=== PATIENT | male | born 1955 | race Caucasian/White ===

== ENCOUNTER 2017-08-03 15:12 | Inpatient (IN) ==
[2017-08-03] MEDS ORDERED: methylPREDNISolone 125 MG/2 ML VIAL IVP ONE (15:21)
[2017-08-03] MEDS ORDERED: Ipratropium/Albuterol Neb 3 ML IH ONE ×2 (15:21→20:24)
[2017-08-03] MEDS ORDERED: 0.9 % Sodium Chloride 1,000 ML IVC ONE (15:21)
--- NOTE | 2017-08-03 15:25 | Emergency Department Note ---
Disposition Clinical Impression: COPD (chronic obstructive pulmonary disease) Qualifiers: COPD type: COPD with acute exacerbation Qualified Code(s): J44.1 - Chronic obstructive pulmonary disease with (acute) exacerbation Disposition: Admitted As Inpatient Condition: Good Time of Disposition: 17:22 General Adult HPI - General Chief complaint: ED Shortness of Breath/Dyspnea Stated complaint: SOB Time Seen by Provider: 08/03/17 15:18 Source: patient Mode of arrival: EMS Limitations: no limitations Nursing Notes Reviewed: Yes Vital Signs Reviewed: Yes - History of Present Illness HPI Narrative: 62-year-old male with a history of COPD presented for evaluation of dyspnea. Patient presented via EMS from urgent care. Patient states he had worsening shortness of breath over the past 2 days. Notes a cough. Reports objective fevers. States that he is been on 2 L is cannula at home. Patient also has nebs at home. Patient denies any chest pain. No abdominal pain. No nausea vomiting. Patient is a poor store with difficulty to understand verbal skills. Pain Scale: 0 - Related Data Home Medications Medication Instructions Recorded Confirmed Albuterol Sulfate [Proair 90 mcg IH QID 08/03/17 08/03/17 Respiclick] Ammonium Lactate [Hailey-Hydrolac] 222 ml TP 08/03/17 Atorvastatin [Lipitor] 10 mg PO HS 08/03/17 08/03/17 Fluticasone/Vilanterol [Breo 1 each IH 08/03/17 Ellipta 100-25 Mcg INH] LORazepam [Ativan] 0.5 mg PO 08/03/17 OLANZapine [Zyprexa] 10 mg PO 08/03/17 OLANZapine [Zyprexa] 15 mg HS 08/03/17 08/03/17 Ranitidine HCl [Zantac] 150 mg BID 08/03/17 08/03/17 fluvoxaMINE 50 mg PO DAILY 08/03/17 08/03/17 fluvoxaMINE [Luvox] 100 mg PO HS 08/03/17 08/03/17 metFORMIN [Glucophage] 500 mg HS 08/03/17 08/03/17 Previous Rx's Medication Instructions Recorded Azithromycin [Azithromycin 6-Tab 250 mg PO PER PKG DI #6 tab 01/09/16 Pack] Carbamide Peroxide [Murine Ear 15 ml OT BID #1 drops 01/09/16 Drops] predniSONE [PredniSONE] 60 mg PO DAILY #5 tablet 01/09/16 Azithromycin [Azithromycin 6-Tab 250 mg PO PER PKG DI #6 tab 04/07/16 Pack] Cetirizine HCl/Pseudoephedrine 1 each PO BID #14 tab.er.12h 04/07/16 [Cetirizine-Pse ER 5-120 mg Tab] Albuterol Sulfate [Albuterol 2 puff IH Q4HR PRN #1 hfa.aer.ad 09/19/16 Inhaler] predniSONE [PredniSONE] 60 mg PO DAILY #15 tablet 09/19/16 Benzonatate [Tessalon] 100 mg PO TID PRN #12 capsule 07/28/17 PredniSONE [Deltasone] 60 mg PO DAILY 5 Days #15 tablet 07/28/17 Allergies Allergy/AdvReac Type Severity Reaction Status Date / Time Amoxicillin [From Trimox] Allergy Hives Verified 04/15/17 07:42 cephalexin Allergy Hives Verified 04/15/17 07:42 diazepam [From Valium] Allergy Hallucinati Verified 04/15/17 07:42 ng haloperidol [From Haldol] Allergy Hallucinati Verified 04/15/17 07:42 ng Penicillins Allergy Hives Verified 04/15/17 07:42 All systems ED: reviewed and negative except as stated. Constitutional: Reports: as per HPI. Denies: fever Eyes: Reports: as per HPI ENT ED: Reports: as per HPI Cardiovascular: Reports: as per HPI. Denies: chest pain Respiratory: Reports: as per HPI, cough, dyspnea. Denies: sputum production Gastrointestinal: Reports: as per HPI Genitourinary: Reports: as per HPI Musculoskeletal: Reports: as per HPI Integumentary: Reports: as per HPI Neurological: Reports: as per HPI Psychiatric: Reports: as per HPI Endocrine: Reports: as per HPI Hematological/Lymphatic: Reports: as per HPI Past Medical History - Past Medical History Medical history: Reports: COPD, diabetes, hyperlipidemia, hypertension, myocardial infarction, thyroid disease Surgical history: Reports: non-contributory, other Psychiatric history: Reports: anxiety, schizophrenia - Social History Smoking Status: Current every day smoker Smokeless Tobacco Status: No Alcohol use: Reports: none Drug use: Reports: none Physical Exam - General Limitations: no limitations General appearance: alert, in no apparent distress - Head Head exam: atraumatic, normocephalic, normal inspection - Eye Eye exam: Present: normal appearance, PERRL, EOMI - ENT ENT exam: normal exam, mucous membranes moist - Neck Neck exam: Present: normal inspection, trachea midline - Chest Chest inspection: Present: normal inspection, symmetric chest wall rise - Respiratory Respiratory exam: Present: prolonged expiratory phase, other (Diffusely diminished with inspiratory rhonchi). Absent: respiratory distress - Cardiovascular Cardiovascular exam: Present: regular rate, normal rhythm. Absent: systolic murmur - Abdominal Exam Abdominal exam: Present: soft, Non-Tender - Extremities Exam Extremities exam: Present: normal inspection. Absent: pedal edema - Neurological Exam Neurological exam: Present: alert, oriented X3 - Skin Skin exam: Present: warm, dry, intact, normal color Course Course Narrative: Patient seen and examined. Patient appears to be in no acute distress. Patient was given albuterol in route. Patient will get basic labs, EKG, chest x -ray. Also noted triple nebs as well as steroids. Disposition pending. - Reevaluation(s) Reevaluation #1: Patient seen and examined. Patient's breathing is less labored. Patient's lung exam is slightly improved. Patient remains borderline hypoxic on his home oxygen saturation 2 L. Time: 16:20 Reevaluation #2: Patient ambulated and was hypoxic. Patient was in the mid to low 80s on his home oxygen therapy. Patient will be admitted the hospital service for COPD exacerbation. Time: 17:21 Vital Signs Temperature 98.8 F 08/03/17 15:13 Pulse Rate 82 08/03/17 15:13 Respiratory Rate 22 08/03/17 15:13 Blood Pressure 130/98 08/03/17 15:13 O2 Sat by Pulse Oximetry 98 08/03/17 15:13 Temperature 98.5 F 08/04/17 19:24 Pulse Rate 88 08/04/17 19:24 Respiratory Rate 19 08/04/17 19:45 Blood Pressure 108/67 08/04/17 19:24 O2 Sat by Pulse Oximetry 91 08/04/17 19:45 Oxygen Delivery Oxygen Delivery Nasal Cannula Medical Decision Making - [facility] Narrative Medical decision making narrative: 62-year-old male with a history of COPD presents for violation of dyspnea. Patient states that his dyspnea has been progressing over the past 2 days. Does dyspnea at rest or with exertion. Patient received a DuoNeb prior to arrival. Patient states that he typically does not wear his prescribe oxygen all the time however has recently been on 2 L. Patient received troponin as well as IV steroids. Patient's breathing improved on current therapies. Patient however states that he does feel hypoxic and did not tolerate a ambulatory trial. Patient does appear to have a slower mentation. Concerned that the patient would not tolerate prescribed outpatient plan and will require increasing oxygen requirements and monitoring. Patient does not have any chest pain. Patient does not have a productive cough. However Zithromax was ordered to help with anti-inflammatory nature of his bronchitis. Patient simply needs improved respiratory monitoring. Patient does not have any risk factors for pulmonary embolism. Patient does not have a pleuritic chest pain. The patient' s most likely reason for his hypoxia is a COPD. Patient is not tachycardic and does not have any chest pain. He is agreeable for admission. - Lab Data Lab results reviewed: Yes I reviewed the patient's lab results. Result diagrams: 08/04/17 04:16 08/04/17 04:16 Lab Results 08/03/17 08/03/17 08/03/17 Range/Units 15:28 15:28 15:28 WBC 12.1 H (4.3-11.1) K/mcL RBC 4.94 (4.19-5.50) M/mcL Hgb 16.2 (12.9-16.9) g/dL Hct 49.9 (37.5-50.1) % MCV 101.0 H (83.0-100.0) fL MCH 32.8 (28.0-33.3) pg MCHC 32.5 (31.6-35.5) g/dL RDW 13.2 (11.5-14.5) % Plt Count 182 (140-400) K/mcL MPV 9.8 (9.4-12.4) fL Immature Gran % 0.3 (0-4) % Seg Neutrophils % 67.5 % Lymphocytes % 21.7 % Monocytes % 9.9 % Eosinophils % 0.4 % Basophils % 0.2 % Neutrophils # 8.2 (1.6-8.9) K/mcL Lymphocytes # 2.6 (0.6-4.6) K/mcL Monocytes # 1.2 (0.0-1.3) K/mcL Eosinophils # 0.1 (0.0-0.6) K/mcL Basophils # 0.0 (0.0-0.2) K/mcL Sodium 138 (136-145) mEq/L Potassium 4.1 (3.5-5.1) mEq/L Chloride 99 (98-107) mEq/L Carbon Dioxide 37 H (23-29) mEq/L BUN 17 (8-23) mg/dL Creatinine 0.85 (0.70-1.30) mg/dL Est GFR ( Amer) > 60 (> 60) Est GFR (Non-Af Amer) > 60 (> 60) BUN/Creatinine Ratio 20 (6-26) Glucose 91 (70-105) mg/dL Calculated Osmolality 287 (280-300) Calcium 9.2 (8.6-10.3) mg/dL Troponin I < 0.03 (< 0.04) ng/mL B-Natriuretic Peptide (Less than 100) pg/mL 08/03/17 Range/Units 15:28 WBC (4.3-11.1) K/mcL RBC (4.19-5.50) M/mcL Hgb (12.9-16.9) g/dL Hct (37.5-50.1) % MCV (83.0-100.0) fL MCH (28.0-33.3) pg MCHC (31.6-35.5) g/dL RDW (11.5-14.5) % Plt Count (140-400) K/mcL MPV (9.4-12.4) fL Immature Gran % (0-4) % Seg Neutrophils % % Lymphocytes % % Monocytes % % Eosinophils % % Basophils % % Neutrophils # (1.6-8.9) K/mcL Lymphocytes # (0.6-4.6) K/mcL Monocytes # (0.0-1.3) K/mcL Eosinophils # (0.0-0.6) K/mcL Basophils # (0.0-0.2) K/mcL Sodium (136-145) mEq/L Potassium (3.5-5.1) mEq/L Chloride (98-107) mEq/L Carbon Dioxide (23-29) mEq/L BUN (8-23) mg/dL Creatinine (0.70-1.30) mg/dL Est GFR ( Amer) (> 60) Est GFR (Non-Af Amer) (> 60) BUN/Creatinine Ratio (6-26) Glucose (70-105) mg/dL Calculated Osmolality (280-300) Calcium (8.6-10.3) mg/dL Troponin I (< 0.04) ng/mL B-Natriuretic Peptide 65 (Less than 100) pg/mL - Radiology Data Radiology results reviewed: Yes I reviewed the patient's radiology results. Chest X-Ray 08/03/17 15:21 IMPRESSION: No acute cardiopulmonary disease. Moderate-sized hiatal hernia. D/ / Vinay Dumont MD / Vinay Dumont MD Interpreting Provider: Vinay Dumont MD - EKG Data EKG #1 EKG attestation: Yes I reviewed and interpreted this EKG. EKG shows normal: sinus rhythm Rate: normal Rhythm: NSR [place]/QRS: normal Q waves: II, III, aVF Interpretation: no acute changes, nonspecific ST-T wave changes S.B.A.R. - S.B.A.RCristi Situation: Demographics Background: Presenting Complaint Assessment: Vital Signs, Course and respsone to treatment, Patient/Family Expectation Recommendation: Barrier(s) to disposition, Recommendation based on pending studies, treatments, or consults S.B.A.R. Report Given to: Dr. Julia Perez Repor Time: 17:28 Attestation Statement - Attestation Attestation: I examined this patient and my medical decision-making was reviewed with the Resident Physician. I agree with the documented findings, disposition and treatment plan as described except to the extent set forth below. 62-year-old male presents stating that his difficulty breathing. He does have history of COPD and chronically on home oxygen. He has had increased dyspnea for the past 2 days along with a nonproductive cough. He does continue smoking cigarettes. He was not adequately responding to home treatments and prompting him to come to the ED. Denies fevers or chills. Cough is nonproductive. No vomiting. Patient is in no apparent distress except for slight tachypnea. Oropharynx extremities warm and dry. Neck supple. Trachea midline. Chest with diminished breath sounds throughout with lateral expiratory wheezes. No focal consolidation. Abdomen soft nondistended nontender. Extremities well perfused , warm and dry without asymmetric edema. Chest x-ray is negative for acute process. Metabolic workup was unremarkable. He was provided sequential DuoNeb treatments with marginal improvement but was not well enough for discharge home and was admitted for further treatment.
[2017-08-03 15:41] LABS: Basophils % 0.2 %; Eosinophils # 0.1 K/mcL (0.0-0.6); Eosinophils % 0.4 %; Hematocrit 49.9 % (37.5-50.1); Hemoglobin 16.2 g/dL (12.9-16.9); Immature Granulocytes % 0.3 % (0-4); Lymphocytes # 2.6 K/mcL (0.6-4.6); Lymphocytes % 21.7 %; Mean Corpuscular HGB Conc 32.5 g/dL (31.6-35.5); Mean Corpuscular Hemoglobin 32.8 pg (28.0-33.3); Mean Platelet Volume 9.8 fL (9.4-12.4); Monocytes # 1.2 K/mcL (0.0-1.3); Monocytes % 9.9 %; Neutrophils # 8.2 K/mcL (1.6-8.9); Platelet Count 182 K/mcL (140-400); Red Blood Count 4.94 M/mcL (4.19-5.50); Red Cell Distribution Width 13.2 % (11.5-14.5); Segmented Neutrophils % 67.5 %
[2017-08-03 15:49] LABS: Calcium 9.2 mg/dL (8.6-10.3); Carbon Dioxide 37 mEq/L (23-29); Chloride 99 mEq/L (98-107); Potassium 4.1 mEq/L (3.5-5.1); Sodium 138 mEq/L (136-145)
[2017-08-03 15:54] LABS: BUN/Creatinine Ratio 20 (6-26); Blood Urea Nitrogen 17 mg/dL (8-23); Glucose 91 mg/dL (70-105); Osmolality,Calculated 287 (280-300); eGFR For African Americans > 60 (> 60); eGFR For Non-African Americans > 60 (> 60)
[2017-08-03] MEDS ORDERED: Azithromycin 500 MG in D5% in Water 250 ML IVPB ONE (17:29)
[2017-08-03] MEDS ORDERED: Ipratropium/Albuterol Neb 3 ML ONE (20:30)
[2017-08-03] MEDS ORDERED: Naloxone 0.4 MG/ML INJ IVP PRN (20:43)
[2017-08-03] MEDS ORDERED: Ondansetron 4 MG/2 ML VIAL IVP PRN (20:43)
--- NOTE | 2017-08-03 20:51 | Internal Med History&Physical ---
Date of Encounter: 08/03/17 Time of Encounter: 20:10 Assessment and Plan (1) Acute exacerbation of chronic obstructive airways disease Current visit: No Status: Acute Continue systemic steroids (Solumedrol 40mg IV q8h )and bronchodilator support IV abx O2 supplementation monitor O2 sat, goal O2 sat: 88-92% Guaifenesin PRN cough will closely monitor respiratory status will obtain respiratory viral panel please restart home medications after verification (2) DVT prophylaxis Current visit: Yes Status: Acute Heparin SQ (3) Obesity (BMI 30-39.9) Current visit: Yes Status: Chronic (4) Tobacco abuse Current visit: Yes Status: Acute smoking cessation counseling provided refused nicotine supplementation therapy Internal Medicine - H&P: HPI Chief complaint: shortness of breath Admitted From: Home Plans for Post Hospital Care: Home History of present illness: Mr. Montiel is a 62 year old male with PMH Of COPD on LTOT, HTN, schizophrenia presented to the ER for evaluation of worsening shortness of breath for the last two days. Reports of non productive cough and shortness of breath that is not relieved with his home nebulizer treatments. Reports of being on 2L NC at home and is currently requiring 4L NC. Denies any fevers or chills. Pt is AAO x 3 but appears to have some cognition deficit. Reports of being an every day smoker Past Med Surg Social Fam HX - Past Medical History Medical history: COPD, diabetes, hyperlipidemia, hypertension, myocardial infarction, thyroid disease Psychiatric history: anxiety, schizophrenia - Past Surgical History Surgical History: non-contributory, other - Social History Smoking Status: Current every day smoker Smokeless Tobacco Status: No Alcohol use: none Drug use: none Internal Medicine - H&P: Meds Azithromycin [Azithromycin 6-Tab Pack] 250 mg PO PER PKG DI #6 tab 01/09/16 [Rx] Carbamide Peroxide [Murine Ear Drops] 15 ml OT BID #1 drops 01/09/16 [Rx] predniSONE [PredniSONE] 60 mg PO DAILY #5 tablet 01/09/16 [Rx] Azithromycin [Azithromycin 6-Tab Pack] 250 mg PO PER PKG DI #6 tab 04/07/16 [Rx] Cetirizine HCl/Pseudoephedrine [Cetirizine-Pse ER 5-120 mg Tab] 1 each PO BID # 14 tab.er.12h 09/15/16 [Rx] Albuterol Sulfate [Albuterol Inhaler] 2 puff IH Q4HR PRN #1 hfa.aer.ad 09/19/16 [Rx] predniSONE [PredniSONE] 60 mg PO DAILY #15 tablet 09/19/16 [Rx] Benzonatate [Tessalon] 100 mg PO TID PRN #12 capsule 07/28/17 [Rx] PredniSONE [Deltasone] 60 mg PO DAILY 5 Days #15 tablet 07/28/17 [Rx] 3 Allergy/AdvReac Type Severity Reaction Status Date / Time Amoxicillin [From Trimox] Allergy Hives Verified 04/15/17 07:42 cephalexin Allergy Hives Verified 04/15/17 07:42 diazepam [From Valium] Allergy Hallucinati Verified 04/15/17 07:42 ng haloperidol [From Haldol] Allergy Hallucinati Verified 04/15/17 07:42 ng Penicillins Allergy Hives Verified 04/15/17 07:42 All Systems PM: A 10-system review of systems was performed and is negative for pertinent findings except as documented above in the HPI. - Constitutional Constitutional: as per HPI - Constitutional Vitals: Temp Pulse Resp BP Pulse Ox 98.8 F 83 16 130/78 92 08/03/17 15:13 08/03/17 20:04 08/03/17 20:33 08/03/17 20:33 08/03/17 20:33 General appearance: Present: A&O X 3, no acute distress, obese - Head Head exam: Present: atraumatic, normocephalic - Eye Eye exam: Present: conjuntiva pink, sclera anicteric - Respiratory Respiratory exam: Absent: accessory muscle use, chest wall tenderness, respiratory distress, wheezes (decreased breath sounds diffusely, minimal inspiratory effort) - Cardiovascular Cardiovascular exam: Present: RRR, +S1, +S2. Absent: diastolic murmur, gallop, rubs, systolic murmur - GI/Abdominal GI/Abdominal exam: Present: normal bowel sounds, soft, no peritoneal signs. Absent: distended, tenderness - Extremities Exam Extremities exam: Present: warm, radial pulses palpable and symmetrical. Absent : calf tenderness, cyanotic, pedal edema - Neurological Exam Neurological exam: Present: alert, oriented X3 - Psychiatric Psychiatric exam: Present: normal affect, normal mood Internal Med - H&P Results - Labs CBC & Chem 7: 08/03/17 15:28 08/03/17 15:28
[2017-08-03] MEDS ORDERED: Dextrose Gel 15 GM/37.5 ML TUBE PO PRN ×2 (22:41)
[2017-08-03] MEDS ORDERED: D5% in Water 1,000 ML IVC PRN (22:41)
[2017-08-03] MEDS ORDERED: *HR* Dextrose 50 % in Water (Syg) 50 ML SYRINGE IVP PRN (22:41)
[2017-08-03] MEDS: *HR* Heparin 5,000 UNIT/ML VIAL SQ SCH (23:11)
[2017-08-03] MEDS: Famotidine 20 MG TABLET PO SCH (23:11)
[2017-08-03] MEDS: MethylPREDNISolone 40 MG/ML VIAL IVP SCH (23:11)
[2017-08-04] MEDS: Ipratropium/Albuterol Neb 3 ML IH SCH ×7 (00:12→23:25)
[2017-08-04 04:43] LABS: Basophils % 0.1 %; Hematocrit 45.5 % (37.5-50.1); Hemoglobin 14.7 g/dL (12.9-16.9); Immature Granulocytes % 0.4 % (0-4); Lymphocytes # 0.5 K/mcL (0.6-4.6); Lymphocytes % 4.3 %; Mean Corpuscular HGB Conc 32.3 g/dL (31.6-35.5); Mean Corpuscular Hemoglobin 32.4 pg (28.0-33.3); Mean Corpuscular Volume 100.2 fL (83.0-100.0); Mean Platelet Volume 10.1 fL (9.4-12.4); Monocytes # 0.1 K/mcL (0.0-1.3); Monocytes % 1.2 %; Neutrophils # 9.8 K/mcL (1.6-8.9); Platelet Count 161 K/mcL (140-400); Red Blood Count 4.54 M/mcL (4.19-5.50); Red Cell Distribution Width 13.2 % (11.5-14.5)
[2017-08-04 05:09] LABS: BUN/Creatinine Ratio 23 (6-26); Blood Urea Nitrogen 19 mg/dL (8-23); Calcium 8.8 mg/dL (8.6-10.3); Carbon Dioxide 34 mEq/L (23-29); Chloride 101 mEq/L (98-107); Glucose 184 mg/dL (70-105); Magnesium 2.2 mg/dL (1.6-2.6); Osmolality,Calculated 291 (280-300); Phosphorous 3.6 mg/dL (2.7-4.5); Potassium 4.2 mEq/L (3.5-5.1); Sodium 137 mEq/L (136-145); eGFR For African Americans > 60 (> 60); eGFR For Non-African Americans > 60 (> 60)
[2017-08-04] MEDS: *HR* Heparin 5,000 UNIT/ML VIAL SQ SCH ×3 (06:12→20:12)
[2017-08-04] MEDS: Famotidine 20 MG TABLET PO SCH ×2 (08:39→16:38)
[2017-08-04] MEDS: Insulin LISPRO 300 UNITS/3 ML VIAL SQ SCH ×4 (08:39→20:21)
[2017-08-04] MEDS: Levofloxacin 500 MG/100 ML 500 MG/100 ML BAG IVPB SCH (08:40)
[2017-08-04] MEDS: MethylPREDNISolone 40 MG/ML VIAL IVP SCH ×3 (08:40→23:30)
[2017-08-04 10:40] LABS: Adenovirus Not Detected (Not Detect); Coronavirus 229E Not Detected (Not Detect); Coronavirus HKU1 Not Detected (Not Detect); Coronavirus NL63 Not Detected (Not Detect)
[2017-08-04 10:41] LABS: Bordetella Pertussis Not Detected (Not Detect); Chlamydophila pneumoniae Not Detected (Not Detect); Coronavirus OC43 Not Detected (Not Detect); Human Metapneumovirus Not Detected (Not Detect); Human Rhinovirus/Enterovirus Not Detected (Not Detect); Influenza A Subtype 2009 H1 Not Detected (Not Detect); Influenza A Untypeable Not Detected (Not Detect); Influenza B Not Detected (Not Detect); Mycoplasma pneumoniae Not Detected (Not Detect); Parainfluenza Virus 1 Not Detected (Not Detect); Parainfluenza Virus 2 Not Detected (Not Detect); Parainfluenza Virus 3 Not Detected (Not Detect); Parainfluenza Virus 4 Not Detected (Not Detect); Respiratory Syncytial Virus Not Detected (Not Detect)
--- NOTE | 2017-08-04 12:29 | Electrocardiograph Report ---
[address] [place] [address] Test Date: 2017-08-03 Pat Name: Miky Montiel Department: 104 Room: [facility] Gender: M [employer]: : 1955 Requested By: Benny Garcia Order Number: [id number] Reading MD: Frantz Smith MD Measurements Intervals [place] Rate: 83 P: 77 MN: 133 QRS: 42 QRSD: 97 T: 65 QT: 348 QTc: 388 Interpretive Statements SINUS RHYTHM WITH OCCASIONAL VENTRICULAR PREMATURE COMPLEXES INFERIOR MYOCARDIAL INFARCTION, OF INDETERMINATE AGE Electronically Signed On 08-04-2017 12:27:30 EST by Frantz Smith MD
--- NOTE | 2017-08-04 16:14 | Internal Med Progress Note ---
Date of Encounter: 08/04/17 Time of Encounter: 10:15 - Assessment and plan (1) Acute exacerbation of chronic obstructive airways disease Current Visit: Yes Status: Acute Assessment and plan: Continue current management with systemic steroids and bronchodilators. Continue O2 supplementation. Respiratory panel was negative. Moderate risk for complications. (2) Obesity (BMI 30-39.9) Current Visit: Yes Status: Chronic (3) DVT prophylaxis Current Visit: Yes Status: Acute Assessment and plan: With subcutaneous heparin (4) Tobacco abuse Current Visit: Yes Status: Acute (5) Acute and chronic respiratory failure with hypoxia Current Visit: Yes Status: Acute Assessment and plan: Continue O2 supplementation. - Subjective Interval history: Patient continues to have shortness of breath although it is improved compared to his initial presentation. Was feeling cold in his room overnight. He feels better this morning. No fever reported. Continues to have cough. - Constitutional Vitals: Temp Pulse Resp BP Pulse Ox 98.3 F 80 16 110/67 91 08/04/17 11:12 08/04/17 11:12 08/04/17 11:57 08/04/17 11:12 08/04/17 11:57 General appearance: Present: A&O X 3, no acute distress, obese, answers questions appropriately - Neck Neck exam general surgery: Present: supple, trachea midline. Absent: lymphadenopathy - Respiratory Respiratory exam: Present: prolonged expiratory phase, wheezes (Bilateral expiratory). Absent: accessory muscle use, rales, rhonchi - Cardiovascular Cardiovascular exam: Present: RRR, +S1, +S2. Absent: diastolic murmur, gallop, rubs, systolic murmur - GI/Abdominal GI/Abdominal exam: Present: normal bowel sounds, soft, no peritoneal signs. Absent: distended, tenderness - Extremities Exam Extremities exam: Present: warm, radial pulses palpable and symmetrical. Absent : calf tenderness, cyanotic, pedal edema Internal Medicine: Result - Labs CBC & Chem 7: 08/04/17 04:16 08/04/17 04:16 Labs: Short CBC 08/04/17 Range/Units 04:16 WBC 10.4 (4.3-11.1) K/mcL Hgb 14.7 D (12.9-16.9) g/dL Hct 45.5 (37.5-50.1) % Plt Count 161 (140-400) K/mcL Neutrophils # 9.8 H (1.6-8.9) K/mcL BMP 08/04/17 04:16 Sodium 137 Potassium 4.2 Chloride 101 Carbon Dioxide 34 H BUN 19 Creatinine 0.84 Glucose 184 H Calcium 8.8 - VTE Documentation of Mechanical Device: Intermittent pneumatic compression device Consult Discharge Plan - Plan Referrals: Angela Smith DO [Primary Care Provider] -
[2017-08-04] MEDS: OLANZapine 5 MG TAB.RAPDIS PO SCH (20:12)
[2017-08-04] MEDS ORDERED: *HR* Metformin 500 MG TABLET PO SCH (21:00)
[2017-08-05] MEDS: Ipratropium/Albuterol Neb 3 ML IH SCH ×6 (03:40→23:55)
[2017-08-05] MEDS: *HR* Heparin 5,000 UNIT/ML VIAL SQ SCH ×3 (05:18→21:38)
[2017-08-05] MEDS: Levofloxacin 500 MG/100 ML 500 MG/100 ML BAG IVPB SCH (10:28)
[2017-08-05] MEDS: GuaiFENesin Liq 200 MG/10 ML UDC PO PRN ×2 (10:28→18:05)
[2017-08-05] MEDS: Insulin LISPRO 300 UNITS/3 ML VIAL SQ SCH ×4 (10:29→21:37)
[2017-08-05] MEDS: Famotidine 20 MG TABLET PO SCH ×2 (10:30→18:04)
[2017-08-05] MEDS: MethylPREDNISolone 40 MG/ML VIAL IVP SCH ×2 (10:32→18:04)
--- NOTE | 2017-08-05 16:43 | Internal Med Progress Note ---
Date of Encounter: 08/05/17 Time of Encounter: 10:40 - Assessment and plan (1) Acute exacerbation of chronic obstructive airways disease Current Visit: Yes Status: Acute Assessment and plan: Continue bronchodilators. We will begin to taper steroids. Continue O2 supplementation. Wean FiO2 as tolerated. Also will consult physical therapy for evaluation as patient appears to be weak and has not been ambulating much. (2) Obesity (BMI 30-39.9) Current Visit: Yes Status: Chronic (3) DVT prophylaxis Current Visit: Yes Status: Acute Assessment and plan: on SQ heparin (4) Tobacco abuse Current Visit: Yes Status: Acute (5) Acute and chronic respiratory failure with hypoxia Current Visit: Yes Status: Acute Assessment and plan: Remains on 4L /min NC. Due to COPD. Continue to wean FiO2 as tolerated. Will also use incentive spirometry - Subjective Interval history: Patient is just waking up. Feels somewhat better today. Does feel weak overall. Has not been able to ambulate much. Remains on O2 supplementation at 4 L/m. - Constitutional Vitals: Temp Pulse Resp BP Pulse Ox 97.7 F 86 18 105/63 96 08/05/17 12:22 08/05/17 12:22 08/05/17 12:22 08/05/17 12:22 08/05/17 12:22 General appearance: Present: A&O X 3, no acute distress, obese, answers questions appropriately - Neck Neck exam general surgery: Present: supple, trachea midline. Absent: lymphadenopathy - Respiratory Respiratory exam: Present: decreased breath sounds (Decreased air entry bilaterally), prolonged expiratory phase, wheezes. Absent: accessory muscle use , rales, rhonchi - Cardiovascular Cardiovascular exam: Present: RRR, +S1, +S2. Absent: diastolic murmur, gallop, rubs, systolic murmur - GI/Abdominal GI/Abdominal exam: Present: normal bowel sounds, soft, no peritoneal signs. Absent: distended, tenderness - Extremities Exam Extremities exam: Present: warm, radial pulses palpable and symmetrical. Absent : calf tenderness, cyanotic, pedal edema Internal Medicine: Result - Labs CBC & Chem 7: 08/04/17 04:16 08/04/17 04:16 - VTE Documentation of Mechanical Device: Intermittent pneumatic compression device Consult Discharge Plan - Plan Referrals: Angela Smith DO [Primary Care Provider] -
[2017-08-05] MEDS: OLANZapine 5 MG TAB.RAPDIS PO SCH (21:37)
[2017-08-06] MEDS: MethylPREDNISolone 40 MG/ML VIAL IVP SCH ×2 (00:48→08:33)
[2017-08-06] MEDS: Ipratropium/Albuterol Neb 3 ML IH SCH ×6 (04:23→23:33)
[2017-08-06] MEDS: *HR* Heparin 5,000 UNIT/ML VIAL SQ SCH ×3 (05:20→20:57)
[2017-08-06] MEDS: Insulin LISPRO 300 UNITS/3 ML VIAL SQ SCH ×4 (07:40→21:04)
[2017-08-06] MEDS: Famotidine 20 MG TABLET PO SCH ×2 (08:34→16:32)
[2017-08-06] MEDS: Levofloxacin 500 MG/100 ML 500 MG/100 ML BAG IVPB SCH (08:34)
--- NOTE | 2017-08-06 13:47 | Internal Med Progress Note ---
Date of Encounter: 08/06/17 Time of Encounter: 10:40 - Assessment and plan (1) Acute and chronic respiratory failure with hypoxia Current Visit: Yes Status: Acute Assessment and plan: Crit on 3.5 L of O2 supplementation today. We will wean as tolerated (2) Acute exacerbation of chronic obstructive airways disease Current Visit: Yes Status: Acute Assessment and plan: Continue O2 supplementation. Taper steroids. Patient remains on a half liters O2 supplementation. We will wean as tolerated. Pt/OT consult. (3) Obesity (BMI 30-39.9) Current Visit: Yes Status: Chronic (4) DVT prophylaxis Current Visit: Yes Status: Acute Assessment and plan: Continue subcutaneous heparin (5) Tobacco abuse Current Visit: Yes Status: Acute - Subjective Interval history: Patient feels better today. Denies any chest pain. Shortness of breath improving. Denies any wheezing. No fever or chills - Constitutional Vitals: Temp Pulse Resp BP Pulse Ox 97.8 F 85 16 121/76 91 08/06/17 11:51 08/06/17 11:51 08/06/17 11:51 08/06/17 11:51 08/06/17 11:51 General appearance: Present: A&O X 3, no acute distress, obese, answers questions appropriately - Respiratory Respiratory exam: Present: decreased breath sounds (Decreased air entry bilaterally), prolonged expiratory phase. Absent: accessory muscle use, rales, rhonchi, wheezes - Cardiovascular Cardiovascular exam: Present: RRR, +S1, +S2. Absent: diastolic murmur, gallop, rubs, systolic murmur - GI/Abdominal GI/Abdominal exam: Present: normal bowel sounds, soft, no peritoneal signs. Absent: distended, tenderness - Extremities Exam Extremities exam: Present: warm, radial pulses palpable and symmetrical. Absent : calf tenderness, cyanotic, pedal edema Internal Medicine: Result - Labs CBC & Chem 7: 08/04/17 04:16 08/04/17 04:16 - VTE Documentation of Mechanical Device: Intermittent pneumatic compression device Consult Discharge Plan - Plan Referrals: Angela Smith DO [Primary Care Provider] -
[2017-08-06] MEDS: OLANZapine 5 MG TAB.RAPDIS PO SCH (20:58)
[2017-08-07] MEDS: Ipratropium/Albuterol Neb 3 ML IH SCH ×4 (04:08→12:03)
[2017-08-07] MEDS: *HR* Heparin 5,000 UNIT/ML VIAL SQ SCH (04:53)
[2017-08-07] MEDS: Famotidine 20 MG TABLET PO SCH (08:46)
[2017-08-07] MEDS: Insulin LISPRO 300 UNITS/3 ML VIAL SQ SCH ×2 (08:47→12:14)
[2017-08-07] MEDS: Levofloxacin 500 MG/100 ML 500 MG/100 ML BAG IVPB SCH (08:47)
[2017-08-07] MEDS ORDERED: predniSONE 20 MG TABLET PO SCH (09:00)
[2017-08-07 11:31] VITALS: BP 111/69
--- NOTE | 2017-08-07 11:36 | Discharge Summary ---
Date of Encounter: 08/07/17 Time of Encounter: 11:31 - Discharge Diagnosis (1) Acute and chronic respiratory failure with hypoxia Priority: Primary Status: Acute (2) Acute exacerbation of chronic obstructive airways disease Priority: Secondary Status: Acute (3) Obesity (BMI 30-39.9) Priority: Secondary Status: Chronic (4) DVT prophylaxis Priority: Secondary Status: Acute (5) Tobacco abuse Priority: Secondary Status: Acute - Discharge Medications Prescriptions: levoFLOXacin [Levaquin] 750 mg PO DAILY #4 tablet predniSONE [PredniSONE] 10 mg PO DAILY 8 Days tablet Home Medications: Carbamide Peroxide [Murine Ear Drops] 15 ml OT BID #1 drops 01/09/16 [Rx] Azithromycin [Azithromycin 6-Tab Pack] 250 mg PO PER PKG DI #6 tab 04/07/16 [Rx] Albuterol Sulfate [Albuterol Inhaler] 2 puff IH Q4HR PRN #1 hfa.aer.ad 09/19/16 [Rx] Benzonatate [Tessalon] 100 mg PO TID PRN #12 capsule 07/28/17 [Rx] Albuterol Sulfate [Proair Respiclick] 90 mcg IH QID 08/03/17 [History] Ammonium Lactate [Hailey-Hydrolac] 222 ml TP 08/03/17 [History] Atorvastatin [Lipitor] 10 mg PO HS 08/03/17 [History] Fluticasone/Vilanterol [Breo Ellipta 100-25 Mcg INH] 1 each IH 08/03/17 [History ] fluvoxaMINE [Luvox] 100 mg PO HS 08/03/17 [History] metFORMIN [Glucophage] 500 mg HS 08/03/17 [History] OLANZapine [Zyprexa] 15 mg PO HS #0 08/07/17 [Rx] Ranitidine HCl [Zantac] 150 mg PO BID #0 08/07/17 [Rx] levoFLOXacin [Levaquin] 750 mg PO DAILY #4 tablet 08/07/17 [Rx] predniSONE [PredniSONE] 10 mg PO DAILY 8 Days tablet 08/07/17 [Rx] Allergies/Adverse Reactions: 3 Allergy/AdvReac Type Severity Reaction Status Date / Time Amoxicillin [From Trimox] Allergy Hives Verified 04/15/17 07:42 cephalexin Allergy Hives Verified 04/15/17 07:42 diazepam [From Valium] Allergy Hallucinati Verified 04/15/17 07:42 ng haloperidol [From Haldol] Allergy Hallucinati Verified 04/15/17 07:42 ng Penicillins Allergy Hives Verified 04/15/17 07:42 Date of admission: 08/05/17 16:31 Primary care physician: Angela Smith DO Consults: 08/06/17 13:42 Consult to Occupational Therapy [CONS] Routine Comment: Evaluate, develop and implement POC Reason for Consult: Evaluate for home safety Consult to Physical Therapy [CONS] Routine Comment: Evaluate, develop and implement POC Reason for Consult: Evaluate for home safety Discharging clinician: Ian Hong Anticipated date of discharge: 08/07/17 - Patient Status Disposition: Home, Self-Care Condition: Good Functional capacity at discharge: independent ambulation Overall status at discharge: patient is progressing back to baseline - Discharge Instructions Instructions: Chronic Obstructive Pulmonary Disease (DC) Follow Up With: Angela Smith DO [Primary Care Provider] - (in 1-2 weeks) - Diet and Activity Activity: increase activity as tolerated, wear oxygen at all times Diet: low fat, low cholesterol, low salt diet Hospital course: Mr. Montiel is a 62 year old male patient with a history of COPD on chronic home oxygen at 2 L/m, hypertension, she discontinued was hospitalized here with acute episode of COPD exacerbation. He was treated with intravenous steroids, bronchodilators. His respiratory panel was negative for any viral infection. Chest x-ray did not show any acute infiltrate. Patient was initially requiring 4.5 L O2 supplementation and this has now been transitioned back to 2L/min. He has been evaluated by physical therapy and recommended no further that he go back to his prior living situation. He is clinically stable to be discharged home. He will be discharged on prednisone taper and will complete a short course of antibiotic therapy for his COPD episode. He will follow up with his primary care provider for further management. - Time Spent with Patient Total time spent providing and/or coordinating discharge services: - Constitutional Vitals: Temp Pulse Resp BP Pulse Ox 97.8 F 65 16 117/78 96 08/07/17 07:21 08/07/17 07:21 08/07/17 08:10 08/07/17 07:21 08/07/17 08:10 General appearance: Present: A&O X 3, no acute distress, obese, answers questions appropriately - Respiratory Respiratory exam: Present: CTAB. Absent: accessory muscle use, rales, rhonchi, wheezes - Cardiovascular Cardiovascular exam: Present: RRR, +S1, +S2. Absent: diastolic murmur, gallop, rubs, systolic murmur - GI/Abdominal GI/Abdominal exam: Present: normal bowel sounds, soft, no peritoneal signs. Absent: distended, tenderness - Extremities Exam Extremities exam: Present: warm, radial pulses palpable and symmetrical. Absent : calf tenderness, cyanotic, pedal edema - Neurological Exam Neurological exam: Present: alert, oriented X3, no focal deficits. Absent: facial droop, speech deficit - Skin Skin exam: Present: dry, intact - VTE Documentation of Mechanical Device: Intermittent pneumatic compression device
== END 2017-08-07 14:30 | disposition home or self-care (01) | DRG 190 ==
LOC: 3NENU 15:12 → EMEROO 15:12 → SUATTDRO 20:18 → 3NENU 21:03
PROVIDERS: ADMIT Internal Medicine; ATTEND Internal Medicine

== ENCOUNTER 2020-02-25 03:41 | Observation (INO) ==
[2020-02-25] MEDS ORDERED: Ipratropium/Albuterol Neb 3 ML IH ONE (04:16)
[2020-02-25] MEDS ORDERED: methylPREDNISolone 125 MG/2 ML VIAL IVP ONE (04:17)
[2020-02-25 04:57] LABS: Basophils # 0.1 K/mcL (0.0-0.2); Basophils % 0.6 %; Eosinophils # 0.3 K/mcL (0.0-0.6); Hemoglobin 14.2 g/dL (12.9-16.9); Immature Granulocytes % 0.2 % (0-4); Lymphocytes # 2.7 K/mcL (0.6-4.6); Lymphocytes % 26.6 %; Mean Corpuscular HGB Conc 32.3 g/dL (31.6-35.5); Mean Corpuscular Hemoglobin 33.1 pg (28.0-33.3); Mean Corpuscular Volume 102.6 fL (83.0-100.0); Mean Platelet Volume 10.1 fL (9.4-12.4); Monocytes # 1.2 K/mcL (0.0-1.3); Monocytes % 11.5 %; Neutrophils # 5.9 K/mcL (1.6-8.9); Platelet Count 190 K/mcL (140-400); Red Blood Count 4.29 M/mcL (4.19-5.50); Segmented Neutrophils % 58.1 %; White Blood Count 10.2 K/mcL (4.3-11.1)
[2020-02-25 05:11] LABS: BUN/Creatinine Ratio 23 (6-26); Blood Urea Nitrogen 18 mg/dL (8-23); Calcium 9.7 mg/dL (8.6-10.3); Carbon Dioxide 30 mEq/L (23-29); Chloride 102 mEq/L (98-107); Glucose 110 mg/dL (70-105); Osmolality,Calculated 293 (280-300); Potassium 4.2 mEq/L (3.5-5.1); Sodium 140 mEq/L (136-145); eGFR For African Americans > 60 (> 60); eGFR For Non-African Americans > 60 (> 60)
[2020-02-25 05:13] LABS: Troponin I < 0.03 ng/mL (< 0.04)
[2020-02-25 05:32] LABS: ABG Base Excess 5 mEq/L (-2 to 3); ABG HCO3 32 mEq/L (21-27); ABG Oxygen Saturation 91 % (95-98); ABG PCO2 56 mmHg (35-45); ABG PH 7.37 pH Units (7.32-7.45); ABG PO2 64 mmHg (85-104); ABG TCO2 34 mEq/L (20-26)
[2020-02-25] MEDS ORDERED: Doxycycline 100 MG in 0.9 % Sodium Chloride Mini Bag 100 ML IVPB ONE (05:51)
[2020-02-25] MEDS ORDERED: Albuterol 2.5 MG/3 ML NEBULIZER IH ONE (05:56)
[2020-02-25 07:38] LABS: Adenovirus Not Detected (Not Detect); Bordetella Pertussis Not Detected (Not Detect); Chlamydophila pneumoniae Not Detected (Not Detect); Coronavirus 229E Not Detected (Not Detect); Coronavirus HKU1 Not Detected (Not Detect); Coronavirus NL63 Not Detected (Not Detect); Coronavirus OC43 Not Detected (Not Detect); Human Metapneumovirus Not Detected (Not Detect); Human Rhinovirus/Enterovirus Not Detected (Not Detect); Influenza A Subtype 2009 H1 Not Detected (Not Detect); Influenza B Not Detected (Not Detect); Mycoplasma pneumoniae Not Detected (Not Detect); Parainfluenza Virus 1 Not Detected (Not Detect); Parainfluenza Virus 2 Not Detected (Not Detect); Parainfluenza Virus 3 Not Detected (Not Detect); Parainfluenza Virus 4 Not Detected (Not Detect); Respiratory Syncytial Virus Not Detected (Not Detect)
[2020-02-25] MEDS ORDERED: Ondansetron ODT 4 MG TAB.RAPDIS SL PRN (08:02)
[2020-02-25] MEDS ORDERED: Naloxone 0.4 MG/ML INJ IVP PRN (08:02)
[2020-02-25] MEDS ORDERED: Albuterol 2.5 MG/3 ML NEBULIZER IH PRN (08:07)
[2020-02-25] MEDS ORDERED: Dextrose Gel 15 GM/37.5 ML TUBE PO PRN ×2 (08:45)
[2020-02-25] MEDS ORDERED: *HR* Dextrose 50 % in Water (Vial) 50 ML VIAL IVP PRN (08:45)
[2020-02-25] MEDS ORDERED: D5% in Water 1,000 ML IVC PRN (08:45)
[2020-02-25] MEDS: predniSONE 20 MG TABLET PO SCH (10:26)
[2020-02-25] MEDS: Doxycycline 100 MG CAPSULE PO SCH (10:33)
[2020-02-25] MEDS: Ipratropium/Albuterol Neb 3 ML IH SCH ×4 (11:28→23:47)
[2020-02-25] MEDS: Insulin LISPRO 300 UNITS/3 ML VIAL SQ SCH ×2 (11:46→15:51)
[2020-02-25] MEDS: *HR* Heparin 5,000 UNIT/ML VIAL SQ SCH (15:48)
[2020-02-25] MEDS: OLANZapine 10 MG TAB.RAPDIS PO SCH (20:58)
[2020-02-25] MEDS ORDERED: Insulin LISPRO 300 UNITS/3 ML VIAL SQ SCH (21:00)
[2020-02-26] MEDS: Ipratropium/Albuterol Neb 3 ML IH SCH ×3 (04:27→11:36)
[2020-02-26] MEDS: *HR* Heparin 5,000 UNIT/ML VIAL SQ SCH (05:15)
[2020-02-26] MEDS: Budesonide/Formoterol 160/4.5 1 PUFF INH IH SCH ×2 (07:45→07:51)
[2020-02-26] MEDS: Insulin LISPRO 300 UNITS/3 ML VIAL SQ SCH (08:03)
[2020-02-26] MEDS ORDERED: Cholecalciferol (D-3) 1,000 UNIT (25MCG) TABLET PO SCH (09:00)
[2020-02-26] MEDS ORDERED: Loratadine 10 MG TABLET PO SCH (09:00)
[2020-02-26] MEDS: predniSONE 20 MG TABLET PO SCH (09:26)
[2020-02-26] MEDS: OLANZapine 10 MG TAB.RAPDIS PO SCH (09:26)
[2020-02-26] MEDS: Doxycycline 100 MG CAPSULE PO SCH (09:27)
[2020-02-26 09:42] LABS: Hematocrit 41.8 % (37.5-50.1); Hemoglobin 13.6 g/dL (12.9-16.9); Mean Corpuscular HGB Conc 32.5 g/dL (31.6-35.5); Mean Corpuscular Hemoglobin 31.6 pg (28.0-33.3); Mean Corpuscular Volume 97.2 fL (83.0-100.0); Mean Platelet Volume 10.1 fL (9.4-12.4); Platelet Count 205 K/mcL (140-400); Red Cell Distribution Width 12.7 % (11.5-14.5); White Blood Count 15.2 K/mcL (4.3-11.1)
[2020-02-26 10:01] LABS: BUN/Creatinine Ratio 25 (6-26); Blood Urea Nitrogen 16 mg/dL (8-23); Calcium 9.7 mg/dL (8.6-10.3); Carbon Dioxide 30 mEq/L (23-29); Chloride 99 mEq/L (98-107); Glucose 119 mg/dL (70-105); Osmolality,Calculated 276 (280-300); Potassium 4.4 mEq/L (3.5-5.1); Sodium 132 mEq/L (136-145); eGFR For African Americans > 60 (> 60); eGFR For Non-African Americans > 60 (> 60)
[2020-02-26 10:39] VITALS: BP 125/77
== END 2020-02-26 12:32 | disposition home or self-care (01) ==
LOC: 3BNU 03:41 → EMEROOARM 03:41 → SUATTDRO 07:55 → 3BNU 08:42
PROVIDERS: ADMIT Family Medicine; ATTEND Internal Medicine

== ENCOUNTER 2020-07-16 01:02 | Inpatient (IN) ==
[2020-07-16] MEDS ORDERED: Ipratropium/Albuterol Neb 3 ML IH ONE (01:43)
[2020-07-16] MEDS ORDERED: methylPREDNISolone 125 MG/2 ML VIAL IVP ONE (01:49)
[2020-07-16 02:00] LABS: Basophils % 0.1 %; Hematocrit 41.9 % (37.5-50.1); Hemoglobin 13.8 g/dL (12.9-16.9); Immature Granulocytes % 0.4 % (0-4); Lymphocytes # 1.3 K/mcL (0.6-4.6); Mean Corpuscular HGB Conc 32.9 g/dL (31.6-35.5); Mean Corpuscular Hemoglobin 32.1 pg (28.0-33.3); Mean Corpuscular Volume 97.4 fL (83.0-100.0); Mean Platelet Volume 9.9 fL (9.4-12.4); Monocytes # 1.4 K/mcL (0.0-1.3); Monocytes % 10.5 %; Neutrophils # 10.5 K/mcL (1.6-8.9); Platelet Count 177 K/mcL (140-400); Red Cell Distribution Width 12.1 % (11.5-14.5); White Blood Count 13.3 K/mcL (4.3-11.1)
[2020-07-16 02:03] LABS: VBG HCO3 33 mEq/L (21-27); VBG PCO2 71 mmHg (41-51); VBG PH 7.28 pH Units (7.32-7.42); VBG PO2 119 mmHg (25-50)
[2020-07-16 02:26] LABS: Alanine Aminotransferase 17 Units/L (7-52); Albumin 4.2 g/dL (3.5-5.7); Albumin/Globulin Ratio 1.3 (1.1-2.2); Alkaline Phosphatase 78 Units/L (34-104); Aspartate Amino Transferase 25 Units/L (13-39); BUN/Creatinine Ratio 21 (6-26); Bilirubin,Indirect 0.5 mg/dL (0.0-1.0); Bilirubin,Total 0.5 mg/dL (0.3-1.0); Blood Urea Nitrogen 13 mg/dL (8-23); Calcium 9.5 mg/dL (8.6-10.3); Carbon Dioxide 32 mEq/L (23-29); Chloride 94 mEq/L (98-107); Globulin 3.3 g/dL (2.4-3.5); Glucose 118 mg/dL (70-105); Magnesium 1.9 mg/dL (1.6-2.6); Osmolality,Calculated 273 (280-300); Potassium 4.4 mEq/L (3.5-5.1); Sodium 131 mEq/L (136-145); Total Protein 7.5 g/dL (6.4-8.9); Troponin I < 0.03 ng/mL (< 0.04); eGFR For African Americans > 60 (> 60); eGFR For Non-African Americans > 60 (> 60)
[2020-07-16] MEDS ORDERED: Azithromycin 500 MG in 0.9 % Sodium Chloride 250 ML IVPB ONE (02:34)
[2020-07-16] MEDS ORDERED: Albuterol 2.5 MG/3 ML NEBULIZER IH ONE (02:50)
[2020-07-16] MEDS ORDERED: Ondansetron 4 MG/2 ML VIAL IVP PRN (03:08)
[2020-07-16] MEDS ORDERED: Acetaminophen 325 MG TABLET PO PRN (03:08)
[2020-07-16] MEDS ORDERED: *HR* OxyCODONE Immed Rel 5 MG TABLET PO PRN (03:08)
[2020-07-16] MEDS ORDERED: Naloxone 0.4 MG/ML INJ IVP PRN (03:08)
[2020-07-16] MEDS ORDERED: Ipratropium/Albuterol Neb 3 ML IH PRN (03:12)
[2020-07-16] MEDS: Ipratropium/Albuterol Neb 3 ML IH SCH ×6 (03:51→23:56)
[2020-07-16] MEDS: Dexmedetomidine HCl 400 MCG/100 ML MLS IVC SCH ×4 (04:03→21:05)
[2020-07-16 05:55] LABS: Basophils % 0.1 %; Hematocrit 42.2 % (37.5-50.1); Hemoglobin 13.6 g/dL (12.9-16.9); Immature Granulocytes % 0.2 % (0-4); Lymphocytes # 0.3 K/mcL (0.6-4.6); Lymphocytes % 2.4 %; Mean Corpuscular HGB Conc 32.2 g/dL (31.6-35.5); Mean Corpuscular Hemoglobin 31.8 pg (28.0-33.3); Mean Corpuscular Volume 98.6 fL (83.0-100.0); Mean Platelet Volume 9.6 fL (9.4-12.4); Monocytes # 0.1 K/mcL (0.0-1.3); Monocytes % 0.8 %; Neutrophils # 12.6 K/mcL (1.6-8.9); Platelet Count 179 K/mcL (140-400); Red Blood Count 4.28 M/mcL (4.19-5.50); Red Cell Distribution Width 12.3 % (11.5-14.5); Segmented Neutrophils % 96.5 %; White Blood Count 13.1 K/mcL (4.3-11.1)
[2020-07-16 05:57] LABS: INR 1.2; Prothrombin Time 13.4 Seconds (9.4-12.1)
[2020-07-16 06:15] LABS: BUN/Creatinine Ratio 21 (6-26); Blood Urea Nitrogen 15 mg/dL (8-23); Calcium 9.7 mg/dL (8.6-10.3); Carbon Dioxide 33 mEq/L (23-29); Chloride 94 mEq/L (98-107); Glucose 143 mg/dL (70-105); Magnesium 2.1 mg/dL (1.6-2.6); Osmolality,Calculated 275 (280-300); Phosphorous 2.5 mg/dL (2.7-4.5); Potassium 4.7 mEq/L (3.5-5.1); Sodium 131 mEq/L (136-145); eGFR For African Americans > 60 (> 60); eGFR For Non-African Americans > 60 (> 60)
[2020-07-16] MEDS: OLANZapine 10 MG VIAL IM SCH ×2 (08:55→21:04)
[2020-07-16] MEDS ORDERED: OLANZapine 10 MG TAB.RAPDIS PO SCH (09:00)
[2020-07-16] MEDS ORDERED: MethylPREDNISolone 40 MG/ML VIAL IVP SCH (10:00)
[2020-07-16 12:15] LABS: ABG Base Excess 4 mEq/L (-2 to 3); ABG HCO3 33 mEq/L (21-27); ABG Oxygen Saturation 90 % (95-98); ABG PCO2 72 mmHg (35-45); ABG PH 7.28 pH Units (7.32-7.45); ABG PO2 69 mmHg (85-104); ABG TCO2 36 mEq/L (20-26); Blood Gas Pressure Support 4 cm H2O
[2020-07-16 13:00] LABS: Bilirubin,Urine Negative (Negative); Blood,Urine Negative (Negative); Clarity,Urine Clear (Clear); Color,Urine Yellow (Yellow); Glucose,Urine (UA) Normal (Normal); Hyaline Casts,Urine Few per lpf (None Seen); Ketones,Urine 10 mg/dL (Negative); Leukocyte Esterase,Urine Negative (Negative); Nitrite,Urine Negative (Negative); PH,Urine 6.5 pH Units (5.0-8.0); Protein,Urine 30 mg/dL (Neg-Trace); RBC,Urine 0-3 per hpf (0-3); Sperm,Urine Present (None Seen); Urobilinogen,Urine Normal (Normal); WBC,Urine 0-3 per hpf (0-3)
[2020-07-16 14:32] LABS: ABG Base Excess 3 mEq/L (-2 to 3); ABG HCO3 33 mEq/L (21-27); ABG Oxygen Saturation 90 % (95-98); ABG PCO2 72 mmHg (35-45); ABG PH 7.27 pH Units (7.32-7.45); ABG PO2 70 mmHg (85-104); ABG TCO2 35 mEq/L (20-26); Blood Gas Pressure Support 8 cm H2O
[2020-07-16] MEDS ORDERED: Albuterol 2.5 MG/3 ML NEBULIZER IH SCH (14:45)
[2020-07-16] MEDS ORDERED: Albuterol 2.5 MG/3 ML NEBULIZER ONE (14:46)
[2020-07-16] MEDS: MethylPREDNISolone 40 MG/ML VIAL IVP SCH ×2 (16:10→21:04)
[2020-07-16] MEDS: Nicotine 21 MG PATCH.TD24 TD SCH (16:10)
[2020-07-16] MEDS: *HR* Heparin 5,000 UNIT/ML VIAL SQ SCH (18:08)
[2020-07-16] MEDS: Budesonide/Formoterol 160/4.5 1 PUFF INH IH SCH (23:56)
[2020-07-17] MEDS: Dexmedetomidine HCl 400 MCG/100 ML MLS IVC SCH ×5 (01:48→23:00)
[2020-07-17] MEDS: Ipratropium/Albuterol Neb 3 ML IH SCH ×6 (03:02→23:42)
[2020-07-17] MEDS: Azithromycin 500 MG in 0.9 % Sodium Chloride 250 ML IVPB SCH (03:44)
[2020-07-17 04:29] LABS: Basophils % 0.1 %; Hematocrit 42.6 % (37.5-50.1); Hemoglobin 13.8 g/dL (12.9-16.9); Immature Granulocytes % 0.3 % (0-4); Lymphocytes # 0.5 K/mcL (0.6-4.6); Lymphocytes % 3.8 %; Mean Corpuscular HGB Conc 32.4 g/dL (31.6-35.5); Mean Corpuscular Hemoglobin 32.2 pg (28.0-33.3); Mean Corpuscular Volume 99.5 fL (83.0-100.0); Monocytes # 0.3 K/mcL (0.0-1.3); Monocytes % 2.6 %; Neutrophils # 12.4 K/mcL (1.6-8.9); Platelet Count 191 K/mcL (140-400); Red Blood Count 4.28 M/mcL (4.19-5.50); Red Cell Distribution Width 12.2 % (11.5-14.5); Segmented Neutrophils % 93.2 %; White Blood Count 13.3 K/mcL (4.3-11.1)
[2020-07-17 04:50] LABS: BUN/Creatinine Ratio 30 (6-26); Blood Urea Nitrogen 25 mg/dL (8-23); Calcium 9.9 mg/dL (8.6-10.3); Carbon Dioxide 33 mEq/L (23-29); Chloride 96 mEq/L (98-107); Glucose 144 mg/dL (70-105); Osmolality,Calculated 287 (280-300); Potassium 4.4 mEq/L (3.5-5.1); Sodium 135 mEq/L (136-145); eGFR For African Americans > 60 (> 60); eGFR For Non-African Americans > 60 (> 60)
[2020-07-17] MEDS ORDERED: *HR* LORazepam 2 MG/ML VIAL IVP ONE ×2 (05:46→14:45)
[2020-07-17] MEDS: *HR* Heparin 5,000 UNIT/ML VIAL SQ SCH ×2 (05:52→17:00)
[2020-07-17] MEDS: MethylPREDNISolone 40 MG/ML VIAL IVP SCH ×3 (05:52→23:07)
[2020-07-17] MEDS: Budesonide/Formoterol 160/4.5 1 PUFF INH IH SCH ×2 (07:48→19:53)
[2020-07-17] MEDS: OLANZapine 10 MG VIAL IM SCH ×2 (08:58→20:02)
[2020-07-17] MEDS: Nicotine 21 MG PATCH.TD24 TD SCH (08:59)
[2020-07-17] MEDS ORDERED: Haloperidol Lactate 5 MG/ML VIAL IVP ONE ×2 (10:05→13:27)
[2020-07-17 10:38] LABS: ABG Base Excess 6 mEq/L (-2 to 3); ABG HCO3 36 mEq/L (21-27); ABG Oxygen Saturation 84 % (95-98); ABG PCO2 72 mmHg (35-45); ABG PO2 56 mmHg (85-104); ABG TCO2 38 mEq/L (20-26)
[2020-07-17] MEDS ORDERED: *HR* LORazepam 2 MG/ML VIAL ONE (14:45)
[2020-07-17] MEDS ORDERED: Water for inj. (sterile) 10 ML ONE (19:55)
[2020-07-18] MEDS ORDERED: *HR* LORazepam 2 MG/ML VIAL IVP ONE (02:31)
[2020-07-18] MEDS: Ipratropium/Albuterol Neb 3 ML IH SCH ×6 (03:38→23:53)
[2020-07-18] MEDS: Azithromycin 500 MG in 0.9 % Sodium Chloride 250 ML IVPB SCH (03:40)
[2020-07-18] MEDS: Dexmedetomidine HCl 400 MCG/100 ML MLS IVC SCH ×4 (04:47→20:15)
[2020-07-18 05:08] LABS: Basophils % 0.1 %; Hemoglobin 13.8 g/dL (12.9-16.9); Immature Granulocytes % 0.5 % (0-4); Lymphocytes # 0.4 K/mcL (0.6-4.6); Lymphocytes % 2.3 %; Mean Corpuscular HGB Conc 31.4 g/dL (31.6-35.5); Mean Corpuscular Hemoglobin 31.4 pg (28.0-33.3); Mean Platelet Volume 10.4 fL (9.4-12.4); Monocytes # 0.8 K/mcL (0.0-1.3); Monocytes % 3.9 %; Neutrophils # 18.2 K/mcL (1.6-8.9); Platelet Count 184 K/mcL (140-400); Red Cell Distribution Width 12.2 % (11.5-14.5); Segmented Neutrophils % 93.2 %; White Blood Count 19.5 K/mcL (4.3-11.1)
[2020-07-18 05:30] LABS: BUN/Creatinine Ratio 45 (6-26); Blood Urea Nitrogen 29 mg/dL (8-23); Calcium 9.7 mg/dL (8.6-10.3); Carbon Dioxide 33 mEq/L (23-29); Chloride 99 mEq/L (98-107); Glucose 135 mg/dL (70-105); Osmolality,Calculated 290 (280-300); Potassium 5.2 mEq/L (3.5-5.1); Sodium 136 mEq/L (136-145); eGFR For African Americans > 60 (> 60); eGFR For Non-African Americans > 60 (> 60)
[2020-07-18] MEDS: *HR* Heparin 5,000 UNIT/ML VIAL SQ SCH ×2 (06:03→17:15)
[2020-07-18] MEDS: MethylPREDNISolone 40 MG/ML VIAL IVP SCH ×3 (06:03→23:06)
[2020-07-18] MEDS: Budesonide/Formoterol 160/4.5 1 PUFF INH IH SCH ×2 (07:23→19:51)
[2020-07-18] MEDS: OLANZapine 10 MG VIAL IM SCH ×2 (08:00→20:40)
[2020-07-18 08:46] LABS: ABG Base Excess 10 mEq/L (-2 to 3); ABG HCO3 40 mEq/L (21-27); ABG Oxygen Saturation 94 % (95-98); ABG PCO2 78 mmHg (35-45); ABG PH 7.32 pH Units (7.32-7.45); ABG PO2 79 mmHg (85-104); ABG TCO2 43 mEq/L (20-26)
[2020-07-18] MEDS: Nicotine 21 MG PATCH.TD24 TD SCH (09:08)
[2020-07-18] MEDS: *HR* LORazepam 2 MG/ML VIAL IVP PRN (13:53)
[2020-07-18] MEDS ORDERED: Ziprasidone 20 MG in Water for inj. (sterile) 1 ML IM ONE (17:41)
[2020-07-18] MEDS ORDERED: Water for inj. (sterile) 10 ML ONE (20:37)
[2020-07-18] MEDS: clonazePAM 0.5 MG TABLET PO SCH (20:40)
[2020-07-19] MEDS: Dexmedetomidine HCl 400 MCG/100 ML MLS IVC SCH ×3 (02:11→16:45)
[2020-07-19] MEDS: Azithromycin 500 MG in 0.9 % Sodium Chloride 250 ML IVPB SCH (03:23)
[2020-07-19] MEDS: Ipratropium/Albuterol Neb 3 ML IH SCH ×6 (03:48→23:40)
[2020-07-19] MEDS: *HR* Heparin 5,000 UNIT/ML VIAL SQ SCH ×2 (05:45→17:17)
[2020-07-19] MEDS: MethylPREDNISolone 40 MG/ML VIAL IVP SCH ×3 (05:46→23:41)
[2020-07-19 06:38] LABS: Basophils % 0.2 %; Hematocrit 45.9 % (37.5-50.1); Hemoglobin 14.3 g/dL (12.9-16.9); Immature Granulocytes % 0.5 % (0-4); Lymphocytes # 0.5 K/mcL (0.6-4.6); Lymphocytes % 2.9 %; Mean Corpuscular HGB Conc 31.2 g/dL (31.6-35.5); Mean Corpuscular Hemoglobin 31.8 pg (28.0-33.3); Mean Platelet Volume 9.9 fL (9.4-12.4); Monocytes # 0.7 K/mcL (0.0-1.3); Monocytes % 3.8 %; Neutrophils # 17.3 K/mcL (1.6-8.9); Platelet Count 205 K/mcL (140-400); Red Cell Distribution Width 12.5 % (11.5-14.5); Segmented Neutrophils % 92.6 %; White Blood Count 18.6 K/mcL (4.3-11.1)
[2020-07-19 06:56] LABS: BUN/Creatinine Ratio 40 (6-26); Blood Urea Nitrogen 29 mg/dL (8-23); Calcium 9.5 mg/dL (8.6-10.3); Carbon Dioxide 38 mEq/L (23-29); Chloride 101 mEq/L (98-107); Glucose 131 mg/dL (70-105); Osmolality,Calculated 300 (280-300); Potassium 4.8 mEq/L (3.5-5.1); Sodium 141 mEq/L (136-145); eGFR For African Americans > 60 (> 60); eGFR For Non-African Americans > 60 (> 60)
[2020-07-19] MEDS: OLANZapine 10 MG VIAL IM SCH ×3 (07:34→21:33)
[2020-07-19] MEDS: clonazePAM 0.5 MG TABLET PO SCH ×2 (07:34→21:36)
[2020-07-19] MEDS: Budesonide/Formoterol 160/4.5 1 PUFF INH IH SCH ×2 (07:47→20:14)
[2020-07-19] MEDS: Nicotine 21 MG PATCH.TD24 TD SCH (09:00)
[2020-07-19] MEDS: *HR* LORazepam 2 MG/ML VIAL IVP PRN ×2 (09:48→17:58)
[2020-07-19] MEDS ORDERED: Water for inj. (sterile) 10 ML ONE (21:32)
[2020-07-20] MEDS: Dexmedetomidine HCl 400 MCG/100 ML MLS IVC SCH ×4 (01:34→19:39)
[2020-07-20 01:40] LABS: Basophils % 0.2 %; Hematocrit 50.1 % (37.5-50.1); Hemoglobin 15.6 g/dL (12.9-16.9); Immature Granulocytes % 0.6 % (0-4); Lymphocytes # 0.4 K/mcL (0.6-4.6); Lymphocytes % 2.5 %; Mean Corpuscular HGB Conc 31.1 g/dL (31.6-35.5); Mean Corpuscular Hemoglobin 32.1 pg (28.0-33.3); Mean Corpuscular Volume 103.1 fL (83.0-100.0); Mean Platelet Volume 10.1 fL (9.4-12.4); Monocytes # 0.8 K/mcL (0.0-1.3); Monocytes % 4.3 %; Platelet Count 217 K/mcL (140-400); Red Blood Count 4.86 M/mcL (4.19-5.50); Red Cell Distribution Width 12.4 % (11.5-14.5); Segmented Neutrophils % 92.4 %; White Blood Count 17.3 K/mcL (4.3-11.1)
[2020-07-20 01:59] LABS: BUN/Creatinine Ratio 41 (6-26); Blood Urea Nitrogen 29 mg/dL (8-23); Calcium 9.7 mg/dL (8.6-10.3); Carbon Dioxide 34 mEq/L (23-29); Chloride 101 mEq/L (98-107); Glucose 129 mg/dL (70-105); Osmolality,Calculated 300 (280-300); Potassium 5.1 mEq/L (3.5-5.1); Sodium 141 mEq/L (136-145); eGFR For African Americans > 60 (> 60); eGFR For Non-African Americans > 60 (> 60)
[2020-07-20] MEDS: Azithromycin 500 MG in 0.9 % Sodium Chloride 250 ML IVPB SCH (03:07)
[2020-07-20] MEDS: Ipratropium/Albuterol Neb 3 ML IH SCH ×6 (03:49→23:39)
[2020-07-20] MEDS: *HR* Heparin 5,000 UNIT/ML VIAL SQ SCH ×2 (06:15→18:29)
[2020-07-20] MEDS: MethylPREDNISolone 40 MG/ML VIAL IVP SCH ×3 (06:15→21:03)
[2020-07-20] MEDS: Budesonide/Formoterol 160/4.5 1 PUFF INH IH SCH ×2 (07:27→19:37)
[2020-07-20] MEDS: clonazePAM 0.5 MG TABLET PO SCH (10:01)
[2020-07-20] MEDS: Nicotine 21 MG PATCH.TD24 TD SCH (10:11)
[2020-07-20] MEDS: OLANZapine 10 MG VIAL IM SCH ×3 (10:54→21:02)
[2020-07-20 13:05] LABS: ABG Base Excess 11 mEq/L (-2 to 3); ABG HCO3 41 mEq/L (21-27); ABG Oxygen Saturation 89 % (95-98); ABG PCO2 75 mmHg (35-45); ABG PH 7.35 pH Units (7.32-7.45); ABG PO2 64 mmHg (85-104); ABG TCO2 43 mEq/L (20-26)
[2020-07-21] MEDS: Dexmedetomidine HCl 400 MCG/100 ML MLS IVC SCH ×6 (00:25→23:53)
[2020-07-21] MEDS: *HR* LORazepam 2 MG/ML VIAL IVP PRN ×2 (02:17→11:03)
[2020-07-21] MEDS: Azithromycin 500 MG in 0.9 % Sodium Chloride 250 ML IVPB SCH (02:17)
[2020-07-21] MEDS: Ipratropium/Albuterol Neb 3 ML IH SCH ×6 (03:38→23:31)
[2020-07-21] MEDS: *HR* Heparin 5,000 UNIT/ML VIAL SQ SCH ×2 (04:59→17:20)
[2020-07-21] MEDS: MethylPREDNISolone 40 MG/ML VIAL IVP SCH ×3 (04:59→21:53)
[2020-07-21 05:59] LABS: Basophils % 0.1 %; Hematocrit 43.5 % (37.5-50.1); Immature Granulocytes % 0.5 % (0-4); Lymphocytes # 0.7 K/mcL (0.6-4.6); Lymphocytes % 5.3 %; Mean Corpuscular HGB Conc 31.7 g/dL (31.6-35.5); Mean Corpuscular Hemoglobin 31.7 pg (28.0-33.3); Mean Corpuscular Volume 99.8 fL (83.0-100.0); Mean Platelet Volume 10.1 fL (9.4-12.4); Monocytes # 0.6 K/mcL (0.0-1.3); Monocytes % 4.7 %; Neutrophils # 11.3 K/mcL (1.6-8.9); Platelet Count 163 K/mcL (140-400); Red Blood Count 4.36 M/mcL (4.19-5.50); Red Cell Distribution Width 12.4 % (11.5-14.5); Segmented Neutrophils % 89.4 %; White Blood Count 12.6 K/mcL (4.3-11.1)
[2020-07-21 06:02] LABS: Hemoglobin 13.8 g/dL (12.9-16.9)
[2020-07-21 06:31] LABS: BUN/Creatinine Ratio 52 (6-26); Blood Urea Nitrogen 37 mg/dL (8-23); Calcium 9.6 mg/dL (8.6-10.3); Carbon Dioxide 36 mEq/L (23-29); Chloride 104 mEq/L (98-107); Glucose 143 mg/dL (70-105); Osmolality,Calculated 311 (280-300); Potassium 4.8 mEq/L (3.5-5.1); Sodium 145 mEq/L (136-145); eGFR For African Americans > 60 (> 60); eGFR For Non-African Americans > 60 (> 60)
[2020-07-21] MEDS: Budesonide/Formoterol 160/4.5 1 PUFF INH IH SCH ×2 (07:44→21:33)
[2020-07-21] MEDS: Nicotine 21 MG PATCH.TD24 TD SCH (09:52)
[2020-07-21] MEDS: OLANZapine 10 MG VIAL IM SCH ×3 (10:01→21:53)
[2020-07-22 01:16] LABS: Hematocrit 47.7 % (37.5-50.1); Hemoglobin 15.2 g/dL (12.9-16.9); Mean Corpuscular HGB Conc 31.9 g/dL (31.6-35.5); Mean Corpuscular Hemoglobin 32.1 pg (28.0-33.3); Mean Corpuscular Volume 100.6 fL (83.0-100.0); Mean Platelet Volume 10.3 fL (9.4-12.4); Platelet Count 152 K/mcL (140-400); Red Blood Count 4.74 M/mcL (4.19-5.50); Red Cell Distribution Width 12.3 % (11.5-14.5); White Blood Count 13.9 K/mcL (4.3-11.1)
[2020-07-22 01:35] LABS: BUN/Creatinine Ratio 49 (6-26); Blood Urea Nitrogen 33 mg/dL (8-23); Calcium 9.2 mg/dL (8.6-10.3); Carbon Dioxide 36 mEq/L (23-29); Chloride 105 mEq/L (98-107); Glucose 132 mg/dL (70-105); Osmolality,Calculated 311 (280-300); Potassium 4.8 mEq/L (3.5-5.1); Sodium 146 mEq/L (136-145); eGFR For African Americans > 60 (> 60); eGFR For Non-African Americans > 60 (> 60)
[2020-07-22] MEDS: *HR* LORazepam 2 MG/ML VIAL IVP PRN (02:23)
[2020-07-22] MEDS: Ipratropium/Albuterol Neb 3 ML IH SCH ×6 (03:43→23:42)
[2020-07-22] MEDS: MethylPREDNISolone 40 MG/ML VIAL IVP SCH ×3 (04:16→23:34)
[2020-07-22] MEDS: *HR* Heparin 5,000 UNIT/ML VIAL SQ SCH ×2 (04:16→17:42)
[2020-07-22] MEDS: Dexmedetomidine HCl 400 MCG/100 ML MLS IVC SCH ×4 (04:16→18:26)
[2020-07-22] MEDS: Budesonide/Formoterol 160/4.5 1 PUFF INH IH SCH ×2 (08:04→20:11)
[2020-07-22] MEDS: Nicotine 21 MG PATCH.TD24 TD SCH (09:13)
[2020-07-22] MEDS: OLANZapine 10 MG VIAL IM SCH ×3 (09:58→22:06)
[2020-07-22] MEDS ORDERED: MethylPREDNISolone 40 MG/ML VIAL IVP SCH (15:47)
[2020-07-22] MEDS ORDERED: Haloperidol Lactate 5 MG/ML VIAL IM PRN (17:26)
[2020-07-23 00:59] LABS: Basophils % 0.1 %; Hematocrit 45.6 % (37.5-50.1); Hemoglobin 14.6 g/dL (12.9-16.9); Immature Granulocytes % 0.6 % (0-4); Lymphocytes # 0.6 K/mcL (0.6-4.6); Lymphocytes % 3.2 %; Mean Corpuscular Hemoglobin 32.4 pg (28.0-33.3); Mean Corpuscular Volume 101.1 fL (83.0-100.0); Mean Platelet Volume 10.6 fL (9.4-12.4); Monocytes # 1.3 K/mcL (0.0-1.3); Monocytes % 6.6 %; Neutrophils # 17.4 K/mcL (1.6-8.9); Platelet Count 158 K/mcL (140-400); Red Blood Count 4.51 M/mcL (4.19-5.50); Red Cell Distribution Width 12.2 % (11.5-14.5); Segmented Neutrophils % 89.5 %; White Blood Count 19.4 K/mcL (4.3-11.1)
[2020-07-23 01:18] LABS: BUN/Creatinine Ratio 51 (6-26); Blood Urea Nitrogen 36 mg/dL (8-23); Calcium 9.2 mg/dL (8.6-10.3); Carbon Dioxide 37 mEq/L (23-29); Chloride 99 mEq/L (98-107); Glucose 113 mg/dL (70-105); Osmolality,Calculated 303 (280-300); Potassium 4.1 mEq/L (3.5-5.1); Sodium 142 mEq/L (136-145); eGFR For African Americans > 60 (> 60); eGFR For Non-African Americans > 60 (> 60)
[2020-07-23] MEDS: Ipratropium/Albuterol Neb 3 ML IH SCH ×7 (03:42→23:12)
[2020-07-23] MEDS: *HR* Heparin 5,000 UNIT/ML VIAL SQ SCH ×2 (05:58→17:27)
[2020-07-23] MEDS: Budesonide/Formoterol 160/4.5 1 PUFF INH IH SCH ×2 (07:31→19:29)
[2020-07-23] MEDS: MethylPREDNISolone 40 MG/ML VIAL IVP SCH ×3 (08:11→22:45)
[2020-07-23] MEDS: Nicotine 21 MG PATCH.TD24 TD SCH (08:11)
[2020-07-23] MEDS: OLANZapine 10 MG VIAL IM SCH ×2 (08:11→20:26)
[2020-07-23] MEDS ORDERED: Morphine Sulfate Oral CONC 10 MG/0.5 ML ORAL.SYG PO ONE (09:34)
[2020-07-23 11:19] LABS: ABG Base Excess 10 mEq/L (-2 to 3); ABG HCO3 37 mEq/L (21-27); ABG Oxygen Saturation 95 % (95-98); ABG PCO2 55 mmHg (35-45); ABG PH 7.44 pH Units (7.32-7.45); ABG PO2 74 mmHg (85-104); ABG TCO2 39 mEq/L (20-26)
[2020-07-23] MEDS: Azithromycin 500 MG in 0.9 % Sodium Chloride 250 ML IVPB SCH (12:48)
[2020-07-23] MEDS ORDERED: Morphine Sulfate Oral CONC 10 MG/0.5 ML ORAL.SYG SL PRN (15:02)
[2020-07-23] MEDS ORDERED: Isovue-370 500 ML BOTTLE IVP ONE (15:10)
[2020-07-24] MEDS: Ipratropium/Albuterol Neb 3 ML IH SCH ×6 (04:01→23:33)
[2020-07-24] MEDS: *HR* Heparin 5,000 UNIT/ML VIAL SQ SCH ×2 (06:13→17:48)
[2020-07-24] MEDS: Budesonide/Formoterol 160/4.5 1 PUFF INH IH SCH ×2 (07:52→19:57)
[2020-07-24] MEDS: MethylPREDNISolone 40 MG/ML VIAL IVP SCH ×3 (09:07→21:10)
[2020-07-24] MEDS: Nicotine 21 MG PATCH.TD24 TD SCH (09:12)
[2020-07-24] MEDS: OLANZapine 10 MG TAB.RAPDIS PO SCH ×2 (10:13→21:11)
[2020-07-24 10:57] LABS: Hematocrit 46.8 % (37.5-50.1); Hemoglobin 15.1 g/dL (12.9-16.9); Mean Corpuscular HGB Conc 32.3 g/dL (31.6-35.5); Mean Corpuscular Hemoglobin 32.4 pg (28.0-33.3); Mean Corpuscular Volume 100.4 fL (83.0-100.0); Mean Platelet Volume 10.5 fL (9.4-12.4); Platelet Count 143 K/mcL (140-400); Red Blood Count 4.66 M/mcL (4.19-5.50); Red Cell Distribution Width 12.2 % (11.5-14.5); White Blood Count 19.6 K/mcL (4.3-11.1)
[2020-07-24 11:12] LABS: Alanine Aminotransferase 27 Units/L (7-52); Albumin 3.4 g/dL (3.5-5.7); Albumin/Globulin Ratio 1.3 (1.1-2.2); Alkaline Phosphatase 57 Units/L (34-104); Aspartate Amino Transferase 20 Units/L (13-39); BUN/Creatinine Ratio 37 (6-26); Bilirubin,Total 0.7 mg/dL (0.3-1.0); Blood Urea Nitrogen 28 mg/dL (8-23); Calcium 9.2 mg/dL (8.6-10.3); Carbon Dioxide 34 mEq/L (23-29); Chloride 102 mEq/L (98-107); Globulin 2.6 g/dL (2.4-3.5); Glucose 175 mg/dL (70-105); Osmolality,Calculated 298 (280-300); Potassium 4.4 mEq/L (3.5-5.1); Sodium 139 mEq/L (136-145); eGFR For African Americans > 60 (> 60); eGFR For Non-African Americans > 60 (> 60)
[2020-07-24 11:58] LABS: Bilirubin,Urine Negative (Negative); Blood,Urine Large (Negative); Clarity,Urine Clear (Clear); Color,Urine Yellow (Yellow); Glucose,Urine (UA) Normal (Normal); Ketones,Urine Negative (Negative); Leukocyte Esterase,Urine Small (Negative); Mucus,Urine Few per lpf (None-Few); Nitrite,Urine Positive (Negative); PH,Urine 6.5 pH Units (5.0-8.0); Protein,Urine 30 mg/dL (Neg-Trace); RBC,Urine 50-100 per hpf (0-3); Specific Gravity,Urine > 1.030 (1.010-1.025); WBC,Urine 15-30 per hpf (0-3)
[2020-07-24] MEDS: Azithromycin 500 MG in 0.9 % Sodium Chloride 250 ML IVPB SCH (12:19)
[2020-07-24] MEDS ORDERED: OLANZapine 10 MG TAB.RAPDIS PO SCH (21:00)
[2020-07-24] MEDS: Nystatin POWDER 30 GM BOTTLE TP SCH (21:10)
[2020-07-25] MEDS: Dexmedetomidine HCl 400 MCG/100 ML MLS IVC SCH (00:02)
[2020-07-25] MEDS: Ipratropium/Albuterol Neb 3 ML IH SCH ×6 (03:47→23:42)
[2020-07-25] MEDS: *HR* Heparin 5,000 UNIT/ML VIAL SQ SCH ×2 (05:04→17:08)
[2020-07-25] MEDS: Budesonide/Formoterol 160/4.5 1 PUFF INH IH SCH ×2 (07:50→19:36)
[2020-07-25] MEDS ORDERED: methylPREDNISolone 4 MG TABLET PO SCH (08:00)
[2020-07-25] MEDS: OLANZapine 10 MG TAB.RAPDIS PO SCH ×2 (08:01→20:58)
[2020-07-25] MEDS: Nicotine 21 MG PATCH.TD24 TD SCH (08:02)
[2020-07-25] MEDS ORDERED: D5% in Water 1,000 ML IVC PRN ×2 (08:30→18:23)
[2020-07-25] MEDS ORDERED: *HR* Dextrose 50 % in Water (Vial) 50 ML VIAL IVP PRN ×2 (08:30→18:23)
[2020-07-25] MEDS ORDERED: Dextrose Gel 15 GM/37.5 ML TUBE PO PRN ×4 (08:30→18:23)
[2020-07-25] MEDS: Azithromycin 500 MG in 0.9 % Sodium Chloride 250 ML IVPB SCH (11:22)
[2020-07-25] MEDS: Nystatin POWDER 30 GM BOTTLE TP SCH ×2 (11:24→21:01)
[2020-07-25] MEDS: Insulin LISPRO 300 UNITS/3 ML VIAL SUBQ SCH ×3 (11:31→20:50)
[2020-07-25] MEDS ORDERED: MethylPREDNISolone 40 MG/ML VIAL IVP SCH (18:00)
[2020-07-25] MEDS ORDERED: Naloxone 0.4 MG/ML INJ IVP PRN (18:23)
[2020-07-25] MEDS ORDERED: Ondansetron 4 MG/2 ML VIAL IVP PRN (18:23)
[2020-07-25] MEDS ORDERED: Haloperidol Lactate 5 MG/ML VIAL IM PRN (18:23)
[2020-07-25] MEDS ORDERED: Insulin LISPRO 300 UNITS/3 ML VIAL SUBQ SCH (21:00)
[2020-07-26] MEDS: Ipratropium/Albuterol Neb 3 ML IH SCH ×6 (03:24→23:44)
[2020-07-26 04:28] LABS: Hematocrit 44.6 % (37.5-50.1); Hemoglobin 14.4 g/dL (12.9-16.9); Immature Platelets 12.4 % (1.1-6.1); Mean Corpuscular HGB Conc 32.3 g/dL (31.6-35.5); Mean Corpuscular Hemoglobin 31.4 pg (28.0-33.3); Mean Corpuscular Volume 97.2 fL (83.0-100.0); Red Blood Count 4.59 M/mcL (4.19-5.50); Red Cell Distribution Width 12.1 % (11.5-14.5); White Blood Count 13.2 K/mcL (4.3-11.1)
[2020-07-26 04:47] LABS: BUN/Creatinine Ratio 38 (6-26); Blood Urea Nitrogen 25 mg/dL (8-23); Calcium 8.8 mg/dL (8.6-10.3); Carbon Dioxide 33 mEq/L (23-29); Chloride 100 mEq/L (98-107); Glucose 123 mg/dL (70-105); Osmolality,Calculated 290 (280-300); Potassium 4.6 mEq/L (3.5-5.1); Sodium 137 mEq/L (136-145); eGFR For African Americans > 60 (> 60); eGFR For Non-African Americans > 60 (> 60)
[2020-07-26] MEDS: *HR* Heparin 5,000 UNIT/ML VIAL SQ SCH ×2 (06:18→17:23)
[2020-07-26] MEDS: MethylPREDNISolone 40 MG/ML VIAL IVP SCH ×2 (06:19→17:21)
[2020-07-26] MEDS: Budesonide/Formoterol 160/4.5 1 PUFF INH IH SCH ×2 (07:29→20:12)
[2020-07-26] MEDS: OLANZapine 10 MG TAB.RAPDIS PO SCH ×2 (07:44→20:44)
[2020-07-26] MEDS: Nicotine 21 MG PATCH.TD24 TD SCH (07:44)
[2020-07-26] MEDS: Insulin LISPRO 300 UNITS/3 ML VIAL SUBQ SCH ×4 (07:45→20:39)
[2020-07-26] MEDS: Nystatin POWDER 30 GM BOTTLE TP SCH ×2 (07:46→20:45)
[2020-07-27] MEDS: Ipratropium/Albuterol Neb 3 ML IH SCH ×6 (03:57→23:17)
[2020-07-27 04:26] LABS: Hematocrit 43.7 % (37.5-50.1); Red Cell Distribution Width 11.9 % (11.5-14.5)
[2020-07-27 04:28] LABS: Hemoglobin 14.1 g/dL (12.9-16.9); Immature Platelets 12.8 % (1.1-6.1); Mean Corpuscular HGB Conc 32.3 g/dL (31.6-35.5); Mean Corpuscular Hemoglobin 31.2 pg (28.0-33.3); Mean Corpuscular Volume 96.7 fL (83.0-100.0); Mean Platelet Volume 11.2 fL (9.4-12.4); Red Blood Count 4.52 M/mcL (4.19-5.50); White Blood Count 16.3 K/mcL (4.3-11.1)
[2020-07-27 04:46] LABS: BUN/Creatinine Ratio 40 (6-26); Blood Urea Nitrogen 25 mg/dL (8-23); Calcium 8.8 mg/dL (8.6-10.3); Carbon Dioxide 35 mEq/L (23-29); Chloride 99 mEq/L (98-107); Glucose 135 mg/dL (70-105); Osmolality,Calculated 288 (280-300); Potassium 4.8 mEq/L (3.5-5.1); Sodium 136 mEq/L (136-145); eGFR For African Americans > 60 (> 60); eGFR For Non-African Americans > 60 (> 60)
[2020-07-27] MEDS: MethylPREDNISolone 40 MG/ML VIAL IVP SCH (05:41)
[2020-07-27] MEDS: *HR* Heparin 5,000 UNIT/ML VIAL SQ SCH ×2 (07:22→16:52)
[2020-07-27] MEDS: Budesonide/Formoterol 160/4.5 1 PUFF INH IH SCH ×2 (07:41→20:05)
[2020-07-27] MEDS: Nicotine 21 MG PATCH.TD24 TD SCH (07:53)
[2020-07-27] MEDS: Nystatin POWDER 30 GM BOTTLE TP SCH ×2 (07:53→20:23)
[2020-07-27] MEDS: OLANZapine 10 MG TAB.RAPDIS PO SCH ×2 (07:54→20:22)
[2020-07-27] MEDS: Insulin LISPRO 300 UNITS/3 ML VIAL SUBQ SCH ×4 (07:55→22:24)
[2020-07-27] MEDS: predniSONE 20 MG TABLET PO SCH (13:14)
[2020-07-27] MEDS: Nitrofurantoin (BID) 100 MG CAPSULE PO SCH (17:14)
[2020-07-28] MEDS: Ipratropium/Albuterol Neb 3 ML IH SCH ×6 (04:08→23:00)
[2020-07-28] MEDS: *HR* Heparin 5,000 UNIT/ML VIAL SQ SCH ×2 (05:18→16:38)
[2020-07-28 05:19] LABS: Basophils % 0.2 %; Hematocrit 42.9 % (37.5-50.1); Hemoglobin 13.7 g/dL (12.9-16.9); Immature Granulocytes % 0.7 % (0-4); Immature Platelets 11.8 % (1.1-6.1); Lymphocytes % 12.2 %; Mean Corpuscular HGB Conc 31.9 g/dL (31.6-35.5); Mean Corpuscular Hemoglobin 31.1 pg (28.0-33.3); Mean Corpuscular Volume 97.5 fL (83.0-100.0); Monocytes # 1.3 K/mcL (0.0-1.3); Neutrophils # 13.1 K/mcL (1.6-8.9); Platelet Count 141 K/mcL (140-400); Red Cell Distribution Width 11.9 % (11.5-14.5); Segmented Neutrophils % 78.9 %; White Blood Count 16.6 K/mcL (4.3-11.1)
[2020-07-28 05:32] LABS: BUN/Creatinine Ratio 37 (6-26); Blood Urea Nitrogen 25 mg/dL (8-23); Calcium 9.1 mg/dL (8.6-10.3); Carbon Dioxide 31 mEq/L (23-29); Chloride 100 mEq/L (98-107); Glucose 104 mg/dL (70-105); Osmolality,Calculated 285 (280-300); Potassium 4.3 mEq/L (3.5-5.1); Sodium 135 mEq/L (136-145); eGFR For African Americans > 60 (> 60); eGFR For Non-African Americans > 60 (> 60)
[2020-07-28] MEDS: Budesonide/Formoterol 160/4.5 1 PUFF INH IH SCH ×2 (07:48→19:37)
[2020-07-28] MEDS: Insulin LISPRO 300 UNITS/3 ML VIAL SUBQ SCH ×4 (08:10→21:16)
[2020-07-28] MEDS: predniSONE 20 MG TABLET PO SCH (08:33)
[2020-07-28] MEDS: Nystatin POWDER 30 GM BOTTLE TP SCH ×2 (08:33→21:20)
[2020-07-28] MEDS: OLANZapine 10 MG TAB.RAPDIS PO SCH ×2 (08:33→21:20)
[2020-07-28] MEDS: Nicotine 21 MG PATCH.TD24 TD SCH (08:33)
[2020-07-28] MEDS: Nitrofurantoin (BID) 100 MG CAPSULE PO SCH ×2 (08:34→16:38)
[2020-07-29] MEDS: Ipratropium/Albuterol Neb 3 ML IH SCH ×6 (03:54→23:45)
[2020-07-29] MEDS: *HR* Heparin 5,000 UNIT/ML VIAL SQ SCH ×2 (06:17→17:31)
[2020-07-29] MEDS: Insulin LISPRO 300 UNITS/3 ML VIAL SUBQ SCH ×4 (07:36→20:30)
[2020-07-29] MEDS: Budesonide/Formoterol 160/4.5 1 PUFF INH IH SCH ×2 (07:41→20:08)
[2020-07-29] MEDS: predniSONE 20 MG TABLET PO SCH (08:41)
[2020-07-29] MEDS: OLANZapine 10 MG TAB.RAPDIS PO SCH ×2 (08:41→20:42)
[2020-07-29] MEDS: Nicotine 21 MG PATCH.TD24 TD SCH (08:41)
[2020-07-29] MEDS: Nitrofurantoin (BID) 100 MG CAPSULE PO SCH ×2 (08:41→17:31)
[2020-07-29] MEDS: Nystatin POWDER 30 GM BOTTLE TP SCH ×2 (08:42→20:43)
[2020-07-29] MEDS: Acetaminophen 325 MG TABLET PO PRN (19:37)
[2020-07-30] MEDS: Acetaminophen 325 MG TABLET PO PRN (01:54)
[2020-07-30] MEDS: Ipratropium/Albuterol Neb 3 ML IH SCH ×6 (03:59→23:11)
[2020-07-30] MEDS: *HR* Heparin 5,000 UNIT/ML VIAL SQ SCH ×2 (05:24→16:51)
[2020-07-30 06:05] LABS: Basophils % 0.1 %; Eosinophils % 0.1 %; Hematocrit 40.7 % (37.5-50.1); Hemoglobin 13.2 g/dL (12.9-16.9); Immature Granulocytes % 0.5 % (0-4); Lymphocytes % 18.4 %; Mean Corpuscular HGB Conc 32.4 g/dL (31.6-35.5); Mean Corpuscular Hemoglobin 31.4 pg (28.0-33.3); Mean Corpuscular Volume 96.9 fL (83.0-100.0); Monocytes # 1.6 K/mcL (0.0-1.3); Monocytes % 9.6 %; Neutrophils # 11.8 K/mcL (1.6-8.9); Platelet Count 186 K/mcL (140-400); Red Cell Distribution Width 11.9 % (11.5-14.5); Segmented Neutrophils % 71.3 %; White Blood Count 16.5 K/mcL (4.3-11.1)
[2020-07-30] MEDS: Nitrofurantoin (BID) 100 MG CAPSULE PO SCH ×2 (07:31→16:51)
[2020-07-30] MEDS: OLANZapine 10 MG TAB.RAPDIS PO SCH ×2 (07:31→21:45)
[2020-07-30] MEDS: Nicotine 21 MG PATCH.TD24 TD SCH (07:31)
[2020-07-30] MEDS: Insulin LISPRO 300 UNITS/3 ML VIAL SUBQ SCH ×4 (07:47→21:41)
[2020-07-30] MEDS: Budesonide/Formoterol 160/4.5 1 PUFF INH IH SCH ×2 (08:13→20:01)
[2020-07-30] MEDS ORDERED: predniSONE 20 MG TABLET PO SCH (09:00)
[2020-07-30] MEDS ORDERED: FLU Vac QV 20-21 (6Month+)/PF 0.5 ML SYRINGE IM ONE (10:04)
[2020-07-30] MEDS: Nystatin POWDER 30 GM BOTTLE TP SCH ×2 (11:39→21:53)
[2020-07-31] MEDS: Ipratropium/Albuterol Neb 3 ML IH SCH ×4 (03:51→15:39)
[2020-07-31 04:27] LABS: Basophils % 0.1 %; Eosinophils % 0.3 %; Hematocrit 39.3 % (37.5-50.1); Hemoglobin 12.7 g/dL (12.9-16.9); Immature Granulocytes % 0.4 % (0-4); Lymphocytes # 2.7 K/mcL (0.6-4.6); Lymphocytes % 22.8 %; Mean Corpuscular HGB Conc 32.3 g/dL (31.6-35.5); Mean Corpuscular Hemoglobin 31.1 pg (28.0-33.3); Mean Corpuscular Volume 96.1 fL (83.0-100.0); Mean Platelet Volume 10.4 fL (9.4-12.4); Monocytes # 1.1 K/mcL (0.0-1.3); Monocytes % 9.2 %; Neutrophils # 7.9 K/mcL (1.6-8.9); Platelet Count 173 K/mcL (140-400); Red Blood Count 4.09 M/mcL (4.19-5.50); Segmented Neutrophils % 67.2 %; White Blood Count 11.7 K/mcL (4.3-11.1)
[2020-07-31] MEDS: *HR* Heparin 5,000 UNIT/ML VIAL SQ SCH (05:20)
[2020-07-31 07:05] VITALS: BP 100/61
[2020-07-31] MEDS: Budesonide/Formoterol 160/4.5 1 PUFF INH IH SCH (07:42)
[2020-07-31] MEDS: Insulin LISPRO 300 UNITS/3 ML VIAL SUBQ SCH ×2 (07:42→12:20)
[2020-07-31] MEDS: Nicotine 21 MG PATCH.TD24 TD SCH (08:02)
[2020-07-31] MEDS: Nitrofurantoin (BID) 100 MG CAPSULE PO SCH (08:02)
[2020-07-31] MEDS: OLANZapine 10 MG TAB.RAPDIS PO SCH (08:02)
[2020-07-31] MEDS: Nystatin POWDER 30 GM BOTTLE TP SCH (08:02)
[2020-07-31] MEDS ORDERED: predniSONE 10 MG TABLET PO SCH (09:00)
== END 2020-07-31 16:17 | disposition home health service (06) | DRG 190 ==
LOC: ICNU 01:02 → EMEROOARM 01:02 → SUATTDRO 02:59 → ICNU 03:30 → SUATTDRO 16:49 → ICNU 07-17 11:44 → 2NNU 07-20 00:58 → 3ANU 07-25 17:44
PROVIDERS: ADMIT Internal Medicine Nephrology; ATTEND Internal Medicine

== ENCOUNTER 2020-10-07 10:41 | Inpatient (IN) ==
[2020-10-07] MEDS ORDERED: predniSONE 20 MG TABLET PO ONE (11:12)
[2020-10-07] MEDS ORDERED: Ipratropium/Albuterol Neb 3 ML IH ONE (11:12)
[2020-10-07 11:39] LABS: Basophils # 0.1 K/mcL (0.0-0.2); Basophils % 0.5 %; Eosinophils # 0.1 K/mcL (0.0-0.6); Eosinophils % 1.1 %; Hematocrit 41.5 % (37.5-50.1); Immature Granulocytes % 0.2 % (0-4); Lymphocytes # 1.6 K/mcL (0.6-4.6); Lymphocytes % 16.4 %; Mean Corpuscular HGB Conc 33.7 g/dL (31.6-35.5); Mean Corpuscular Hemoglobin 32.8 pg (28.0-33.3); Mean Corpuscular Volume 97.2 fL (83.0-100.0); Mean Platelet Volume 9.4 fL (9.4-12.4); Monocytes # 0.8 K/mcL (0.0-1.3); Monocytes % 7.7 %; Neutrophils # 7.3 K/mcL (1.6-8.9); Platelet Count 248 K/mcL (140-400); Red Blood Count 4.27 M/mcL (4.19-5.50); Red Cell Distribution Width 12.4 % (11.5-14.5); Segmented Neutrophils % 74.1 %; White Blood Count 9.9 K/mcL (4.3-11.1)
[2020-10-07] MEDS ORDERED: Isovue-370 500 ML BOTTLE IVP ONE (11:40)
[2020-10-07 11:45] LABS: Bilirubin,Urine Negative (Negative); Blood,Urine Negative (Negative); Clarity,Urine Clear (Clear); Color,Urine Light-Yellow (Yellow); Glucose,Urine (UA) Normal (Normal); Ketones,Urine Negative (Negative); Leukocyte Esterase,Urine Negative (Negative); Nitrite,Urine Negative (Negative); Protein,Urine Negative (Neg-Trace); Specific Gravity,Urine 1.013 (1.010-1.025); Urobilinogen,Urine Normal (Normal)
[2020-10-07 12:01] LABS: BUN/Creatinine Ratio 17 (6-26); Blood Urea Nitrogen 12 mg/dL (8-23); Calcium 9.9 mg/dL (8.6-10.3); Carbon Dioxide 30 mEq/L (23-29); Chloride 93 mEq/L (98-107); Glucose 133 mg/dL (70-105); Osmolality,Calculated 270 (280-300); Potassium 4.4 mEq/L (3.5-5.1); Sodium 129 mEq/L (136-145); eGFR For African Americans > 60 (> 60); eGFR For Non-African Americans > 60 (> 60)
[2020-10-07 12:02] LABS: Troponin I < 0.03 ng/mL (< 0.04)
[2020-10-07] MEDS ORDERED: Ondansetron 4 MG/2 ML VIAL IVP STA (13:06)
[2020-10-07] MEDS ORDERED: *HR* FentaNYL (PF) 100 MCG/2 ML VIAL IVP ONE (13:06)
[2020-10-07] MEDS ORDERED: Naloxone 0.4 MG/ML INJ IVP PRN (13:24)
[2020-10-07] MEDS ORDERED: Dextrose Gel 15 GM/37.5 ML TUBE PO PRN ×2 (13:45)
[2020-10-07] MEDS ORDERED: *HR* Dextrose 50 % in Water (Vial) 50 ML VIAL IVP PRN (13:45)
[2020-10-07] MEDS ORDERED: D5% in Water 1,000 ML IVC PRN (13:45)
[2020-10-07] MEDS ORDERED: Ondansetron 4 MG/2 ML VIAL IVP PRN (13:59)
[2020-10-07] MEDS: 0.9 % Sodium Chloride 1,000 ML IVC SCH (14:34)
[2020-10-07] MEDS: Ipratropium/Albuterol Neb 3 ML IH SCH ×3 (14:57→23:00)
[2020-10-07] MEDS: *HR* Heparin 5,000 UNIT/ML VIAL SQ SCH (17:59)
[2020-10-07] MEDS: polyethylene glycoL 3350 17 GM POWD.PACK PO SCH (17:59)
[2020-10-07] MEDS: Insulin LISPRO 300 UNITS/3 ML VIAL SUBQ SCH ×2 (18:00→22:18)
[2020-10-07 18:14] LABS: Adenovirus Not Detected (Not Detect); Bordetella Pertussis Not Detected (Not Detect); Chlamydophila pneumoniae Not Detected (Not Detect); Coronavirus 229E Not Detected (Not Detect); Coronavirus HKU1 Not Detected (Not Detect); Coronavirus NL63 Not Detected (Not Detect); Coronavirus OC43 Not Detected (Not Detect); Human Metapneumovirus Not Detected (Not Detect); Human Rhinovirus/Enterovirus Not Detected (Not Detect); Influenza A Subtype 2009 H1 Not Detected (Not Detect); Influenza B Not Detected (Not Detect); Mycoplasma pneumoniae Not Detected (Not Detect); Parainfluenza Virus 1 Not Detected (Not Detect); Parainfluenza Virus 2 Not Detected (Not Detect); Parainfluenza Virus 3 Not Detected (Not Detect); Parainfluenza Virus 4 Not Detected (Not Detect); Respiratory Syncytial Virus Not Detected (Not Detect); SARS-CoV-2 Not Detected (Not Detect)
[2020-10-07] MEDS ORDERED: OLANZapine 10 MG TAB.RAPDIS PO SCH (21:00)
[2020-10-07 21:58] LABS: BUN/Creatinine Ratio 17 (6-26); Blood Urea Nitrogen 12 mg/dL (8-23); Calcium 9.7 mg/dL (8.6-10.3); Carbon Dioxide 28 mEq/L (23-29); Chloride 94 mEq/L (98-107); Glucose 144 mg/dL (70-105); Osmolality,Calculated 270 (280-300); Potassium 4.4 mEq/L (3.5-5.1); Sodium 129 mEq/L (136-145); eGFR For African Americans > 60 (> 60); eGFR For Non-African Americans > 60 (> 60)
[2020-10-07] MEDS: Sennosides/Docusate Sodium TABLET PO SCH (22:18)
[2020-10-08] MEDS: Ipratropium/Albuterol Neb 3 ML IH SCH ×6 (03:01→23:30)
[2020-10-08 04:45] LABS: BUN/Creatinine Ratio 18 (6-26); Blood Urea Nitrogen 11 mg/dL (8-23); Calcium 9.4 mg/dL (8.6-10.3); Carbon Dioxide 29 mEq/L (23-29); Chloride 92 mEq/L (98-107); Glucose 105 mg/dL (70-105); Magnesium 1.8 mg/dL (1.6-2.6); Osmolality,Calculated 262 (280-300); Phosphorous 3.3 mg/dL (2.7-4.5); Potassium 4.2 mEq/L (3.5-5.1); Sodium 126 mEq/L (136-145); eGFR For African Americans > 60 (> 60); eGFR For Non-African Americans > 60 (> 60)
[2020-10-08] MEDS: *HR* Heparin 5,000 UNIT/ML VIAL SQ SCH ×2 (05:31→17:55)
[2020-10-08] MEDS: 0.9 % Sodium Chloride 1,000 ML IVC SCH (05:31)
[2020-10-08 08:35] LABS: Estimated Average Glucose 105 mg/dl; Hemoglobin A1C 5.3 %
[2020-10-08] MEDS ORDERED: predniSONE 20 MG TABLET PO SCH (09:00)
[2020-10-08] MEDS ORDERED: ARIPiprazole 10 MG TABLET PO SCH (09:00)
[2020-10-08] MEDS: Cholecalciferol (D-3) 1,000 UNIT (25MCG) TABLET PO SCH (09:55)
[2020-10-08] MEDS: Insulin LISPRO 300 UNITS/3 ML VIAL SUBQ SCH ×4 (09:55→21:10)
[2020-10-08] MEDS: Sennosides/Docusate Sodium TABLET PO SCH ×2 (09:55→19:59)
[2020-10-08] MEDS: polyethylene glycoL 3350 17 GM POWD.PACK PO SCH (09:55)
[2020-10-08] MEDS: ARIPiprazole 10 MG TABLET PO SCH (09:55)
[2020-10-08] MEDS ORDERED: Tiotropium 10 INH DOSE IH SCH (10:00)
[2020-10-08] MEDS: Budesonide/Formoterol 160/4.5 1 PUFF INH IH SCH ×2 (11:42→20:11)
[2020-10-08 11:49] LABS: ABG Base Excess 6 mEq/L (-2 to 3); ABG HCO3 33 mEq/L (21-27); ABG Oxygen Saturation 95 % (95-98); ABG PCO2 58 mmHg (35-45); ABG PH 7.36 pH Units (7.32-7.45); ABG PO2 81 mmHg (85-104); ABG TCO2 34 mEq/L (20-26)
[2020-10-08 11:53] LABS: Chol/HDL Ratio 2.3 (0-4.9)
[2020-10-08] MEDS: Fluticasone Propionate Nasal 50 MCG/SPRAY BOTTLE NS SCH (12:15)
[2020-10-08 16:58] LABS: BUN/Creatinine Ratio 20 (6-26); Blood Urea Nitrogen 14 mg/dL (8-23); Calcium 9.4 mg/dL (8.6-10.3); Carbon Dioxide 30 mEq/L (23-29); Chloride 93 mEq/L (98-107); Glucose 126 mg/dL (70-105); Osmolality,Calculated 266 (280-300); Potassium 4.7 mEq/L (3.5-5.1); Sodium 127 mEq/L (136-145); eGFR For African Americans > 60 (> 60); eGFR For Non-African Americans > 60 (> 60)
[2020-10-08] MEDS: MethylPREDNISolone 40 MG/ML VIAL IVP SCH (17:54)
[2020-10-09] MEDS: Ipratropium/Albuterol Neb 3 ML IH SCH ×7 (03:56→21:38)
[2020-10-09 05:43] LABS: BUN/Creatinine Ratio 23 (6-26); Blood Urea Nitrogen 14 mg/dL (8-23); Calcium 9.5 mg/dL (8.6-10.3); Carbon Dioxide 31 mEq/L (23-29); Chloride 93 mEq/L (98-107); Glucose 167 mg/dL (70-105); Magnesium 1.9 mg/dL (1.6-2.6); Osmolality,Calculated 270 (280-300); Phosphorous 2.9 mg/dL (2.7-4.5); Potassium 4.2 mEq/L (3.5-5.1); Sodium 128 mEq/L (136-145); eGFR For African Americans > 60 (> 60); eGFR For Non-African Americans > 60 (> 60)
[2020-10-09] MEDS: *HR* Heparin 5,000 UNIT/ML VIAL SQ SCH ×2 (05:53→18:11)
[2020-10-09] MEDS: MethylPREDNISolone 40 MG/ML VIAL IVP SCH ×2 (06:54→18:11)
[2020-10-09] MEDS: Budesonide/Formoterol 160/4.5 1 PUFF INH IH SCH ×2 (07:27→19:24)
[2020-10-09] MEDS: Insulin LISPRO 300 UNITS/3 ML VIAL SUBQ SCH ×4 (08:15→20:58)
[2020-10-09] MEDS: polyethylene glycoL 3350 17 GM POWD.PACK PO SCH (08:16)
[2020-10-09] MEDS: Sennosides/Docusate Sodium TABLET PO SCH ×2 (08:16→20:58)
[2020-10-09] MEDS: ARIPiprazole 10 MG TABLET PO SCH (08:16)
[2020-10-09] MEDS: Cholecalciferol (D-3) 1,000 UNIT (25MCG) TABLET PO SCH (08:16)
[2020-10-09] MEDS: Fluticasone Propionate Nasal 50 MCG/SPRAY BOTTLE NS SCH (08:17)
[2020-10-09 16:09] LABS: ABG Base Excess 5 mEq/L (-2 to 3); ABG HCO3 32 mEq/L (21-27); ABG Oxygen Saturation 89 % (95-98); ABG PCO2 55 mmHg (35-45); ABG PH 7.38 pH Units (7.32-7.45); ABG PO2 60 mmHg (85-104); ABG TCO2 34 mEq/L (20-26)
[2020-10-10] MEDS: Ipratropium/Albuterol Neb 3 ML IH SCH ×6 (00:12→22:06)
[2020-10-10 02:10] LABS: Basophils % 0.1 %; Hematocrit 38.6 % (37.5-50.1); Hemoglobin 12.9 g/dL (12.9-16.9); Immature Granulocytes % 0.4 % (0-4); Lymphocytes # 0.6 K/mcL (0.6-4.6); Lymphocytes % 3.9 %; Mean Corpuscular HGB Conc 33.4 g/dL (31.6-35.5); Mean Corpuscular Hemoglobin 31.9 pg (28.0-33.3); Mean Corpuscular Volume 95.3 fL (83.0-100.0); Mean Platelet Volume 9.7 fL (9.4-12.4); Monocytes # 0.4 K/mcL (0.0-1.3); Monocytes % 2.6 %; Neutrophils # 13.1 K/mcL (1.6-8.9); Platelet Count 249 K/mcL (140-400); Red Blood Count 4.05 M/mcL (4.19-5.50); Red Cell Distribution Width 12.2 % (11.5-14.5); White Blood Count 14.1 K/mcL (4.3-11.1)
[2020-10-10 02:32] LABS: BUN/Creatinine Ratio 27 (6-26); Blood Urea Nitrogen 19 mg/dL (8-23); Calcium 9.6 mg/dL (8.6-10.3); Carbon Dioxide 30 mEq/L (23-29); Chloride 93 mEq/L (98-107); Glucose 137 mg/dL (70-105); Osmolality,Calculated 272 (280-300); Potassium 4.4 mEq/L (3.5-5.1); Sodium 129 mEq/L (136-145); eGFR For African Americans > 60 (> 60); eGFR For Non-African Americans > 60 (> 60)
[2020-10-10] MEDS: MethylPREDNISolone 40 MG/ML VIAL IVP SCH ×2 (05:43→17:55)
[2020-10-10] MEDS: *HR* Heparin 5,000 UNIT/ML VIAL SQ SCH ×2 (05:43→17:54)
[2020-10-10] MEDS: Insulin LISPRO 300 UNITS/3 ML VIAL SUBQ SCH ×4 (07:41→21:19)
[2020-10-10] MEDS: Cholecalciferol (D-3) 1,000 UNIT (25MCG) TABLET PO SCH (08:59)
[2020-10-10] MEDS: Sennosides/Docusate Sodium TABLET PO SCH ×2 (08:59→20:34)
[2020-10-10] MEDS: polyethylene glycoL 3350 17 GM POWD.PACK PO SCH (08:59)
[2020-10-10] MEDS: ARIPiprazole 10 MG TABLET PO SCH (09:00)
[2020-10-10] MEDS: Fluticasone Propionate Nasal 50 MCG/SPRAY BOTTLE NS SCH (09:00)
[2020-10-10] MEDS: Budesonide/Formoterol 160/4.5 1 PUFF INH IH SCH ×2 (11:18→22:06)
[2020-10-10] MEDS: Doxycycline 100 MG CAPSULE PO SCH ×2 (12:11→20:34)
[2020-10-11] MEDS: Ipratropium/Albuterol Neb 3 ML IH SCH ×2 (03:22→11:03)
[2020-10-11] MEDS: MethylPREDNISolone 40 MG/ML VIAL IVP SCH (06:00)
[2020-10-11] MEDS: *HR* Heparin 5,000 UNIT/ML VIAL SQ SCH (06:01)
[2020-10-11 06:38] LABS: Basophils % 0.1 %; Hematocrit 39.5 % (37.5-50.1); Hemoglobin 13.2 g/dL (12.9-16.9); Immature Granulocytes % 0.3 % (0-4); Lymphocytes # 0.7 K/mcL (0.6-4.6); Lymphocytes % 5.4 %; Mean Corpuscular HGB Conc 33.4 g/dL (31.6-35.5); Mean Corpuscular Hemoglobin 32.6 pg (28.0-33.3); Mean Corpuscular Volume 97.5 fL (83.0-100.0); Mean Platelet Volume 9.8 fL (9.4-12.4); Monocytes # 0.7 K/mcL (0.0-1.3); Monocytes % 5.9 %; Neutrophils # 11.1 K/mcL (1.6-8.9); Platelet Count 268 K/mcL (140-400); Red Blood Count 4.05 M/mcL (4.19-5.50); Red Cell Distribution Width 12.2 % (11.5-14.5); Segmented Neutrophils % 88.3 %; White Blood Count 12.6 K/mcL (4.3-11.1)
[2020-10-11 07:02] LABS: BUN/Creatinine Ratio 26 (6-26); Blood Urea Nitrogen 19 mg/dL (8-23); Calcium 9.5 mg/dL (8.6-10.3); Carbon Dioxide 32 mEq/L (23-29); Chloride 92 mEq/L (98-107); Glucose 127 mg/dL (70-105); Osmolality,Calculated 272 (280-300); Phosphorous 3.7 mg/dL (2.7-4.5); Potassium 4.2 mEq/L (3.5-5.1); Sodium 129 mEq/L (136-145); eGFR For African Americans > 60 (> 60); eGFR For Non-African Americans > 60 (> 60)
[2020-10-11] MEDS: Insulin LISPRO 300 UNITS/3 ML VIAL SUBQ SCH ×2 (07:23→11:40)
[2020-10-11] MEDS: Doxycycline 100 MG CAPSULE PO SCH (09:36)
[2020-10-11] MEDS: Sennosides/Docusate Sodium TABLET PO SCH (09:36)
[2020-10-11] MEDS: polyethylene glycoL 3350 17 GM POWD.PACK PO SCH (09:36)
[2020-10-11] MEDS: ARIPiprazole 10 MG TABLET PO SCH (09:36)
[2020-10-11] MEDS: Cholecalciferol (D-3) 1,000 UNIT (25MCG) TABLET PO SCH (09:36)
[2020-10-11] MEDS: Fluticasone Propionate Nasal 50 MCG/SPRAY BOTTLE NS SCH (09:37)
[2020-10-11 10:12] VITALS: BP 111/71
[2020-10-11] MEDS: Budesonide/Formoterol 160/4.5 1 PUFF INH IH SCH (11:03)
== END 2020-10-11 13:18 | disposition home or self-care (01) | DRG 190 ==
LOC: EMEROOARM 10:41 → 3ANU 10:41 → SUATTDRO 14:37 → 3ANU 15:28 → SUATTDRO 10-09 12:16
PROVIDERS: ADMIT Internal Medicine; ATTEND Internal Medicine

== ENCOUNTER 2020-11-02 13:32 | Inpatient (IN) ==
[2020-11-02 14:17] LABS: ABG Base Excess 3 mEq/L (-2 to 3); ABG HCO3 30 mEq/L (21-27); ABG Oxygen Saturation 58 % (95-98); ABG PCO2 55 mmHg (35-45); ABG PH 7.35 pH Units (7.32-7.45); ABG PO2 33 mmHg (85-104); ABG TCO2 32 mEq/L (20-26); Blood Gas Pressure Support 6 cm H2O
[2020-11-02 14:21] LABS: ABG Base Excess 3 mEq/L (-2 to 3); ABG HCO3 30 mEq/L (21-27); ABG Oxygen Saturation 100 % (95-98); ABG PCO2 56 mmHg (35-45); ABG PH 7.34 pH Units (7.32-7.45); ABG PO2 450 mmHg (85-104); ABG TCO2 32 mEq/L (20-26); Blood Gas Pressure Support 6 cm H2O
[2020-11-02] MEDS ORDERED: Ipratropium/Albuterol Neb 3 ML IH ONE (14:25)
[2020-11-02 14:52] LABS: Basophils % 0.3 %; Eosinophils % 0.5 %; Hematocrit 39.8 % (37.5-50.1); Hemoglobin 13.4 g/dL (12.9-16.9); Immature Granulocytes % 0.3 % (0-4); Lymphocytes # 0.7 K/mcL (0.6-4.6); Lymphocytes % 9.1 %; Mean Corpuscular HGB Conc 33.7 g/dL (31.6-35.5); Mean Corpuscular Hemoglobin 32.4 pg (28.0-33.3); Mean Corpuscular Volume 96.4 fL (83.0-100.0); Mean Platelet Volume 8.6 fL (9.4-12.4); Monocytes # 0.4 K/mcL (0.0-1.3); Monocytes % 4.7 %; Neutrophils # 6.4 K/mcL (1.6-8.9); Platelet Count 262 K/mcL (140-400); Red Blood Count 4.13 M/mcL (4.19-5.50); Segmented Neutrophils % 85.1 %; White Blood Count 7.5 K/mcL (4.3-11.1)
[2020-11-02 15:16] LABS: Alanine Aminotransferase 16 Units/L (7-52); Albumin 4.3 g/dL (3.5-5.7); Albumin/Globulin Ratio 1.7 (1.1-2.2); Alkaline Phosphatase 65 Units/L (34-104); Aspartate Amino Transferase 18 Units/L (13-39); BUN/Creatinine Ratio 14 (6-26); Bilirubin,Direct 0.1 mg/dL (0.0-0.2); Bilirubin,Indirect 0.4 mg/dL (0.0-1.0); Bilirubin,Total 0.5 mg/dL (0.3-1.0); Blood Urea Nitrogen 10 mg/dL (8-23); Calcium 9.7 mg/dL (8.6-10.3); Carbon Dioxide 29 mEq/L (23-29); Chloride 97 mEq/L (98-107); Globulin 2.5 g/dL (2.4-3.5); Glucose 124 mg/dL (70-105); Osmolality,Calculated 270 (280-300); Potassium 4.5 mEq/L (3.5-5.1); Sodium 130 mEq/L (136-145); Total Protein 6.8 g/dL (6.4-8.9); eGFR For African Americans > 60 (> 60); eGFR For Non-African Americans > 60 (> 60)
[2020-11-02] MEDS ORDERED: Aspirin 81 MG TAB.CHEW PO ONE (15:37)
[2020-11-02 15:42] LABS: INR 1.1; Prothrombin Time 12.6 Seconds (9.4-12.1)
[2020-11-02 16:11] LABS: Adenovirus Not Detected (Not Detect); Bordetella Pertussis Not Detected (Not Detect); Chlamydophila pneumoniae Not Detected (Not Detect); Coronavirus 229E Not Detected (Not Detect); Coronavirus HKU1 Not Detected (Not Detect); Coronavirus NL63 Not Detected (Not Detect); Coronavirus OC43 Not Detected (Not Detect); Human Metapneumovirus Not Detected (Not Detect); Human Rhinovirus/Enterovirus Not Detected (Not Detect); Influenza A Subtype 2009 H1 Not Detected (Not Detect); Influenza B Not Detected (Not Detect); Mycoplasma pneumoniae Not Detected (Not Detect); Parainfluenza Virus 1 Not Detected (Not Detect); Parainfluenza Virus 2 Not Detected (Not Detect); Parainfluenza Virus 3 Not Detected (Not Detect); Parainfluenza Virus 4 Not Detected (Not Detect); Respiratory Syncytial Virus Not Detected (Not Detect); SARS-CoV-2 Not Detected (Not Detect)
[2020-11-02] MEDS ORDERED: Ondansetron 4 MG/2 ML VIAL IVP PRN ×2 (17:14→21:06)
[2020-11-02] MEDS ORDERED: Acetaminophen 325 MG TABLET PO PRN ×2 (17:14→21:06)
[2020-11-02] MEDS ORDERED: Naloxone 0.4 MG/ML INJ IVP PRN ×2 (17:14→21:06)
[2020-11-02] MEDS ORDERED: Perflutren Lipid Microsphere 1.3 ML in 0.9 % Sodium Chloride 8.7 ML IVP PRN ×2 (17:18→21:06)
[2020-11-02] MEDS ORDERED: *HR* Heparin 5,000 UNIT/ML VIAL IVP PRN ×4 (17:20→21:06)
[2020-11-02] MEDS ORDERED: *HR* Heparin 5,000 UNIT/ML VIAL IVP ONE ×2 (17:20→21:06)
[2020-11-02] MEDS ORDERED: Heparin 25,000UNIT/250ML 1/2NS 25,000 UNIT/250 ML IV.SOLN IVC SCH (17:30)
[2020-11-02] MEDS ORDERED: Isovue-370 500 ML BOTTLE IVP ONE (19:42)
[2020-11-02] MEDS ORDERED: Dexamethasone 4 MG/ML VIAL IVP SCH (19:45)
[2020-11-02] MEDS ORDERED: *HR* LORazepam 2 MG/ML VIAL ONE (19:53)
[2020-11-02] MEDS ORDERED: Morphine Sulfate 2 MG/ML SYRINGE ONE (19:57)
[2020-11-02 20:00] LABS: ABG Base Excess 4 mEq/L (-2 to 3); ABG HCO3 31 mEq/L (21-27); ABG Oxygen Saturation 100 % (95-98); ABG PCO2 59 mmHg (35-45); ABG PH 7.33 pH Units (7.32-7.45); ABG PO2 190 mmHg (85-104); ABG TCO2 33 mEq/L (20-26); Blood Gas Modality BiLevel; Blood Gas Pressure Support 6 cm H2O
[2020-11-02] MEDS ORDERED: Ipratropium/Albuterol Neb 3 ML ONE (20:01)
[2020-11-02] MEDS ORDERED: Ipratropium/Albuterol Neb 3 ML IH SCH (20:15)
[2020-11-02] MEDS ORDERED: Dexmedetomidine HCl 400 MCG/100 ML MLS IVC SCH (20:15)
[2020-11-02] MEDS: Dexmedetomidine HCl 400 MCG/100 ML MLS IVC SCH ×2 (21:30→23:24)
[2020-11-03] MEDS: Ipratropium/Albuterol Neb 3 ML IH SCH ×7 (00:02→23:33)
[2020-11-03] MEDS: Heparin 25,000UNIT/250ML 1/2NS 25,000 UNIT/250 ML IV.SOLN IVC SCH (04:15)
[2020-11-03] MEDS: MethylPREDNISolone 40 MG/ML VIAL IVP SCH ×4 (04:16→17:34)
[2020-11-03] MEDS: Dexmedetomidine HCl 400 MCG/100 ML MLS IVC SCH ×5 (04:22→21:33)
[2020-11-03 05:06] LABS: Hematocrit 42.1 % (37.5-50.1); Hemoglobin 14.2 g/dL (12.9-16.9); Immature Granulocytes % 0.2 % (0-4); Lymphocytes # 0.5 K/mcL (0.6-4.6); Lymphocytes % 9.1 %; Mean Corpuscular HGB Conc 33.7 g/dL (31.6-35.5); Mean Corpuscular Hemoglobin 32.5 pg (28.0-33.3); Mean Corpuscular Volume 96.3 fL (83.0-100.0); Mean Platelet Volume 8.8 fL (9.4-12.4); Monocytes # 0.1 K/mcL (0.0-1.3); Neutrophils # 5.1 K/mcL (1.6-8.9); Platelet Count 262 K/mcL (140-400); Red Blood Count 4.37 M/mcL (4.19-5.50); Red Cell Distribution Width 11.9 % (11.5-14.5); Segmented Neutrophils % 89.7 %; White Blood Count 5.7 K/mcL (4.3-11.1)
[2020-11-03 05:21] LABS: BUN/Creatinine Ratio 21 (6-26); Blood Urea Nitrogen 15 mg/dL (8-23); Carbon Dioxide 27 mEq/L (23-29); Chloride 95 mEq/L (98-107); Glucose 155 mg/dL (70-105); Magnesium 2.1 mg/dL (1.6-2.6); Osmolality,Calculated 274 (280-300); Potassium 4.6 mEq/L (3.5-5.1); Sodium 130 mEq/L (136-145); eGFR For African Americans > 60 (> 60); eGFR For Non-African Americans > 60 (> 60)
[2020-11-03] MEDS ORDERED: Dextrose Gel 15 GM/37.5 ML TUBE PO PRN ×2 (08:52)
[2020-11-03] MEDS ORDERED: *HR* Dextrose 50 % in Water (Vial) 50 ML VIAL IVP PRN (08:52)
[2020-11-03] MEDS ORDERED: D5% in Water 1,000 ML IVC PRN (08:52)
[2020-11-03] MEDS: Cholecalciferol (D-3) 1,000 UNIT (25MCG) TABLET PO SCH (08:53)
[2020-11-03] MEDS: Loratadine 10 MG TABLET PO SCH (08:53)
[2020-11-03] MEDS: ARIPiprazole 10 MG TABLET PO SCH (08:53)
[2020-11-03] MEDS: OLANZapine 10 MG TAB.RAPDIS PO SCH (08:53)
[2020-11-03] MEDS ORDERED: Dexamethasone 4 MG/ML VIAL IVP SCH (09:00)
[2020-11-03] MEDS ORDERED: LUMATEPERONE TOSYLATE 42 MG PO SCH (09:00)
[2020-11-03] MEDS: Budesonide Neb 0.5 MG/2 ML IH SCH ×2 (09:24→20:09)
[2020-11-03] MEDS ORDERED: Azithromycin 500 MG in 0.9 % Sodium Chloride 250 ML IVPB SCH (10:41)
[2020-11-03] MEDS: LUMATEPERONE TOSYLATE 42 MG PO SCH (13:05)
[2020-11-03] MEDS: Insulin LISPRO 300 UNITS/3 ML VIAL SUBQ SCH ×3 (17:12→21:07)
[2020-11-03] MEDS: *HR* LORazepam 0.5 MG TABLET PO SCH ×3 (19:31→21:07)
[2020-11-04] MEDS: MethylPREDNISolone 40 MG/ML VIAL IVP SCH ×4 (00:12→20:23)
[2020-11-04 01:24] LABS: Basophils % 0.1 %; Hematocrit 42.4 % (37.5-50.1); Hemoglobin 14.4 g/dL (12.9-16.9); Immature Granulocytes % 0.4 % (0-4); Lymphocytes # 0.5 K/mcL (0.6-4.6); Mean Platelet Volume 9.2 fL (9.4-12.4); Monocytes # 0.5 K/mcL (0.0-1.3); Monocytes % 3.5 %; Platelet Count 271 K/mcL (140-400); Red Blood Count 4.37 M/mcL (4.19-5.50); Red Cell Distribution Width 11.9 % (11.5-14.5)
[2020-11-04 01:45] LABS: BUN/Creatinine Ratio 30 (6-26); Blood Urea Nitrogen 20 mg/dL (8-23); Calcium 9.6 mg/dL (8.6-10.3); Carbon Dioxide 27 mEq/L (23-29); Chloride 98 mEq/L (98-107); Glucose 122 mg/dL (70-105); Magnesium 2.2 mg/dL (1.6-2.6); Osmolality,Calculated 278 (280-300); Potassium 4.4 mEq/L (3.5-5.1); Sodium 132 mEq/L (136-145); eGFR For African Americans > 60 (> 60); eGFR For Non-African Americans > 60 (> 60)
[2020-11-04] MEDS: Dexmedetomidine HCl 400 MCG/100 ML MLS IVC SCH ×3 (03:42→20:05)
[2020-11-04] MEDS: Ipratropium/Albuterol Neb 3 ML IH SCH ×5 (04:04→20:33)
[2020-11-04] MEDS: Budesonide Neb 0.5 MG/2 ML IH SCH ×2 (07:15→20:33)
[2020-11-04] MEDS: Insulin LISPRO 300 UNITS/3 ML VIAL SUBQ SCH ×4 (07:34→20:34)
[2020-11-04] MEDS: LUMATEPERONE TOSYLATE 42 MG PO SCH (07:50)
[2020-11-04] MEDS: Loratadine 10 MG TABLET PO SCH (07:51)
[2020-11-04] MEDS: OLANZapine 10 MG TAB.RAPDIS PO SCH (07:51)
[2020-11-04] MEDS: Cholecalciferol (D-3) 1,000 UNIT (25MCG) TABLET PO SCH (07:51)
[2020-11-04] MEDS: ARIPiprazole 10 MG TABLET PO SCH (07:51)
[2020-11-04] MEDS: *HR* LORazepam 0.5 MG TABLET PO SCH ×3 (07:51→20:23)
[2020-11-04] MEDS ORDERED: Ipratropium Neb 0.5 MG NEBULIZER IH PRN (09:35)
[2020-11-04] MEDS: Azithromycin 500 MG in 0.9 % Sodium Chloride 250 ML IVPB SCH (13:31)
[2020-11-04] MEDS: *HR* Heparin 5,000 UNIT/ML VIAL SQ SCH ×2 (13:31→20:23)
[2020-11-04] MEDS: Aspirin 81 MG TAB.CHEW PO SCH (14:03)
[2020-11-05] MEDS: Ipratropium/Albuterol Neb 3 ML IH SCH ×7 (00:07→23:03)
[2020-11-05 01:13] LABS: VBG HCO3 27 mEq/L (21-27); VBG PCO2 40 mmHg (41-51); VBG PH 7.43 pH Units (7.32-7.42); VBG PO2 160 mmHg (25-50)
[2020-11-05 01:27] LABS: INR 1.1; Prothrombin Time 12.3 Seconds (9.4-12.1)
[2020-11-05 01:30] LABS: Basophils % 0.1 %; Hematocrit 39.3 % (37.5-50.1); Hemoglobin 13.1 g/dL (12.9-16.9); Immature Granulocytes % 0.4 % (0-4); Lymphocytes # 0.3 K/mcL (0.6-4.6); Lymphocytes % 2.4 %; Mean Corpuscular HGB Conc 33.3 g/dL (31.6-35.5); Mean Corpuscular Hemoglobin 32.3 pg (28.0-33.3); Mean Corpuscular Volume 96.8 fL (83.0-100.0); Mean Platelet Volume 9.3 fL (9.4-12.4); Monocytes # 0.3 K/mcL (0.0-1.3); Monocytes % 2.3 %; Neutrophils # 12.9 K/mcL (1.6-8.9); Platelet Count 244 K/mcL (140-400); Red Blood Count 4.06 M/mcL (4.19-5.50); Red Cell Distribution Width 12.3 % (11.5-14.5); Segmented Neutrophils % 94.8 %; White Blood Count 13.6 K/mcL (4.3-11.1)
[2020-11-05 01:31] LABS: BUN/Creatinine Ratio 33 (6-26); Blood Urea Nitrogen 23 mg/dL (8-23); Calcium 9.2 mg/dL (8.6-10.3); Carbon Dioxide 28 mEq/L (23-29); Chloride 98 mEq/L (98-107); Glucose 145 mg/dL (70-105); Magnesium 2.3 mg/dL (1.6-2.6); Osmolality,Calculated 282 (280-300); Potassium 4.5 mEq/L (3.5-5.1); Sodium 133 mEq/L (136-145); eGFR For African Americans > 60 (> 60); eGFR For Non-African Americans > 60 (> 60)
[2020-11-05] MEDS: Dexmedetomidine HCl 400 MCG/100 ML MLS IVC SCH (04:27)
[2020-11-05] MEDS: *HR* Heparin 5,000 UNIT/ML VIAL SQ SCH ×3 (05:19→22:19)
[2020-11-05] MEDS: MethylPREDNISolone 40 MG/ML VIAL IVP SCH ×2 (05:19→14:51)
[2020-11-05] MEDS: Insulin LISPRO 300 UNITS/3 ML VIAL SUBQ SCH ×4 (07:25→22:02)
[2020-11-05] MEDS: Budesonide Neb 0.5 MG/2 ML IH SCH (07:35)
[2020-11-05] MEDS: Furosemide 20 MG/2 ML VIAL IVP SCH (08:06)
[2020-11-05] MEDS: OLANZapine 10 MG TAB.RAPDIS PO SCH (08:06)
[2020-11-05] MEDS: ARIPiprazole 10 MG TABLET PO SCH (08:06)
[2020-11-05] MEDS: Aspirin 81 MG TAB.CHEW PO SCH (08:06)
[2020-11-05] MEDS: *HR* LORazepam 0.5 MG TABLET PO SCH ×3 (08:06→22:19)
[2020-11-05] MEDS: Cholecalciferol (D-3) 1,000 UNIT (25MCG) TABLET PO SCH (08:06)
[2020-11-05] MEDS: Loratadine 10 MG TABLET PO SCH (08:06)
[2020-11-05] MEDS: LUMATEPERONE TOSYLATE 42 MG PO SCH (08:08)
[2020-11-05] MEDS: Azithromycin 500 MG in 0.9 % Sodium Chloride 250 ML IVPB SCH (12:50)
[2020-11-06] MEDS: *HR* LORazepam 0.5 MG TABLET PO SCH ×4 (00:35→20:33)
[2020-11-06 02:35] LABS: Basophils % 0.1 %; Hematocrit 38.5 % (37.5-50.1); Hemoglobin 12.9 g/dL (12.9-16.9); Immature Granulocytes % 0.3 % (0-4); Lymphocytes # 0.6 K/mcL (0.6-4.6); Lymphocytes % 3.8 %; Mean Corpuscular HGB Conc 33.5 g/dL (31.6-35.5); Mean Corpuscular Hemoglobin 32.7 pg (28.0-33.3); Mean Corpuscular Volume 97.5 fL (83.0-100.0); Mean Platelet Volume 9.3 fL (9.4-12.4); Monocytes # 0.7 K/mcL (0.0-1.3); Monocytes % 5.1 %; Neutrophils # 13.3 K/mcL (1.6-8.9); Platelet Count 250 K/mcL (140-400); Red Blood Count 3.95 M/mcL (4.19-5.50); Red Cell Distribution Width 12.3 % (11.5-14.5); Segmented Neutrophils % 90.7 %; White Blood Count 14.6 K/mcL (4.3-11.1)
[2020-11-06 02:38] LABS: VBG HCO3 27 mEq/L (21-27); VBG PCO2 39 mmHg (41-51); VBG PH 7.44 pH Units (7.32-7.42); VBG PO2 111 mmHg (25-50)
[2020-11-06 02:55] LABS: BUN/Creatinine Ratio 31 (6-26); Blood Urea Nitrogen 22 mg/dL (8-23); Calcium 9.1 mg/dL (8.6-10.3); Carbon Dioxide 28 mEq/L (23-29); Chloride 98 mEq/L (98-107); Glucose 148 mg/dL (70-105); Osmolality,Calculated 278 (280-300); Potassium 4.2 mEq/L (3.5-5.1); Sodium 131 mEq/L (136-145); eGFR For African Americans > 60 (> 60); eGFR For Non-African Americans > 60 (> 60)
[2020-11-06] MEDS: Ipratropium/Albuterol Neb 3 ML IH SCH ×6 (03:42→23:23)
[2020-11-06] MEDS: *HR* Heparin 5,000 UNIT/ML VIAL SQ SCH ×3 (04:58→20:34)
[2020-11-06] MEDS: Heparin 25,000UNIT/250ML 1/2NS 25,000 UNIT/250 ML IV.SOLN IVC SCH (07:19)
[2020-11-06] MEDS: Insulin LISPRO 300 UNITS/3 ML VIAL SUBQ SCH ×4 (07:23→20:34)
[2020-11-06] MEDS: Furosemide 20 MG/2 ML VIAL IVP SCH (08:12)
[2020-11-06] MEDS: MethylPREDNISolone 40 MG/ML VIAL IVP SCH ×2 (08:12→20:34)
[2020-11-06] MEDS: ARIPiprazole 10 MG TABLET PO SCH (08:13)
[2020-11-06] MEDS: Aspirin 81 MG TAB.CHEW PO SCH (08:13)
[2020-11-06] MEDS: Cholecalciferol (D-3) 1,000 UNIT (25MCG) TABLET PO SCH (08:14)
[2020-11-06] MEDS: Loratadine 10 MG TABLET PO SCH (08:14)
[2020-11-06] MEDS: lisinopriL 5 MG TABLET PO SCH (08:14)
[2020-11-06] MEDS: OLANZapine 10 MG TAB.RAPDIS PO SCH (08:14)
[2020-11-06] MEDS: LUMATEPERONE TOSYLATE 42 MG PO SCH (08:16)
[2020-11-06 09:31] LABS: Estimated Average Glucose 111 mg/dl; Hemoglobin A1C 5.5 %
[2020-11-06] MEDS: VILANTEROL AER SCH (10:10)
[2020-11-06] MEDS: FLUTICASONE AER SCH (10:10)
[2020-11-06] MEDS: Metoprolol XL (24 HR) Succ 25 MG TAB.ER.24H PO SCH (11:11)
[2020-11-06] MEDS ORDERED: Furosemide 40 MG/4 ML VIAL IVP ONE (13:03)
[2020-11-06] MEDS: Azithromycin 500 MG in 0.9 % Sodium Chloride 250 ML IVPB SCH (13:23)
[2020-11-07] MEDS: Ipratropium/Albuterol Neb 3 ML IH SCH ×6 (04:19→23:39)
[2020-11-07] MEDS: *HR* Heparin 5,000 UNIT/ML VIAL SQ SCH ×3 (05:26→20:22)
[2020-11-07 05:52] LABS: Hematocrit 42.4 % (37.5-50.1); Hemoglobin 14.2 g/dL (12.9-16.9); Immature Granulocytes % 0.5 % (0-4); Lymphocytes # 0.5 K/mcL (0.6-4.6); Lymphocytes % 4.7 %; Mean Corpuscular HGB Conc 33.5 g/dL (31.6-35.5); Mean Corpuscular Volume 95.5 fL (83.0-100.0); Mean Platelet Volume 9.1 fL (9.4-12.4); Monocytes # 0.6 K/mcL (0.0-1.3); Monocytes % 5.5 %; Neutrophils # 9.3 K/mcL (1.6-8.9); Platelet Count 260 K/mcL (140-400); Red Blood Count 4.44 M/mcL (4.19-5.50); Red Cell Distribution Width 12.2 % (11.5-14.5); Segmented Neutrophils % 89.3 %; White Blood Count 10.4 K/mcL (4.3-11.1)
[2020-11-07 05:57] LABS: VBG HCO3 34 mEq/L (21-27); VBG PCO2 57 mmHg (41-51); VBG PH 7.38 pH Units (7.32-7.42); VBG PO2 47 mmHg (25-50)
[2020-11-07 06:17] LABS: BUN/Creatinine Ratio 28 (6-26); Blood Urea Nitrogen 22 mg/dL (8-23); Calcium 9.6 mg/dL (8.6-10.3); Carbon Dioxide 34 mEq/L (23-29); Chloride 95 mEq/L (98-107); Glucose 125 mg/dL (70-105); Osmolality,Calculated 281 (280-300); Potassium 4.4 mEq/L (3.5-5.1); Sodium 133 mEq/L (136-145); eGFR For African Americans > 60 (> 60); eGFR For Non-African Americans > 60 (> 60)
[2020-11-07] MEDS: *HR* LORazepam 0.5 MG TABLET PO SCH ×3 (07:40→20:22)
[2020-11-07] MEDS: lisinopriL 5 MG TABLET PO SCH (07:40)
[2020-11-07] MEDS: Cholecalciferol (D-3) 1,000 UNIT (25MCG) TABLET PO SCH (07:40)
[2020-11-07] MEDS: OLANZapine 10 MG TAB.RAPDIS PO SCH (07:41)
[2020-11-07] MEDS: ARIPiprazole 10 MG TABLET PO SCH (07:41)
[2020-11-07] MEDS: MethylPREDNISolone 40 MG/ML VIAL IVP SCH (07:41)
[2020-11-07] MEDS: Metoprolol XL (24 HR) Succ 25 MG TAB.ER.24H PO SCH (07:41)
[2020-11-07] MEDS: Furosemide 20 MG/2 ML VIAL IVP SCH (07:42)
[2020-11-07] MEDS: Insulin LISPRO 300 UNITS/3 ML VIAL SUBQ SCH ×4 (07:43→20:22)
[2020-11-07] MEDS: Loratadine 10 MG TABLET PO SCH (07:45)
[2020-11-07] MEDS: FLUTICASONE AER SCH (07:47)
[2020-11-07] MEDS: VILANTEROL AER SCH (07:47)
[2020-11-07] MEDS: LUMATEPERONE TOSYLATE 42 MG PO SCH (07:47)
[2020-11-07] MEDS: Aspirin 81 MG TAB.CHEW PO SCH (09:19)
[2020-11-07] MEDS ORDERED: Azithromycin 250 MG TABLET PO SCH (13:00)
[2020-11-08 03:03] LABS: VBG HCO3 30 mEq/L (21-27); VBG PCO2 53 mmHg (41-51); VBG PH 7.37 pH Units (7.32-7.42); VBG PO2 89 mmHg (25-50)
[2020-11-08 03:16] LABS: BUN/Creatinine Ratio 34 (6-26); Blood Urea Nitrogen 30 mg/dL (8-23); Calcium 9.6 mg/dL (8.6-10.3); Carbon Dioxide 30 mEq/L (23-29); Chloride 96 mEq/L (98-107); Glucose 112 mg/dL (70-105); Osmolality,Calculated 283 (280-300); Potassium 4.2 mEq/L (3.5-5.1); Sodium 133 mEq/L (136-145); eGFR For African Americans > 60 (> 60); eGFR For Non-African Americans > 60 (> 60)
[2020-11-08] MEDS: Ipratropium/Albuterol Neb 3 ML IH SCH ×3 (04:09→11:22)
[2020-11-08] MEDS: *HR* Heparin 5,000 UNIT/ML VIAL SQ SCH (05:19)
[2020-11-08] MEDS: ARIPiprazole 10 MG TABLET PO SCH (08:01)
[2020-11-08] MEDS: *HR* LORazepam 0.5 MG TABLET PO SCH (08:01)
[2020-11-08] MEDS: Loratadine 10 MG TABLET PO SCH (08:01)
[2020-11-08] MEDS: lisinopriL 5 MG TABLET PO SCH (08:02)
[2020-11-08] MEDS: OLANZapine 10 MG TAB.RAPDIS PO SCH (08:02)
[2020-11-08] MEDS: Cholecalciferol (D-3) 1,000 UNIT (25MCG) TABLET PO SCH (08:02)
[2020-11-08] MEDS: Metoprolol XL (24 HR) Succ 25 MG TAB.ER.24H PO SCH (08:02)
[2020-11-08] MEDS: Aspirin 81 MG TAB.CHEW PO SCH (08:02)
[2020-11-08] MEDS: FLUTICASONE AER SCH (08:04)
[2020-11-08] MEDS: Insulin LISPRO 300 UNITS/3 ML VIAL SUBQ SCH (08:04)
[2020-11-08] MEDS: LUMATEPERONE TOSYLATE 42 MG PO SCH (08:04)
[2020-11-08] MEDS: VILANTEROL AER SCH (08:04)
[2020-11-08 08:12] VITALS: BP 124/81
[2020-11-08] MEDS ORDERED: predniSONE 20 MG TABLET PO SCH (09:00)
[2020-11-08] MEDS ORDERED: Furosemide 40 MG TABLET PO SCH (09:00)
== END 2020-11-08 12:42 | disposition home or self-care (01) | DRG 190 ==
LOC: EMEROOARM 13:32 → 2NENU 13:32 → SUATTDRO 18:14 → 2NENU 18:44 → SUATTDRO 20:21 → ICNU 20:45 → 2NNU 11-03 17:30 → 2ANU 11-06 19:28
PROVIDERS: ADMIT Pharmacist; ATTEND Internal Medicine

== ENCOUNTER 2020-12-17 06:31 | Inpatient (IN) ==
[2020-12-17] MEDS ORDERED: Ipratropium/Albuterol Neb 3 ML IH ONE (06:38)
[2020-12-17 06:56] LABS: ABG Base Excess 1 mEq/L (-2 to 3); ABG HCO3 26 mEq/L (21-27); ABG Oxygen Saturation 100 % (95-98); ABG PCO2 41 mmHg (35-45); ABG PH 7.41 pH Units (7.32-7.45); ABG PO2 256 mmHg (85-104); ABG TCO2 27 mEq/L (20-26)
[2020-12-17] MEDS ORDERED: Dexmedetomidine HCl 400 MCG/100 ML MLS IVC ONE (07:05)
[2020-12-17] MEDS: Dexmedetomidine HCl 400 MCG/100 ML MLS IVC SCH ×6 (07:10→23:29)
[2020-12-17 07:11] LABS: Basophils % 0.2 %; Eosinophils % 0.1 %; Hematocrit 38.5 % (37.5-50.1); Hemoglobin 13.2 g/dL (12.9-16.9); Immature Granulocytes % 0.4 % (0-4); Lymphocytes # 1.3 K/mcL (0.6-4.6); Lymphocytes % 9.8 %; Mean Corpuscular HGB Conc 34.3 g/dL (31.6-35.5); Mean Corpuscular Hemoglobin 31.7 pg (28.0-33.3); Mean Corpuscular Volume 92.3 fL (83.0-100.0); Mean Platelet Volume 9.3 fL (9.4-12.4); Monocytes # 0.9 K/mcL (0.0-1.3); Monocytes % 6.6 %; Neutrophils # 11.3 K/mcL (1.6-8.9); Platelet Count 274 K/mcL (140-400); Red Blood Count 4.17 M/mcL (4.19-5.50); Red Cell Distribution Width 12.9 % (11.5-14.5); Segmented Neutrophils % 82.9 %; White Blood Count 13.7 K/mcL (4.3-11.1)
[2020-12-17] MEDS ORDERED: Albuterol 2.5 MG/3 ML NEBULIZER IH ONE ×2 (07:34→08:54)
[2020-12-17 07:50] LABS: BUN/Creatinine Ratio 20 (6-26); Blood Urea Nitrogen 16 mg/dL (8-23); Calcium 10.2 mg/dL (8.6-10.3); Carbon Dioxide 25 mEq/L (23-29); Chloride 92 mEq/L (98-107); Glucose 94 mg/dL (70-105); Osmolality,Calculated 271 (280-300); Potassium 4.5 mEq/L (3.5-5.1); Sodium 130 mEq/L (136-145); Troponin I < 0.03 ng/mL (< 0.04); eGFR For African Americans > 60 (> 60); eGFR For Non-African Americans > 60 (> 60)
[2020-12-17] MEDS ORDERED: Morphine Sulfate 2 MG/ML SYRINGE IVP ONE ×2 (09:05→09:49)
[2020-12-17] MEDS ORDERED: Furosemide 40 MG/4 ML VIAL IVP ONE (09:10)
[2020-12-17] MEDS ORDERED: methylPREDNISolone 125 MG/2 ML VIAL IVP ONE (09:50)
[2020-12-17] MEDS ORDERED: Naloxone 0.4 MG/ML INJ IVP PRN (11:29)
[2020-12-17] MEDS ORDERED: Acetaminophen 325 MG TABLET PO PRN (11:29)
[2020-12-17] MEDS ORDERED: Albuterol 2.5 MG/3 ML NEBULIZER IH PRN (11:34)
[2020-12-17] MEDS: Ipratropium/Albuterol Neb 3 ML IH SCH ×4 (12:33→23:43)
[2020-12-17] MEDS: Morphine Sulfate 2 MG/ML SYRINGE IVP PRN ×2 (12:55→19:55)
[2020-12-17 13:03] LABS: Bilirubin,Urine Negative (Negative); Blood,Urine Negative (Negative); Clarity,Urine Clear (Clear); Color,Urine Yellow (Yellow); Glucose,Urine (UA) Normal (Normal); Ketones,Urine 40 mg/dL (Negative); Leukocyte Esterase,Urine Negative (Negative); Nitrite,Urine Negative (Negative); PH,Urine 6.5 pH Units (5.0-8.0); Protein,Urine Trace mg/dL (Neg-Trace); Specific Gravity,Urine 1.027 (1.010-1.025); Urobilinogen,Urine Normal (Normal)
[2020-12-17 13:12] LABS: Alanine Aminotransferase 27 Units/L (7-52); Albumin 4.3 g/dL (3.5-5.7); Albumin/Globulin Ratio 1.7 (1.1-2.2); Alkaline Phosphatase 72 Units/L (34-104); Aspartate Amino Transferase 31 Units/L (13-39); Bilirubin,Direct 0.1 mg/dL (0.0-0.2); Bilirubin,Indirect 0.5 mg/dL (0.0-1.0); Bilirubin,Total 0.6 mg/dL (0.3-1.0); Globulin 2.5 g/dL (2.4-3.5); Total Protein 6.8 g/dL (6.4-8.9)
[2020-12-17 13:13] LABS: Troponin I < 0.03 ng/mL (< 0.04)
[2020-12-17] MEDS ORDERED: *HR* Dextrose 50 % in Water (Vial) 50 ML VIAL IVP PRN (13:19)
[2020-12-17] MEDS ORDERED: D5% in Water 1,000 ML IVC PRN (13:19)
[2020-12-17] MEDS ORDERED: Dextrose Gel 15 GM/37.5 ML TUBE PO PRN ×2 (13:19)
[2020-12-17 14:04] LABS: Adenovirus Not Detected (Not Detect); Bordetella Pertussis Not Detected (Not Detect); Chlamydophila pneumoniae Not Detected (Not Detect); Coronavirus 229E Not Detected (Not Detect); Coronavirus HKU1 Not Detected (Not Detect); Coronavirus NL63 Not Detected (Not Detect); Coronavirus OC43 Not Detected (Not Detect); Human Metapneumovirus Not Detected (Not Detect); Human Rhinovirus/Enterovirus Not Detected (Not Detect); Influenza A Subtype 2009 H1 Not Detected (Not Detect); Influenza B Not Detected (Not Detect); Mycoplasma pneumoniae Not Detected (Not Detect); Parainfluenza Virus 1 Not Detected (Not Detect); Parainfluenza Virus 2 Not Detected (Not Detect); Parainfluenza Virus 3 Not Detected (Not Detect); Parainfluenza Virus 4 Not Detected (Not Detect); Respiratory Syncytial Virus Not Detected (Not Detect); SARS-CoV-2 Not Detected (Not Detect)
[2020-12-17] MEDS: Furosemide 20 MG/2 ML VIAL IVP SCH ×2 (17:50→21:41)
[2020-12-17] MEDS: methylPREDNISolone 125 MG/2 ML VIAL IVP SCH (17:51)
[2020-12-17] MEDS: Doxycycline 100 MG in 0.9 % Sodium Chloride Mini Bag 100 ML IVPB SCH (17:51)
[2020-12-17] MEDS: *HR* Heparin 5,000 UNIT/ML VIAL SQ SCH (17:51)
[2020-12-17] MEDS: Insulin LISPRO 300 UNITS/3 ML VIAL SUBQ SCH (18:37)
[2020-12-17] MEDS: OLANZapine 10 MG TAB.RAPDIS PO SCH (21:41)
[2020-12-18] MEDS: Morphine Sulfate 2 MG/ML SYRINGE IVP PRN ×4 (00:12→21:30)
[2020-12-18] MEDS: Insulin LISPRO 300 UNITS/3 ML VIAL SUBQ SCH ×4 (00:13→19:18)
[2020-12-18] MEDS: Dexmedetomidine HCl 400 MCG/100 ML MLS IVC SCH ×6 (02:53→21:29)
[2020-12-18] MEDS: Ipratropium/Albuterol Neb 3 ML IH SCH ×6 (03:42→23:46)
[2020-12-18 05:06] LABS: Hematocrit 34.7 % (37.5-50.1); Hemoglobin 11.8 g/dL (12.9-16.9); Immature Granulocytes % 0.3 % (0-4); Lymphocytes # 0.4 K/mcL (0.6-4.6); Lymphocytes % 3.6 %; Mean Corpuscular Hemoglobin 32.2 pg (28.0-33.3); Mean Corpuscular Volume 94.6 fL (83.0-100.0); Mean Platelet Volume 10.2 fL (9.4-12.4); Monocytes # 0.2 K/mcL (0.0-1.3); Monocytes % 2.2 %; Neutrophils # 9.7 K/mcL (1.6-8.9); Platelet Count 190 K/mcL (140-400); Red Blood Count 3.67 M/mcL (4.19-5.50); Red Cell Distribution Width 12.8 % (11.5-14.5); Segmented Neutrophils % 93.9 %; White Blood Count 10.3 K/mcL (4.3-11.1)
[2020-12-18 05:26] LABS: BUN/Creatinine Ratio 27 (6-26); Blood Urea Nitrogen 23 mg/dL (8-23); Calcium 9.8 mg/dL (8.6-10.3); Carbon Dioxide 32 mEq/L (23-29); Chloride 93 mEq/L (98-107); Glucose 144 mg/dL (70-105); Magnesium 1.9 mg/dL (1.6-2.6); Osmolality,Calculated 284 (280-300); Phosphorous 4.6 mg/dL (2.7-4.5); Potassium 3.6 mEq/L (3.5-5.1); Sodium 134 mEq/L (136-145); eGFR For African Americans > 60 (> 60); eGFR For Non-African Americans > 60 (> 60)
[2020-12-18] MEDS: Doxycycline 100 MG in 0.9 % Sodium Chloride Mini Bag 100 ML IVPB SCH ×2 (05:56→17:10)
[2020-12-18] MEDS: methylPREDNISolone 125 MG/2 ML VIAL IVP SCH ×2 (05:57→13:30)
[2020-12-18] MEDS: *HR* Heparin 5,000 UNIT/ML VIAL SQ SCH ×2 (05:57→17:09)
[2020-12-18] MEDS ORDERED: LUMATEPERONE TOSYLATE 42 MG PO SCH (09:15)
[2020-12-18] MEDS: ARIPiprazole 5 MG TABLET PO SCH (09:44)
[2020-12-18] MEDS: Aspirin Enteric Coated 81 MG Tablet PO SCH (09:44)
[2020-12-18] MEDS: Furosemide 20 MG/2 ML VIAL IVP SCH ×2 (09:44→21:29)
[2020-12-18] MEDS ORDERED: MethylPREDNISolone 40 MG/ML VIAL IVP ONE (13:47)
[2020-12-18] MEDS ORDERED: methylPREDNISolone 125 MG/2 ML VIAL ONE (13:48)
[2020-12-18] MEDS ORDERED: OLANZapine 10 MG TAB.RAPDIS PO ONE ×2 (16:30→22:33)
[2020-12-18] MEDS: OLANZapine 10 MG TAB.RAPDIS PO SCH (21:30)
[2020-12-19] MEDS: Insulin LISPRO 300 UNITS/3 ML VIAL SUBQ SCH ×4 (00:38→18:10)
[2020-12-19] MEDS: Dexmedetomidine HCl 400 MCG/100 ML MLS IVC SCH ×5 (01:31→21:27)
[2020-12-19] MEDS ORDERED: *HR* LORazepam 2 MG/ML VIAL IVP ONE (02:07)
[2020-12-19] MEDS: Ipratropium/Albuterol Neb 3 ML IH SCH ×6 (03:41→23:35)
[2020-12-19] MEDS: Doxycycline 100 MG in 0.9 % Sodium Chloride Mini Bag 100 ML IVPB SCH ×2 (06:17→17:56)
[2020-12-19] MEDS: *HR* Heparin 5,000 UNIT/ML VIAL SQ SCH ×2 (06:18→17:57)
[2020-12-19] MEDS: Furosemide 20 MG/2 ML VIAL IVP SCH ×2 (07:49→20:40)
[2020-12-19 08:06] LABS: Hematocrit 39.3 % (37.5-50.1); Hemoglobin 13.2 g/dL (12.9-16.9); Mean Corpuscular HGB Conc 33.6 g/dL (31.6-35.5); Mean Corpuscular Hemoglobin 31.6 pg (28.0-33.3); Mean Platelet Volume 9.9 fL (9.4-12.4); Platelet Count 227 K/mcL (140-400); Red Blood Count 4.18 M/mcL (4.19-5.50); Red Cell Distribution Width 13.3 % (11.5-14.5)
[2020-12-19 08:07] LABS: White Blood Count 19.4 K/mcL (4.3-11.1)
[2020-12-19 08:25] LABS: BUN/Creatinine Ratio 45 (6-26); Blood Urea Nitrogen 37 mg/dL (8-23); Calcium 10.2 mg/dL (8.6-10.3); Carbon Dioxide 30 mEq/L (23-29); Chloride 94 mEq/L (98-107); Glucose 130 mg/dL (70-105); Magnesium 2.3 mg/dL (1.6-2.6); Osmolality,Calculated 286 (280-300); Phosphorous 5.2 mg/dL (2.7-4.5); Potassium 4.1 mEq/L (3.5-5.1); Sodium 133 mEq/L (136-145); eGFR For African Americans > 60 (> 60); eGFR For Non-African Americans > 60 (> 60)
[2020-12-19 08:53] LABS: VBG Ionized Calcium 1.24 mmol/L (1.15-1.35)
[2020-12-19] MEDS: Aspirin Enteric Coated 81 MG Tablet PO SCH (09:14)
[2020-12-19] MEDS: predniSONE 20 MG TABLET PO SCH (09:14)
[2020-12-19] MEDS: ARIPiprazole 5 MG TABLET PO SCH (09:14)
[2020-12-19] MEDS: Morphine Sulfate 2 MG/ML SYRINGE IVP PRN (12:54)
[2020-12-19] MEDS: *HR* LORazepam 2 MG/ML VIAL IVP PRN ×2 (15:16→21:33)
[2020-12-19] MEDS: CAPLYTA 42 MG PO SCH (20:40)
[2020-12-19] MEDS: OLANZapine 10 MG TAB.RAPDIS PO SCH (20:40)
[2020-12-20] MEDS: Insulin LISPRO 300 UNITS/3 ML VIAL SUBQ SCH ×4 (00:16→17:40)
[2020-12-20] MEDS: OLANZapine 10 MG TAB.RAPDIS PO SCH ×2 (01:20→21:07)
[2020-12-20] MEDS: CAPLYTA 42 MG PO SCH ×2 (01:20→21:07)
[2020-12-20] MEDS: Dexmedetomidine HCl 400 MCG/100 ML MLS IVC SCH ×4 (01:32→21:07)
[2020-12-20] MEDS: Ipratropium/Albuterol Neb 3 ML IH SCH ×6 (03:47→23:10)
[2020-12-20] MEDS: Doxycycline 100 MG in 0.9 % Sodium Chloride Mini Bag 100 ML IVPB SCH ×2 (04:30→17:34)
[2020-12-20] MEDS: *HR* Heparin 5,000 UNIT/ML VIAL SQ SCH ×2 (04:30→17:34)
[2020-12-20] MEDS: *HR* LORazepam 2 MG/ML VIAL IVP PRN (05:03)
[2020-12-20 05:07] LABS: Hematocrit 43.2 % (37.5-50.1); Hemoglobin 14.4 g/dL (12.9-16.9); Immature Granulocytes % 0.4 % (0-4); Lymphocytes # 0.8 K/mcL (0.6-4.6); Lymphocytes % 5.9 %; Mean Corpuscular HGB Conc 33.3 g/dL (31.6-35.5); Mean Corpuscular Hemoglobin 31.7 pg (28.0-33.3); Mean Corpuscular Volume 95.2 fL (83.0-100.0); Mean Platelet Volume 10.1 fL (9.4-12.4); Monocytes # 0.9 K/mcL (0.0-1.3); Monocytes % 7.2 %; Neutrophils # 11.1 K/mcL (1.6-8.9); Platelet Count 196 K/mcL (140-400); Red Blood Count 4.54 M/mcL (4.19-5.50); Red Cell Distribution Width 13.2 % (11.5-14.5); Segmented Neutrophils % 86.5 %; White Blood Count 12.8 K/mcL (4.3-11.1)
[2020-12-20 05:27] LABS: BUN/Creatinine Ratio 45 (6-26); Blood Urea Nitrogen 37 mg/dL (8-23); Carbon Dioxide 34 mEq/L (23-29); Chloride 95 mEq/L (98-107); Glucose 111 mg/dL (70-105); Magnesium 2.5 mg/dL (1.6-2.6); Osmolality,Calculated 289 (280-300); Phosphorous 4.4 mg/dL (2.7-4.5); Sodium 135 mEq/L (136-145); eGFR For African Americans > 60 (> 60); eGFR For Non-African Americans > 60 (> 60)
[2020-12-20] MEDS: Aspirin Enteric Coated 81 MG Tablet PO SCH (09:33)
[2020-12-20] MEDS: Furosemide 20 MG/2 ML VIAL IVP SCH ×2 (09:33→21:07)
[2020-12-20] MEDS: predniSONE 20 MG TABLET PO SCH (09:33)
[2020-12-20] MEDS: ARIPiprazole 5 MG TABLET PO SCH (09:33)
[2020-12-20] MEDS ORDERED: Morphine Sulfate 2 MG/ML SYRINGE IVP PRN (12:07)
[2020-12-20] MEDS ORDERED: *HR* Dextrose 50 % in Water (Vial) 50 ML VIAL IVP PRN (12:07)
[2020-12-20] MEDS ORDERED: *HR* LORazepam 2 MG/ML VIAL IVP PRN (12:07)
[2020-12-20] MEDS ORDERED: Albuterol 2.5 MG/3 ML NEBULIZER IH PRN (12:07)
[2020-12-20] MEDS ORDERED: Acetaminophen 325 MG TABLET PO PRN (12:07)
[2020-12-20] MEDS ORDERED: Dextrose Gel 15 GM/37.5 ML TUBE PO PRN ×2 (12:07)
[2020-12-20] MEDS ORDERED: Naloxone 0.4 MG/ML INJ IVP PRN (12:07)
[2020-12-20] MEDS ORDERED: D5% in Water 1,000 ML IVC PRN (12:07)
[2020-12-20] MEDS ORDERED: Patient Taking Own Medication 1 EACH PO SCH (21:00)
[2020-12-21] MEDS: Insulin LISPRO 300 UNITS/3 ML VIAL SUBQ SCH ×4 (00:08→17:34)
[2020-12-21 02:13] LABS: Hematocrit 39.1 % (37.5-50.1); Mean Corpuscular HGB Conc 33.2 g/dL (31.6-35.5); Mean Corpuscular Volume 93.3 fL (83.0-100.0); Mean Platelet Volume 9.8 fL (9.4-12.4); Platelet Count 184 K/mcL (140-400); Red Blood Count 4.19 M/mcL (4.19-5.50); Red Cell Distribution Width 13.1 % (11.5-14.5)
[2020-12-21 02:32] LABS: Alanine Aminotransferase 26 Units/L (7-52); Albumin 3.5 g/dL (3.5-5.7); Albumin/Globulin Ratio 1.7 (1.1-2.2); Alkaline Phosphatase 59 Units/L (34-104); Aspartate Amino Transferase 17 Units/L (13-39); BUN/Creatinine Ratio 47 (6-26); Bilirubin,Total 0.8 mg/dL (0.3-1.0); Blood Urea Nitrogen 40 mg/dL (8-23); Calcium 9.3 mg/dL (8.6-10.3); Carbon Dioxide 31 mEq/L (23-29); Chloride 95 mEq/L (98-107); Globulin 2.1 g/dL (2.4-3.5); Glucose 121 mg/dL (70-105); Osmolality,Calculated 285 (280-300); Potassium 3.8 mEq/L (3.5-5.1); Sodium 132 mEq/L (136-145); Total Protein 5.6 g/dL (6.4-8.9); eGFR For African Americans > 60 (> 60); eGFR For Non-African Americans > 60 (> 60)
[2020-12-21] MEDS: Ipratropium/Albuterol Neb 3 ML IH SCH ×5 (03:45→19:57)
[2020-12-21] MEDS: Dexmedetomidine HCl 400 MCG/100 ML MLS IVC SCH (04:28)
[2020-12-21] MEDS: Doxycycline 100 MG in 0.9 % Sodium Chloride Mini Bag 100 ML IVPB SCH ×2 (05:11→17:34)
[2020-12-21] MEDS: *HR* Heparin 5,000 UNIT/ML VIAL SQ SCH ×2 (05:11→17:33)
[2020-12-21] MEDS ORDERED: Fluticasone Propionate Nasal 50 MCG/SPRAY BOTTLE NS PRN (07:20)
[2020-12-21] MEDS: Tiotropium 10 INH DOSE IH SCH (07:33)
[2020-12-21] MEDS: Furosemide 20 MG/2 ML VIAL IVP SCH ×2 (08:03→21:13)
[2020-12-21] MEDS: Cholecalciferol (D-3) 1,000 UNIT (25MCG) TABLET PO SCH (08:05)
[2020-12-21] MEDS: Aspirin Enteric Coated 81 MG Tablet PO SCH (08:05)
[2020-12-21] MEDS: ARIPiprazole 5 MG TABLET PO SCH (08:05)
[2020-12-21] MEDS: predniSONE 20 MG TABLET PO SCH (08:05)
[2020-12-21] MEDS: Loratadine 10 MG TABLET PO SCH (08:05)
[2020-12-21] MEDS: Budesonide/Formoterol 160/4.5 1 PUFF INH IH SCH ×2 (11:07→19:57)
[2020-12-21] MEDS: OLANZapine 10 MG TAB.RAPDIS PO SCH (21:18)
[2020-12-21] MEDS: CAPLYTA 42 MG PO SCH (21:18)
[2020-12-22] MEDS: Insulin LISPRO 300 UNITS/3 ML VIAL SUBQ SCH ×5 (00:08→23:49)
[2020-12-22] MEDS: Ipratropium/Albuterol Neb 3 ML IH SCH ×7 (00:33→23:20)
[2020-12-22] MEDS: *HR* Heparin 5,000 UNIT/ML VIAL SQ SCH ×2 (05:50→17:40)
[2020-12-22] MEDS: Doxycycline 100 MG in 0.9 % Sodium Chloride Mini Bag 100 ML IVPB SCH (05:50)
[2020-12-22 06:02] LABS: Basophils % 0.1 %; Eosinophils % 0.2 %; Hematocrit 39.4 % (37.5-50.1); Hemoglobin 12.9 g/dL (12.9-16.9); Immature Granulocytes % 0.3 % (0-4); Lymphocytes % 16.2 %; Mean Corpuscular HGB Conc 32.7 g/dL (31.6-35.5); Mean Corpuscular Hemoglobin 31.2 pg (28.0-33.3); Mean Corpuscular Volume 95.2 fL (83.0-100.0); Mean Platelet Volume 10.3 fL (9.4-12.4); Monocytes # 1.5 K/mcL (0.0-1.3); Monocytes % 11.8 %; Neutrophils # 8.9 K/mcL (1.6-8.9); Platelet Count 175 K/mcL (140-400); Red Blood Count 4.14 M/mcL (4.19-5.50); Red Cell Distribution Width 13.2 % (11.5-14.5); Segmented Neutrophils % 71.4 %; White Blood Count 12.4 K/mcL (4.3-11.1)
[2020-12-22 06:31] LABS: BUN/Creatinine Ratio 30 (6-26); Blood Urea Nitrogen 26 mg/dL (8-23); Calcium 9.6 mg/dL (8.6-10.3); Carbon Dioxide 31 mEq/L (23-29); Chloride 96 mEq/L (98-107); Glucose 95 mg/dL (70-105); Osmolality,Calculated 283 (280-300); Potassium 4.1 mEq/L (3.5-5.1); Sodium 134 mEq/L (136-145); eGFR For African Americans > 60 (> 60); eGFR For Non-African Americans > 60 (> 60)
[2020-12-22] MEDS: Budesonide/Formoterol 160/4.5 1 PUFF INH IH SCH ×2 (07:28→20:23)
[2020-12-22] MEDS: Tiotropium 10 INH DOSE IH SCH (07:29)
[2020-12-22] MEDS: Aspirin Enteric Coated 81 MG Tablet PO SCH (08:36)
[2020-12-22] MEDS: ARIPiprazole 5 MG TABLET PO SCH (08:36)
[2020-12-22] MEDS: Cholecalciferol (D-3) 1,000 UNIT (25MCG) TABLET PO SCH (08:37)
[2020-12-22] MEDS: predniSONE 20 MG TABLET PO SCH (08:37)
[2020-12-22] MEDS: Furosemide 20 MG/2 ML VIAL IVP SCH ×2 (08:37→22:11)
[2020-12-22] MEDS: Loratadine 10 MG TABLET PO SCH (08:37)
[2020-12-22] MEDS: OLANZapine 10 MG TAB.RAPDIS PO SCH (22:10)
[2020-12-22] MEDS: Doxycycline 100 MG CAPSULE PO SCH (22:10)
[2020-12-22] MEDS: CAPLYTA 42 MG PO SCH (22:11)
[2020-12-23] MEDS: Ipratropium/Albuterol Neb 3 ML IH SCH ×2 (04:05→07:41)
[2020-12-23] MEDS: Insulin LISPRO 300 UNITS/3 ML VIAL SUBQ SCH (05:37)
[2020-12-23] MEDS: *HR* Heparin 5,000 UNIT/ML VIAL SQ SCH (05:54)
[2020-12-23 07:00] LABS: Basophils % 0.1 %; Eosinophils % 0.1 %; Hematocrit 38.4 % (37.5-50.1); Immature Granulocytes % 0.2 % (0-4); Lymphocytes # 1.9 K/mcL (0.6-4.6); Lymphocytes % 11.6 %; Mean Corpuscular HGB Conc 33.9 g/dL (31.6-35.5); Mean Corpuscular Hemoglobin 32.4 pg (28.0-33.3); Mean Corpuscular Volume 95.8 fL (83.0-100.0); Mean Platelet Volume 9.9 fL (9.4-12.4); Monocytes # 1.6 K/mcL (0.0-1.3); Monocytes % 9.9 %; Neutrophils # 12.7 K/mcL (1.6-8.9); Platelet Count 170 K/mcL (140-400); Red Blood Count 4.01 M/mcL (4.19-5.50); Red Cell Distribution Width 13.3 % (11.5-14.5); Segmented Neutrophils % 78.1 %; White Blood Count 16.3 K/mcL (4.3-11.1)
[2020-12-23 07:11] VITALS: BP 97/61
[2020-12-23 07:13] LABS: BUN/Creatinine Ratio 25 (6-26); Blood Urea Nitrogen 22 mg/dL (8-23); Calcium 9.7 mg/dL (8.6-10.3); Carbon Dioxide 33 mEq/L (23-29); Chloride 101 mEq/L (98-107); Glucose 129 mg/dL (70-105); Osmolality,Calculated 291 (280-300); Potassium 3.8 mEq/L (3.5-5.1); Sodium 138 mEq/L (136-145); eGFR For African Americans > 60 (> 60); eGFR For Non-African Americans > 60 (> 60)
[2020-12-23] MEDS: Budesonide/Formoterol 160/4.5 1 PUFF INH IH SCH (07:41)
[2020-12-23] MEDS: Tiotropium 10 INH DOSE IH SCH (07:44)
[2020-12-23] MEDS: Loratadine 10 MG TABLET PO SCH (07:55)
[2020-12-23] MEDS: Cholecalciferol (D-3) 1,000 UNIT (25MCG) TABLET PO SCH (07:55)
[2020-12-23] MEDS: predniSONE 20 MG TABLET PO SCH (07:55)
[2020-12-23] MEDS: Doxycycline 100 MG CAPSULE PO SCH (07:56)
[2020-12-23] MEDS: Aspirin Enteric Coated 81 MG Tablet PO SCH (07:56)
[2020-12-23] MEDS: Furosemide 20 MG/2 ML VIAL IVP SCH (07:56)
[2020-12-23] MEDS: ARIPiprazole 5 MG TABLET PO SCH (07:56)
== END 2020-12-23 10:56 | disposition home health service (06) | DRG 291 ==
LOC: EMEROOARM 06:31 → SUATTDRO 15:23 → ICNU 15:23 → 2NNU 12-20 20:15 → 2ANU 12-21 15:03
PROVIDERS: ADMIT Pediatrics; ATTEND Family Medicine

== ENCOUNTER 2021-01-17 06:39 | Inpatient (IN) ==
[2021-01-17] MEDS ORDERED: Ipratropium/Albuterol Neb 3 ML IH ONE (06:47)
[2021-01-17] MEDS ORDERED: methylPREDNISolone 125 MG/2 ML VIAL IVP ONE (06:47)
[2021-01-17] MEDS ORDERED: Ipratropium/Albuterol Neb 3 ML ONE (06:48)
[2021-01-17] MEDS ORDERED: Morphine Sulfate 2 MG/ML SYRINGE IVP ONE ×2 (06:56→08:52)
[2021-01-17 07:38] LABS: Basophils % 0.1 %; Eosinophils % 0.2 %; Hematocrit 38.7 % (37.5-50.1); Hemoglobin 13.2 g/dL (12.9-16.9); Immature Granulocytes % 0.3 % (0-4); Lymphocytes % 7.1 %; Mean Corpuscular HGB Conc 34.1 g/dL (31.6-35.5); Mean Corpuscular Hemoglobin 33.2 pg (28.0-33.3); Mean Corpuscular Volume 97.2 fL (83.0-100.0); Mean Platelet Volume 9.5 fL (9.4-12.4); Monocytes # 1.1 K/mcL (0.0-1.3); Monocytes % 7.6 %; Neutrophils # 12.2 K/mcL (1.6-8.9); Platelet Count 278 K/mcL (140-400); Red Blood Count 3.98 M/mcL (4.19-5.50); Red Cell Distribution Width 13.9 % (11.5-14.5); Segmented Neutrophils % 84.7 %; White Blood Count 14.4 K/mcL (4.3-11.1)
[2021-01-17] MEDS ORDERED: Doxycycline 100 MG in 0.9 % Sodium Chloride Mini Bag 100 ML IVPB ONE (07:51)
[2021-01-17 07:59] LABS: BUN/Creatinine Ratio 20 (6-26); Blood Urea Nitrogen 16 mg/dL (8-23); Calcium 9.9 mg/dL (8.6-10.3); Carbon Dioxide 28 mEq/L (23-29); Chloride 90 mEq/L (98-107); Glucose 105 mg/dL (70-105); Osmolality,Calculated 264 (280-300); Potassium 4.9 mEq/L (3.5-5.1); Sodium 126 mEq/L (136-145); Troponin I < 0.03 ng/mL (< 0.04); eGFR For African Americans > 60 (> 60); eGFR For Non-African Americans > 60 (> 60)
[2021-01-17] MEDS ORDERED: 0.9 % Sodium Chloride 1,000 ML IV ONE (08:27)
[2021-01-17 08:54] LABS: ABG Base Excess 1 mEq/L (-2 to 3); ABG HCO3 27 mEq/L (21-27); ABG Oxygen Saturation 97 % (95-98); ABG PCO2 52 mmHg (35-45); ABG PH 7.33 pH Units (7.32-7.45); ABG PO2 98 mmHg (85-104); ABG TCO2 29 mEq/L (20-26); Blood Gas Modality ST; Blood Gas VT 12 cc
[2021-01-17 08:58] LABS: Alanine Aminotransferase 21 Units/L (7-52); Albumin 4.2 g/dL (3.5-5.7); Albumin/Globulin Ratio 1.9 (1.1-2.2); Alkaline Phosphatase 72 Units/L (34-104); Aspartate Amino Transferase 18 Units/L (13-39); Bilirubin,Direct 0.1 mg/dL (0.0-0.2); Bilirubin,Total 1.1 mg/dL (0.3-1.0); Globulin 2.2 g/dL (2.4-3.5); Magnesium 1.7 mg/dL (1.6-2.6); Total Protein 6.4 g/dL (6.4-8.9)
[2021-01-17] MEDS ORDERED: *HR* LORazepam 2 MG/ML VIAL ONE (09:14)
[2021-01-17] MEDS ORDERED: Furosemide 40 MG/4 ML VIAL ONE (09:15)
[2021-01-17] MEDS ORDERED: *HR* LORazepam 2 MG/ML VIAL IVP STA (09:24)
[2021-01-17] MEDS ORDERED: Furosemide 40 MG/4 ML VIAL IVP STA (09:24)
[2021-01-17] MEDS ORDERED: Morphine Sulfate 2 MG/ML SYRINGE IVP PRN (09:55)
[2021-01-17] MEDS ORDERED: Naloxone 0.4 MG/ML INJ IVP PRN (09:55)
[2021-01-17] MEDS ORDERED: Acetaminophen 325 MG TABLET PO PRN (09:55)
[2021-01-17] MEDS ORDERED: D5% in Water 1,000 ML IVC PRN (10:03)
[2021-01-17] MEDS ORDERED: *HR* Dextrose 50 % in Water (Vial) 50 ML VIAL IVP PRN (10:03)
[2021-01-17] MEDS ORDERED: Dextrose Gel 15 GM/37.5 ML TUBE PO PRN ×2 (10:03)
[2021-01-17 10:15] LABS: Amorphous Sediment,Urine Few per hpf (None-Few); Bilirubin,Urine Negative (Negative); Blood,Urine Small (Negative); Clarity,Urine Ex.Turbid (Clear); Color,Urine Yellow (Yellow); Glucose,Urine (UA) Normal (Normal); Ketones,Urine Negative (Negative); Leukocyte Esterase,Urine Large (Negative); Nitrite,Urine Positive (Negative); Protein,Urine 50 mg/dL (Neg-Trace); RBC,Urine 15-30 per hpf (0-3); Specific Gravity,Urine 1.013 (1.010-1.025); Urobilinogen,Urine Normal (Normal); WBC,Urine TNTC per hpf (0-3)
[2021-01-17] MEDS: levoFLOXacin 750 MG/150 ML 750 MG/150 ML BAG IVPB SCH (10:39)
[2021-01-17] MEDS: *HR* LORazepam 2 MG/ML VIAL IVP PRN ×2 (11:23→21:40)
[2021-01-17] MEDS: Insulin LISPRO 300 UNITS/3 ML VIAL SUBQ SCH ×2 (14:15→18:17)
[2021-01-17] MEDS: Ipratropium/Albuterol Neb 3 ML IH PRN ×2 (15:40→20:47)
[2021-01-17] MEDS: Budesonide/Formoterol 160/4.5 1 PUFF INH IH SCH ×2 (15:56→20:47)
[2021-01-17 16:09] LABS: Adenovirus Not Detected (Not Detect); Bordetella Pertussis Not Detected (Not Detect); Chlamydophila pneumoniae Not Detected (Not Detect); Coronavirus 229E Not Detected (Not Detect); Coronavirus HKU1 Not Detected (Not Detect); Coronavirus NL63 Not Detected (Not Detect); Coronavirus OC43 Not Detected (Not Detect); Human Metapneumovirus Not Detected (Not Detect); Human Rhinovirus/Enterovirus Not Detected (Not Detect); Influenza A Subtype 2009 H1 Not Detected (Not Detect); Influenza B Not Detected (Not Detect); Mycoplasma pneumoniae Not Detected (Not Detect); Parainfluenza Virus 1 Not Detected (Not Detect); Parainfluenza Virus 2 Not Detected (Not Detect); Parainfluenza Virus 3 Not Detected (Not Detect); Parainfluenza Virus 4 Not Detected (Not Detect); Respiratory Syncytial Virus Not Detected (Not Detect); SARS-CoV-2 Not Detected (Not Detect)
[2021-01-17] MEDS: MethylPREDNISolone 40 MG/ML VIAL IVP SCH ×2 (16:24→23:30)
[2021-01-17] MEDS: OLANZapine 10 MG TAB.RAPDIS PO SCH (16:24)
[2021-01-17] MEDS: *HR* Heparin 5,000 UNIT/ML VIAL SQ SCH (16:24)
[2021-01-17] MEDS: Dexmedetomidine HCl 400 MCG/100 ML MLS IVC SCH ×2 (19:18→23:35)
[2021-01-17] MEDS ORDERED: ARIPiprazole 5 MG TABLET PO SCH (21:00)
[2021-01-18] MEDS: Insulin LISPRO 300 UNITS/3 ML VIAL SUBQ SCH ×4 (00:05→16:25)
[2021-01-18] MEDS: *HR* Heparin 5,000 UNIT/ML VIAL SQ SCH ×2 (05:26→17:11)
[2021-01-18 05:34] LABS: Hematocrit 37.1 % (37.5-50.1); Hemoglobin 12.8 g/dL (12.9-16.9); Immature Granulocytes % 0.3 % (0-4); Lymphocytes # 0.3 K/mcL (0.6-4.6); Lymphocytes % 4.2 %; Mean Corpuscular HGB Conc 34.5 g/dL (31.6-35.5); Mean Corpuscular Hemoglobin 32.7 pg (28.0-33.3); Mean Corpuscular Volume 94.6 fL (83.0-100.0); Mean Platelet Volume 9.1 fL (9.4-12.4); Monocytes # 0.1 K/mcL (0.0-1.3); Monocytes % 1.5 %; Neutrophils # 6.9 K/mcL (1.6-8.9); Platelet Count 236 K/mcL (140-400); Red Blood Count 3.92 M/mcL (4.19-5.50); Red Cell Distribution Width 13.3 % (11.5-14.5); White Blood Count 7.4 K/mcL (4.3-11.1)
[2021-01-18 05:52] LABS: Alanine Aminotransferase 19 Units/L (7-52); Albumin 3.9 g/dL (3.5-5.7); Albumin/Globulin Ratio 1.6 (1.1-2.2); Alkaline Phosphatase 65 Units/L (34-104); Aspartate Amino Transferase 18 Units/L (13-39); BUN/Creatinine Ratio 22 (6-26); Bilirubin,Direct 0.1 mg/dL (0.0-0.2); Bilirubin,Indirect 0.6 mg/dL (0.0-1.0); Bilirubin,Total 0.7 mg/dL (0.3-1.0); Blood Urea Nitrogen 13 mg/dL (8-23); Calcium 9.8 mg/dL (8.6-10.3); Carbon Dioxide 32 mEq/L (23-29); Chloride 89 mEq/L (98-107); Globulin 2.4 g/dL (2.4-3.5); Glucose 140 mg/dL (70-105); Osmolality,Calculated 270 (280-300); Phosphorous 3.7 mg/dL (2.7-4.5); Sodium 129 mEq/L (136-145); Total Protein 6.3 g/dL (6.4-8.9); eGFR For African Americans > 60 (> 60); eGFR For Non-African Americans > 60 (> 60)
[2021-01-18] MEDS: OLANZapine 10 MG TAB.RAPDIS PO SCH (07:28)
[2021-01-18] MEDS: MethylPREDNISolone 40 MG/ML VIAL IVP SCH ×2 (07:28→15:09)
[2021-01-18] MEDS: levoFLOXacin 750 MG/150 ML 750 MG/150 ML BAG IVPB SCH (07:28)
[2021-01-18] MEDS: Budesonide/Formoterol 160/4.5 1 PUFF INH IH SCH ×2 (07:39→19:45)
[2021-01-18 07:56] LABS: ABG Base Excess 7 mEq/L (-2 to 3); ABG HCO3 34 mEq/L (21-27); ABG Oxygen Saturation 94 % (95-98); ABG PCO2 61 mmHg (35-45); ABG PH 7.36 pH Units (7.32-7.45); ABG PO2 76 mmHg (85-104); ABG TCO2 36 mEq/L (20-26)
[2021-01-18] MEDS ORDERED: Aspirin Enteric Coated 81 MG Tablet PO SCH (09:00)
[2021-01-18] MEDS ORDERED: Acetaminophen 325 MG TABLET PO PRN (10:15)
[2021-01-18] MEDS ORDERED: Naloxone 0.4 MG/ML INJ IVP PRN (10:15)
[2021-01-18] MEDS ORDERED: Ipratropium/Albuterol Neb 3 ML IH PRN (10:15)
[2021-01-18] MEDS ORDERED: D5% in Water 1,000 ML IVC PRN (10:15)
[2021-01-18] MEDS ORDERED: Dextrose Gel 15 GM/37.5 ML TUBE PO PRN ×2 (10:15)
[2021-01-18] MEDS ORDERED: *HR* Dextrose 50 % in Water (Vial) 50 ML VIAL IVP PRN (10:15)
[2021-01-18] MEDS ORDERED: Morphine Sulfate 2 MG/ML SYRINGE IVP PRN (10:15)
[2021-01-18] MEDS ORDERED: Albuterol 2.5 MG/3 ML NEBULIZER IH PRN (13:36)
[2021-01-18] MEDS ORDERED: Fluticasone Propionate Nasal 50 MCG/SPRAY BOTTLE NS PRN (13:36)
[2021-01-18] MEDS ORDERED: Ammonium Lactate 30 APPL/225 GM BOTTLE TP PRN (13:40)
[2021-01-18] MEDS ORDERED: LUMATEPERONE TOSYLATE 42 MG PO SCH (13:45)
[2021-01-18] MEDS: Dexmedetomidine HCl 400 MCG/100 ML MLS IVC SCH ×3 (15:10→22:09)
[2021-01-18] MEDS: Ipratropium/Albuterol Neb 3 ML IH PRN (15:21)
[2021-01-18] MEDS: ARIPiprazole 5 MG TABLET PO SCH (20:47)
[2021-01-18] MEDS: Lumateperone Tosylate [Caplyta] 42 MG PO SCH (20:47)
[2021-01-18] MEDS ORDERED: Budesonide/Formoterol 160/4.5 1 PUFF INH IH SCH (21:00)
[2021-01-19] MEDS: Insulin LISPRO 300 UNITS/3 ML VIAL SUBQ SCH ×5 (00:14→19:55)
[2021-01-19] MEDS: MethylPREDNISolone 40 MG/ML VIAL IVP SCH ×3 (00:17→16:45)
[2021-01-19] MEDS: *HR* Heparin 5,000 UNIT/ML VIAL SQ SCH ×2 (04:46→18:58)
[2021-01-19 05:12] LABS: Hematocrit 39.3 % (37.5-50.1); Hemoglobin 13.3 g/dL (12.9-16.9); Mean Corpuscular HGB Conc 33.8 g/dL (31.6-35.5); Mean Corpuscular Hemoglobin 32.8 pg (28.0-33.3); Mean Corpuscular Volume 96.8 fL (83.0-100.0); Mean Platelet Volume 9.6 fL (9.4-12.4); Platelet Count 253 K/mcL (140-400); Red Blood Count 4.06 M/mcL (4.19-5.50); Red Cell Distribution Width 13.9 % (11.5-14.5)
[2021-01-19 05:16] LABS: White Blood Count 14.4 K/mcL (4.3-11.1)
[2021-01-19 05:39] LABS: BUN/Creatinine Ratio 33 (6-26); Blood Urea Nitrogen 29 mg/dL (8-23); Calcium 10.1 mg/dL (8.6-10.3); Carbon Dioxide 30 mEq/L (23-29); Chloride 92 mEq/L (98-107); Glucose 123 mg/dL (70-105); Magnesium 2.2 mg/dL (1.6-2.6); Osmolality,Calculated 275 (280-300); Potassium 4.8 mEq/L (3.5-5.1); Sodium 129 mEq/L (136-145); eGFR For African Americans > 60 (> 60); eGFR For Non-African Americans > 60 (> 60)
[2021-01-19] MEDS: Ipratropium/Albuterol Neb 3 ML IH PRN (06:00)
[2021-01-19] MEDS: Budesonide/Formoterol 160/4.5 1 PUFF INH IH SCH ×2 (07:35→21:47)
[2021-01-19] MEDS: Aspirin Enteric Coated 81 MG Tablet PO SCH (08:35)
[2021-01-19] MEDS: OLANZapine 10 MG TAB.RAPDIS PO SCH (08:35)
[2021-01-19] MEDS: Cholecalciferol (D-3) 1,000 UNIT (25MCG) TABLET PO SCH (08:35)
[2021-01-19] MEDS: Loratadine 10 MG TABLET PO SCH (08:35)
[2021-01-19] MEDS: levoFLOXacin 750 MG/150 ML 750 MG/150 ML BAG IVPB SCH (08:39)
[2021-01-19] MEDS ORDERED: Tiotropium 10 INH DOSE IH SCH (09:00)
[2021-01-19] MEDS: Dexmedetomidine HCl 400 MCG/100 ML MLS IVC SCH ×2 (09:20→17:46)
[2021-01-19] MEDS: Ipratropium/Albuterol Neb 3 ML IH SCH ×3 (09:38→21:47)
[2021-01-19] MEDS: Ketoconazole 2% CRM 15 GM TUBE TP SCH (16:50)
[2021-01-19] MEDS: ARIPiprazole 5 MG TABLET PO SCH (19:59)
[2021-01-19] MEDS: Lumateperone Tosylate [Caplyta] 42 MG PO SCH (19:59)
[2021-01-20] MEDS: MethylPREDNISolone 40 MG/ML VIAL IVP SCH ×3 (01:11→16:42)
[2021-01-20] MEDS: Dexmedetomidine HCl 400 MCG/100 ML MLS IVC SCH ×4 (01:59→22:49)
[2021-01-20] MEDS: Ipratropium/Albuterol Neb 3 ML IH SCH ×4 (03:26→21:30)
[2021-01-20 04:09] LABS: Basophils % 0.1 %; Hematocrit 38.9 % (37.5-50.1); Hemoglobin 13.3 g/dL (12.9-16.9); Immature Granulocytes % 0.4 % (0-4); Lymphocytes # 0.3 K/mcL (0.6-4.6); Lymphocytes % 2.8 %; Mean Corpuscular HGB Conc 34.2 g/dL (31.6-35.5); Mean Corpuscular Hemoglobin 32.8 pg (28.0-33.3); Mean Corpuscular Volume 95.8 fL (83.0-100.0); Mean Platelet Volume 9.4 fL (9.4-12.4); Monocytes # 0.5 K/mcL (0.0-1.3); Monocytes % 3.8 %; Neutrophils # 11.3 K/mcL (1.6-8.9); Platelet Count 241 K/mcL (140-400); Red Blood Count 4.06 M/mcL (4.19-5.50); Red Cell Distribution Width 13.9 % (11.5-14.5); Segmented Neutrophils % 92.9 %; White Blood Count 12.2 K/mcL (4.3-11.1)
[2021-01-20 04:28] LABS: BUN/Creatinine Ratio 34 (6-26); Blood Urea Nitrogen 31 mg/dL (8-23); Calcium 10.1 mg/dL (8.6-10.3); Carbon Dioxide 35 mEq/L (23-29); Chloride 94 mEq/L (98-107); Glucose 141 mg/dL (70-105); Magnesium 2.4 mg/dL (1.6-2.6); Osmolality,Calculated 283 (280-300); Potassium 5.1 mEq/L (3.5-5.1); Sodium 132 mEq/L (136-145); eGFR For African Americans > 60 (> 60); eGFR For Non-African Americans > 60 (> 60)
[2021-01-20] MEDS: *HR* Heparin 5,000 UNIT/ML VIAL SQ SCH ×2 (05:11→17:11)
[2021-01-20] MEDS: Insulin LISPRO 300 UNITS/3 ML VIAL SUBQ SCH ×4 (07:26→20:11)
[2021-01-20] MEDS: Ketoconazole 2% CRM 15 GM TUBE TP SCH (09:24)
[2021-01-20] MEDS: levoFLOXacin 750 MG/150 ML 750 MG/150 ML BAG IVPB SCH (09:24)
[2021-01-20] MEDS: Cholecalciferol (D-3) 1,000 UNIT (25MCG) TABLET PO SCH (09:53)
[2021-01-20] MEDS: Aspirin Enteric Coated 81 MG Tablet PO SCH (09:53)
[2021-01-20] MEDS: Loratadine 10 MG TABLET PO SCH (09:53)
[2021-01-20] MEDS: OLANZapine 10 MG TAB.RAPDIS PO SCH (09:53)
[2021-01-20] MEDS: Budesonide/Formoterol 160/4.5 1 PUFF INH IH SCH ×2 (10:51→21:30)
[2021-01-20] MEDS ORDERED: Acetaminophen IV 1,000 MG/100 ML BAG IVPB PRN (11:41)
[2021-01-20] MEDS: Pantoprazole 40 MG VIAL IVP SCH (13:29)
[2021-01-20] MEDS: *HR* LORazepam 2 MG/ML VIAL IVP PRN (21:43)
[2021-01-20] MEDS: ARIPiprazole 5 MG TABLET PO SCH (21:45)
[2021-01-20] MEDS: Lumateperone Tosylate [Caplyta] 42 MG PO SCH (21:46)
[2021-01-21 03:30] LABS: Basophils % 0.1 %; Hematocrit 41.7 % (37.5-50.1); Immature Granulocytes % 0.6 % (0-4); Lymphocytes # 0.5 K/mcL (0.6-4.6); Lymphocytes % 3.5 %; Mean Corpuscular HGB Conc 33.6 g/dL (31.6-35.5); Mean Corpuscular Hemoglobin 32.9 pg (28.0-33.3); Mean Corpuscular Volume 97.9 fL (83.0-100.0); Mean Platelet Volume 9.5 fL (9.4-12.4); Monocytes # 0.6 K/mcL (0.0-1.3); Monocytes % 4.5 %; Neutrophils # 12.9 K/mcL (1.6-8.9); Platelet Count 223 K/mcL (140-400); Red Blood Count 4.26 M/mcL (4.19-5.50); Red Cell Distribution Width 13.9 % (11.5-14.5); Segmented Neutrophils % 91.3 %; White Blood Count 14.1 K/mcL (4.3-11.1)
[2021-01-21] MEDS: Ipratropium/Albuterol Neb 3 ML IH SCH ×5 (03:40→23:31)
[2021-01-21 03:48] LABS: BUN/Creatinine Ratio 44 (6-26); Blood Urea Nitrogen 39 mg/dL (8-23); Calcium 9.8 mg/dL (8.6-10.3); Carbon Dioxide 32 mEq/L (23-29); Chloride 96 mEq/L (98-107); Glucose 147 mg/dL (70-105); Osmolality,Calculated 286 (280-300); Potassium 4.7 mEq/L (3.5-5.1); Sodium 132 mEq/L (136-145); eGFR For African Americans > 60 (> 60); eGFR For Non-African Americans > 60 (> 60)
[2021-01-21] MEDS: MethylPREDNISolone 40 MG/ML VIAL IVP SCH ×3 (03:58→16:45)
[2021-01-21] MEDS: Dexmedetomidine HCl 400 MCG/100 ML MLS IVC SCH ×3 (04:53→21:15)
[2021-01-21] MEDS: *HR* Heparin 5,000 UNIT/ML VIAL SQ SCH ×2 (05:53→16:45)
[2021-01-21] MEDS: Aspirin Enteric Coated 81 MG Tablet PO SCH (07:54)
[2021-01-21] MEDS: OLANZapine 10 MG TAB.RAPDIS PO SCH (07:54)
[2021-01-21] MEDS: Cholecalciferol (D-3) 1,000 UNIT (25MCG) TABLET PO SCH (07:54)
[2021-01-21] MEDS: Loratadine 10 MG TABLET PO SCH (07:54)
[2021-01-21] MEDS: levoFLOXacin 750 MG/150 ML 750 MG/150 ML BAG IVPB SCH (07:55)
[2021-01-21] MEDS: Ketoconazole 2% CRM 15 GM TUBE TP SCH (07:56)
[2021-01-21] MEDS: Insulin LISPRO 300 UNITS/3 ML VIAL SUBQ SCH ×4 (07:56→23:30)
[2021-01-21] MEDS: Pantoprazole 40 MG VIAL IVP SCH (07:56)
[2021-01-21] MEDS: Budesonide/Formoterol 160/4.5 1 PUFF INH IH SCH ×2 (10:24→19:55)
[2021-01-21] MEDS: ARIPiprazole 5 MG TABLET PO SCH (21:15)
[2021-01-21] MEDS: Lumateperone Tosylate [Caplyta] 42 MG PO SCH (21:17)
[2021-01-22] MEDS: MethylPREDNISolone 40 MG/ML VIAL IVP SCH ×2 (00:23→08:00)
[2021-01-22] MEDS: Ipratropium/Albuterol Neb 3 ML IH SCH ×5 (04:17→20:18)
[2021-01-22] MEDS: *HR* Heparin 5,000 UNIT/ML VIAL SQ SCH ×2 (06:24→16:01)
[2021-01-22 07:15] LABS: Basophils % 0.1 %; Hematocrit 40.8 % (37.5-50.1); Hemoglobin 13.7 g/dL (12.9-16.9); Immature Granulocytes % 0.5 % (0-4); Lymphocytes # 0.3 K/mcL (0.6-4.6); Lymphocytes % 2.4 %; Mean Corpuscular HGB Conc 33.6 g/dL (31.6-35.5); Mean Corpuscular Hemoglobin 32.6 pg (28.0-33.3); Mean Corpuscular Volume 97.1 fL (83.0-100.0); Mean Platelet Volume 9.5 fL (9.4-12.4); Monocytes # 0.4 K/mcL (0.0-1.3); Monocytes % 2.9 %; Neutrophils # 11.3 K/mcL (1.6-8.9); Platelet Count 205 K/mcL (140-400); Red Cell Distribution Width 13.7 % (11.5-14.5); Segmented Neutrophils % 94.1 %
[2021-01-22] MEDS: Budesonide/Formoterol 160/4.5 1 PUFF INH IH SCH ×2 (07:23→20:18)
[2021-01-22 07:32] LABS: BUN/Creatinine Ratio 39 (6-26); Blood Urea Nitrogen 31 mg/dL (8-23); Calcium 9.5 mg/dL (8.6-10.3); Carbon Dioxide 33 mEq/L (23-29); Chloride 95 mEq/L (98-107); Glucose 160 mg/dL (70-105); Osmolality,Calculated 284 (280-300); Potassium 4.5 mEq/L (3.5-5.1); Sodium 132 mEq/L (136-145); eGFR For African Americans > 60 (> 60); eGFR For Non-African Americans > 60 (> 60)
[2021-01-22] MEDS: Pantoprazole 40 MG VIAL IVP SCH (08:00)
[2021-01-22] MEDS: Aspirin Enteric Coated 81 MG Tablet PO SCH (08:00)
[2021-01-22] MEDS: Ketoconazole 2% CRM 15 GM TUBE TP SCH (08:00)
[2021-01-22] MEDS: levoFLOXacin 750 MG/150 ML 750 MG/150 ML BAG IVPB SCH (08:00)
[2021-01-22] MEDS: Cholecalciferol (D-3) 1,000 UNIT (25MCG) TABLET PO SCH (08:00)
[2021-01-22] MEDS: Loratadine 10 MG TABLET PO SCH (08:00)
[2021-01-22] MEDS: OLANZapine 10 MG TAB.RAPDIS PO SCH (08:00)
[2021-01-22] MEDS: Insulin LISPRO 300 UNITS/3 ML VIAL SUBQ SCH ×4 (08:01→21:30)
[2021-01-22] MEDS ORDERED: predniSONE 20 MG TABLET PO SCH (16:00)
[2021-01-22] MEDS: *HR* LORazepam 2 MG/ML VIAL IVP PRN (18:25)
[2021-01-22] MEDS: ARIPiprazole 5 MG TABLET PO SCH (20:09)
[2021-01-22] MEDS: Lumateperone Tosylate [Caplyta] 42 MG PO SCH (20:11)
[2021-01-23] MEDS: Ipratropium/Albuterol Neb 3 ML IH SCH ×5 (00:18→15:56)
[2021-01-23 03:28] LABS: Basophils % 0.1 %; Hematocrit 39.1 % (37.5-50.1); Hemoglobin 12.8 g/dL (12.9-16.9); Immature Granulocytes % 0.4 % (0-4); Lymphocytes # 0.7 K/mcL (0.6-4.6); Mean Corpuscular HGB Conc 32.7 g/dL (31.6-35.5); Mean Corpuscular Hemoglobin 32.2 pg (28.0-33.3); Mean Corpuscular Volume 98.5 fL (83.0-100.0); Mean Platelet Volume 9.8 fL (9.4-12.4); Monocytes # 1.1 K/mcL (0.0-1.3); Monocytes % 7.3 %; Neutrophils # 12.5 K/mcL (1.6-8.9); Platelet Count 215 K/mcL (140-400); Red Blood Count 3.97 M/mcL (4.19-5.50); Segmented Neutrophils % 87.2 %; White Blood Count 14.3 K/mcL (4.3-11.1)
[2021-01-23 03:37] LABS: BUN/Creatinine Ratio 37 (6-26); Blood Urea Nitrogen 26 mg/dL (8-23); Calcium 9.2 mg/dL (8.6-10.3); Carbon Dioxide 31 mEq/L (23-29); Chloride 95 mEq/L (98-107); Glucose 140 mg/dL (70-105); Osmolality,Calculated 285 (280-300); Potassium 4.1 mEq/L (3.5-5.1); Sodium 134 mEq/L (136-145); eGFR For African Americans > 60 (> 60); eGFR For Non-African Americans > 60 (> 60)
[2021-01-23] MEDS: *HR* Heparin 5,000 UNIT/ML VIAL SQ SCH (06:03)
[2021-01-23] MEDS: Budesonide/Formoterol 160/4.5 1 PUFF INH IH SCH ×2 (08:03→22:26)
[2021-01-23] MEDS: Insulin LISPRO 300 UNITS/3 ML VIAL SUBQ SCH ×2 (08:56→11:46)
[2021-01-23] MEDS: OLANZapine 10 MG TAB.RAPDIS PO SCH (08:58)
[2021-01-23] MEDS: Cholecalciferol (D-3) 1,000 UNIT (25MCG) TABLET PO SCH (08:58)
[2021-01-23] MEDS: Aspirin Enteric Coated 81 MG Tablet PO SCH (08:58)
[2021-01-23] MEDS: Loratadine 10 MG TABLET PO SCH (08:59)
[2021-01-23] MEDS: Ketoconazole 2% CRM 15 GM TUBE TP SCH (08:59)
[2021-01-23] MEDS: levoFLOXacin 750 MG/150 ML 750 MG/150 ML BAG IVPB SCH (08:59)
[2021-01-23] MEDS: Pantoprazole 40 MG VIAL IVP SCH (08:59)
[2021-01-23] MEDS ORDERED: predniSONE 20 MG TABLET PO SCH (09:00)
[2021-01-23] MEDS ORDERED: Ipratropium/Albuterol Neb 3 ML IH SCH (19:15)
[2021-01-23 20:45] LABS: ABG Base Excess 6 mEq/L (-2 to 3); ABG HCO3 32 mEq/L (21-27); ABG Oxygen Saturation 95 % (95-98); ABG PCO2 49 mmHg (35-45); ABG PH 7.42 pH Units (7.32-7.45); ABG PO2 75 mmHg (85-104); ABG TCO2 33 mEq/L (20-26)
[2021-01-23] MEDS: *HR* LORazepam 2 MG/ML VIAL IVP PRN (20:53)
[2021-01-23] MEDS: ARIPiprazole 5 MG TABLET PO SCH (20:55)
[2021-01-23] MEDS ORDERED: *HR* LORazepam 2 MG/ML VIAL IVP ONE (21:20)
[2021-01-24] MEDS: Levalbuterol Neb 1.25 MG/3 ML IH SCH ×5 (01:48→20:53)
[2021-01-24 05:42] LABS: Basophils % 0.2 %; Eosinophils % 0.2 %; Hematocrit 39.5 % (37.5-50.1); Hemoglobin 12.6 g/dL (12.9-16.9); Immature Granulocytes % 0.5 % (0-4); Lymphocytes # 1.7 K/mcL (0.6-4.6); Lymphocytes % 12.7 %; Mean Corpuscular HGB Conc 31.9 g/dL (31.6-35.5); Mean Corpuscular Hemoglobin 31.6 pg (28.0-33.3); Mean Platelet Volume 9.7 fL (9.4-12.4); Monocytes # 1.1 K/mcL (0.0-1.3); Monocytes % 8.1 %; Neutrophils # 10.2 K/mcL (1.6-8.9); Platelet Count 205 K/mcL (140-400); Red Blood Count 3.99 M/mcL (4.19-5.50); Red Cell Distribution Width 13.9 % (11.5-14.5); Segmented Neutrophils % 78.3 %
[2021-01-24 06:01] LABS: BUN/Creatinine Ratio 33 (6-26); Blood Urea Nitrogen 22 mg/dL (8-23); Calcium 9.2 mg/dL (8.6-10.3); Carbon Dioxide 32 mEq/L (23-29); Chloride 99 mEq/L (98-107); Glucose 131 mg/dL (70-105); Osmolality,Calculated 287 (280-300); Potassium 3.9 mEq/L (3.5-5.1); Sodium 136 mEq/L (136-145); eGFR For African Americans > 60 (> 60); eGFR For Non-African Americans > 60 (> 60)
[2021-01-24] MEDS: predniSONE 20 MG TABLET PO SCH (08:16)
[2021-01-24] MEDS: OLANZapine 10 MG TAB.RAPDIS PO SCH (08:16)
[2021-01-24] MEDS: Aspirin 81 MG TAB.CHEW PO SCH (08:17)
[2021-01-24] MEDS: Budesonide/Formoterol 160/4.5 1 PUFF INH IH SCH ×2 (09:52→20:54)
[2021-01-24] MEDS: ARIPiprazole 5 MG TABLET PO SCH (19:45)
[2021-01-25] MEDS: *HR* LORazepam 2 MG/ML VIAL IVP PRN ×2 (00:53→23:34)
[2021-01-25 01:52] LABS: Basophils % 0.1 %; Eosinophils % 0.2 %; Hematocrit 39.8 % (37.5-50.1); Hemoglobin 13.4 g/dL (12.9-16.9); Immature Granulocytes % 0.6 % (0-4); Lymphocytes # 2.2 K/mcL (0.6-4.6); Lymphocytes % 12.5 %; Mean Corpuscular HGB Conc 33.7 g/dL (31.6-35.5); Mean Corpuscular Hemoglobin 32.9 pg (28.0-33.3); Mean Corpuscular Volume 97.8 fL (83.0-100.0); Mean Platelet Volume 9.8 fL (9.4-12.4); Monocytes # 1.4 K/mcL (0.0-1.3); Neutrophils # 13.6 K/mcL (1.6-8.9); Platelet Count 226 K/mcL (140-400); Red Blood Count 4.07 M/mcL (4.19-5.50); Red Cell Distribution Width 13.5 % (11.5-14.5); Segmented Neutrophils % 78.6 %; White Blood Count 17.3 K/mcL (4.3-11.1)
[2021-01-25 02:11] LABS: BUN/Creatinine Ratio 28 (6-26); Blood Urea Nitrogen 20 mg/dL (8-23); Carbon Dioxide 31 mEq/L (23-29); Chloride 97 mEq/L (98-107); Glucose 111 mg/dL (70-105); Osmolality,Calculated 281 (280-300); Potassium 3.8 mEq/L (3.5-5.1); Sodium 134 mEq/L (136-145); eGFR For African Americans > 60 (> 60); eGFR For Non-African Americans > 60 (> 60)
[2021-01-25] MEDS: Levalbuterol Neb 1.25 MG/3 ML IH SCH ×4 (04:04→21:22)
[2021-01-25] MEDS: Aspirin 81 MG TAB.CHEW PO SCH (07:27)
[2021-01-25] MEDS: OLANZapine 10 MG TAB.RAPDIS PO SCH (07:28)
[2021-01-25] MEDS: predniSONE 20 MG TABLET PO SCH (07:28)
[2021-01-25] MEDS: Budesonide/Formoterol 160/4.5 1 PUFF INH IH SCH ×2 (10:12→21:23)
[2021-01-25 11:59] LABS: ABG Base Excess 5 mEq/L (-2 to 3); ABG HCO3 31 mEq/L (21-27); ABG Oxygen Saturation 92 % (95-98); ABG PCO2 50 mmHg (35-45); ABG PO2 65 mmHg (85-104); ABG TCO2 33 mEq/L (20-26)
[2021-01-25] MEDS: ARIPiprazole 5 MG TABLET PO SCH (20:59)
[2021-01-26] MEDS: Levalbuterol Neb 1.25 MG/3 ML IH SCH ×4 (03:53→21:53)
[2021-01-26 04:55] LABS: Basophils # 0.1 K/mcL (0.0-0.2); Basophils % 0.4 %; Eosinophils # 0.1 K/mcL (0.0-0.6); Eosinophils % 0.4 %; Hematocrit 42.8 % (37.5-50.1); Hemoglobin 13.6 g/dL (12.9-16.9); Immature Granulocytes % 1.4 % (0-4); Lymphocytes # 3.1 K/mcL (0.6-4.6); Lymphocytes % 18.6 %; Mean Corpuscular HGB Conc 31.8 g/dL (31.6-35.5); Mean Corpuscular Hemoglobin 31.7 pg (28.0-33.3); Mean Corpuscular Volume 99.8 fL (83.0-100.0); Mean Platelet Volume 9.6 fL (9.4-12.4); Monocytes # 1.6 K/mcL (0.0-1.3); Monocytes % 9.7 %; Neutrophils # 11.6 K/mcL (1.6-8.9); Platelet Count 262 K/mcL (140-400); Red Blood Count 4.29 M/mcL (4.19-5.50); Red Cell Distribution Width 13.5 % (11.5-14.5); Segmented Neutrophils % 69.5 %; White Blood Count 16.6 K/mcL (4.3-11.1)
[2021-01-26 05:05] LABS: BUN/Creatinine Ratio 30 (6-26); Blood Urea Nitrogen 24 mg/dL (8-23); Calcium 8.9 mg/dL (8.6-10.3); Carbon Dioxide 33 mEq/L (23-29); Chloride 98 mEq/L (98-107); Glucose 81 mg/dL (70-105); Osmolality,Calculated 285 (280-300); Potassium 4.1 mEq/L (3.5-5.1); Sodium 136 mEq/L (136-145); eGFR For African Americans > 60 (> 60); eGFR For Non-African Americans > 60 (> 60)
[2021-01-26] MEDS: OLANZapine 10 MG TAB.RAPDIS PO SCH (09:20)
[2021-01-26] MEDS: Aspirin 81 MG TAB.CHEW PO SCH (09:20)
[2021-01-26] MEDS: predniSONE 20 MG TABLET PO SCH (09:21)
[2021-01-26] MEDS: Budesonide/Formoterol 160/4.5 1 PUFF INH IH SCH ×2 (10:38→21:54)
[2021-01-26] MEDS: *HR* LORazepam 2 MG/ML VIAL IVP PRN ×2 (15:46→23:46)
[2021-01-26 17:45] LABS: ABG Base Excess 5 mEq/L (-2 to 3); ABG HCO3 32 mEq/L (21-27); ABG Oxygen Saturation 90 % (95-98); ABG PCO2 51 mmHg (35-45); ABG PO2 61 mmHg (85-104); ABG TCO2 33 mEq/L (20-26)
[2021-01-26] MEDS: ARIPiprazole 5 MG TABLET PO SCH (21:37)
[2021-01-27] MEDS: Levalbuterol Neb 1.25 MG/3 ML IH SCH ×2 (03:32→10:44)
[2021-01-27] MEDS: OLANZapine 10 MG TAB.RAPDIS PO SCH (07:35)
[2021-01-27] MEDS: Aspirin 81 MG TAB.CHEW PO SCH (07:36)
[2021-01-27] MEDS: predniSONE 20 MG TABLET PO SCH (07:36)
[2021-01-27] MEDS: Budesonide/Formoterol 160/4.5 1 PUFF INH IH SCH (10:44)
[2021-01-27 11:26] VITALS: BP 138/80
[2021-01-27] MEDS ORDERED: CAPLYTA 42 MG PO SCH (13:45)
== END 2021-01-27 15:04 | disposition home health service (06) | DRG 190 ==
LOC: EMEROOARM 06:39 → ICNU 09:15 → SUATTDRO 09:15 → ICNU 10:16 → 2NNU 01-18 11:10 → 3ANU 01-23 16:06
PROVIDERS: ADMIT Pediatrics; ATTEND Student in an Organized Health Care Education/Training Program

== ENCOUNTER 2021-03-01 23:50 | Inpatient (IN) ==
[2021-03-01] MEDS ORDERED: methylPREDNISolone 125 MG/2 ML VIAL IVP ONE (23:54)
[2021-03-01] MEDS ORDERED: Ipratropium/Albuterol Neb 3 ML IH ONE (23:54)
[2021-03-02 00:30] LABS: Basophils % 0.2 %; Eosinophils # 0.1 K/mcL (0.0-0.6); Eosinophils % 0.5 %; Hematocrit 40.8 % (37.5-50.1); Hemoglobin 13.4 g/dL (12.9-16.9); Immature Granulocytes % 0.2 % (0-4); Lymphocytes # 1.1 K/mcL (0.6-4.6); Lymphocytes % 8.5 %; Mean Corpuscular HGB Conc 32.8 g/dL (31.6-35.5); Mean Corpuscular Hemoglobin 32.2 pg (28.0-33.3); Mean Corpuscular Volume 98.1 fL (83.0-100.0); Mean Platelet Volume 9.1 fL (9.4-12.4); Monocytes # 1.6 K/mcL (0.0-1.3); Monocytes % 12.3 %; Platelet Count 284 K/mcL (140-400); Red Blood Count 4.16 M/mcL (4.19-5.50); Red Cell Distribution Width 13.5 % (11.5-14.5); Segmented Neutrophils % 78.3 %; White Blood Count 12.8 K/mcL (4.3-11.1)
[2021-03-02 00:41] LABS: BUN/Creatinine Ratio 19 (6-26); Blood Urea Nitrogen 12 mg/dL (8-23); Calcium 9.6 mg/dL (8.6-10.3); Carbon Dioxide 30 mEq/L (23-29); Chloride 98 mEq/L (98-107); Glucose 103 mg/dL (70-105); Osmolality,Calculated 280 (280-300); Potassium 4.3 mEq/L (3.5-5.1); Sodium 135 mEq/L (136-145); eGFR For African Americans > 60 (> 60); eGFR For Non-African Americans > 60 (> 60)
[2021-03-02 00:42] LABS: Troponin I < 0.03 ng/mL (< 0.04)
[2021-03-02 01:08] LABS: Adenovirus Not Detected (Not Detect); Bordetella Pertussis Not Detected (Not Detect); Chlamydophila pneumoniae Not Detected (Not Detect); Coronavirus 229E Not Detected (Not Detect); Coronavirus HKU1 Not Detected (Not Detect); Coronavirus NL63 Not Detected (Not Detect); Coronavirus OC43 Not Detected (Not Detect); Human Metapneumovirus Not Detected (Not Detect); Human Rhinovirus/Enterovirus DETECTED (Not Detect); Influenza A Subtype 2009 H1 Not Detected (Not Detect); Influenza B Not Detected (Not Detect); Mycoplasma pneumoniae Not Detected (Not Detect); Parainfluenza Virus 1 Not Detected (Not Detect); Parainfluenza Virus 2 Not Detected (Not Detect); Parainfluenza Virus 3 Not Detected (Not Detect); Parainfluenza Virus 4 Not Detected (Not Detect); Respiratory Syncytial Virus Not Detected (Not Detect); SARS-CoV-2 Not Detected (Not Detect)
[2021-03-02] MEDS ORDERED: Aspirin 81 MG TAB.CHEW PO ONE (01:09)
[2021-03-02] MEDS ORDERED: Ondansetron ODT 4 MG TAB.RAPDIS SL PRN (02:57)
[2021-03-02] MEDS ORDERED: Naloxone 0.4 MG/ML INJ IVP PRN (02:57)
[2021-03-02] MEDS ORDERED: *HR* LORazepam 2 MG/ML VIAL IVP ONE (03:52)
[2021-03-02] MEDS: Budesonide/Formoterol 160/4.5 1 PUFF INH IH SCH ×3 (03:57→22:00)
[2021-03-02] MEDS: Ipratropium/Albuterol Neb 3 ML IH SCH ×4 (03:58→22:00)
[2021-03-02] MEDS ORDERED: Perflutren Lipid Microsphere 1.3 ML in 0.9 % Sodium Chloride 8.7 ML IVP PRN ×2 (05:18→06:14)
[2021-03-02] MEDS ORDERED: MethylPREDNISolone 40 MG/ML VIAL IVP SCH (06:00)
[2021-03-02] MEDS ORDERED: Furosemide 40 MG/4 ML VIAL IVP ONE (06:14)
[2021-03-02] MEDS: *HR* Heparin 5,000 UNIT/ML VIAL SQ SCH ×3 (06:26→20:19)
[2021-03-02] MEDS ORDERED: levoFLOXacin 500 MG/100 ML 500 MG/100 ML BAG IVPB SCH (09:00)
[2021-03-02] MEDS ORDERED: D5% in Water 1,000 ML IVC PRN (13:54)
[2021-03-02] MEDS ORDERED: Dextrose Gel 15 GM/37.5 ML TUBE PO PRN ×2 (13:54)
[2021-03-02] MEDS ORDERED: *HR* Dextrose 50 % in Water (Vial) 50 ML VIAL IVP PRN (13:54)
[2021-03-02] MEDS: Insulin LISPRO 300 UNITS/3 ML VIAL SUBQ SCH ×2 (17:16→20:18)
[2021-03-02] MEDS: predniSONE 20 MG TABLET PO SCH (17:21)
[2021-03-02] MEDS ORDERED: ALPRAZolam 1 MG TABLET PO ONE (22:08)
[2021-03-03] MEDS: Ipratropium/Albuterol Neb 3 ML IH SCH ×4 (03:53→22:20)
[2021-03-03] MEDS: *HR* Heparin 5,000 UNIT/ML VIAL SQ SCH ×3 (05:12→21:23)
[2021-03-03] MEDS: Insulin LISPRO 300 UNITS/3 ML VIAL SUBQ SCH ×4 (08:01→21:11)
[2021-03-03] MEDS: predniSONE 20 MG TABLET PO SCH ×2 (08:11→16:56)
[2021-03-03] MEDS ORDERED: Ammonium Lactate 30 APPL/225 GM BOTTLE TP PRN (08:51)
[2021-03-03] MEDS ORDERED: Azithromycin 250 MG TABLET PO SCH (09:00)
[2021-03-03] MEDS: Cholecalciferol (D-3) 1,000 UNIT (25MCG) TABLET PO SCH (09:02)
[2021-03-03] MEDS: OLANZapine 10 MG TAB.RAPDIS PO SCH (09:03)
[2021-03-03] MEDS: Loratadine 10 MG TABLET PO SCH (09:03)
[2021-03-03] MEDS: Aspirin Enteric Coated 81 MG Tablet PO SCH (09:03)
[2021-03-03] MEDS: LUMATEPERONE TOSYLATE 42 MG PO SCH (09:44)
[2021-03-03] MEDS: Budesonide/Formoterol 160/4.5 1 PUFF INH IH SCH ×2 (10:03→22:20)
[2021-03-03 11:21] LABS: ABG Base Excess 7 mEq/L (-2 to 3); ABG HCO3 36 mEq/L (21-27); ABG Oxygen Saturation 94 % (95-98); ABG PCO2 66 mmHg (35-45); ABG PH 7.34 pH Units (7.32-7.45); ABG PO2 79 mmHg (85-104); ABG TCO2 38 mEq/L (20-26)
[2021-03-03] MEDS ORDERED: Azithromycin 500 MG in 0.9 % Sodium Chloride 250 ML IVPB SCH (17:00)
[2021-03-03] MEDS: traZODone 50 MG TABLET PO SCH (19:57)
[2021-03-03] MEDS: Acetaminophen 325 MG TABLET PO PRN (19:57)
[2021-03-04 03:04] LABS: Basophils % 0.1 %; Hematocrit 41.1 % (37.5-50.1); Immature Granulocytes % 0.3 % (0-4); Lymphocytes % 8.6 %; Mean Corpuscular HGB Conc 34.1 g/dL (31.6-35.5); Mean Corpuscular Hemoglobin 32.7 pg (28.0-33.3); Mean Platelet Volume 9.1 fL (9.4-12.4); Monocytes # 0.8 K/mcL (0.0-1.3); Neutrophils # 9.9 K/mcL (1.6-8.9); Platelet Count 283 K/mcL (140-400); Red Blood Count 4.28 M/mcL (4.19-5.50); Red Cell Distribution Width 13.1 % (11.5-14.5); White Blood Count 11.8 K/mcL (4.3-11.1)
[2021-03-04 03:08] LABS: VBG HCO3 32 mEq/L (21-27); VBG PCO2 52 mmHg (41-51); VBG PO2 183 mmHg (25-50)
[2021-03-04 03:12] LABS: Estimated Average Glucose 108 mg/dl; Hemoglobin A1C 5.4 %
[2021-03-04 03:22] LABS: BUN/Creatinine Ratio 42 (6-26); Blood Urea Nitrogen 25 mg/dL (8-23); Calcium 9.6 mg/dL (8.6-10.3); Carbon Dioxide 33 mEq/L (23-29); Chloride 97 mEq/L (98-107); Glucose 97 mg/dL (70-105); Magnesium 2.1 mg/dL (1.6-2.6); Osmolality,Calculated 282 (280-300); Potassium 4.2 mEq/L (3.5-5.1); Sodium 134 mEq/L (136-145); eGFR For African Americans > 60 (> 60); eGFR For Non-African Americans > 60 (> 60)
[2021-03-04] MEDS: Ipratropium/Albuterol Neb 3 ML IH SCH ×4 (04:48→22:09)
[2021-03-04] MEDS: *HR* Heparin 5,000 UNIT/ML VIAL SQ SCH ×3 (05:17→21:51)
[2021-03-04] MEDS: Insulin LISPRO 300 UNITS/3 ML VIAL SUBQ SCH ×4 (07:40→15:50)
[2021-03-04] MEDS ORDERED: Morphine Sulfate 2 MG/ML SYRINGE IVP ONE (08:36)
[2021-03-04] MEDS: Nicotine 14 MG PATCH.TD24 TD SCH (08:53)
[2021-03-04] MEDS: Aspirin Enteric Coated 81 MG Tablet PO SCH (08:54)
[2021-03-04] MEDS: Metoprolol XL (24 HR) Succ 25 MG TAB.ER.24H PO SCH (08:54)
[2021-03-04] MEDS: predniSONE 20 MG TABLET PO SCH (08:54)
[2021-03-04] MEDS: LUMATEPERONE TOSYLATE 42 MG PO SCH (08:54)
[2021-03-04] MEDS: OLANZapine 10 MG TAB.RAPDIS PO SCH (08:54)
[2021-03-04] MEDS: Loratadine 10 MG TABLET PO SCH (08:54)
[2021-03-04] MEDS: Cholecalciferol (D-3) 1,000 UNIT (25MCG) TABLET PO SCH (08:54)
[2021-03-04] MEDS: Azithromycin 500 MG in 0.9 % Sodium Chloride 250 ML IVPB SCH (08:55)
[2021-03-04] MEDS: traZODone 50 MG TABLET PO SCH (21:49)
[2021-03-05] MEDS: Insulin LISPRO 300 UNITS/3 ML VIAL SUBQ SCH ×5 (01:10→23:55)
[2021-03-05] MEDS: Ipratropium/Albuterol Neb 3 ML IH SCH ×4 (03:24→22:21)
[2021-03-05] MEDS: Acetaminophen 325 MG TABLET PO PRN (04:44)
[2021-03-05] MEDS: *HR* Heparin 5,000 UNIT/ML VIAL SQ SCH ×3 (04:44→21:01)
[2021-03-05 07:04] LABS: Basophils % 0.1 %; Hematocrit 40.6 % (37.5-50.1); Hemoglobin 13.5 g/dL (12.9-16.9); Immature Granulocytes % 0.2 % (0-4); Lymphocytes # 1.1 K/mcL (0.6-4.6); Lymphocytes % 11.4 %; Mean Corpuscular HGB Conc 33.3 g/dL (31.6-35.5); Mean Corpuscular Volume 96.2 fL (83.0-100.0); Mean Platelet Volume 9.7 fL (9.4-12.4); Monocytes % 10.2 %; Neutrophils # 7.8 K/mcL (1.6-8.9); Platelet Count 272 K/mcL (140-400); Red Blood Count 4.22 M/mcL (4.19-5.50); Red Cell Distribution Width 13.1 % (11.5-14.5); Segmented Neutrophils % 78.1 %
[2021-03-05 07:27] LABS: BUN/Creatinine Ratio 41 (6-26); Blood Urea Nitrogen 27 mg/dL (8-23); Calcium 9.5 mg/dL (8.6-10.3); Carbon Dioxide 32 mEq/L (23-29); Chloride 96 mEq/L (98-107); Glucose 90 mg/dL (70-105); Magnesium 2.1 mg/dL (1.6-2.6); Osmolality,Calculated 285 (280-300); Potassium 4.3 mEq/L (3.5-5.1); Sodium 135 mEq/L (136-145); eGFR For African Americans > 60 (> 60); eGFR For Non-African Americans > 60 (> 60)
[2021-03-05] MEDS: Azithromycin 500 MG in 0.9 % Sodium Chloride 250 ML IVPB SCH (08:02)
[2021-03-05] MEDS: Pantoprazole 40 MG VIAL IVP SCH (08:02)
[2021-03-05] MEDS: OLANZapine 10 MG TAB.RAPDIS PO SCH (08:03)
[2021-03-05] MEDS: Loratadine 10 MG TABLET PO SCH (08:03)
[2021-03-05] MEDS: Metoprolol XL (24 HR) Succ 25 MG TAB.ER.24H PO SCH (08:03)
[2021-03-05] MEDS: Aspirin Enteric Coated 81 MG Tablet PO SCH (08:03)
[2021-03-05] MEDS: Cholecalciferol (D-3) 1,000 UNIT (25MCG) TABLET PO SCH (08:03)
[2021-03-05] MEDS: Nicotine 14 MG PATCH.TD24 TD SCH (08:03)
[2021-03-05] MEDS: LUMATEPERONE TOSYLATE 42 MG PO SCH ×2 (09:24→21:03)
[2021-03-05] MEDS: traZODone 50 MG TABLET PO SCH (21:01)
[2021-03-05] MEDS ORDERED: *HR* LORazepam 2 MG/ML VIAL IVP ONE (23:10)
[2021-03-06] MEDS: Ipratropium/Albuterol Neb 3 ML IH SCH ×4 (04:32→22:04)
[2021-03-06] MEDS: *HR* Heparin 5,000 UNIT/ML VIAL SQ SCH ×3 (05:15→20:34)
[2021-03-06] MEDS: Insulin LISPRO 300 UNITS/3 ML VIAL SUBQ SCH ×5 (06:02→20:30)
[2021-03-06 07:40] LABS: Basophils % 0.1 %; Hematocrit 40.6 % (37.5-50.1); Hemoglobin 13.8 g/dL (12.9-16.9); Immature Granulocytes % 0.2 % (0-4); Lymphocytes # 0.9 K/mcL (0.6-4.6); Lymphocytes % 9.9 %; Mean Corpuscular Volume 97.1 fL (83.0-100.0); Mean Platelet Volume 9.3 fL (9.4-12.4); Monocytes % 10.9 %; Neutrophils # 7.5 K/mcL (1.6-8.9); Platelet Count 238 K/mcL (140-400); Red Blood Count 4.18 M/mcL (4.19-5.50); Segmented Neutrophils % 78.9 %; White Blood Count 9.5 K/mcL (4.3-11.1)
[2021-03-06 07:48] LABS: VBG HCO3 34 mEq/L (21-27); VBG PCO2 56 mmHg (41-51); VBG PO2 145 mmHg (25-50)
[2021-03-06 08:00] LABS: BUN/Creatinine Ratio 29 (6-26); Blood Urea Nitrogen 21 mg/dL (8-23); Calcium 9.5 mg/dL (8.6-10.3); Carbon Dioxide 36 mEq/L (23-29); Chloride 99 mEq/L (98-107); Glucose 105 mg/dL (70-105); Magnesium 2.1 mg/dL (1.6-2.6); Osmolality,Calculated 289 (280-300); Phosphorous 3.4 mg/dL (2.7-4.5); Potassium 4.3 mEq/L (3.5-5.1); Sodium 138 mEq/L (136-145); eGFR For African Americans > 60 (> 60); eGFR For Non-African Americans > 60 (> 60)
[2021-03-06] MEDS: OLANZapine 10 MG TAB.RAPDIS PO SCH (08:21)
[2021-03-06] MEDS: Cholecalciferol (D-3) 1,000 UNIT (25MCG) TABLET PO SCH (08:21)
[2021-03-06] MEDS: Loratadine 10 MG TABLET PO SCH (08:21)
[2021-03-06] MEDS: Aspirin Enteric Coated 81 MG Tablet PO SCH (08:22)
[2021-03-06] MEDS: Metoprolol XL (24 HR) Succ 25 MG TAB.ER.24H PO SCH (08:23)
[2021-03-06] MEDS: Pantoprazole 40 MG VIAL IVP SCH (08:33)
[2021-03-06] MEDS: Nicotine 14 MG PATCH.TD24 TD SCH (08:40)
[2021-03-06] MEDS: methocarbamoL 500 MG TABLET PO PRN (17:10)
[2021-03-06] MEDS: traZODone 50 MG TABLET PO SCH (20:34)
[2021-03-06] MEDS: LUMATEPERONE TOSYLATE 42 MG PO SCH (20:34)
[2021-03-07] MEDS: Ipratropium/Albuterol Neb 3 ML IH SCH ×4 (04:11→21:47)
[2021-03-07] MEDS: *HR* Heparin 5,000 UNIT/ML VIAL SQ SCH ×3 (05:00→23:06)
[2021-03-07 05:46] LABS: Basophils % 0.1 %; Eosinophils % 0.1 %; Hematocrit 42.9 % (37.5-50.1); Hemoglobin 13.9 g/dL (12.9-16.9); Immature Granulocytes % 0.2 % (0-4); Lymphocytes # 1.3 K/mcL (0.6-4.6); Lymphocytes % 11.8 %; Mean Corpuscular HGB Conc 32.4 g/dL (31.6-35.5); Mean Corpuscular Hemoglobin 31.7 pg (28.0-33.3); Mean Corpuscular Volume 97.7 fL (83.0-100.0); Mean Platelet Volume 9.4 fL (9.4-12.4); Monocytes % 8.9 %; Neutrophils # 8.8 K/mcL (1.6-8.9); Platelet Count 224 K/mcL (140-400); Red Blood Count 4.39 M/mcL (4.19-5.50); Red Cell Distribution Width 12.8 % (11.5-14.5); Segmented Neutrophils % 78.9 %; White Blood Count 11.1 K/mcL (4.3-11.1)
[2021-03-07 05:52] LABS: VBG HCO3 35 mEq/L (21-27); VBG PCO2 56 mmHg (41-51); VBG PH 7.41 pH Units (7.32-7.42); VBG PO2 193 mmHg (25-50)
[2021-03-07 06:08] LABS: BUN/Creatinine Ratio 32 (6-26); Blood Urea Nitrogen 23 mg/dL (8-23); Calcium 9.6 mg/dL (8.6-10.3); Carbon Dioxide 33 mEq/L (23-29); Chloride 100 mEq/L (98-107); Glucose 109 mg/dL (70-105); Osmolality,Calculated 288 (280-300); Potassium 4.5 mEq/L (3.5-5.1); Sodium 137 mEq/L (136-145); eGFR For African Americans > 60 (> 60); eGFR For Non-African Americans > 60 (> 60)
[2021-03-07] MEDS: Insulin LISPRO 300 UNITS/3 ML VIAL SUBQ SCH ×3 (07:59→15:49)
[2021-03-07] MEDS: OLANZapine 10 MG TAB.RAPDIS PO SCH (08:23)
[2021-03-07] MEDS: Cholecalciferol (D-3) 1,000 UNIT (25MCG) TABLET PO SCH (08:23)
[2021-03-07] MEDS: Nicotine 14 MG PATCH.TD24 TD SCH (08:23)
[2021-03-07] MEDS: Aspirin Enteric Coated 81 MG Tablet PO SCH (08:24)
[2021-03-07] MEDS: Pantoprazole 40 MG VIAL IVP SCH (08:24)
[2021-03-07] MEDS: methocarbamoL 500 MG TABLET PO PRN (08:24)
[2021-03-07] MEDS: Loratadine 10 MG TABLET PO SCH (08:24)
[2021-03-07] MEDS: Metoprolol XL (24 HR) Succ 25 MG TAB.ER.24H PO SCH (08:24)
[2021-03-07] MEDS: Acetaminophen 325 MG TABLET PO PRN (16:17)
[2021-03-07] MEDS: traZODone 50 MG TABLET PO SCH (23:06)
[2021-03-07] MEDS: LUMATEPERONE TOSYLATE 42 MG PO SCH (23:07)
[2021-03-08] MEDS: Insulin LISPRO 300 UNITS/3 ML VIAL SUBQ SCH ×5 (03:15→21:55)
[2021-03-08] MEDS: Ipratropium/Albuterol Neb 3 ML IH SCH ×4 (03:41→21:23)
[2021-03-08] MEDS ORDERED: *HR* LORazepam 1 MG TABLET PO ONE ×2 (03:43→21:31)
[2021-03-08 04:26] LABS: ABG Base Excess 9 mEq/L (-2 to 3); ABG HCO3 38 mEq/L (21-27); ABG Oxygen Saturation 89 % (95-98); ABG PCO2 71 mmHg (35-45); ABG PH 7.34 pH Units (7.32-7.45); ABG PO2 63 mmHg (85-104); ABG TCO2 40 mEq/L (20-26)
[2021-03-08 05:51] LABS: Basophils % 0.1 %; Hemoglobin 14.1 g/dL (12.9-16.9); Immature Granulocytes % 0.5 % (0-4); Lymphocytes # 1.3 K/mcL (0.6-4.6); Lymphocytes % 11.9 %; Mean Corpuscular HGB Conc 32.8 g/dL (31.6-35.5); Mean Corpuscular Hemoglobin 31.8 pg (28.0-33.3); Mean Corpuscular Volume 97.1 fL (83.0-100.0); Monocytes # 1.1 K/mcL (0.0-1.3); Monocytes % 9.9 %; Neutrophils # 8.6 K/mcL (1.6-8.9); Platelet Count 229 K/mcL (140-400); Red Blood Count 4.43 M/mcL (4.19-5.50); Red Cell Distribution Width 12.6 % (11.5-14.5); Segmented Neutrophils % 77.6 %; White Blood Count 11.1 K/mcL (4.3-11.1)
[2021-03-08 06:08] LABS: BUN/Creatinine Ratio 30 (6-26); Blood Urea Nitrogen 20 mg/dL (8-23); Calcium 9.6 mg/dL (8.6-10.3); Carbon Dioxide 35 mEq/L (23-29); Chloride 99 mEq/L (98-107); Glucose 71 mg/dL (70-105); Osmolality,Calculated 289 (280-300); Potassium 4.2 mEq/L (3.5-5.1); Sodium 139 mEq/L (136-145); eGFR For African Americans > 60 (> 60); eGFR For Non-African Americans > 60 (> 60)
[2021-03-08 06:44] LABS: VBG HCO3 38 mEq/L (21-27); VBG PCO2 69 mmHg (41-51); VBG PH 7.35 pH Units (7.32-7.42); VBG PO2 112 mmHg (25-50)
[2021-03-08] MEDS: *HR* Heparin 5,000 UNIT/ML VIAL SQ SCH ×3 (07:09→21:43)
[2021-03-08] MEDS: Loratadine 10 MG TABLET PO SCH ×2 (08:26→08:42)
[2021-03-08] MEDS: Cholecalciferol (D-3) 1,000 UNIT (25MCG) TABLET PO SCH ×2 (08:26→08:43)
[2021-03-08] MEDS: Nicotine 14 MG PATCH.TD24 TD SCH (08:26)
[2021-03-08] MEDS: Metoprolol XL (24 HR) Succ 25 MG TAB.ER.24H PO SCH ×2 (08:26→08:43)
[2021-03-08] MEDS: OLANZapine 10 MG TAB.RAPDIS PO SCH ×2 (08:26→08:43)
[2021-03-08] MEDS: Aspirin Enteric Coated 81 MG Tablet PO SCH ×2 (08:26→08:42)
[2021-03-08] MEDS ORDERED: HydrOXYzine 100 MG/2 ML VIAL IM ONE (14:37)
[2021-03-08] MEDS: traZODone 50 MG TABLET PO SCH (21:42)
[2021-03-08] MEDS: Acetaminophen 325 MG TABLET PO PRN (21:43)
[2021-03-08] MEDS: LUMATEPERONE TOSYLATE 42 MG PO SCH (21:44)
[2021-03-09] MEDS: Ipratropium/Albuterol Neb 3 ML IH SCH ×4 (04:02→22:03)
[2021-03-09] MEDS: *HR* Heparin 5,000 UNIT/ML VIAL SQ SCH ×3 (05:35→22:08)
[2021-03-09] MEDS ORDERED: *HR* LORazepam 1 MG TABLET PO ONE (05:54)
[2021-03-09 06:23] LABS: VBG HCO3 36 mEq/L (21-27); VBG PCO2 65 mmHg (41-51); VBG PH 7.35 pH Units (7.32-7.42); VBG PO2 67 mmHg (25-50)
[2021-03-09 06:44] LABS: Basophils % 0.1 %; Eosinophils % 0.3 %; Hematocrit 43.2 % (37.5-50.1); Hemoglobin 14.2 g/dL (12.9-16.9); Immature Granulocytes % 0.3 % (0-4); Lymphocytes # 1.7 K/mcL (0.6-4.6); Lymphocytes % 14.6 %; Mean Corpuscular HGB Conc 32.9 g/dL (31.6-35.5); Mean Corpuscular Hemoglobin 32.3 pg (28.0-33.3); Mean Corpuscular Volume 98.2 fL (83.0-100.0); Mean Platelet Volume 9.9 fL (9.4-12.4); Monocytes # 0.6 K/mcL (0.0-1.3); Monocytes % 5.2 %; Neutrophils # 9.1 K/mcL (1.6-8.9); Platelet Count 235 K/mcL (140-400); Red Cell Distribution Width 12.7 % (11.5-14.5); Segmented Neutrophils % 79.5 %; White Blood Count 11.5 K/mcL (4.3-11.1)
[2021-03-09 07:05] LABS: BUN/Creatinine Ratio 33 (6-26); Blood Urea Nitrogen 25 mg/dL (8-23); Calcium 9.8 mg/dL (8.6-10.3); Carbon Dioxide 35 mEq/L (23-29); Chloride 97 mEq/L (98-107); Glucose 165 mg/dL (70-105); Osmolality,Calculated 292 (280-300); Sodium 137 mEq/L (136-145); eGFR For African Americans > 60 (> 60); eGFR For Non-African Americans > 60 (> 60)
[2021-03-09] MEDS: Nicotine 14 MG PATCH.TD24 TD SCH (07:56)
[2021-03-09] MEDS: Insulin LISPRO 300 UNITS/3 ML VIAL SUBQ SCH ×4 (07:57→21:57)
[2021-03-09] MEDS: Loratadine 10 MG TABLET PO SCH (07:57)
[2021-03-09] MEDS: OLANZapine 10 MG TAB.RAPDIS PO SCH (07:57)
[2021-03-09] MEDS: Aspirin Enteric Coated 81 MG Tablet PO SCH (07:57)
[2021-03-09] MEDS: Cholecalciferol (D-3) 1,000 UNIT (25MCG) TABLET PO SCH (07:57)
[2021-03-09] MEDS: Metoprolol XL (24 HR) Succ 25 MG TAB.ER.24H PO SCH (07:57)
[2021-03-09] MEDS: LUMATEPERONE TOSYLATE 42 MG PO SCH (22:07)
[2021-03-09] MEDS: traZODone 50 MG TABLET PO SCH (22:07)
[2021-03-10] MEDS: Ipratropium/Albuterol Neb 3 ML IH SCH ×4 (03:22→22:47)
[2021-03-10] MEDS: *HR* Heparin 5,000 UNIT/ML VIAL SQ SCH ×3 (05:28→22:51)
[2021-03-10 07:01] LABS: Basophils % 0.1 %; Eosinophils % 0.3 %; Hematocrit 43.9 % (37.5-50.1); Hemoglobin 14.3 g/dL (12.9-16.9); Immature Granulocytes % 0.3 % (0-4); Lymphocytes % 13.9 %; Mean Corpuscular HGB Conc 32.6 g/dL (31.6-35.5); Mean Corpuscular Hemoglobin 31.8 pg (28.0-33.3); Mean Corpuscular Volume 97.8 fL (83.0-100.0); Mean Platelet Volume 10.2 fL (9.4-12.4); Monocytes # 1.1 K/mcL (0.0-1.3); Monocytes % 7.4 %; Neutrophils # 11.2 K/mcL (1.6-8.9); Platelet Count 216 K/mcL (140-400); Red Blood Count 4.49 M/mcL (4.19-5.50); Red Cell Distribution Width 12.8 % (11.5-14.5); White Blood Count 14.4 K/mcL (4.3-11.1)
[2021-03-10 07:20] LABS: BUN/Creatinine Ratio 35 (6-26); Blood Urea Nitrogen 24 mg/dL (8-23); Calcium 9.3 mg/dL (8.6-10.3); Carbon Dioxide 34 mEq/L (23-29); Chloride 99 mEq/L (98-107); Glucose 101 mg/dL (70-105); Osmolality,Calculated 288 (280-300); Potassium 4.3 mEq/L (3.5-5.1); Sodium 137 mEq/L (136-145); eGFR For African Americans > 60 (> 60); eGFR For Non-African Americans > 60 (> 60)
[2021-03-10] MEDS: Insulin LISPRO 300 UNITS/3 ML VIAL SUBQ SCH ×4 (07:27→22:51)
[2021-03-10] MEDS: Aspirin Enteric Coated 81 MG Tablet PO SCH (08:52)
[2021-03-10] MEDS: Loratadine 10 MG TABLET PO SCH (08:52)
[2021-03-10] MEDS: Cholecalciferol (D-3) 1,000 UNIT (25MCG) TABLET PO SCH (08:52)
[2021-03-10] MEDS: Metoprolol XL (24 HR) Succ 25 MG TAB.ER.24H PO SCH (08:52)
[2021-03-10] MEDS: OLANZapine 10 MG TAB.RAPDIS PO SCH (08:52)
[2021-03-10] MEDS: Nicotine 14 MG PATCH.TD24 TD SCH (08:53)
[2021-03-10] MEDS ORDERED: dexAMETHasone 4 MG TABLET PO SCH (09:00)
[2021-03-10] MEDS ORDERED: ALPRAZolam 0.25 MG TABLET PO PRN (09:23)
[2021-03-10] MEDS ORDERED: ALPRAZolam 0.25 MG TABLET PO ONE (09:24)
[2021-03-10] MEDS: traZODone 50 MG TABLET PO SCH (22:50)
[2021-03-10] MEDS: LUMATEPERONE TOSYLATE 42 MG PO SCH (22:53)
[2021-03-11] MEDS: Ipratropium/Albuterol Neb 3 ML IH SCH ×4 (03:39→23:40)
[2021-03-11] MEDS: *HR* Heparin 5,000 UNIT/ML VIAL SQ SCH ×3 (04:59→21:35)
[2021-03-11 06:52] LABS: Basophils % 0.1 %; Eosinophils % 0.2 %; Hematocrit 43.7 % (37.5-50.1); Hemoglobin 14.2 g/dL (12.9-16.9); Immature Granulocytes % 0.5 % (0-4); Lymphocytes # 1.5 K/mcL (0.6-4.6); Lymphocytes % 11.4 %; Mean Corpuscular HGB Conc 32.5 g/dL (31.6-35.5); Mean Corpuscular Hemoglobin 31.6 pg (28.0-33.3); Mean Corpuscular Volume 97.3 fL (83.0-100.0); Mean Platelet Volume 10.5 fL (9.4-12.4); Monocytes # 0.7 K/mcL (0.0-1.3); Monocytes % 5.1 %; Neutrophils # 10.6 K/mcL (1.6-8.9); Platelet Count 232 K/mcL (140-400); Red Blood Count 4.49 M/mcL (4.19-5.50); Red Cell Distribution Width 12.9 % (11.5-14.5); Segmented Neutrophils % 82.7 %; White Blood Count 12.8 K/mcL (4.3-11.1)
[2021-03-11 07:10] LABS: BUN/Creatinine Ratio 33 (6-26); Blood Urea Nitrogen 23 mg/dL (8-23); Calcium 9.6 mg/dL (8.6-10.3); Carbon Dioxide 33 mEq/L (23-29); Chloride 98 mEq/L (98-107); Glucose 147 mg/dL (70-105); Magnesium 1.9 mg/dL (1.6-2.6); Osmolality,Calculated 290 (280-300); Potassium 4.2 mEq/L (3.5-5.1); Sodium 137 mEq/L (136-145); eGFR For African Americans > 60 (> 60); eGFR For Non-African Americans > 60 (> 60)
[2021-03-11] MEDS: Insulin LISPRO 300 UNITS/3 ML VIAL SUBQ SCH ×4 (08:13→21:27)
[2021-03-11] MEDS: Metoprolol XL (24 HR) Succ 25 MG TAB.ER.24H PO SCH (09:10)
[2021-03-11] MEDS: Loratadine 10 MG TABLET PO SCH (09:10)
[2021-03-11] MEDS: Nicotine 14 MG PATCH.TD24 TD SCH (09:10)
[2021-03-11] MEDS: Cholecalciferol (D-3) 1,000 UNIT (25MCG) TABLET PO SCH (09:10)
[2021-03-11] MEDS: OLANZapine 10 MG TAB.RAPDIS PO SCH (09:10)
[2021-03-11] MEDS: Aspirin Enteric Coated 81 MG Tablet PO SCH (09:10)
[2021-03-11] MEDS: dexAMETHasone 4 MG TABLET PO SCH (09:10)
[2021-03-11] MEDS ORDERED: ALPRAZolam 0.25 MG TABLET PO ONE (10:11)
[2021-03-11] MEDS: traZODone 50 MG TABLET PO SCH (21:31)
[2021-03-11] MEDS: LUMATEPERONE TOSYLATE 42 MG PO SCH (21:32)
[2021-03-12] MEDS: Ipratropium/Albuterol Neb 3 ML IH SCH ×2 (04:13→10:10)
[2021-03-12] MEDS: *HR* Heparin 5,000 UNIT/ML VIAL SQ SCH ×2 (05:33→13:24)
[2021-03-12 07:25] VITALS: PULSE 74; TEMP 98.1
[2021-03-12 07:27] VITALS: BP 120/76
[2021-03-12] MEDS: Insulin LISPRO 300 UNITS/3 ML VIAL SUBQ SCH ×2 (08:46→12:11)
[2021-03-12] MEDS: dexAMETHasone 4 MG TABLET PO SCH (10:17)
[2021-03-12] MEDS: Loratadine 10 MG TABLET PO SCH (10:17)
[2021-03-12] MEDS: Metoprolol XL (24 HR) Succ 25 MG TAB.ER.24H PO SCH (10:18)
[2021-03-12] MEDS: Aspirin Enteric Coated 81 MG Tablet PO SCH (10:18)
[2021-03-12] MEDS: OLANZapine 10 MG TAB.RAPDIS PO SCH (10:18)
[2021-03-12] MEDS: Nicotine 14 MG PATCH.TD24 TD SCH (10:18)
[2021-03-12] MEDS: Cholecalciferol (D-3) 1,000 UNIT (25MCG) TABLET PO SCH (10:18)
[2021-03-12 13:13] VITALS: O2SAT 93
== END 2021-03-12 15:18 | disposition home or self-care (01) | DRG 871 ==
LOC: 2NENU 23:50 → EMEROOARM 23:50 → 2NENU 03-02 02:12 → SUATTDRO 03-02 13:03
PROVIDERS: ADMIT Internal Medicine; ATTEND Internal Medicine

== ENCOUNTER 2021-03-25 02:25 | Inpatient (IN) ==
[2021-03-25] MEDS ORDERED: Ipratropium/Albuterol Neb 3 ML IH ONE ×2 (02:38→03:45)
[2021-03-25 03:08] LABS: Basophils % 0.2 %; Eosinophils # 0.1 K/mcL (0.0-0.6); Eosinophils % 0.4 %; Hematocrit 39.1 % (37.5-50.1); Hemoglobin 13.1 g/dL (12.9-16.9); Immature Granulocytes % 0.6 % (0-4); Lymphocytes # 1.8 K/mcL (0.6-4.6); Lymphocytes % 9.9 %; Mean Corpuscular HGB Conc 33.5 g/dL (31.6-35.5); Mean Corpuscular Hemoglobin 32.6 pg (28.0-33.3); Mean Corpuscular Volume 97.3 fL (83.0-100.0); Monocytes # 1.1 K/mcL (0.0-1.3); Monocytes % 6.3 %; Neutrophils # 14.8 K/mcL (1.6-8.9); Platelet Count 229 K/mcL (140-400); Red Blood Count 4.02 M/mcL (4.19-5.50); Red Cell Distribution Width 12.8 % (11.5-14.5); Segmented Neutrophils % 82.6 %
[2021-03-25 03:12] LABS: VBG HCO3 34 mEq/L (21-27); VBG PCO2 69 mmHg (41-51); VBG PH 7.29 pH Units (7.32-7.42); VBG PO2 192 mmHg (25-50)
[2021-03-25 03:29] LABS: Alanine Aminotransferase 23 Units/L (7-52); Albumin 3.6 g/dL (3.5-5.7); Albumin/Globulin Ratio 1.3 (1.1-2.2); Alkaline Phosphatase 69 Units/L (34-104); Aspartate Amino Transferase 14 Units/L (13-39); BUN/Creatinine Ratio 22 (6-26); Bilirubin,Total 0.4 mg/dL (0.3-1.0); Blood Urea Nitrogen 15 mg/dL (8-23); Calcium 9.2 mg/dL (8.6-10.3); Carbon Dioxide 30 mEq/L (23-29); Chloride 99 mEq/L (98-107); Globulin 2.7 g/dL (2.4-3.5); Glucose 104 mg/dL (70-105); Osmolality,Calculated 283 (280-300); Potassium 3.7 mEq/L (3.5-5.1); Sodium 136 mEq/L (136-145); Total Protein 6.3 g/dL (6.4-8.9); eGFR For African Americans > 60 (> 60); eGFR For Non-African Americans > 60 (> 60)
[2021-03-25 03:37] LABS: Troponin I < 0.03 ng/mL (< 0.04)
[2021-03-25 03:40] LABS: Influenza A PCR Negative (Negative); Influenza B PCR Negative (Negative); Resp. Syncytial Virus PCR Negative (Negative)
[2021-03-25 04:01] LABS: SARS-CoV-2 by PCR (In House) Negative (Negative)
[2021-03-25 05:47] LABS: Activated Partial Thrombo Time 27.1 Seconds (26.0-36.0)
[2021-03-25] MEDS ORDERED: Isovue-370 500 ML BOTTLE IVP ONE (06:00)
[2021-03-25] MEDS ORDERED: methylPREDNISolone 125 MG/2 ML VIAL IVP ONE (06:57)
[2021-03-25] MEDS ORDERED: Ondansetron 4 MG/2 ML VIAL IVP PRN (07:51)
[2021-03-25] MEDS ORDERED: Naloxone 0.4 MG/ML INJ IVP PRN (07:51)
[2021-03-25] MEDS ORDERED: D5% in Water 1,000 ML IVC PRN (08:32)
[2021-03-25] MEDS ORDERED: Dextrose Gel 15 GM/37.5 ML TUBE PO PRN ×2 (08:32)
[2021-03-25] MEDS ORDERED: *HR* Dextrose 50 % in Water (Vial) 50 ML VIAL IVP PRN (08:32)
[2021-03-25] MEDS ORDERED: Furosemide 20 MG/2 ML VIAL IVP ONE (09:08)
[2021-03-25] MEDS: Albuterol 2.5 MG/3 ML NEBULIZER IH SCH ×5 (09:14→23:43)
[2021-03-25] MEDS ORDERED: 0.9 % Sodium Chloride 250 ML ONE (12:44)
[2021-03-25] MEDS: MethylPREDNISolone 40 MG/ML VIAL IVP SCH ×2 (12:56→21:36)
[2021-03-25] MEDS: Azithromycin 500 MG in 0.9 % Sodium Chloride 250 ML IVPB SCH (12:56)
[2021-03-25] MEDS: Nicotine 14 MG PATCH.TD24 TD SCH (13:01)
[2021-03-25 14:25] LABS: ABG Base Excess 7 mEq/L (-2 to 3); ABG HCO3 35 mEq/L (21-27); ABG Oxygen Saturation 92 % (95-98); ABG PCO2 66 mmHg (35-45); ABG PH 7.34 pH Units (7.32-7.45); ABG PO2 72 mmHg (85-104); ABG TCO2 37 mEq/L (20-26)
[2021-03-25] MEDS ORDERED: Fluticasone Propionate Nasal 50 MCG/SPRAY BOTTLE NS PRN (16:05)
[2021-03-25] MEDS: *HR* Heparin 5,000 UNIT/ML VIAL SQ SCH (18:21)
[2021-03-25] MEDS: Insulin LISPRO 300 UNITS/3 ML VIAL SUBQ SCH ×2 (18:21)
[2021-03-25] MEDS: Budesonide/Formoterol 160/4.5 1 PUFF INH IH SCH (21:48)
[2021-03-26] MEDS: Albuterol 2.5 MG/3 ML NEBULIZER IH SCH ×3 (04:57→11:18)
[2021-03-26 05:39] LABS: Basophils % 0.1 %; Hematocrit 37.3 % (37.5-50.1); Hemoglobin 12.5 g/dL (12.9-16.9); Immature Granulocytes % 0.5 % (0-4); Lymphocytes # 0.5 K/mcL (0.6-4.6); Lymphocytes % 3.1 %; Mean Corpuscular HGB Conc 33.5 g/dL (31.6-35.5); Mean Corpuscular Hemoglobin 32.1 pg (28.0-33.3); Mean Corpuscular Volume 95.6 fL (83.0-100.0); Mean Platelet Volume 9.1 fL (9.4-12.4); Monocytes # 0.2 K/mcL (0.0-1.3); Monocytes % 1.3 %; Neutrophils # 14.1 K/mcL (1.6-8.9); Platelet Count 199 K/mcL (140-400); Red Cell Distribution Width 12.6 % (11.5-14.5); White Blood Count 14.9 K/mcL (4.3-11.1)
[2021-03-26 06:00] LABS: BUN/Creatinine Ratio 30 (6-26); Blood Urea Nitrogen 17 mg/dL (8-23); Calcium 9.4 mg/dL (8.6-10.3); Carbon Dioxide 34 mEq/L (23-29); Chloride 97 mEq/L (98-107); Glucose 136 mg/dL (70-105); Osmolality,Calculated 284 (280-300); Potassium 4.1 mEq/L (3.5-5.1); Sodium 135 mEq/L (136-145); eGFR For African Americans > 60 (> 60); eGFR For Non-African Americans > 60 (> 60)
[2021-03-26] MEDS: *HR* Heparin 5,000 UNIT/ML VIAL SQ SCH ×2 (06:17→19:03)
[2021-03-26] MEDS: Budesonide/Formoterol 160/4.5 1 PUFF INH IH SCH ×3 (07:37→22:14)
[2021-03-26] MEDS: Insulin LISPRO 300 UNITS/3 ML VIAL SUBQ SCH ×3 (08:45→19:03)
[2021-03-26] MEDS: Azithromycin 500 MG in 0.9 % Sodium Chloride 250 ML IVPB SCH (09:18)
[2021-03-26] MEDS: Cholecalciferol (D-3) 1,000 UNIT (25MCG) TABLET PO SCH (09:19)
[2021-03-26] MEDS: Nicotine 14 MG PATCH.TD24 TD SCH (09:19)
[2021-03-26] MEDS: MethylPREDNISolone 40 MG/ML VIAL IVP SCH ×2 (09:19→19:03)
[2021-03-26] MEDS: Aspirin Enteric Coated 81 MG Tablet PO SCH (09:19)
[2021-03-26] MEDS: Ipratropium/Albuterol Neb 3 ML IH SCH ×2 (15:04→22:14)
[2021-03-26 15:49] LABS: ABG Base Excess 9 mEq/L (-2 to 3); ABG HCO3 36 mEq/L (21-27); ABG Oxygen Saturation 99 % (95-98); ABG PCO2 64 mmHg (35-45); ABG PH 7.37 pH Units (7.32-7.45); ABG PO2 133 mmHg (85-104); ABG TCO2 38 mEq/L (20-26)
[2021-03-26 21:27] LABS: Bacteria,Urine Few per hpf (None-Few); Bilirubin,Urine Negative (Negative); Blood,Urine Negative (Negative); Clarity,Urine Clear (Clear); Color,Urine Light-Yellow (Yellow); Glucose,Urine (UA) Normal (Normal); Ketones,Urine Negative (Negative); Leukocyte Esterase,Urine Small (Negative); Mucus,Urine Few per lpf (None-Few); Nitrite,Urine Positive (Negative); Protein,Urine Trace mg/dL (Neg-Trace); Specific Gravity,Urine 1.026 (1.010-1.025); Urobilinogen,Urine Normal (Normal)
[2021-03-27] MEDS: MethylPREDNISolone 40 MG/ML VIAL IVP SCH ×2 (00:18→09:39)
[2021-03-27 02:51] LABS: Basophils % 0.1 %; Hematocrit 36.8 % (37.5-50.1); Hemoglobin 12.4 g/dL (12.9-16.9); Immature Granulocytes % 0.4 % (0-4); Lymphocytes # 0.4 K/mcL (0.6-4.6); Lymphocytes % 2.5 %; Mean Corpuscular HGB Conc 33.7 g/dL (31.6-35.5); Mean Corpuscular Hemoglobin 32.2 pg (28.0-33.3); Mean Corpuscular Volume 95.6 fL (83.0-100.0); Mean Platelet Volume 9.3 fL (9.4-12.4); Monocytes # 0.4 K/mcL (0.0-1.3); Monocytes % 2.6 %; Neutrophils # 13.5 K/mcL (1.6-8.9); Platelet Count 222 K/mcL (140-400); Red Blood Count 3.85 M/mcL (4.19-5.50); Red Cell Distribution Width 12.5 % (11.5-14.5); Segmented Neutrophils % 94.4 %; White Blood Count 14.3 K/mcL (4.3-11.1)
[2021-03-27 03:11] LABS: BUN/Creatinine Ratio 38 (6-26); Blood Urea Nitrogen 25 mg/dL (8-23); Calcium 9.2 mg/dL (8.6-10.3); Carbon Dioxide 33 mEq/L (23-29); Chloride 98 mEq/L (98-107); Glucose 169 mg/dL (70-105); Osmolality,Calculated 288 (280-300); Potassium 4.1 mEq/L (3.5-5.1); Sodium 135 mEq/L (136-145); eGFR For African Americans > 60 (> 60); eGFR For Non-African Americans > 60 (> 60)
[2021-03-27] MEDS: Ipratropium/Albuterol Neb 3 ML IH SCH ×4 (04:01→21:47)
[2021-03-27] MEDS: *HR* Heparin 5,000 UNIT/ML VIAL SQ SCH ×2 (06:51→17:02)
[2021-03-27] MEDS: Insulin LISPRO 300 UNITS/3 ML VIAL SUBQ SCH ×3 (09:32→16:12)
[2021-03-27] MEDS: predniSONE 20 MG TABLET PO SCH (09:33)
[2021-03-27] MEDS: Azithromycin 500 MG in 0.9 % Sodium Chloride 250 ML IVPB SCH (09:33)
[2021-03-27] MEDS: Cholecalciferol (D-3) 1,000 UNIT (25MCG) TABLET PO SCH (09:33)
[2021-03-27] MEDS: Nicotine 14 MG PATCH.TD24 TD SCH (09:33)
[2021-03-27] MEDS: Aspirin Enteric Coated 81 MG Tablet PO SCH (09:33)
[2021-03-27] MEDS: LUMATEPERONE TOSYLATE 42 MG PO SCH ×2 (09:34→15:52)
[2021-03-27] MEDS: Budesonide/Formoterol 160/4.5 1 PUFF INH IH SCH ×2 (10:32→21:48)
[2021-03-28] MEDS: Ipratropium/Albuterol Neb 3 ML IH SCH ×4 (03:35→22:20)
[2021-03-28 05:01] LABS: Hematocrit 36.6 % (37.5-50.1); Hemoglobin 12.4 g/dL (12.9-16.9); Mean Corpuscular HGB Conc 33.9 g/dL (31.6-35.5); Mean Corpuscular Hemoglobin 33.1 pg (28.0-33.3); Mean Corpuscular Volume 97.6 fL (83.0-100.0); Mean Platelet Volume 9.3 fL (9.4-12.4); Platelet Count 200 K/mcL (140-400); Red Blood Count 3.75 M/mcL (4.19-5.50); Red Cell Distribution Width 12.7 % (11.5-14.5); White Blood Count 10.6 K/mcL (4.3-11.1)
[2021-03-28 05:20] LABS: Alanine Aminotransferase 14 Units/L (7-52); Albumin/Globulin Ratio 1.4 (1.1-2.2); Alkaline Phosphatase 55 Units/L (34-104); Aspartate Amino Transferase 10 Units/L (13-39); BUN/Creatinine Ratio 39 (6-26); Bilirubin,Total 0.5 mg/dL (0.3-1.0); Blood Urea Nitrogen 23 mg/dL (8-23); Calcium 8.8 mg/dL (8.6-10.3); Carbon Dioxide 34 mEq/L (23-29); Chloride 100 mEq/L (98-107); Globulin 2.2 g/dL (2.4-3.5); Glucose 112 mg/dL (70-105); Osmolality,Calculated 288 (280-300); Sodium 137 mEq/L (136-145); Total Protein 5.2 g/dL (6.4-8.9); eGFR For African Americans > 60 (> 60); eGFR For Non-African Americans > 60 (> 60)
[2021-03-28] MEDS: *HR* Heparin 5,000 UNIT/ML VIAL SQ SCH ×2 (06:15→17:28)
[2021-03-28] MEDS ORDERED: Ipratropium/Albuterol Neb 3 ML IH PRN (08:19)
[2021-03-28] MEDS: Aspirin Enteric Coated 81 MG Tablet PO SCH (08:20)
[2021-03-28] MEDS: Cholecalciferol (D-3) 1,000 UNIT (25MCG) TABLET PO SCH (08:20)
[2021-03-28] MEDS: Nicotine 14 MG PATCH.TD24 TD SCH (08:21)
[2021-03-28] MEDS: LUMATEPERONE TOSYLATE 42 MG PO SCH (08:21)
[2021-03-28] MEDS: Azithromycin 500 MG in 0.9 % Sodium Chloride 250 ML IVPB SCH (08:21)
[2021-03-28] MEDS: predniSONE 20 MG TABLET PO SCH (08:21)
[2021-03-28] MEDS: Insulin LISPRO 300 UNITS/3 ML VIAL SUBQ SCH ×3 (08:47→17:26)
[2021-03-28] MEDS: Budesonide/Formoterol 160/4.5 1 PUFF INH IH SCH ×2 (10:13→22:20)
[2021-03-29] MEDS: Ipratropium/Albuterol Neb 3 ML IH SCH ×2 (03:32→11:27)
[2021-03-29 05:24] LABS: Hematocrit 39.5 % (37.5-50.1); Hemoglobin 12.5 g/dL (12.9-16.9); Mean Corpuscular HGB Conc 31.6 g/dL (31.6-35.5); Mean Corpuscular Hemoglobin 31.2 pg (28.0-33.3); Mean Corpuscular Volume 98.5 fL (83.0-100.0); Mean Platelet Volume 9.2 fL (9.4-12.4); Platelet Count 211 K/mcL (140-400); Red Blood Count 4.01 M/mcL (4.19-5.50); Red Cell Distribution Width 12.8 % (11.5-14.5); White Blood Count 7.9 K/mcL (4.3-11.1)
[2021-03-29] MEDS: *HR* Heparin 5,000 UNIT/ML VIAL SQ SCH (05:36)
[2021-03-29 05:43] LABS: Alanine Aminotransferase 13 Units/L (7-52); Albumin 3.1 g/dL (3.5-5.7); Albumin/Globulin Ratio 1.6 (1.1-2.2); Alkaline Phosphatase 58 Units/L (34-104); Aspartate Amino Transferase 8 Units/L (13-39); BUN/Creatinine Ratio 29 (6-26); Bilirubin,Total 0.5 mg/dL (0.3-1.0); Blood Urea Nitrogen 19 mg/dL (8-23); Calcium 8.9 mg/dL (8.6-10.3); Carbon Dioxide 37 mEq/L (23-29); Chloride 100 mEq/L (98-107); Globulin 1.9 g/dL (2.4-3.5); Glucose 81 mg/dL (70-105); Osmolality,Calculated 287 (280-300); Potassium 4.1 mEq/L (3.5-5.1); Sodium 138 mEq/L (136-145); eGFR For African Americans > 60 (> 60); eGFR For Non-African Americans > 60 (> 60)
[2021-03-29] MEDS: Nicotine 14 MG PATCH.TD24 TD SCH (09:46)
[2021-03-29] MEDS: Azithromycin 500 MG in 0.9 % Sodium Chloride 250 ML IVPB SCH (09:46)
[2021-03-29] MEDS: predniSONE 20 MG TABLET PO SCH (09:46)
[2021-03-29] MEDS: Aspirin Enteric Coated 81 MG Tablet PO SCH (09:46)
[2021-03-29] MEDS: Cholecalciferol (D-3) 1,000 UNIT (25MCG) TABLET PO SCH (09:46)
[2021-03-29] MEDS: LUMATEPERONE TOSYLATE 42 MG PO SCH (09:47)
[2021-03-29] MEDS: Insulin LISPRO 300 UNITS/3 ML VIAL SUBQ SCH ×2 (09:47→11:31)
[2021-03-29 11:20] VITALS: BP 107/72; PULSE 82; TEMP 98.2; O2SAT 95
[2021-03-29] MEDS: Budesonide/Formoterol 160/4.5 1 PUFF INH IH SCH (11:27)
[2021-03-29] MEDS ORDERED: Nicotine 14 MG PATCH.TD24 TD SCH (13:30)
[2021-03-30] MEDS ORDERED: Azithromycin 250 MG TABLET PO SCH (09:00)
== END 2021-03-29 15:01 | disposition home or self-care (01) | DRG 189 ==
LOC: EMEROOARM 02:25 → 2ANU 02:25
PROVIDERS: ADMIT Internal Medicine; ATTEND Internal Medicine

== ENCOUNTER 2021-05-10 22:52 | Observation (INO) ==
[2021-05-10] MEDS ORDERED: Ipratropium/Albuterol Neb 3 ML IH ONE (22:59)
[2021-05-10] MEDS ORDERED: methylPREDNISolone 125 MG/2 ML VIAL IVP ONE (22:59)
[2021-05-10] MEDS ORDERED: Ipratropium/Albuterol Neb 3 ML ONE (23:02)
[2021-05-10 23:10] LABS: ABG Base Excess 5 mEq/L (-2 to 3); ABG HCO3 31 mEq/L (21-27); ABG Oxygen Saturation 100 % (95-98); ABG PCO2 52 mmHg (35-45); ABG PH 7.38 pH Units (7.32-7.45); ABG PO2 196 mmHg (85-104); ABG TCO2 32 mEq/L (20-26); Blood Gas Pressure Support 7 cm H2O
[2021-05-10 23:29] LABS: INR 0.9; Prothrombin Time 10.3 Seconds (9.4-12.1)
[2021-05-10 23:31] LABS: Activated Partial Thrombo Time 29.9 Seconds (26.0-36.0); Basophils # 0.1 K/mcL (0.0-0.2); Basophils % 0.6 %; Eosinophils # 0.1 K/mcL (0.0-0.6); Eosinophils % 0.8 %; Hematocrit 30.2 % (37.5-50.1); Hemoglobin 9.8 g/dL (12.9-16.9); Immature Granulocytes % 1.7 % (0-4); Lymphocytes # 2.1 K/mcL (0.6-4.6); Lymphocytes % 17.3 %; Mean Corpuscular HGB Conc 32.5 g/dL (31.6-35.5); Mean Corpuscular Volume 98.7 fL (83.0-100.0); Mean Platelet Volume 8.2 fL (9.4-12.4); Monocytes # 1.2 K/mcL (0.0-1.3); Monocytes % 9.9 %; Neutrophils # 8.4 K/mcL (1.6-8.9); Platelet Count 375 K/mcL (140-400); Red Blood Count 3.06 M/mcL (4.19-5.50); Red Cell Distribution Width 14.6 % (11.5-14.5); Segmented Neutrophils % 69.7 %; White Blood Count 12.1 K/mcL (4.3-11.1)
[2021-05-10] MEDS ORDERED: Azithromycin 250 MG TABLET PO ONE (23:53)
[2021-05-11 00:02] LABS: Alanine Aminotransferase 30 Units/L (7-52); Albumin 3.3 g/dL (3.5-5.7); Albumin/Globulin Ratio 1.4 (1.1-2.2); Alkaline Phosphatase 55 Units/L (34-104); Aspartate Amino Transferase 18 Units/L (13-39); BUN/Creatinine Ratio 46 (6-26); Bilirubin,Direct 0.1 mg/dL (0.0-0.2); Bilirubin,Indirect 0.1 mg/dL (0.0-1.0); Bilirubin,Total 0.2 mg/dL (0.3-1.0); Blood Urea Nitrogen 24 mg/dL (8-23); Calcium 9.2 mg/dL (8.6-10.3); Carbon Dioxide 33 mEq/L (23-29); Chloride 97 mEq/L (98-107); Globulin 2.3 g/dL (2.4-3.5); Glucose 95 mg/dL (70-105); Osmolality,Calculated 282 (280-300); Potassium 4.3 mEq/L (3.5-5.1); Sodium 134 mEq/L (136-145); Total Protein 5.6 g/dL (6.4-8.9); Troponin I < 0.03 ng/mL (< 0.04); eGFR For African Americans > 60 (> 60); eGFR For Non-African Americans > 60 (> 60)
[2021-05-11 00:06] LABS: Bilirubin,Urine Negative (Negative); Blood,Urine Negative (Negative); Clarity,Urine Clear (Clear); Color,Urine Light-Yellow (Yellow); Glucose,Urine (UA) Normal (Normal); Ketones,Urine Negative (Negative); Leukocyte Esterase,Urine Negative (Negative); Nitrite,Urine Negative (Negative); PH,Urine 6.5 pH Units (5.0-8.0); Protein,Urine Negative (Neg-Trace); Specific Gravity,Urine 1.012 (1.010-1.025); Urobilinogen,Urine Normal (Normal)
[2021-05-11] MEDS ORDERED: Naloxone 0.4 MG/ML INJ IVP PRN (00:11)
[2021-05-11] MEDS ORDERED: Melatonin 3 MG TABLET PO PRN (00:11)
[2021-05-11] MEDS ORDERED: Ondansetron 4 MG/2 ML VIAL IVP PRN (00:11)
[2021-05-11] MEDS ORDERED: Acetaminophen 325 MG TABLET PO PRN (00:17)
[2021-05-11 00:42] LABS: Influenza A PCR Negative (Negative); Influenza B PCR Negative (Negative); Resp. Syncytial Virus PCR Negative (Negative)
[2021-05-11 00:44] LABS: SARS-CoV-2 by PCR (In House) Negative (Negative)
[2021-05-11] MEDS ORDERED: Albuterol 2.5 MG/3 ML NEBULIZER IH PRN (01:15)
[2021-05-11] MEDS: Albuterol 2.5 MG/3 ML NEBULIZER IH SCH ×3 (03:52→11:29)
[2021-05-11 06:09] LABS: Basophils % 0.2 %; Hematocrit 29.3 % (37.5-50.1); Hemoglobin 9.7 g/dL (12.9-16.9); Immature Granulocytes % 1.2 % (0-4); Lymphocytes # 0.4 K/mcL (0.6-4.6); Lymphocytes % 3.3 %; Mean Corpuscular HGB Conc 33.1 g/dL (31.6-35.5); Mean Corpuscular Hemoglobin 31.9 pg (28.0-33.3); Mean Corpuscular Volume 96.4 fL (83.0-100.0); Mean Platelet Volume 8.2 fL (9.4-12.4); Monocytes # 0.1 K/mcL (0.0-1.3); Monocytes % 0.4 %; Neutrophils # 12.4 K/mcL (1.6-8.9); Platelet Count 350 K/mcL (140-400); Red Blood Count 3.04 M/mcL (4.19-5.50); Red Cell Distribution Width 14.7 % (11.5-14.5); Segmented Neutrophils % 94.9 %
[2021-05-11 06:33] LABS: Alanine Aminotransferase 29 Units/L (7-52); Albumin 3.3 g/dL (3.5-5.7); Albumin/Globulin Ratio 1.5 (1.1-2.2); Alkaline Phosphatase 59 Units/L (34-104); Aspartate Amino Transferase 16 Units/L (13-39); BUN/Creatinine Ratio 46 (6-26); Bilirubin,Total 0.2 mg/dL (0.3-1.0); Blood Urea Nitrogen 22 mg/dL (8-23); Calcium 9.3 mg/dL (8.6-10.3); Carbon Dioxide 31 mEq/L (23-29); Chloride 97 mEq/L (98-107); Globulin 2.2 g/dL (2.4-3.5); Glucose 145 mg/dL (70-105); Osmolality,Calculated 282 (280-300); Potassium 4.1 mEq/L (3.5-5.1); Sodium 133 mEq/L (136-145); Total Protein 5.5 g/dL (6.4-8.9); eGFR For African Americans > 60 (> 60); eGFR For Non-African Americans > 60 (> 60)
[2021-05-11] MEDS: *HR* Heparin 5,000 UNIT/ML VIAL SQ SCH ×2 (06:59→17:24)
[2021-05-11] MEDS: Aspirin Enteric Coated 81 MG Tablet PO SCH (08:20)
[2021-05-11] MEDS ORDERED: Lumateperone Tosylate [Caplyta] 42 MG PO SCH (09:00)
[2021-05-11] MEDS ORDERED: predniSONE 20 MG TABLET PO SCH (09:00)
[2021-05-11] MEDS: Ipratropium/Albuterol Neb 3 ML IH SCH ×3 (15:12→20:53)
[2021-05-11] MEDS: QUEtiapine Fumarate 25 MG TABLET PO SCH ×2 (15:33→20:23)
[2021-05-11] MEDS: MethylPREDNISolone 40 MG/ML VIAL IVP SCH (17:24)
[2021-05-12] MEDS: Ipratropium/Albuterol Neb 3 ML IH SCH ×5 (00:09→16:05)
[2021-05-12] MEDS: MethylPREDNISolone 40 MG/ML VIAL IVP SCH (05:04)
[2021-05-12] MEDS: *HR* Heparin 5,000 UNIT/ML VIAL SQ SCH (05:04)
[2021-05-12 05:27] LABS: Basophils % 0.1 %; Hematocrit 28.1 % (37.5-50.1); Hemoglobin 9.3 g/dL (12.9-16.9); Lymphocytes # 0.8 K/mcL (0.6-4.6); Lymphocytes % 5.2 %; Mean Corpuscular HGB Conc 33.1 g/dL (31.6-35.5); Mean Corpuscular Hemoglobin 31.5 pg (28.0-33.3); Mean Corpuscular Volume 95.3 fL (83.0-100.0); Mean Platelet Volume 8.5 fL (9.4-12.4); Monocytes # 0.6 K/mcL (0.0-1.3); Monocytes % 3.9 %; Neutrophils # 12.9 K/mcL (1.6-8.9); Platelet Count 362 K/mcL (140-400); Red Blood Count 2.95 M/mcL (4.19-5.50); Red Cell Distribution Width 15.1 % (11.5-14.5); Segmented Neutrophils % 89.8 %; White Blood Count 14.3 K/mcL (4.3-11.1)
[2021-05-12 05:51] LABS: BUN/Creatinine Ratio 36 (6-26); Blood Urea Nitrogen 20 mg/dL (8-23); Calcium 9.2 mg/dL (8.6-10.3); Carbon Dioxide 27 mEq/L (23-29); Chloride 96 mEq/L (98-107); Glucose 139 mg/dL (70-105); Magnesium 1.5 mg/dL (1.6-2.6); Osmolality,Calculated 275 (280-300); Phosphorous 3.3 mg/dL (2.7-4.5); Sodium 130 mEq/L (136-145); eGFR For African Americans > 60 (> 60); eGFR For Non-African Americans > 60 (> 60)
[2021-05-12] MEDS: Aspirin Enteric Coated 81 MG Tablet PO SCH (07:27)
[2021-05-12] MEDS: QUEtiapine Fumarate 25 MG TABLET PO SCH (07:28)
[2021-05-12] MEDS ORDERED: Fluticasone Propionate Nasal 50 MCG/SPRAY BOTTLE NS PRN (08:33)
[2021-05-12] MEDS ORDERED: Azithromycin 250 MG TABLET PO SCH (09:00)
[2021-05-12] MEDS ORDERED: Budesonide/Formoterol 160/4.5 1 PUFF INH IH SCH (10:00)
[2021-05-12 12:30] VITALS: BP 110/71; PULSE 87; TEMP 97.9; O2SAT 96
== END 2021-05-12 18:20 | disposition home health service (06) ==
LOC: 3BNU 22:52 → EMEROOARM 22:52 → SUATTDRO 05-11 04:42 → 3BNU 05-11 05:23
PROVIDERS: ADMIT Family Medicine; ATTEND Internal Medicine

== ENCOUNTER 2021-05-13 13:19 | Observation (INO) ==
[2021-05-13] MEDS ORDERED: methylPREDNISolone 125 MG/2 ML VIAL IVP ONE (13:25)
[2021-05-13] MEDS ORDERED: Ipratropium/Albuterol Neb 3 ML IH ONE (13:25)
[2021-05-13] MEDS ORDERED: hydrOXYzine pamoate 25 MG CAPSULE PO STA (14:06)
[2021-05-13 14:13] LABS: Basophils % 0.2 %; Hematocrit 33.1 % (37.5-50.1); Immature Granulocytes % 1.1 % (0-4); Lymphocytes # 1.6 K/mcL (0.6-4.6); Lymphocytes % 8.9 %; Mean Corpuscular HGB Conc 34.1 g/dL (31.6-35.5); Mean Corpuscular Hemoglobin 32.2 pg (28.0-33.3); Mean Corpuscular Volume 94.3 fL (83.0-100.0); Mean Platelet Volume 8.4 fL (9.4-12.4); Monocytes # 2.1 K/mcL (0.0-1.3); Monocytes % 11.3 %; Neutrophils # 14.4 K/mcL (1.6-8.9); Platelet Count 456 K/mcL (140-400); Red Blood Count 3.51 M/mcL (4.19-5.50); Red Cell Distribution Width 15.3 % (11.5-14.5); Segmented Neutrophils % 78.5 %; White Blood Count 18.3 K/mcL (4.3-11.1)
[2021-05-13 14:18] LABS: Hemoglobin 11.3 g/dL (12.9-16.9)
[2021-05-13 14:44] LABS: Troponin I 0.04 ng/mL (< 0.04)
[2021-05-13 14:53] LABS: BUN/Creatinine Ratio 42 (6-26); Blood Urea Nitrogen 25 mg/dL (8-23); Calcium 9.3 mg/dL (8.6-10.3); Carbon Dioxide 28 mEq/L (23-29); Chloride 93 mEq/L (98-107); Glucose 90 mg/dL (70-105); Osmolality,Calculated 270 (280-300); Potassium 4.5 mEq/L (3.5-5.1); Sodium 128 mEq/L (136-145); eGFR For African Americans > 60 (> 60); eGFR For Non-African Americans > 60 (> 60)
[2021-05-13] MEDS ORDERED: Naloxone 0.4 MG/ML INJ IVP PRN (15:25)
[2021-05-13] MEDS ORDERED: *HR* LORazepam 2 MG/ML VIAL IVP ONE (16:13)
[2021-05-13] MEDS ORDERED: Fluticasone Propionate Nasal 50 MCG/SPRAY BOTTLE NS PRN (16:19)
[2021-05-13] MEDS ORDERED: Morphine Sulfate 2 MG/ML SYRINGE IVP ONE (16:23)
[2021-05-13 17:01] LABS: VBG HCO3 27 mEq/L (21-27); VBG PCO2 45 mmHg (41-51); VBG PH 7.39 pH Units (7.32-7.42); VBG PO2 220 mmHg (25-50)
[2021-05-13] MEDS ORDERED: Ipratropium/Albuterol Neb 3 ML ONE ×2 (17:20→17:25)
[2021-05-13] MEDS: Ipratropium/Albuterol Neb 3 ML IH SCH (17:21)
[2021-05-13] MEDS ORDERED: Isovue-370 500 ML BOTTLE IVP ONE (17:35)
[2021-05-13] MEDS ORDERED: Aspirin 325 MG TABLET PO ONE (17:42)
[2021-05-13] MEDS ORDERED: Dextrose Gel 15 GM/37.5 ML TUBE PO PRN ×2 (17:46)
[2021-05-13] MEDS ORDERED: *HR* Dextrose 50 % in Water (Syg) 50 ML SYRINGE IVP PRN (17:46)
[2021-05-13] MEDS ORDERED: D5% in Water 1,000 ML IVC PRN (17:46)
[2021-05-13] MEDS: Morphine Sulfate 2 MG/ML SYRINGE IVP PRN (18:12)
[2021-05-13] MEDS: Azithromycin 500 MG in 0.9 % Sodium Chloride 250 ML IVPB SCH (18:53)
[2021-05-13] MEDS: Dexmedetomidine HCl 400 MCG/100 ML MLS IVC SCH (18:53)
[2021-05-13] MEDS ORDERED: Haloperidol Lactate 5 MG/ML VIAL IVP ONE (22:42)
[2021-05-14] MEDS ORDERED: *HR* LORazepam 2 MG/ML VIAL IVP ONE
[2021-05-14] MEDS ORDERED: Haloperidol Lactate 5 MG/ML VIAL IVP ONE
[2021-05-14] MEDS: Ipratropium/Albuterol Neb 3 ML IH SCH ×7 (00:13→23:25)
[2021-05-14] MEDS: Dexmedetomidine HCl 400 MCG/100 ML MLS IVC SCH ×5 (01:16→22:15)
[2021-05-14 08:21] LABS: Hematocrit 32.9 % (37.5-50.1); Hemoglobin 11.2 g/dL (12.9-16.9); Lymphocytes # 0.5 K/mcL (0.6-4.6); Mean Corpuscular Hemoglobin 32.1 pg (28.0-33.3); Mean Corpuscular Volume 94.3 fL (83.0-100.0); Mean Platelet Volume 8.5 fL (9.4-12.4); Monocytes # 0.5 K/mcL (0.0-1.3); Monocytes % 5.4 %; Platelet Count 389 K/mcL (140-400); Red Blood Count 3.49 M/mcL (4.19-5.50); Red Cell Distribution Width 15.6 % (11.5-14.5); Segmented Neutrophils % 87.6 %
[2021-05-14 08:23] LABS: Neutrophils # 7.6 K/mcL (1.6-8.9); White Blood Count 8.7 K/mcL (4.3-11.1)
[2021-05-14] MEDS: Insulin LISPRO 300 UNITS/3 ML VIAL SUBQ SCH ×6 (08:34→20:06)
[2021-05-14] MEDS: *HR* Heparin 5,000 UNIT/ML VIAL SQ SCH ×3 (08:35→19:34)
[2021-05-14] MEDS: Furosemide 20 MG/2 ML VIAL IVP SCH ×3 (08:36→20:01)
[2021-05-14 08:38] LABS: BUN/Creatinine Ratio 38 (6-26); Blood Urea Nitrogen 26 mg/dL (8-23); Calcium 9.6 mg/dL (8.6-10.3); Carbon Dioxide 29 mEq/L (23-29); Chloride 96 mEq/L (98-107); Glucose 117 mg/dL (70-105); Osmolality,Calculated 280 (280-300); Potassium 4.4 mEq/L (3.5-5.1); Sodium 132 mEq/L (136-145); eGFR For African Americans > 60 (> 60); eGFR For Non-African Americans > 60 (> 60)
[2021-05-14] MEDS: MethylPREDNISolone 40 MG/ML VIAL IVP SCH ×2 (08:38→20:01)
[2021-05-14 09:14] LABS: Amphetamine Screen,Urine Negative ng/mL (Cutoff=1000); Barbiturate Screen,Urine Negative ng/mL (Cutoff=200); Benzodiazepines Screen,Urine Negative ng/mL (Cutoff=200); Cannabinoid Screen,Urine Negative ng/mL (Cutoff = 50); Cocaine Screen,Urine Negative ng/mL (Cutoff= 300); Opiate Screen,Urine Positive ng/mL (Cutoff=300); Phencyclidine Screen,Urine Negative ng/mL (Cutoff=25)
[2021-05-14] MEDS: Aspirin Enteric Coated 81 MG Tablet PO SCH (09:34)
[2021-05-14] MEDS: Lumateperone Tosylate [Caplyta] 42 MG Capsule PO SCH ×2 (10:18→15:45)
[2021-05-14] MEDS ORDERED: Sennosides 8.6 MG TABLET PO PRN (11:02)
[2021-05-14] MEDS ORDERED: hydrOXYzine pamoate 25 MG CAPSULE PO ONE (12:21)
[2021-05-14] MEDS: Morphine Sulfate 2 MG/ML SYRINGE IVP PRN (13:57)
[2021-05-14] MEDS ORDERED: hydrOXYzine pamoate 25 MG CAPSULE PO PRN (17:49)
[2021-05-14] MEDS: Azithromycin 500 MG in 0.9 % Sodium Chloride 250 ML IVPB SCH (18:26)
[2021-05-15] MEDS: Dexmedetomidine HCl 400 MCG/100 ML MLS IVC SCH ×5 (03:26→23:12)
[2021-05-15 03:30] LABS: Hematocrit 32.7 % (37.5-50.1); Hemoglobin 11.2 g/dL (12.9-16.9); Mean Corpuscular HGB Conc 34.3 g/dL (31.6-35.5); Mean Corpuscular Hemoglobin 32.7 pg (28.0-33.3); Mean Corpuscular Volume 95.3 fL (83.0-100.0); Mean Platelet Volume 8.8 fL (9.4-12.4); Platelet Count 369 K/mcL (140-400); Red Blood Count 3.43 M/mcL (4.19-5.50); Red Cell Distribution Width 15.6 % (11.5-14.5); White Blood Count 8.5 K/mcL (4.3-11.1)
[2021-05-15 03:36] LABS: BUN/Creatinine Ratio 37 (6-26); Blood Urea Nitrogen 24 mg/dL (8-23); Calcium 9.7 mg/dL (8.6-10.3); Carbon Dioxide 31 mEq/L (23-29); Chloride 97 mEq/L (98-107); Glucose 155 mg/dL (70-105); Osmolality,Calculated 285 (280-300); Potassium 4.2 mEq/L (3.5-5.1); Sodium 134 mEq/L (136-145); eGFR For African Americans > 60 (> 60); eGFR For Non-African Americans > 60 (> 60)
[2021-05-15] MEDS: Ipratropium/Albuterol Neb 3 ML IH SCH ×5 (03:41→19:56)
[2021-05-15] MEDS: *HR* Heparin 5,000 UNIT/ML VIAL SQ SCH ×2 (05:24→18:12)
[2021-05-15] MEDS: Aspirin Enteric Coated 81 MG Tablet PO SCH (07:33)
[2021-05-15] MEDS: Lumateperone Tosylate [Caplyta] 42 MG Capsule PO SCH ×2 (07:34→20:41)
[2021-05-15] MEDS: MethylPREDNISolone 40 MG/ML VIAL IVP SCH ×2 (07:35→20:41)
[2021-05-15] MEDS: Furosemide 20 MG/2 ML VIAL IVP SCH ×3 (07:35→20:40)
[2021-05-15] MEDS: Insulin LISPRO 300 UNITS/3 ML VIAL SUBQ SCH ×4 (07:35→20:39)
[2021-05-15] MEDS: hydrOXYzine pamoate 25 MG CAPSULE PO PRN (12:51)
[2021-05-16] MEDS: Ipratropium/Albuterol Neb 3 ML IH SCH ×7 (00:17→23:10)
[2021-05-16 01:14] LABS: Hematocrit 33.3 % (37.5-50.1); Hemoglobin 10.8 g/dL (12.9-16.9); Mean Corpuscular HGB Conc 32.4 g/dL (31.6-35.5); Mean Corpuscular Hemoglobin 31.6 pg (28.0-33.3); Mean Corpuscular Volume 97.4 fL (83.0-100.0); Mean Platelet Volume 8.9 fL (9.4-12.4); Platelet Count 330 K/mcL (140-400); Red Blood Count 3.42 M/mcL (4.19-5.50); Red Cell Distribution Width 15.8 % (11.5-14.5)
[2021-05-16 01:18] LABS: White Blood Count 13.6 K/mcL (4.3-11.1)
[2021-05-16 01:30] LABS: BUN/Creatinine Ratio 42 (6-26); Blood Urea Nitrogen 27 mg/dL (8-23); Calcium 9.1 mg/dL (8.6-10.3); Carbon Dioxide 34 mEq/L (23-29); Chloride 99 mEq/L (98-107); Glucose 141 mg/dL (70-105); Osmolality,Calculated 289 (280-300); Sodium 136 mEq/L (136-145); eGFR For African Americans > 60 (> 60); eGFR For Non-African Americans > 60 (> 60)
[2021-05-16] MEDS: *HR* Heparin 5,000 UNIT/ML VIAL SQ SCH ×2 (06:47→16:45)
[2021-05-16] MEDS: Aspirin Enteric Coated 81 MG Tablet PO SCH (07:53)
[2021-05-16] MEDS: hydrOXYzine pamoate 25 MG CAPSULE PO PRN ×2 (07:53→14:39)
[2021-05-16] MEDS: Insulin LISPRO 300 UNITS/3 ML VIAL SUBQ SCH ×4 (07:54→20:54)
[2021-05-16] MEDS: MethylPREDNISolone 40 MG/ML VIAL IVP SCH (07:54)
[2021-05-16] MEDS: Furosemide 20 MG/2 ML VIAL IVP SCH ×2 (07:54→20:53)
[2021-05-16] MEDS: QUEtiapine Fumarate 25 MG TABLET PO SCH ×2 (15:38→20:53)
[2021-05-16] MEDS: Lumateperone Tosylate [Caplyta] 42 MG Capsule PO SCH (20:56)
[2021-05-17] MEDS: Ipratropium/Albuterol Neb 3 ML IH SCH ×6 (03:51→23:13)
[2021-05-17 05:00] LABS: Hemoglobin 11.8 g/dL (12.9-16.9); Mean Corpuscular HGB Conc 33.7 g/dL (31.6-35.5); Mean Corpuscular Hemoglobin 32.2 pg (28.0-33.3); Mean Corpuscular Volume 95.6 fL (83.0-100.0); Mean Platelet Volume 8.9 fL (9.4-12.4); Platelet Count 358 K/mcL (140-400); Red Blood Count 3.66 M/mcL (4.19-5.50); Red Cell Distribution Width 15.6 % (11.5-14.5); White Blood Count 12.3 K/mcL (4.3-11.1)
[2021-05-17 05:13] LABS: BUN/Creatinine Ratio 37 (6-26); Blood Urea Nitrogen 24 mg/dL (8-23); Calcium 9.2 mg/dL (8.6-10.3); Carbon Dioxide 37 mEq/L (23-29); Chloride 95 mEq/L (98-107); Glucose 83 mg/dL (70-105); Osmolality,Calculated 285 (280-300); Potassium 3.6 mEq/L (3.5-5.1); Sodium 136 mEq/L (136-145); eGFR For African Americans > 60 (> 60); eGFR For Non-African Americans > 60 (> 60)
[2021-05-17] MEDS: *HR* Heparin 5,000 UNIT/ML VIAL SQ SCH ×2 (05:58→18:20)
[2021-05-17] MEDS: Insulin LISPRO 300 UNITS/3 ML VIAL SUBQ SCH ×4 (08:17→19:51)
[2021-05-17] MEDS: QUEtiapine Fumarate 25 MG TABLET PO SCH ×2 (08:33→19:57)
[2021-05-17] MEDS: Aspirin Enteric Coated 81 MG Tablet PO SCH (08:33)
[2021-05-17] MEDS: predniSONE 20 MG TABLET PO SCH (08:34)
[2021-05-17] MEDS: Furosemide 20 MG/2 ML VIAL IVP SCH ×2 (08:34→19:57)
[2021-05-17] MEDS: Lumateperone Tosylate [Caplyta] 42 MG Capsule PO SCH (19:58)
[2021-05-18] MEDS: Ipratropium/Albuterol Neb 3 ML IH SCH ×4 (03:50→15:05)
[2021-05-18 04:35] LABS: Hematocrit 35.6 % (37.5-50.1); Hemoglobin 11.8 g/dL (12.9-16.9); Mean Corpuscular HGB Conc 33.1 g/dL (31.6-35.5); Mean Corpuscular Hemoglobin 32.5 pg (28.0-33.3); Mean Corpuscular Volume 98.1 fL (83.0-100.0); Mean Platelet Volume 9.2 fL (9.4-12.4); Platelet Count 355 K/mcL (140-400); Red Blood Count 3.63 M/mcL (4.19-5.50); White Blood Count 11.9 K/mcL (4.3-11.1)
[2021-05-18 04:51] LABS: BUN/Creatinine Ratio 40 (6-26); Blood Urea Nitrogen 28 mg/dL (8-23); Calcium 9.1 mg/dL (8.6-10.3); Carbon Dioxide 36 mEq/L (23-29); Chloride 97 mEq/L (98-107); Glucose 94 mg/dL (70-105); Osmolality,Calculated 291 (280-300); Potassium 3.9 mEq/L (3.5-5.1); Sodium 138 mEq/L (136-145); eGFR For African Americans > 60 (> 60); eGFR For Non-African Americans > 60 (> 60)
[2021-05-18] MEDS: *HR* Heparin 5,000 UNIT/ML VIAL SQ SCH (05:12)
[2021-05-18] MEDS: Insulin LISPRO 300 UNITS/3 ML VIAL SUBQ SCH ×2 (08:06→12:15)
[2021-05-18] MEDS: Aspirin Enteric Coated 81 MG Tablet PO SCH (09:01)
[2021-05-18] MEDS: QUEtiapine Fumarate 25 MG TABLET PO SCH (09:01)
[2021-05-18] MEDS: Furosemide 20 MG/2 ML VIAL IVP SCH (09:01)
[2021-05-18] MEDS: predniSONE 20 MG TABLET PO SCH (09:01)
[2021-05-18] MEDS ORDERED: FLU Vac QV 21-22 (6Month+)/PF 0.5 ML SYRINGE IM ONE (15:47)
[2021-05-18 16:01] VITALS: BP 112/65; PULSE 102; TEMP 97.9; O2SAT 96
== END 2021-05-18 17:38 | disposition home health service (06) ==
LOC: 2NNU 13:19 → EMEROOARM 13:19 → SUATTDRO 05-14 16:16 → 2NNU 05-14 17:17 → 2NENU 05-17 10:29
PROVIDERS: ADMIT Family Medicine; ATTEND Internal Medicine

== ENCOUNTER 2021-05-22 09:38 | Observation (INO) ==
[2021-05-22] MEDS ORDERED: methylPREDNISolone 125 MG/2 ML VIAL IVP ONE (10:06)
[2021-05-22] MEDS ORDERED: Ipratropium/Albuterol Neb 3 ML IH ONE (10:06)
[2021-05-22 10:56] LABS: Basophils # 0.1 K/mcL (0.0-0.2); Basophils % 0.4 %; Hematocrit 34.2 % (37.5-50.1); Hemoglobin 11.2 g/dL (12.9-16.9); Immature Granulocytes % 4.9 % (0-4); Lymphocytes # 0.5 K/mcL (0.6-4.6); Lymphocytes % 2.4 %; Mean Corpuscular HGB Conc 32.7 g/dL (31.6-35.5); Mean Corpuscular Volume 97.7 fL (83.0-100.0); Monocytes # 0.7 K/mcL (0.0-1.3); Monocytes % 3.2 %; Neutrophils # 18.5 K/mcL (1.6-8.9); Platelet Count 299 K/mcL (140-400); Red Cell Distribution Width 16.1 % (11.5-14.5); Segmented Neutrophils % 89.1 %; White Blood Count 20.8 K/mcL (4.3-11.1)
[2021-05-22 11:22] LABS: BUN/Creatinine Ratio 55 (6-26); Blood Urea Nitrogen 37 mg/dL (8-23); Calcium 9.4 mg/dL (8.6-10.3); Carbon Dioxide 31 mEq/L (23-29); Chloride 99 mEq/L (98-107); Glucose 130 mg/dL (70-105); Osmolality,Calculated 294 (280-300); Potassium 4.4 mEq/L (3.5-5.1); Sodium 137 mEq/L (136-145); Troponin I < 0.03 ng/mL (< 0.04); eGFR For African Americans > 60 (> 60); eGFR For Non-African Americans > 60 (> 60)
[2021-05-22] MEDS ORDERED: Budesonide/Formoterol 160/4.5 1 PUFF INH IH SCH (12:45)
[2021-05-22 14:09] LABS: Adenovirus Not Detected (Not Detect); Bordetella Pertussis Not Detected (Not Detect); Chlamydophila pneumoniae Not Detected (Not Detect); Coronavirus 229E Not Detected (Not Detect); Coronavirus HKU1 Not Detected (Not Detect); Coronavirus NL63 Not Detected (Not Detect); Coronavirus OC43 Not Detected (Not Detect); Human Metapneumovirus Not Detected (Not Detect); Human Rhinovirus/Enterovirus Not Detected (Not Detect); Influenza A Subtype 2009 H1 Not Detected (Not Detect); Influenza B Not Detected (Not Detect); Mycoplasma pneumoniae Not Detected (Not Detect); Parainfluenza Virus 1 Not Detected (Not Detect); Parainfluenza Virus 2 Not Detected (Not Detect); Parainfluenza Virus 3 Not Detected (Not Detect); Parainfluenza Virus 4 Not Detected (Not Detect); Respiratory Syncytial Virus Not Detected (Not Detect); SARS-CoV-2 Not Detected (Not Detect)
[2021-05-22] MEDS: Azithromycin 500 MG in 0.9 % Sodium Chloride 250 ML IVPB SCH (14:45)
[2021-05-22] MEDS: levoFLOXacin 500 MG/100 ML 500 MG/100 ML BAG IVPB SCH (15:52)
[2021-05-22] MEDS: Ipratropium/Albuterol Neb 3 ML IH SCH ×3 (16:20→20:47)
[2021-05-22] MEDS ORDERED: NON-FORMULARY MEDICATION 1 EACH EACH (Albuterol Sulfate 8.5 GM Hfa.Aer.Ad) IH PRN (17:22)
[2021-05-22] MEDS ORDERED: Albuterol 2.5 MG/3 ML NEBULIZER IH PRN (17:22)
[2021-05-22] MEDS ORDERED: Ipratropium/Albuterol Neb 3 ML IH PRN (17:22)
[2021-05-22] MEDS ORDERED: Fluticasone Propionate Nasal 50 MCG/SPRAY BOTTLE NS PRN (17:22)
[2021-05-22] MEDS: Aspirin Enteric Coated 81 MG Tablet PO SCH (17:47)
[2021-05-22] MEDS: MethylPREDNISolone 40 MG/ML VIAL IVP SCH ×2 (17:47→23:23)
[2021-05-22] MEDS: Furosemide 20 MG TABLET PO SCH (17:47)
[2021-05-22] MEDS: Budesonide/Formoterol 160/4.5 1 PUFF INH IH SCH (20:47)
[2021-05-22] MEDS: QUEtiapine Fumarate 25 MG TABLET PO SCH (23:22)
[2021-05-22] MEDS: LUMATEPERONE TOSYLATE 42 MG PO SCH (23:25)
[2021-05-23 01:24] LABS: Basophils % 0.2 %; Hematocrit 32.5 % (37.5-50.1); Immature Granulocytes % 4.3 % (0-4); Lymphocytes # 0.5 K/mcL (0.6-4.6); Lymphocytes % 2.5 %; Mean Corpuscular HGB Conc 33.8 g/dL (31.6-35.5); Mean Corpuscular Hemoglobin 32.9 pg (28.0-33.3); Mean Corpuscular Volume 97.3 fL (83.0-100.0); Monocytes # 0.6 K/mcL (0.0-1.3); Monocytes % 3.2 %; Neutrophils # 18.2 K/mcL (1.6-8.9); Nucleated Red Blood Cells 0.1 /100 WBC (0); Platelet Count 321 K/mcL (140-400); Red Blood Count 3.34 M/mcL (4.19-5.50); Red Cell Distribution Width 16.1 % (11.5-14.5); Segmented Neutrophils % 89.8 %; White Blood Count 20.3 K/mcL (4.3-11.1)
[2021-05-23 01:41] LABS: BUN/Creatinine Ratio 54 (6-26); Blood Urea Nitrogen 36 mg/dL (8-23); Calcium 9.2 mg/dL (8.6-10.3); Carbon Dioxide 30 mEq/L (23-29); Chloride 98 mEq/L (98-107); Glucose 131 mg/dL (70-105); Osmolality,Calculated 290 (280-300); Potassium 4.5 mEq/L (3.5-5.1); Sodium 135 mEq/L (136-145); eGFR For African Americans > 60 (> 60); eGFR For Non-African Americans > 60 (> 60)
[2021-05-23] MEDS: Ipratropium/Albuterol Neb 3 ML IH SCH ×4 (04:56→23:23)
[2021-05-23] MEDS: MethylPREDNISolone 40 MG/ML VIAL IVP SCH ×3 (05:19→18:10)
[2021-05-23 05:27] LABS: ABG Base Excess 5 mEq/L (-2 to 3); ABG HCO3 30 mEq/L (21-27); ABG Oxygen Saturation 97 % (95-98); ABG PCO2 46 mmHg (35-45); ABG PH 7.43 pH Units (7.32-7.45); ABG PO2 91 mmHg (85-104); ABG TCO2 32 mEq/L (20-26)
[2021-05-23] MEDS: Furosemide 20 MG TABLET PO SCH (09:28)
[2021-05-23] MEDS: Aspirin Enteric Coated 81 MG Tablet PO SCH (09:28)
[2021-05-23] MEDS: QUEtiapine Fumarate 25 MG TABLET PO SCH ×2 (09:28→21:34)
[2021-05-23] MEDS: levoFLOXacin 500 MG/100 ML 500 MG/100 ML BAG IVPB SCH (09:28)
[2021-05-23] MEDS: Budesonide/Formoterol 160/4.5 1 PUFF INH IH SCH ×2 (09:46→23:23)
[2021-05-23] MEDS: Azithromycin 500 MG in 0.9 % Sodium Chloride 250 ML IVPB SCH (13:45)
[2021-05-23] MEDS ORDERED: Acetaminophen 325 MG TABLET PO PRN (20:40)
[2021-05-23] MEDS: LUMATEPERONE TOSYLATE 42 MG PO SCH (21:35)
[2021-05-24] MEDS: MethylPREDNISolone 40 MG/ML VIAL IVP SCH ×3 (01:25→17:40)
[2021-05-24] MEDS: Ipratropium/Albuterol Neb 3 ML IH SCH ×4 (04:26→22:52)
[2021-05-24 06:02] LABS: Nucleated Red Blood Cells 0.1 /100 WBC (0); Red Cell Distribution Width 15.9 % (11.5-14.5)
[2021-05-24 06:04] LABS: Basophils # 0.1 K/mcL (0.0-0.2); Basophils % 0.4 %; Eosinophils % 0.1 %; Hematocrit 35.1 % (37.5-50.1); Hemoglobin 11.7 g/dL (12.9-16.9); Immature Platelets 5.3 % (1.1-6.1); Lymphocytes # 0.9 K/mcL (0.6-4.6); Lymphocytes % 3.7 %; Mean Corpuscular HGB Conc 33.3 g/dL (31.6-35.5); Mean Corpuscular Hemoglobin 32.4 pg (28.0-33.3); Mean Corpuscular Volume 97.2 fL (83.0-100.0); Mean Platelet Volume 9.7 fL (9.4-12.4); Monocytes # 1.2 K/mcL (0.0-1.3); Monocytes % 4.9 %; Neutrophils # 20.4 K/mcL (1.6-8.9); Platelet Count 295 K/mcL (140-400); Red Blood Count 3.61 M/mcL (4.19-5.50); Segmented Neutrophils % 86.9 %; White Blood Count 23.5 K/mcL (4.3-11.1)
[2021-05-24 06:22] LABS: BUN/Creatinine Ratio 49 (6-26); Blood Urea Nitrogen 33 mg/dL (8-23); Carbon Dioxide 30 mEq/L (23-29); Chloride 99 mEq/L (98-107); Glucose 103 mg/dL (70-105); Osmolality,Calculated 282 (280-300); Potassium 4.6 mEq/L (3.5-5.1); Sodium 132 mEq/L (136-145); eGFR For African Americans > 60 (> 60); eGFR For Non-African Americans > 60 (> 60)
[2021-05-24] MEDS: QUEtiapine Fumarate 25 MG TABLET PO SCH ×2 (08:21→22:12)
[2021-05-24] MEDS: Aspirin Enteric Coated 81 MG Tablet PO SCH (08:21)
[2021-05-24] MEDS: levoFLOXacin 500 MG/100 ML 500 MG/100 ML BAG IVPB SCH (08:21)
[2021-05-24] MEDS: Furosemide 20 MG TABLET PO SCH (08:21)
[2021-05-24] MEDS: Budesonide/Formoterol 160/4.5 1 PUFF INH IH SCH ×2 (09:12→22:52)
[2021-05-24] MEDS: Azithromycin 500 MG in 0.9 % Sodium Chloride 250 ML IVPB SCH (12:22)
[2021-05-24] MEDS: LUMATEPERONE TOSYLATE 42 MG PO SCH (22:12)
[2021-05-25] MEDS: Ipratropium/Albuterol Neb 3 ML IH SCH ×2 (03:26→11:18)
[2021-05-25 06:29] LABS: BUN/Creatinine Ratio 42 (6-26); Blood Urea Nitrogen 31 mg/dL (8-23); Calcium 9.3 mg/dL (8.6-10.3); Carbon Dioxide 31 mEq/L (23-29); Chloride 101 mEq/L (98-107); Glucose 184 mg/dL (70-105); Osmolality,Calculated 293 (280-300); Potassium 4.7 mEq/L (3.5-5.1); Sodium 136 mEq/L (136-145); eGFR For African Americans > 60 (> 60); eGFR For Non-African Americans > 60 (> 60)
[2021-05-25] MEDS: MethylPREDNISolone 40 MG/ML VIAL IVP SCH (06:41)
[2021-05-25 07:50] LABS: Basophils % 0.2 %; Hematocrit 34.7 % (37.5-50.1); Hemoglobin 11.8 g/dL (12.9-16.9); Immature Granulocytes % 2.6 % (0-4); Lymphocytes # 0.5 K/mcL (0.6-4.6); Lymphocytes % 2.9 %; Mean Corpuscular Hemoglobin 32.8 pg (28.0-33.3); Mean Corpuscular Volume 96.4 fL (83.0-100.0); Mean Platelet Volume 9.2 fL (9.4-12.4); Monocytes # 0.6 K/mcL (0.0-1.3); Monocytes % 3.6 %; Neutrophils # 15.5 K/mcL (1.6-8.9); Nucleated Red Blood Cells 0.1 /100 WBC (0); Platelet Count 299 K/mcL (140-400); Red Cell Distribution Width 15.9 % (11.5-14.5); Segmented Neutrophils % 90.7 %; White Blood Count 17.1 K/mcL (4.3-11.1)
[2021-05-25] MEDS: levoFLOXacin 500 MG/100 ML 500 MG/100 ML BAG IVPB SCH (09:43)
[2021-05-25] MEDS: Furosemide 20 MG TABLET PO SCH (09:43)
[2021-05-25] MEDS: QUEtiapine Fumarate 25 MG TABLET PO SCH (09:43)
[2021-05-25] MEDS: Aspirin Enteric Coated 81 MG Tablet PO SCH (09:43)
[2021-05-25] MEDS: Budesonide/Formoterol 160/4.5 1 PUFF INH IH SCH (11:20)
[2021-05-25 12:10] VITALS: BP 130/85; PULSE 87; TEMP 98.8; O2SAT 94
== END 2021-05-25 13:06 | disposition home or self-care (01) ==
LOC: EMEROOARM 09:38 → 3BNU 09:38 → SUATTDRO 12:59 → 3BNU 13:41
PROVIDERS: ADMIT Internal Medicine; ATTEND Internal Medicine

== ENCOUNTER 2021-05-27 10:33 | Inpatient (IN) ==
[2021-05-27] MEDS ORDERED: methylPREDNISolone 125 MG/2 ML VIAL IVP ONE (10:53)
[2021-05-27] MEDS ORDERED: Isovue-370 500 ML BOTTLE IVP ONE (10:53)
[2021-05-27] MEDS ORDERED: Doxycycline 100 MG in 0.9 % Sodium Chloride Mini Bag 100 ML IVPB ONE (10:55)
[2021-05-27] MEDS ORDERED: Albuterol Neb 7.5 MG, Ipratropium Neb 0.5 MG, Sodium Chloride for inhalation 9 ML IH ONE (10:56)
[2021-05-27 11:04] LABS: ABG Base Excess 5 mEq/L (-2 to 3); ABG HCO3 34 mEq/L (21-27); ABG Oxygen Saturation 100 % (95-98); ABG PCO2 74 mmHg (35-45); ABG PH 7.27 pH Units (7.32-7.45); ABG PO2 223 mmHg (85-104); ABG TCO2 36 mEq/L (20-26)
[2021-05-27 12:04] LABS: Basophils % 0.3 %; Red Cell Distribution Width 15.9 % (11.5-14.5)
[2021-05-27 12:06] LABS: Basophils # 0.1 K/mcL (0.0-0.2); Hematocrit 37.8 % (37.5-50.1); Hemoglobin 12.6 g/dL (12.9-16.9); Immature Granulocytes % 3.6 % (0-4); Lymphocytes # 0.2 K/mcL (0.6-4.6); Lymphocytes % 0.7 %; Mean Corpuscular HGB Conc 33.3 g/dL (31.6-35.5); Mean Corpuscular Hemoglobin 32.6 pg (28.0-33.3); Mean Corpuscular Volume 97.9 fL (83.0-100.0); Monocytes % 2.8 %; Platelet Count 266 K/mcL (140-400); Red Blood Count 3.86 M/mcL (4.19-5.50); Segmented Neutrophils % 92.6 %; White Blood Count 26.4 K/mcL (4.3-11.1)
[2021-05-27 12:09] LABS: ABG Base Excess 6 mEq/L (-2 to 3); ABG HCO3 35 mEq/L (21-27); ABG Oxygen Saturation 100 % (95-98); ABG PCO2 66 mmHg (35-45); ABG PH 7.33 pH Units (7.32-7.45); ABG PO2 203 mmHg (85-104); ABG TCO2 37 mEq/L (20-26)
[2021-05-27 12:09] LABS: Monocytes # 0.7 K/mcL (0.0-1.3); Neutrophils # 24.5 K/mcL (1.6-8.9)
[2021-05-27 12:13] LABS: Prothrombin Time 10.6 Seconds (9.4-12.1)
[2021-05-27 12:16] LABS: Activated Partial Thrombo Time 21.1 Seconds (26.0-36.0)
[2021-05-27 12:44] LABS: Platelet Estimate Normal (Normal)
[2021-05-27 12:50] LABS: Bilirubin,Urine Negative (Negative); Blood,Urine Trace (Negative); Clarity,Urine Clear (Clear); Color,Urine Light-Yellow (Yellow); Glucose,Urine (UA) Normal (Normal); Ketones,Urine Negative (Negative); Leukocyte Esterase,Urine Negative (Negative); Nitrite,Urine Negative (Negative); PH,Urine 5.5 pH Units (5.0-8.0); Protein,Urine Negative (Neg-Trace); Specific Gravity,Urine 1.015 (1.010-1.025); Squamous Epithelial Cell,Urine Few per hpf (None-Few); Urobilinogen,Urine Normal (Normal); WBC,Urine 0-3 per hpf (0-3)
[2021-05-27 13:56] LABS: Alanine Aminotransferase 94 Units/L (7-52); Albumin 3.3 g/dL (3.5-5.7); Albumin/Globulin Ratio 1.6 (1.1-2.2); Alkaline Phosphatase 52 Units/L (34-104); Aspartate Amino Transferase 45 Units/L (13-39); BUN/Creatinine Ratio 59 (6-26); Bilirubin,Direct 0.1 mg/dL (0.0-0.2); Bilirubin,Indirect 0.4 mg/dL (0.0-1.0); Bilirubin,Total 0.5 mg/dL (0.3-1.0); Blood Urea Nitrogen 42 mg/dL (8-23); Calcium 8.7 mg/dL (8.6-10.3); Carbon Dioxide 33 mEq/L (23-29); Chloride 94 mEq/L (98-107); Globulin 2.1 g/dL (2.4-3.5); Glucose 119 mg/dL (70-105); Osmolality,Calculated 286 (280-300); Potassium 4.9 mEq/L (3.5-5.1); Sodium 132 mEq/L (136-145); Total Protein 5.4 g/dL (6.4-8.9); Troponin I 0.06 ng/mL (< 0.04); eGFR For African Americans > 60 (> 60); eGFR For Non-African Americans > 60 (> 60)
[2021-05-27] MEDS ORDERED: Aspirin 325 MG TABLET PO ONE (14:05)
[2021-05-27] MEDS ORDERED: Naloxone 0.4 MG/ML INJ IVP PRN (14:48)
[2021-05-27] MEDS ORDERED: Ondansetron 4 MG/2 ML VIAL IVP PRN (14:48)
[2021-05-27] MEDS ORDERED: levoFLOXacin 500 MG/100 ML 500 MG/100 ML BAG IVPB SCH (15:15)
[2021-05-27] MEDS: Ipratropium/Albuterol Neb 3 ML IH SCH ×4 (15:22→23:45)
[2021-05-27 16:08] LABS: Influenza A PCR Negative (Negative); Influenza B PCR Negative (Negative); Resp. Syncytial Virus PCR Negative (Negative); SARS-CoV-2 by PCR (In House) Negative (Negative)
[2021-05-27] MEDS: MethylPREDNISolone 40 MG/ML VIAL IVP SCH (17:12)
[2021-05-27] MEDS: Budesonide/Formoterol 160/4.5 1 PUFF INH IH SCH (20:27)
[2021-05-27] MEDS: QUEtiapine Fumarate 25 MG TABLET PO SCH (20:51)
[2021-05-27] MEDS: Acetaminophen 325 MG TABLET PO PRN (20:51)
[2021-05-28 00:24] LABS: Basophils % 0.1 %; Hematocrit 35.7 % (37.5-50.1); Hemoglobin 11.8 g/dL (12.9-16.9); Immature Granulocytes % 1.1 % (0-4); Lymphocytes # 0.3 K/mcL (0.6-4.6); Lymphocytes % 1.3 %; Mean Corpuscular HGB Conc 33.1 g/dL (31.6-35.5); Mean Corpuscular Hemoglobin 32.2 pg (28.0-33.3); Mean Corpuscular Volume 97.5 fL (83.0-100.0); Mean Platelet Volume 8.9 fL (9.4-12.4); Monocytes # 0.4 K/mcL (0.0-1.3); Monocytes % 1.8 %; Platelet Count 208 K/mcL (140-400); Red Blood Count 3.66 M/mcL (4.19-5.50); Red Cell Distribution Width 15.9 % (11.5-14.5); Segmented Neutrophils % 95.7 %
[2021-05-28 00:27] LABS: Neutrophils # 21.1 K/mcL (1.6-8.9)
[2021-05-28 00:43] LABS: BUN/Creatinine Ratio 52 (6-26); Blood Urea Nitrogen 30 mg/dL (8-23); Calcium 8.8 mg/dL (8.6-10.3); Carbon Dioxide 32 mEq/L (23-29); Chloride 98 mEq/L (98-107); Glucose 132 mg/dL (70-105); Magnesium 2.1 mg/dL (1.6-2.6); Osmolality,Calculated 288 (280-300); Phosphorous 3.7 mg/dL (2.7-4.5); Potassium 4.7 mEq/L (3.5-5.1); Sodium 135 mEq/L (136-145); eGFR For African Americans > 60 (> 60); eGFR For Non-African Americans > 60 (> 60)
[2021-05-28 00:45] LABS: Platelet Estimate Normal (Normal)
[2021-05-28] MEDS: MethylPREDNISolone 40 MG/ML VIAL IVP SCH ×3 (00:46→15:38)
[2021-05-28] MEDS: Vancomycin 1,250 MG/262.5 ML IV.SOLN IVPB SCH ×2 (02:18→14:25)
[2021-05-28] MEDS: Ipratropium/Albuterol Neb 3 ML IH SCH ×5 (04:48→19:39)
[2021-05-28] MEDS: Budesonide/Formoterol 160/4.5 1 PUFF INH IH SCH ×2 (07:13→19:39)
[2021-05-28] MEDS: Tiotropium 10 INH DOSE IH SCH (07:14)
[2021-05-28] MEDS: Aspirin Enteric Coated 81 MG Tablet PO SCH (10:02)
[2021-05-28] MEDS: QUEtiapine Fumarate 25 MG TABLET PO SCH ×2 (10:02→20:29)
[2021-05-28] MEDS: LUMATEPERONE TOSYLATE 42 MG PO SCH ×2 (10:03→13:27)
[2021-05-28] MEDS: levoFLOXacin 750 MG/150 ML 750 MG/150 ML BAG IVPB SCH (15:38)
[2021-05-29] MEDS: Ipratropium/Albuterol Neb 3 ML IH SCH ×6 (00:14→19:52)
[2021-05-29] MEDS: MethylPREDNISolone 40 MG/ML VIAL IVP SCH ×4 (01:13→23:27)
[2021-05-29] MEDS: Vancomycin 1,250 MG/262.5 ML IV.SOLN IVPB SCH ×2 (01:14→15:14)
[2021-05-29 01:40] LABS: Basophils % 0.1 %; Hematocrit 32.7 % (37.5-50.1); Hemoglobin 10.8 g/dL (12.9-16.9); Immature Granulocytes % 0.9 % (0-4); Lymphocytes # 0.2 K/mcL (0.6-4.6); Mean Corpuscular Hemoglobin 32.8 pg (28.0-33.3); Mean Corpuscular Volume 99.4 fL (83.0-100.0); Mean Platelet Volume 9.2 fL (9.4-12.4); Monocytes # 0.6 K/mcL (0.0-1.3); Monocytes % 2.7 %; Neutrophils # 22.4 K/mcL (1.6-8.9); Platelet Count 184 K/mcL (140-400); Red Blood Count 3.29 M/mcL (4.19-5.50); Red Cell Distribution Width 15.9 % (11.5-14.5); Segmented Neutrophils % 95.3 %; White Blood Count 23.5 K/mcL (4.3-11.1)
[2021-05-29 02:05] LABS: BUN/Creatinine Ratio 47 (6-26); Blood Urea Nitrogen 35 mg/dL (8-23); Calcium 8.9 mg/dL (8.6-10.3); Carbon Dioxide 37 mEq/L (23-29); Chloride 99 mEq/L (98-107); Glucose 137 mg/dL (70-105); Magnesium 2.3 mg/dL (1.6-2.6); Osmolality,Calculated 294 (280-300); Phosphorous 3.3 mg/dL (2.7-4.5); Sodium 137 mEq/L (136-145); eGFR For African Americans > 60 (> 60); eGFR For Non-African Americans > 60 (> 60)
[2021-05-29 02:30] LABS: Platelet Estimate Normal (Normal)
[2021-05-29] MEDS: *HR* Enoxaparin 40 MG/0.4 ML SYRINGE SQ SCH (04:55)
[2021-05-29] MEDS: Budesonide/Formoterol 160/4.5 1 PUFF INH IH SCH ×2 (07:17→19:52)
[2021-05-29] MEDS: Tiotropium 10 INH DOSE IH SCH (07:18)
[2021-05-29] MEDS: QUEtiapine Fumarate 25 MG TABLET PO SCH ×2 (07:39→20:16)
[2021-05-29] MEDS: Aspirin Enteric Coated 81 MG Tablet PO SCH (07:39)
[2021-05-29] MEDS: LUMATEPERONE TOSYLATE 42 MG PO SCH (07:40)
[2021-05-29] MEDS ORDERED: Metoprolol XL (24 HR) Succ 25 MG TAB.ER.24H PO SCH ×2 (09:45→21:00)
[2021-05-29] MEDS: levoFLOXacin 750 MG/150 ML 750 MG/150 ML BAG IVPB SCH (16:15)
[2021-05-30] MEDS: Ipratropium/Albuterol Neb 3 ML IH SCH ×7 (00:02→23:13)
[2021-05-30] MEDS: Acetaminophen 325 MG TABLET PO PRN ×2 (01:43→07:08)
[2021-05-30] MEDS: Vancomycin 1,250 MG/262.5 ML IV.SOLN IVPB SCH ×2 (01:58→14:11)
[2021-05-30 02:09] LABS: Basophils % 0.1 %; Hematocrit 32.7 % (37.5-50.1); Hemoglobin 10.7 g/dL (12.9-16.9); Immature Granulocytes % 0.8 % (0-4); Lymphocytes # 0.2 K/mcL (0.6-4.6); Lymphocytes % 0.7 %; Mean Corpuscular HGB Conc 32.7 g/dL (31.6-35.5); Mean Corpuscular Hemoglobin 32.5 pg (28.0-33.3); Mean Corpuscular Volume 99.4 fL (83.0-100.0); Mean Platelet Volume 9.1 fL (9.4-12.4); Monocytes # 0.6 K/mcL (0.0-1.3); Monocytes % 2.5 %; Neutrophils # 21.6 K/mcL (1.6-8.9); Platelet Count 172 K/mcL (140-400); Red Blood Count 3.29 M/mcL (4.19-5.50); Red Cell Distribution Width 15.5 % (11.5-14.5); Segmented Neutrophils % 95.9 %; White Blood Count 22.5 K/mcL (4.3-11.1)
[2021-05-30 02:28] LABS: BUN/Creatinine Ratio 53 (6-26); Blood Urea Nitrogen 32 mg/dL (8-23); Calcium 8.8 mg/dL (8.6-10.3); Carbon Dioxide 34 mEq/L (23-29); Chloride 100 mEq/L (98-107); Glucose 140 mg/dL (70-105); Magnesium 2.2 mg/dL (1.6-2.6); Osmolality,Calculated 289 (280-300); Phosphorous 2.5 mg/dL (2.7-4.5); Potassium 4.7 mEq/L (3.5-5.1); Sodium 135 mEq/L (136-145); eGFR For African Americans > 60 (> 60); eGFR For Non-African Americans > 60 (> 60)
[2021-05-30 03:39] LABS: Platelet Estimate Normal (Normal)
[2021-05-30] MEDS: *HR* Enoxaparin 40 MG/0.4 ML SYRINGE SQ SCH (05:30)
[2021-05-30] MEDS: MethylPREDNISolone 40 MG/ML VIAL IVP SCH (07:07)
[2021-05-30] MEDS: QUEtiapine Fumarate 25 MG TABLET PO SCH ×2 (07:08→20:59)
[2021-05-30] MEDS: Aspirin Enteric Coated 81 MG Tablet PO SCH (07:08)
[2021-05-30] MEDS: Spironolactone 25 MG TABLET PO SCH (07:08)
[2021-05-30] MEDS: Metoprolol XL (24 HR) Succ 50 MG TAB.ER.24H PO SCH (07:08)
[2021-05-30] MEDS: lisinopriL 5 MG TABLET PO SCH (07:08)
[2021-05-30] MEDS: LUMATEPERONE TOSYLATE 42 MG PO SCH (07:09)
[2021-05-30] MEDS: Budesonide/Formoterol 160/4.5 1 PUFF INH IH SCH ×2 (07:27→19:50)
[2021-05-30] MEDS: Tiotropium 10 INH DOSE IH SCH (07:29)
[2021-05-30] MEDS: predniSONE 20 MG TABLET PO SCH (15:35)
[2021-05-30] MEDS: levoFLOXacin 750 MG/150 ML 750 MG/150 ML BAG IVPB SCH (15:35)
[2021-05-30] MEDS ORDERED: Melatonin 3 MG TABLET PO PRN (20:52)
[2021-05-31] MEDS: Vancomycin 1,250 MG/262.5 ML IV.SOLN IVPB SCH ×2 (02:09→18:00)
[2021-05-31] MEDS: Ipratropium/Albuterol Neb 3 ML IH SCH ×6 (03:35→23:36)
[2021-05-31 04:02] LABS: Basophils % 0.1 %; Hematocrit 31.8 % (37.5-50.1); Hemoglobin 10.4 g/dL (12.9-16.9); Lymphocytes # 0.4 K/mcL (0.6-4.6); Mean Corpuscular HGB Conc 32.7 g/dL (31.6-35.5); Mean Corpuscular Hemoglobin 32.5 pg (28.0-33.3); Mean Corpuscular Volume 99.4 fL (83.0-100.0); Mean Platelet Volume 9.2 fL (9.4-12.4); Monocytes # 0.9 K/mcL (0.0-1.3); Monocytes % 4.3 %; Neutrophils # 18.4 K/mcL (1.6-8.9); Platelet Count 160 K/mcL (140-400); Red Cell Distribution Width 15.6 % (11.5-14.5); Segmented Neutrophils % 92.6 %; White Blood Count 19.8 K/mcL (4.3-11.1)
[2021-05-31 04:20] LABS: BUN/Creatinine Ratio 45 (6-26); Blood Urea Nitrogen 27 mg/dL (8-23); Calcium 8.6 mg/dL (8.6-10.3); Carbon Dioxide 37 mEq/L (23-29); Chloride 101 mEq/L (98-107); Glucose 130 mg/dL (70-105); Magnesium 2.2 mg/dL (1.6-2.6); Osmolality,Calculated 289 (280-300); Potassium 4.7 mEq/L (3.5-5.1); Sodium 136 mEq/L (136-145); eGFR For African Americans > 60 (> 60); eGFR For Non-African Americans > 60 (> 60)
[2021-05-31] MEDS: *HR* Enoxaparin 40 MG/0.4 ML SYRINGE SQ SCH (05:00)
[2021-05-31] MEDS: Tiotropium 10 INH DOSE IH SCH (07:29)
[2021-05-31] MEDS: Budesonide/Formoterol 160/4.5 1 PUFF INH IH SCH ×2 (07:31→18:38)
[2021-05-31] MEDS: predniSONE 20 MG TABLET PO SCH (07:48)
[2021-05-31] MEDS: Metoprolol XL (24 HR) Succ 50 MG TAB.ER.24H PO SCH (07:49)
[2021-05-31] MEDS: Aspirin Enteric Coated 81 MG Tablet PO SCH (07:49)
[2021-05-31] MEDS: QUEtiapine Fumarate 25 MG TABLET PO SCH ×2 (07:49→22:05)
[2021-05-31] MEDS: Spironolactone 25 MG TABLET PO SCH (07:49)
[2021-05-31] MEDS: LUMATEPERONE TOSYLATE 42 MG PO SCH (07:49)
[2021-05-31] MEDS: lisinopriL 5 MG TABLET PO SCH (09:17)
[2021-05-31] MEDS ORDERED: Ipratropium/Albuterol Neb 3 ML IH ONE (16:36)
[2021-05-31] MEDS: levoFLOXacin 500 MG TABLET PO SCH (18:46)
[2021-06-01] MEDS: Ipratropium/Albuterol Neb 3 ML IH SCH ×5 (04:13→20:22)
[2021-06-01] MEDS: *HR* Enoxaparin 40 MG/0.4 ML SYRINGE SQ SCH (05:30)
[2021-06-01] MEDS: Budesonide/Formoterol 160/4.5 1 PUFF INH IH SCH ×2 (08:11→20:22)
[2021-06-01] MEDS: QUEtiapine Fumarate 25 MG TABLET PO SCH ×2 (08:43→21:02)
[2021-06-01] MEDS: Aspirin Enteric Coated 81 MG Tablet PO SCH (08:43)
[2021-06-01] MEDS: Spironolactone 25 MG TABLET PO SCH (08:44)
[2021-06-01] MEDS: LUMATEPERONE TOSYLATE 42 MG PO SCH (08:45)
[2021-06-01] MEDS: Metoprolol XL (24 HR) Succ 50 MG TAB.ER.24H PO SCH (08:47)
[2021-06-01] MEDS: lisinopriL 5 MG TABLET PO SCH (08:47)
[2021-06-01] MEDS: levoFLOXacin 500 MG TABLET PO SCH (17:22)
[2021-06-01] MEDS: MethylPREDNISolone 40 MG/ML VIAL IVP SCH ×2 (17:23→23:20)
[2021-06-01] MEDS ORDERED: Ipratropium/Albuterol Neb 3 ML ONE (20:37)
[2021-06-02] MEDS: Ipratropium/Albuterol Neb 3 ML IH SCH ×7 (00:13→23:45)
[2021-06-02 01:53] LABS: Basophils % 0.1 %; Hematocrit 36.1 % (37.5-50.1); Hemoglobin 11.6 g/dL (12.9-16.9); Lymphocytes # 0.2 K/mcL (0.6-4.6); Lymphocytes % 1.2 %; Mean Corpuscular HGB Conc 32.1 g/dL (31.6-35.5); Mean Corpuscular Hemoglobin 31.6 pg (28.0-33.3); Mean Corpuscular Volume 98.4 fL (83.0-100.0); Mean Platelet Volume 9.4 fL (9.4-12.4); Monocytes # 0.1 K/mcL (0.0-1.3); Monocytes % 0.8 %; Neutrophils # 15.6 K/mcL (1.6-8.9); Platelet Count 181 K/mcL (140-400); Red Blood Count 3.67 M/mcL (4.19-5.50); Red Cell Distribution Width 15.5 % (11.5-14.5); Segmented Neutrophils % 96.9 %; White Blood Count 16.1 K/mcL (4.3-11.1)
[2021-06-02 02:05] LABS: BUN/Creatinine Ratio 45 (6-26); Blood Urea Nitrogen 28 mg/dL (8-23); Calcium 8.6 mg/dL (8.6-10.3); Carbon Dioxide 33 mEq/L (23-29); Chloride 95 mEq/L (98-107); Glucose 200 mg/dL (70-105); Osmolality,Calculated 287 (280-300); Phosphorous 3.9 mg/dL (2.7-4.5); Potassium 4.9 mEq/L (3.5-5.1); Sodium 133 mEq/L (136-145); eGFR For African Americans > 60 (> 60); eGFR For Non-African Americans > 60 (> 60)
[2021-06-02] MEDS: *HR* Enoxaparin 40 MG/0.4 ML SYRINGE SQ SCH (05:16)
[2021-06-02] MEDS: Aspirin Enteric Coated 81 MG Tablet PO SCH (08:03)
[2021-06-02] MEDS: MethylPREDNISolone 40 MG/ML VIAL IVP SCH ×2 (08:03→16:17)
[2021-06-02] MEDS: Metoprolol XL (24 HR) Succ 50 MG TAB.ER.24H PO SCH (08:04)
[2021-06-02] MEDS: QUEtiapine Fumarate 25 MG TABLET PO SCH ×2 (08:04→21:01)
[2021-06-02] MEDS: LUMATEPERONE TOSYLATE 42 MG PO SCH (08:29)
[2021-06-02] MEDS: Budesonide/Formoterol 160/4.5 1 PUFF INH IH SCH ×2 (11:15→20:01)
[2021-06-02] MEDS: levoFLOXacin 500 MG TABLET PO SCH (16:17)
[2021-06-03] MEDS: MethylPREDNISolone 40 MG/ML VIAL IVP SCH ×2 (00:31→08:44)
[2021-06-03 02:07] LABS: Lymphocytes % 1.1 %; Mean Platelet Volume 9.6 fL (9.4-12.4); Monocytes % 2.6 %; Red Cell Distribution Width 15.2 % (11.5-14.5)
[2021-06-03 02:09] LABS: Basophils % 0.2 %; Hematocrit 34.7 % (37.5-50.1); Hemoglobin 11.2 g/dL (12.9-16.9); Lymphocytes # 0.3 K/mcL (0.6-4.6); Mean Corpuscular HGB Conc 32.3 g/dL (31.6-35.5); Mean Corpuscular Hemoglobin 31.7 pg (28.0-33.3); Mean Corpuscular Volume 98.3 fL (83.0-100.0); Monocytes # 0.7 K/mcL (0.0-1.3); Platelet Count 192 K/mcL (140-400); Red Blood Count 3.53 M/mcL (4.19-5.50); Segmented Neutrophils % 95.1 %; White Blood Count 25.3 K/mcL (4.3-11.1)
[2021-06-03 02:13] LABS: Basophils # 0.1 K/mcL (0.0-0.2); Neutrophils # 24.1 K/mcL (1.6-8.9)
[2021-06-03 02:22] LABS: BUN/Creatinine Ratio 46 (6-26); Blood Urea Nitrogen 22 mg/dL (8-23); Calcium 8.8 mg/dL (8.6-10.3); Carbon Dioxide 34 mEq/L (23-29); Chloride 98 mEq/L (98-107); Glucose 171 mg/dL (70-105); Magnesium 1.9 mg/dL (1.6-2.6); Osmolality,Calculated 287 (280-300); Phosphorous 2.2 mg/dL (2.7-4.5); Potassium 4.5 mEq/L (3.5-5.1); Sodium 135 mEq/L (136-145); eGFR For African Americans > 60 (> 60); eGFR For Non-African Americans > 60 (> 60)
[2021-06-03 02:37] LABS: Platelet Estimate Normal (Normal)
[2021-06-03] MEDS: Ipratropium/Albuterol Neb 3 ML IH SCH ×6 (03:50→23:14)
[2021-06-03] MEDS: *HR* Enoxaparin 40 MG/0.4 ML SYRINGE SQ SCH (04:55)
[2021-06-03 05:52] LABS: VBG HCO3 28 mEq/L (21-27); VBG PCO2 40 mmHg (41-51); VBG PH 7.46 pH Units (7.32-7.42); VBG PO2 203 mmHg (25-50)
[2021-06-03] MEDS: Budesonide/Formoterol 160/4.5 1 PUFF INH IH SCH ×2 (07:19→20:03)
[2021-06-03] MEDS: Metoprolol XL (24 HR) Succ 50 MG TAB.ER.24H PO SCH (08:43)
[2021-06-03] MEDS: QUEtiapine Fumarate 25 MG TABLET PO SCH ×2 (08:43→20:20)
[2021-06-03] MEDS: Aspirin Enteric Coated 81 MG Tablet PO SCH (08:43)
[2021-06-03] MEDS: LUMATEPERONE TOSYLATE 42 MG PO SCH (08:44)
[2021-06-03] MEDS ORDERED: Dextrose Gel 15 GM/37.5 ML TUBE PO PRN ×2 (11:29)
[2021-06-03] MEDS ORDERED: *HR* Dextrose 50 % in Water (Syg) 50 ML SYRINGE IVP PRN (11:29)
[2021-06-03] MEDS ORDERED: D5% in Water 1,000 ML IVC PRN (11:29)
[2021-06-03] MEDS: Insulin LISPRO 300 UNITS/3 ML VIAL SUBQ SCH ×2 (12:12→16:18)
[2021-06-03] MEDS: levoFLOXacin 500 MG TABLET PO SCH (16:34)
[2021-06-03] MEDS: predniSONE 20 MG TABLET PO SCH (16:34)
[2021-06-03] MEDS: Spironolactone 12.5 MG TABLET PO SCH (20:20)
[2021-06-04 03:33] LABS: Basophils # 0.1 K/mcL (0.0-0.2); Basophils % 0.2 %; Hematocrit 34.8 % (37.5-50.1); Hemoglobin 11.4 g/dL (12.9-16.9); Immature Granulocytes % 1.9 % (0-4); Lymphocytes # 0.3 K/mcL (0.6-4.6); Lymphocytes % 1.2 %; Mean Corpuscular HGB Conc 32.8 g/dL (31.6-35.5); Mean Corpuscular Hemoglobin 32.1 pg (28.0-33.3); Mean Platelet Volume 10.2 fL (9.4-12.4); Monocytes % 3.5 %; Platelet Count 174 K/mcL (140-400); Red Blood Count 3.55 M/mcL (4.19-5.50); Red Cell Distribution Width 15.1 % (11.5-14.5); Segmented Neutrophils % 93.2 %; White Blood Count 28.7 K/mcL (4.3-11.1)
[2021-06-04 03:36] LABS: Neutrophils # 26.8 K/mcL (1.6-8.9)
[2021-06-04] MEDS: Ipratropium/Albuterol Neb 3 ML IH SCH ×6 (03:49→23:53)
[2021-06-04 03:59] LABS: Platelet Estimate Normal (Normal)
[2021-06-04 04:13] LABS: BUN/Creatinine Ratio 55 (6-26); Blood Urea Nitrogen 29 mg/dL (8-23); Carbon Dioxide 31 mEq/L (23-29); Chloride 98 mEq/L (98-107); Glucose 122 mg/dL (70-105); Magnesium 2.1 mg/dL (1.6-2.6); Osmolality,Calculated 283 (280-300); Phosphorous 3.1 mg/dL (2.7-4.5); Potassium 4.8 mEq/L (3.5-5.1); Sodium 133 mEq/L (136-145); eGFR For African Americans > 60 (> 60); eGFR For Non-African Americans > 60 (> 60)
[2021-06-04] MEDS: *HR* Enoxaparin 40 MG/0.4 ML SYRINGE SQ SCH (06:19)
[2021-06-04] MEDS: Insulin LISPRO 300 UNITS/3 ML VIAL SUBQ SCH ×3 (08:31→16:45)
[2021-06-04] MEDS: QUEtiapine Fumarate 25 MG TABLET PO SCH (08:33)
[2021-06-04] MEDS: Metoprolol XL (24 HR) Succ 25 MG TAB.ER.24H PO SCH (08:34)
[2021-06-04] MEDS: Aspirin Enteric Coated 81 MG Tablet PO SCH (08:34)
[2021-06-04] MEDS: predniSONE 20 MG TABLET PO SCH ×2 (08:34→16:47)
[2021-06-04] MEDS: LUMATEPERONE TOSYLATE 42 MG PO SCH (08:34)
[2021-06-04] MEDS ORDERED: lisinopriL 10 MG TABLET PO SCH (09:00)
[2021-06-04] MEDS: Budesonide/Formoterol 160/4.5 1 PUFF INH IH SCH ×2 (10:21→19:49)
[2021-06-05] MEDS: QUEtiapine Fumarate 25 MG TABLET PO SCH ×3 (02:14→20:17)
[2021-06-05] MEDS: Spironolactone 12.5 MG TABLET PO SCH (02:14)
[2021-06-05] MEDS: Ipratropium/Albuterol Neb 3 ML IH SCH ×6 (03:53→23:25)
[2021-06-05] MEDS: *HR* Enoxaparin 40 MG/0.4 ML SYRINGE SQ SCH (05:04)
[2021-06-05] MEDS: Budesonide/Formoterol 160/4.5 1 PUFF INH IH SCH ×2 (07:33→19:34)
[2021-06-05] MEDS: Insulin LISPRO 300 UNITS/3 ML VIAL SUBQ SCH ×3 (08:25→16:54)
[2021-06-05] MEDS: Aspirin Enteric Coated 81 MG Tablet PO SCH (09:51)
[2021-06-05] MEDS: Metoprolol XL (24 HR) Succ 25 MG TAB.ER.24H PO SCH (09:52)
[2021-06-05] MEDS: LUMATEPERONE TOSYLATE 42 MG PO SCH (09:52)
[2021-06-05] MEDS: predniSONE 20 MG TABLET PO SCH ×2 (09:52→17:31)
[2021-06-05] MEDS: levoFLOXacin 500 MG TABLET PO SCH (09:52)
[2021-06-05 10:14] LABS: Hematocrit 35.4 % (37.5-50.1); Hemoglobin 11.7 g/dL (12.9-16.9); Mean Corpuscular HGB Conc 33.1 g/dL (31.6-35.5); Mean Corpuscular Hemoglobin 32.1 pg (28.0-33.3); Mean Platelet Volume 9.1 fL (9.4-12.4); Platelet Count 201 K/mcL (140-400); Red Blood Count 3.65 M/mcL (4.19-5.50); Red Cell Distribution Width 15.6 % (11.5-14.5); White Blood Count 21.4 K/mcL (4.3-11.1)
[2021-06-05 11:00] LABS: Bilirubin,Urine Negative (Negative); Blood,Urine Negative (Negative); Clarity,Urine Clear (Clear); Color,Urine Light-Yellow (Yellow); Glucose,Urine (UA) Normal (Normal); Ketones,Urine Negative (Negative); Leukocyte Esterase,Urine Negative (Negative); Nitrite,Urine Negative (Negative); Protein,Urine Negative (Neg-Trace); Specific Gravity,Urine 1.015 (1.010-1.025); Urobilinogen,Urine Normal (Normal)
[2021-06-06] MEDS: Ipratropium/Albuterol Neb 3 ML IH SCH ×6 (03:31→23:47)
[2021-06-06] MEDS: *HR* Enoxaparin 40 MG/0.4 ML SYRINGE SQ SCH (05:21)
[2021-06-06] MEDS: Budesonide/Formoterol 160/4.5 1 PUFF INH IH SCH ×2 (07:31→20:30)
[2021-06-06] MEDS: Aspirin Enteric Coated 81 MG Tablet PO SCH (08:29)
[2021-06-06] MEDS: predniSONE 20 MG TABLET PO SCH ×2 (08:29→17:20)
[2021-06-06] MEDS: Insulin LISPRO 300 UNITS/3 ML VIAL SUBQ SCH ×3 (08:29→17:19)
[2021-06-06] MEDS: levoFLOXacin 500 MG TABLET PO SCH (08:29)
[2021-06-06] MEDS: QUEtiapine Fumarate 25 MG TABLET PO SCH ×2 (08:29→20:55)
[2021-06-06] MEDS: Metoprolol XL (24 HR) Succ 25 MG TAB.ER.24H PO SCH (08:29)
[2021-06-06] MEDS: LUMATEPERONE TOSYLATE 42 MG PO SCH (08:30)
[2021-06-06] MEDS ORDERED: *HR* LORazepam 2 MG/ML VIAL IVP ONE ×2 (08:42→08:53)
[2021-06-06 13:05] LABS: Hematocrit 36.6 % (37.5-50.1); Hemoglobin 12.1 g/dL (12.9-16.9); Mean Corpuscular HGB Conc 33.1 g/dL (31.6-35.5); Mean Corpuscular Hemoglobin 31.8 pg (28.0-33.3); Mean Corpuscular Volume 96.1 fL (83.0-100.0); Mean Platelet Volume 9.1 fL (9.4-12.4); Platelet Count 217 K/mcL (140-400); Red Blood Count 3.81 M/mcL (4.19-5.50); Red Cell Distribution Width 15.6 % (11.5-14.5); White Blood Count 19.8 K/mcL (4.3-11.1)
[2021-06-06] MEDS: *HR* LORazepam 2 MG/ML VIAL IVP PRN (18:52)
[2021-06-07] MEDS: *HR* LORazepam 2 MG/ML VIAL IVP PRN (00:57)
[2021-06-07 03:20] LABS: Hematocrit 34.2 % (37.5-50.1); Hemoglobin 11.3 g/dL (12.9-16.9); Mean Corpuscular Hemoglobin 31.8 pg (28.0-33.3); Mean Corpuscular Volume 96.3 fL (83.0-100.0); Mean Platelet Volume 9.1 fL (9.4-12.4); Platelet Count 207 K/mcL (140-400); Red Blood Count 3.55 M/mcL (4.19-5.50); Red Cell Distribution Width 15.3 % (11.5-14.5); White Blood Count 16.3 K/mcL (4.3-11.1)
[2021-06-07] MEDS: Ipratropium/Albuterol Neb 3 ML IH SCH ×4 (03:46→15:39)
[2021-06-07] MEDS: *HR* Enoxaparin 40 MG/0.4 ML SYRINGE SQ SCH (04:56)
[2021-06-07] MEDS: Budesonide/Formoterol 160/4.5 1 PUFF INH IH SCH (07:42)
[2021-06-07] MEDS: Insulin LISPRO 300 UNITS/3 ML VIAL SUBQ SCH (08:00)
[2021-06-07] MEDS: Metoprolol XL (24 HR) Succ 25 MG TAB.ER.24H PO SCH (09:54)
[2021-06-07] MEDS: Aspirin Enteric Coated 81 MG Tablet PO SCH (09:54)
[2021-06-07] MEDS: predniSONE 20 MG TABLET PO SCH ×2 (09:54→17:03)
[2021-06-07] MEDS: QUEtiapine Fumarate 25 MG TABLET PO SCH (09:54)
[2021-06-07] MEDS: LUMATEPERONE TOSYLATE 42 MG PO SCH (11:19)
[2021-06-07 15:36] VITALS: BP 153/57; PULSE 81; TEMP 97.8; O2SAT 99
[2021-06-07 16:49] LABS: Adenovirus Not Detected (Not Detect); Bordetella Pertussis Not Detected (Not Detect); Chlamydophila pneumoniae Not Detected (Not Detect); Coronavirus 229E Not Detected (Not Detect); Coronavirus HKU1 Not Detected (Not Detect); Coronavirus NL63 Not Detected (Not Detect); Coronavirus OC43 Not Detected (Not Detect); Human Metapneumovirus Not Detected (Not Detect); Human Rhinovirus/Enterovirus Not Detected (Not Detect); Influenza A Subtype 2009 H1 Not Detected (Not Detect); Influenza B Not Detected (Not Detect); Mycoplasma pneumoniae Not Detected (Not Detect); Parainfluenza Virus 1 Not Detected (Not Detect); Parainfluenza Virus 2 Not Detected (Not Detect); Parainfluenza Virus 3 Not Detected (Not Detect); Parainfluenza Virus 4 Not Detected (Not Detect); Respiratory Syncytial Virus Not Detected (Not Detect); SARS-CoV-2 Not Detected (Not Detect)
[2021-06-09 10:38] LABS: ABG Base Excess 8 mEq/L (-2 to 3); ABG HCO3 34 mEq/L (21-27); ABG Oxygen Saturation 95 % (95-98); ABG PCO2 55 mmHg (35-45); ABG PO2 75 mmHg (85-104); ABG TCO2 36 mEq/L (20-26)
== END 2021-06-07 19:37 | DRG 871 ==
LOC: 2NENU 10:33 → EMEROOARM 10:33 → SUATTDRO 15:10 → 2NENU 16:23 → SUATTDRO 05-29 11:59 → UNDODISIN 05-31 13:40 → 2NENU 05-31 15:43 → 2ANU 06-01 20:05
PROVIDERS: ADMIT Internal Medicine; ATTEND Internal Medicine

== ENCOUNTER 2021-06-15 03:14 | Inpatient (IN) ==
[2021-06-15] MEDS ORDERED: Budesonide Neb 0.5 MG/2 ML IH ONE (03:20)
[2021-06-15] MEDS ORDERED: Ipratropium/Albuterol Neb 3 ML IH ONE (03:20)
[2021-06-15] MEDS ORDERED: methylPREDNISolone 125 MG/2 ML VIAL IVP ONE (03:21)
[2021-06-15 03:48] LABS: Basophils % 0.2 %; Eosinophils % 0.1 %; Hematocrit 35.2 % (37.5-50.1); Hemoglobin 12.2 g/dL (12.9-16.9); Immature Granulocytes % 1.2 % (0-4); Lymphocytes # 1.5 K/mcL (0.6-4.6); Lymphocytes % 9.2 %; Mean Corpuscular HGB Conc 34.7 g/dL (31.6-35.5); Mean Corpuscular Volume 92.4 fL (83.0-100.0); Mean Platelet Volume 8.3 fL (9.4-12.4); Monocytes # 1.3 K/mcL (0.0-1.3); Monocytes % 8.1 %; Neutrophils # 13.4 K/mcL (1.6-8.9); Platelet Count 282 K/mcL (140-400); Red Blood Count 3.81 M/mcL (4.19-5.50); Red Cell Distribution Width 13.9 % (11.5-14.5); Segmented Neutrophils % 81.2 %; White Blood Count 16.5 K/mcL (4.3-11.1)
[2021-06-15 03:51] LABS: VBG HCO3 31 mEq/L (21-27); VBG PCO2 54 mmHg (41-51); VBG PH 7.37 pH Units (7.32-7.42); VBG PO2 169 mmHg (25-50)
[2021-06-15 04:10] LABS: Alanine Aminotransferase 28 Units/L (7-52); Albumin 3.8 g/dL (3.5-5.7); Albumin/Globulin Ratio 1.7 (1.1-2.2); Alkaline Phosphatase 105 Units/L (34-104); Aspartate Amino Transferase 13 Units/L (13-39); BUN/Creatinine Ratio 26 (6-26); Blood Urea Nitrogen 17 mg/dL (8-23); Calcium 9.2 mg/dL (8.6-10.3); Carbon Dioxide 31 mEq/L (23-29); Chloride 83 mEq/L (98-107); Globulin 2.2 g/dL (2.4-3.5); Glucose 110 mg/dL (70-105); Osmolality,Calculated 254 (280-300); Sodium 121 mEq/L (136-145); eGFR For African Americans > 60 (> 60); eGFR For Non-African Americans > 60 (> 60)
[2021-06-15 04:11] LABS: Troponin I < 0.03 ng/mL (< 0.04)
[2021-06-15 04:39] LABS: Influenza A PCR Negative (Negative); Influenza B PCR Negative (Negative); Resp. Syncytial Virus PCR Negative (Negative)
[2021-06-15 04:42] LABS: SARS-CoV-2 by PCR (In House) Negative (Negative)
[2021-06-15] MEDS ORDERED: levoFLOXacin 750 MG/150 ML 750 MG/150 ML BAG IVPB ONE (05:17)
[2021-06-15] MEDS ORDERED: Albuterol 2.5 MG/3 ML NEBULIZER IH ONE (05:30)
[2021-06-15] MEDS ORDERED: Naloxone 0.4 MG/ML INJ IVP PRN (08:00)
[2021-06-15] MEDS ORDERED: Ondansetron 4 MG/2 ML VIAL IVP PRN (08:00)
[2021-06-15] MEDS ORDERED: 0.9 % Sodium Chloride 1,000 ML IVC ONE (08:04)
[2021-06-15] MEDS ORDERED: *HR* Dextrose 50 % in Water (Syg) 50 ML SYRINGE IVP PRN (08:05)
[2021-06-15] MEDS ORDERED: D5% in Water 1,000 ML IVC PRN (08:05)
[2021-06-15] MEDS ORDERED: Dextrose Gel 15 GM/37.5 ML TUBE PO PRN ×2 (08:05)
[2021-06-15] MEDS: Ipratropium/Albuterol Neb 3 ML IH SCH ×5 (08:09→23:50)
[2021-06-15] MEDS ORDERED: *HR* LORazepam 1 MG TABLET PO ONE (08:56)
[2021-06-15] MEDS ORDERED: Doxycycline 100 MG in 0.9 % Sodium Chloride Mini Bag 100 ML IVPB SCH (09:00)
[2021-06-15] MEDS ORDERED: cefTRIAXone 2,000 MG in Water for inj. (sterile) 20 ML IVP SCH (09:00)
[2021-06-15] MEDS: Insulin LISPRO 300 UNITS/3 ML VIAL SUBQ SCH ×3 (11:36→20:06)
[2021-06-15] MEDS: Metoprolol XL (24 HR) Succ 50 MG TAB.ER.24H PO SCH (17:59)
[2021-06-15] MEDS: MethylPREDNISolone 40 MG/ML VIAL IVP SCH (17:59)
[2021-06-15] MEDS: *HR* LORazepam 1 MG TABLET PO PRN (17:59)
[2021-06-15] MEDS: QUEtiapine Fumarate 25 MG TABLET PO SCH (20:06)
[2021-06-16 03:22] LABS: Hematocrit 30.4 % (37.5-50.1); Mean Corpuscular HGB Conc 34.5 g/dL (31.6-35.5); Mean Corpuscular Hemoglobin 32.9 pg (28.0-33.3); Mean Corpuscular Volume 95.3 fL (83.0-100.0); Mean Platelet Volume 8.5 fL (9.4-12.4); Platelet Count 220 K/mcL (140-400); Red Blood Count 3.19 M/mcL (4.19-5.50); Red Cell Distribution Width 13.9 % (11.5-14.5); White Blood Count 14.5 K/mcL (4.3-11.1)
[2021-06-16 03:29] LABS: Hemoglobin 10.5 g/dL (12.9-16.9)
[2021-06-16 03:37] LABS: BUN/Creatinine Ratio 35 (6-26); Blood Urea Nitrogen 23 mg/dL (8-23); Carbon Dioxide 28 mEq/L (23-29); Chloride 89 mEq/L (98-107); Glucose 127 mg/dL (70-105); Osmolality,Calculated 259 (280-300); Potassium 5.2 mEq/L (3.5-5.1); Sodium 122 mEq/L (136-145); eGFR For African Americans > 60 (> 60); eGFR For Non-African Americans > 60 (> 60)
[2021-06-16] MEDS: Ipratropium/Albuterol Neb 3 ML IH SCH ×6 (03:56→23:32)
[2021-06-16] MEDS: MethylPREDNISolone 40 MG/ML VIAL IVP SCH ×2 (04:49→16:59)
[2021-06-16] MEDS: *HR* Enoxaparin 40 MG/0.4 ML SYRINGE SQ SCH (04:49)
[2021-06-16] MEDS: lisinopriL 5 MG TABLET PO SCH (07:47)
[2021-06-16] MEDS: Metoprolol XL (24 HR) Succ 50 MG TAB.ER.24H PO SCH (07:48)
[2021-06-16] MEDS: levoFLOXacin 750 MG TABLET PO SCH (07:48)
[2021-06-16] MEDS: Insulin LISPRO 300 UNITS/3 ML VIAL SUBQ SCH ×4 (07:54→21:13)
[2021-06-16] MEDS: LUMATEPERONE TOSYLATE 42 MG PO SCH (07:59)
[2021-06-16] MEDS: QUEtiapine Fumarate 25 MG TABLET PO SCH ×2 (08:03→19:41)
[2021-06-16] MEDS ORDERED: Spironolactone 25 MG TABLET PO SCH (09:00)
[2021-06-16 23:34] LABS: Bilirubin,Urine Negative (Negative); Blood,Urine Negative (Negative); Clarity,Urine Clear (Clear); Color,Urine Light-Yellow (Yellow); Glucose,Urine (UA) Normal (Normal); Ketones,Urine Negative (Negative); Leukocyte Esterase,Urine Negative (Negative); Nitrite,Urine Negative (Negative); PH,Urine 6.5 pH Units (5.0-8.0); Protein,Urine Negative (Neg-Trace); Specific Gravity,Urine 1.016 (1.010-1.025); Urobilinogen,Urine Normal (Normal)
[2021-06-16 23:40] LABS: Sodium, Urine 74.1 mEq/L
[2021-06-17] MEDS: Ipratropium/Albuterol Neb 3 ML IH SCH ×6 (04:16→23:59)
[2021-06-17] MEDS: *HR* Enoxaparin 40 MG/0.4 ML SYRINGE SQ SCH (05:15)
[2021-06-17] MEDS: MethylPREDNISolone 40 MG/ML VIAL IVP SCH (05:16)
[2021-06-17 06:59] LABS: Basophils % 0.1 %; Hematocrit 29.6 % (37.5-50.1); Hemoglobin 10.1 g/dL (12.9-16.9); Immature Granulocytes % 1.1 % (0-4); Lymphocytes # 0.4 K/mcL (0.6-4.6); Lymphocytes % 2.2 %; Mean Corpuscular HGB Conc 34.1 g/dL (31.6-35.5); Mean Corpuscular Hemoglobin 32.1 pg (28.0-33.3); Mean Platelet Volume 8.2 fL (9.4-12.4); Monocytes # 1.1 K/mcL (0.0-1.3); Monocytes % 6.6 %; Neutrophils # 14.4 K/mcL (1.6-8.9); Platelet Count 240 K/mcL (140-400); Red Blood Count 3.15 M/mcL (4.19-5.50); Red Cell Distribution Width 13.7 % (11.5-14.5)
[2021-06-17 07:27] LABS: BUN/Creatinine Ratio 56 (6-26); Blood Urea Nitrogen 25 mg/dL (8-23); Carbon Dioxide 31 mEq/L (23-29); Chloride 84 mEq/L (98-107); Glucose 111 mg/dL (70-105); Osmolality,Calculated 255 (280-300); Potassium 4.8 mEq/L (3.5-5.1); Sodium 120 mEq/L (136-145); eGFR For African Americans > 60 (> 60); eGFR For Non-African Americans > 60 (> 60)
[2021-06-17] MEDS: Insulin LISPRO 300 UNITS/3 ML VIAL SUBQ SCH ×4 (07:56→19:41)
[2021-06-17] MEDS: LUMATEPERONE TOSYLATE 42 MG PO SCH (08:48)
[2021-06-17] MEDS: Metoprolol XL (24 HR) Succ 50 MG TAB.ER.24H PO SCH (08:53)
[2021-06-17] MEDS: clonazePAM 0.5 MG TABLET PO SCH ×2 (08:53→19:40)
[2021-06-17] MEDS: levoFLOXacin 750 MG TABLET PO SCH (08:53)
[2021-06-17] MEDS: lisinopriL 5 MG TABLET PO SCH (08:53)
[2021-06-17] MEDS: QUEtiapine Fumarate 25 MG TABLET PO SCH ×2 (08:53→19:40)
[2021-06-17] MEDS: 0.9 % Sodium Chloride 1,000 ML IVC SCH (09:03)
[2021-06-17 16:38] LABS: BUN/Creatinine Ratio 27 (6-26); Blood Urea Nitrogen 20 mg/dL (8-23); Calcium 8.1 mg/dL (8.6-10.3); Carbon Dioxide 26 mEq/L (23-29); Chloride 91 mEq/L (98-107); Glucose 141 mg/dL (70-105); Osmolality,Calculated 261 (280-300); Potassium 4.5 mEq/L (3.5-5.1); Sodium 123 mEq/L (136-145); eGFR For African Americans > 60 (> 60); eGFR For Non-African Americans > 60 (> 60)
[2021-06-17] MEDS: *HR* LORazepam 1 MG TABLET PO PRN (17:28)
[2021-06-18 02:36] LABS: BUN/Creatinine Ratio 32 (6-26); Blood Urea Nitrogen 19 mg/dL (8-23); Carbon Dioxide 32 mEq/L (23-29); Chloride 90 mEq/L (98-107); Glucose 95 mg/dL (70-105); Osmolality,Calculated 264 (280-300); Potassium 4.6 mEq/L (3.5-5.1); Sodium 126 mEq/L (136-145); eGFR For African Americans > 60 (> 60); eGFR For Non-African Americans > 60 (> 60)
[2021-06-18] MEDS: Ipratropium/Albuterol Neb 3 ML IH SCH ×5 (04:02→20:06)
[2021-06-18] MEDS: 0.9 % Sodium Chloride 1,000 ML IVC SCH (05:18)
[2021-06-18] MEDS: *HR* Enoxaparin 40 MG/0.4 ML SYRINGE SQ SCH (05:19)
[2021-06-18] MEDS: levoFLOXacin 750 MG TABLET PO SCH (08:43)
[2021-06-18] MEDS: Metoprolol XL (24 HR) Succ 50 MG TAB.ER.24H PO SCH (08:43)
[2021-06-18] MEDS: predniSONE 20 MG TABLET PO SCH (08:43)
[2021-06-18] MEDS: clonazePAM 0.5 MG TABLET PO SCH ×2 (08:43→20:47)
[2021-06-18] MEDS: QUEtiapine Fumarate 25 MG TABLET PO SCH ×2 (08:44→20:47)
[2021-06-18] MEDS: LUMATEPERONE TOSYLATE 42 MG PO SCH (08:44)
[2021-06-18] MEDS: Insulin LISPRO 300 UNITS/3 ML VIAL SUBQ SCH ×4 (08:44→20:48)
[2021-06-18] MEDS: lisinopriL 5 MG TABLET PO SCH (08:47)
[2021-06-18] MEDS: Acetaminophen 325 MG TABLET PO PRN (20:47)
[2021-06-19] MEDS: Ipratropium/Albuterol Neb 3 ML IH SCH ×6 (00:23→19:34)
[2021-06-19 02:52] LABS: BUN/Creatinine Ratio 35 (6-26); Blood Urea Nitrogen 18 mg/dL (8-23); Calcium 8.3 mg/dL (8.6-10.3); Carbon Dioxide 30 mEq/L (23-29); Chloride 90 mEq/L (98-107); Glucose 118 mg/dL (70-105); Osmolality,Calculated 261 (280-300); Potassium 4.4 mEq/L (3.5-5.1); Sodium 124 mEq/L (136-145); eGFR For African Americans > 60 (> 60); eGFR For Non-African Americans > 60 (> 60)
[2021-06-19] MEDS: *HR* LORazepam 1 MG TABLET PO PRN ×2 (04:22→20:36)
[2021-06-19] MEDS: *HR* Enoxaparin 40 MG/0.4 ML SYRINGE SQ SCH (04:22)
[2021-06-19] MEDS: 0.9 % Sodium Chloride 1,000 ML IVC SCH (04:23)
[2021-06-19] MEDS: Insulin LISPRO 300 UNITS/3 ML VIAL SUBQ SCH ×4 (07:27→20:42)
[2021-06-19] MEDS: QUEtiapine Fumarate 25 MG TABLET PO SCH ×2 (08:07→20:36)
[2021-06-19] MEDS: predniSONE 20 MG TABLET PO SCH (08:07)
[2021-06-19] MEDS: levoFLOXacin 750 MG TABLET PO SCH (08:07)
[2021-06-19] MEDS: clonazePAM 0.5 MG TABLET PO SCH ×2 (08:07→20:36)
[2021-06-19] MEDS: Metoprolol XL (24 HR) Succ 50 MG TAB.ER.24H PO SCH (08:08)
[2021-06-19] MEDS: lisinopriL 5 MG TABLET PO SCH (08:08)
[2021-06-19] MEDS: LUMATEPERONE TOSYLATE 42 MG PO SCH (08:13)
[2021-06-19] MEDS: Acetaminophen 325 MG TABLET PO PRN (20:36)
[2021-06-20] MEDS: Ipratropium/Albuterol Neb 3 ML IH SCH ×6 (00:01→20:02)
[2021-06-20 02:29] LABS: Basophils # 0.1 K/mcL (0.0-0.2); Basophils % 0.9 %; Eosinophils % 0.2 %; Hematocrit 32.3 % (37.5-50.1); Hemoglobin 10.7 g/dL (12.9-16.9); Immature Granulocytes % 4.3 % (0-4); Lymphocytes # 1.7 K/mcL (0.6-4.6); Lymphocytes % 13.3 %; Mean Corpuscular HGB Conc 33.1 g/dL (31.6-35.5); Mean Corpuscular Hemoglobin 32.1 pg (28.0-33.3); Mean Platelet Volume 7.9 fL (9.4-12.4); Monocytes # 0.8 K/mcL (0.0-1.3); Monocytes % 6.6 %; Neutrophils # 9.5 K/mcL (1.6-8.9); Nucleated Red Blood Cells 0.2 /100 WBC (0); Platelet Count 232 K/mcL (140-400); Red Blood Count 3.33 M/mcL (4.19-5.50); Red Cell Distribution Width 13.7 % (11.5-14.5); Segmented Neutrophils % 74.7 %; White Blood Count 12.7 K/mcL (4.3-11.1)
[2021-06-20 02:49] LABS: Albumin 3.1 g/dL (3.5-5.7); BUN/Creatinine Ratio 27 (6-26); Blood Urea Nitrogen 17 mg/dL (8-23); Calcium 8.6 mg/dL (8.6-10.3); Carbon Dioxide 36 mEq/L (23-29); Chloride 90 mEq/L (98-107); Glucose 99 mg/dL (70-105); Iron 78 mcg/dL (65-175); Magnesium 1.8 mg/dL (1.6-2.6); Osmolality,Calculated 268 (280-300); Phosphorous 2.5 mg/dL (2.7-4.5); Potassium 4.3 mEq/L (3.5-5.1); Sodium 128 mEq/L (136-145); eGFR For African Americans > 60 (> 60); eGFR For Non-African Americans > 60 (> 60)
[2021-06-20 03:07] LABS: Ferritin 152 ng/mL (20-250)
[2021-06-20] MEDS: *HR* Enoxaparin 40 MG/0.4 ML SYRINGE SQ SCH (06:03)
[2021-06-20] MEDS: 0.9 % Sodium Chloride 1,000 ML IVC SCH (06:04)
[2021-06-20] MEDS: Insulin LISPRO 300 UNITS/3 ML VIAL SUBQ SCH ×4 (07:35→21:14)
[2021-06-20] MEDS: Metoprolol XL (24 HR) Succ 50 MG TAB.ER.24H PO SCH (08:19)
[2021-06-20] MEDS: lisinopriL 5 MG TABLET PO SCH (08:19)
[2021-06-20] MEDS: levoFLOXacin 750 MG TABLET PO SCH (08:19)
[2021-06-20] MEDS: clonazePAM 0.5 MG TABLET PO SCH ×3 (08:19→21:00)
[2021-06-20] MEDS: predniSONE 20 MG TABLET PO SCH (08:19)
[2021-06-20] MEDS: QUEtiapine Fumarate 25 MG TABLET PO SCH ×2 (08:19→21:00)
[2021-06-20] MEDS: LUMATEPERONE TOSYLATE 42 MG PO SCH (08:20)
[2021-06-20] MEDS: *HR* LORazepam 1 MG TABLET PO PRN (21:00)
[2021-06-20] MEDS: Acetaminophen 325 MG TABLET PO PRN (21:00)
[2021-06-21] MEDS: Ipratropium/Albuterol Neb 3 ML IH SCH ×7 (00:10→23:25)
[2021-06-21] MEDS: 0.9 % Sodium Chloride 1,000 ML IVC SCH ×3 (00:51→14:57)
[2021-06-21 02:52] LABS: Hemoglobin 10.1 g/dL (12.9-16.9); Mean Corpuscular HGB Conc 32.6 g/dL (31.6-35.5); Mean Corpuscular Hemoglobin 31.9 pg (28.0-33.3); Mean Corpuscular Volume 97.8 fL (83.0-100.0); Mean Platelet Volume 7.8 fL (9.4-12.4); Platelet Count 198 K/mcL (140-400); Red Blood Count 3.17 M/mcL (4.19-5.50); Red Cell Distribution Width 14.3 % (11.5-14.5); White Blood Count 12.8 K/mcL (4.3-11.1)
[2021-06-21 03:09] LABS: BUN/Creatinine Ratio 34 (6-26); Blood Urea Nitrogen 20 mg/dL (8-23); Calcium 8.4 mg/dL (8.6-10.3); Carbon Dioxide 32 mEq/L (23-29); Chloride 94 mEq/L (98-107); Glucose 88 mg/dL (70-105); Osmolality,Calculated 276 (280-300); Potassium 4.8 mEq/L (3.5-5.1); Sodium 132 mEq/L (136-145); eGFR For African Americans > 60 (> 60); eGFR For Non-African Americans > 60 (> 60)
[2021-06-21 03:17] LABS: Platelet Estimate Normal (Normal)
[2021-06-21 03:18] LABS: Lymphocytes # 1.5 K/mcL (0.6-4.6); Neutrophils # 9.5 K/mcL (1.6-8.9)
[2021-06-21] MEDS: levoFLOXacin 750 MG TABLET PO SCH (07:42)
[2021-06-21] MEDS: Metoprolol XL (24 HR) Succ 25 MG TAB.ER.24H PO SCH (07:42)
[2021-06-21] MEDS: clonazePAM 0.5 MG TABLET PO SCH ×2 (07:42→20:07)
[2021-06-21] MEDS: QUEtiapine Fumarate 25 MG TABLET PO SCH ×2 (07:42→20:07)
[2021-06-21] MEDS: predniSONE 20 MG TABLET PO SCH (07:42)
[2021-06-21] MEDS: *HR* Enoxaparin 40 MG/0.4 ML SYRINGE SQ SCH (07:43)
[2021-06-21] MEDS: Insulin LISPRO 300 UNITS/3 ML VIAL SUBQ SCH ×4 (07:43→20:21)
[2021-06-21] MEDS: LUMATEPERONE TOSYLATE 42 MG PO SCH (07:43)
[2021-06-21 13:25] LABS: % Iron Saturation 26 % (20-55); Transferrin 216 mg/dL (200-400)
[2021-06-21] MEDS: Cyanocobalamin (B-12) 1,000 MCG TABLET PO SCH (14:58)
[2021-06-22] MEDS: Ipratropium/Albuterol Neb 3 ML IH SCH ×6 (03:48→23:52)
[2021-06-22] MEDS: 0.9 % Sodium Chloride 1,000 ML IVC SCH ×2 (05:01→19:18)
[2021-06-22] MEDS: *HR* Enoxaparin 40 MG/0.4 ML SYRINGE SQ SCH (05:02)
[2021-06-22 05:54] LABS: Basophils % 0.2 %; Eosinophils % 0.2 %; Hematocrit 30.4 % (37.5-50.1); Hemoglobin 10.3 g/dL (12.9-16.9); Immature Granulocytes % 5.9 % (0-4); Lymphocytes # 2.1 K/mcL (0.6-4.6); Mean Corpuscular HGB Conc 33.9 g/dL (31.6-35.5); Mean Corpuscular Hemoglobin 33.1 pg (28.0-33.3); Mean Corpuscular Volume 97.7 fL (83.0-100.0); Mean Platelet Volume 8.6 fL (9.4-12.4); Monocytes # 0.8 K/mcL (0.0-1.3); Neutrophils # 8.8 K/mcL (1.6-8.9); Platelet Count 201 K/mcL (140-400); Red Blood Count 3.11 M/mcL (4.19-5.50); Red Cell Distribution Width 14.4 % (11.5-14.5); Segmented Neutrophils % 70.7 %; White Blood Count 12.5 K/mcL (4.3-11.1)
[2021-06-22 06:09] LABS: BUN/Creatinine Ratio 26 (6-26); Blood Urea Nitrogen 15 mg/dL (8-23); Calcium 8.6 mg/dL (8.6-10.3); Carbon Dioxide 35 mEq/L (23-29); Chloride 93 mEq/L (98-107); Glucose 126 mg/dL (70-105); Osmolality,Calculated 274 (280-300); Potassium 3.8 mEq/L (3.5-5.1); Sodium 131 mEq/L (136-145); eGFR For African Americans > 60 (> 60); eGFR For Non-African Americans > 60 (> 60)
[2021-06-22] MEDS: Acetaminophen 325 MG TABLET PO PRN (06:29)
[2021-06-22] MEDS: Insulin LISPRO 300 UNITS/3 ML VIAL SUBQ SCH ×4 (08:37→20:57)
[2021-06-22] MEDS: clonazePAM 0.5 MG TABLET PO SCH ×2 (08:37→20:39)
[2021-06-22] MEDS: Metoprolol XL (24 HR) Succ 25 MG TAB.ER.24H PO SCH (08:37)
[2021-06-22] MEDS: QUEtiapine Fumarate 25 MG TABLET PO SCH ×2 (08:37→20:39)
[2021-06-22] MEDS: predniSONE 20 MG TABLET PO SCH (08:37)
[2021-06-22] MEDS: LUMATEPERONE TOSYLATE 42 MG PO SCH (08:37)
[2021-06-22] MEDS: Cyanocobalamin (B-12) 1,000 MCG TABLET PO SCH (08:37)
[2021-06-23] MEDS: Ipratropium/Albuterol Neb 3 ML IH SCH ×6 (03:33→23:33)
[2021-06-23] MEDS: *HR* Enoxaparin 40 MG/0.4 ML SYRINGE SQ SCH (05:16)
[2021-06-23] MEDS: Acetaminophen 325 MG TABLET PO PRN (05:16)
[2021-06-23 06:48] LABS: Hematocrit 31.1 % (37.5-50.1); Mean Corpuscular HGB Conc 32.2 g/dL (31.6-35.5); Mean Corpuscular Hemoglobin 32.1 pg (28.0-33.3); Mean Corpuscular Volume 99.7 fL (83.0-100.0); Mean Platelet Volume 8.3 fL (9.4-12.4); Nucleated Red Blood Cells 0.3 /100 WBC (0); Platelet Count 233 K/mcL (140-400); Red Blood Count 3.12 M/mcL (4.19-5.50); Red Cell Distribution Width 14.4 % (11.5-14.5); White Blood Count 14.1 K/mcL (4.3-11.1)
[2021-06-23 07:13] LABS: Anisocytosis 1+ (Not Present); Lymphocytes # 3.7 K/mcL (0.6-4.6); Monocytes # 0.9 K/mcL (0.0-1.3); Neutrophils # 9.6 K/mcL (1.6-8.9)
[2021-06-23 07:14] LABS: Platelet Estimate Normal (Normal)
[2021-06-23 08:01] LABS: BUN/Creatinine Ratio 30 (6-26); Blood Urea Nitrogen 16 mg/dL (8-23); Calcium 8.5 mg/dL (8.6-10.3); Carbon Dioxide 31 mEq/L (23-29); Chloride 96 mEq/L (98-107); Glucose 108 mg/dL (70-105); Osmolality,Calculated 276 (280-300); Potassium 4.1 mEq/L (3.5-5.1); Sodium 132 mEq/L (136-145); eGFR For African Americans > 60 (> 60); eGFR For Non-African Americans > 60 (> 60)
[2021-06-23] MEDS: Insulin LISPRO 300 UNITS/3 ML VIAL SUBQ SCH ×4 (08:42→20:09)
[2021-06-23] MEDS: LUMATEPERONE TOSYLATE 42 MG PO SCH (08:43)
[2021-06-23] MEDS: Metoprolol XL (24 HR) Succ 25 MG TAB.ER.24H PO SCH (08:50)
[2021-06-23] MEDS: clonazePAM 0.5 MG TABLET PO SCH ×2 (08:50→19:59)
[2021-06-23] MEDS: Cyanocobalamin (B-12) 1,000 MCG TABLET PO SCH (08:50)
[2021-06-23] MEDS: QUEtiapine Fumarate 25 MG TABLET PO SCH ×2 (08:50→20:00)
[2021-06-23] MEDS: predniSONE 20 MG TABLET PO SCH (08:50)
[2021-06-23] MEDS: 0.9 % Sodium Chloride 1,000 ML IVC SCH (08:59)
[2021-06-24 03:25] LABS: Alpha 2 Globulin (PEP) 0.58 g/dL (0.48-1.05); Beta Globulin (PEP) 0.53 g/dL (0.48-1.10)
[2021-06-24] MEDS: Ipratropium/Albuterol Neb 3 ML IH SCH ×6 (03:31→23:37)
[2021-06-24 04:02] LABS: Bacteria,Urine Few per hpf (None-Few); Bilirubin,Urine Negative (Negative); Blood,Urine Negative (Negative); Clarity,Urine Clear (Clear); Color,Urine Light-Yellow (Yellow); Glucose,Urine (UA) Normal (Normal); Ketones,Urine Negative (Negative); Leukocyte Esterase,Urine Moderate (Negative); Nitrite,Urine Negative (Negative); Protein,Urine Negative (Neg-Trace); RBC,Urine 0-3 per hpf (0-3); Specific Gravity,Urine 1.013 (1.010-1.025); Urobilinogen,Urine Normal (Normal)
[2021-06-24 05:13] LABS: Hematocrit 28.9 % (37.5-50.1); Hemoglobin 9.6 g/dL (12.9-16.9); Mean Corpuscular HGB Conc 33.2 g/dL (31.6-35.5); Mean Corpuscular Hemoglobin 32.7 pg (28.0-33.3); Mean Corpuscular Volume 98.3 fL (83.0-100.0); Mean Platelet Volume 8.6 fL (9.4-12.4); Nucleated Red Blood Cells 0.4 /100 WBC (0); Platelet Count 210 K/mcL (140-400); Red Blood Count 2.94 M/mcL (4.19-5.50); Red Cell Distribution Width 14.6 % (11.5-14.5); White Blood Count 12.4 K/mcL (4.3-11.1)
[2021-06-24] MEDS: *HR* Enoxaparin 40 MG/0.4 ML SYRINGE SQ SCH (05:17)
[2021-06-24 05:20] LABS: BUN/Creatinine Ratio 29 (6-26); Blood Urea Nitrogen 14 mg/dL (8-23); Calcium 8.5 mg/dL (8.6-10.3); Carbon Dioxide 34 mEq/L (23-29); Chloride 95 mEq/L (98-107); Glucose 83 mg/dL (70-105); Osmolality,Calculated 274 (280-300); Potassium 4.4 mEq/L (3.5-5.1); Sodium 132 mEq/L (136-145); eGFR For African Americans > 60 (> 60); eGFR For Non-African Americans > 60 (> 60)
[2021-06-24 05:50] LABS: Anisocytosis 1+ (Not Present); Lymphocytes # 3.2 K/mcL (0.6-4.6); Monocytes # 0.7 K/mcL (0.0-1.3); Neutrophils # 7.9 K/mcL (1.6-8.9); Platelet Estimate Normal (Normal); Toxic Granulation Present (Not Present)
[2021-06-24] MEDS: Insulin LISPRO 300 UNITS/3 ML VIAL SUBQ SCH ×4 (07:30→20:24)
[2021-06-24] MEDS: Metoprolol XL (24 HR) Succ 25 MG TAB.ER.24H PO SCH (08:30)
[2021-06-24] MEDS: QUEtiapine Fumarate 25 MG TABLET PO SCH ×2 (08:30→20:24)
[2021-06-24] MEDS: Cyanocobalamin (B-12) 1,000 MCG TABLET PO SCH (08:31)
[2021-06-24] MEDS: clonazePAM 0.5 MG TABLET PO SCH ×2 (08:31→20:24)
[2021-06-24] MEDS: LUMATEPERONE TOSYLATE 42 MG PO SCH (08:50)
[2021-06-24 12:01] LABS: Immunoglobulin G 318 mg/dL (768-1632); Immunoglobulin M 38 mg/dL (35-263)
[2021-06-24 12:02] LABS: Immunoglobulin A 97 mg/dL (68-408)
[2021-06-24 13:04] LABS: IFE Reflexed IFE Done
[2021-06-25] MEDS: Ipratropium/Albuterol Neb 3 ML IH SCH ×4 (03:53→15:50)
[2021-06-25] MEDS: *HR* Enoxaparin 40 MG/0.4 ML SYRINGE SQ SCH (05:59)
[2021-06-25 06:03] LABS: Basophils # 0.1 K/mcL (0.0-0.2); Basophils % 0.9 %; Eosinophils % 0.3 %; Hematocrit 31.6 % (37.5-50.1); Hemoglobin 10.1 g/dL (12.9-16.9); Immature Granulocytes % 4.6 % (0-4); Lymphocytes # 1.7 K/mcL (0.6-4.6); Lymphocytes % 14.8 %; Mean Corpuscular Hemoglobin 31.8 pg (28.0-33.3); Mean Corpuscular Volume 99.4 fL (83.0-100.0); Mean Platelet Volume 8.3 fL (9.4-12.4); Monocytes # 1.3 K/mcL (0.0-1.3); Monocytes % 11.6 %; Neutrophils # 7.8 K/mcL (1.6-8.9); Platelet Count 212 K/mcL (140-400); Red Blood Count 3.18 M/mcL (4.19-5.50); Red Cell Distribution Width 14.7 % (11.5-14.5); Segmented Neutrophils % 67.8 %; White Blood Count 11.4 K/mcL (4.3-11.1)
[2021-06-25 06:17] LABS: BUN/Creatinine Ratio 24 (6-26); Blood Urea Nitrogen 14 mg/dL (8-23); Calcium 8.6 mg/dL (8.6-10.3); Carbon Dioxide 33 mEq/L (23-29); Chloride 95 mEq/L (98-107); Glucose 82 mg/dL (70-105); Osmolality,Calculated 274 (280-300); Potassium 4.1 mEq/L (3.5-5.1); Sodium 132 mEq/L (136-145); eGFR For African Americans > 60 (> 60); eGFR For Non-African Americans > 60 (> 60)
[2021-06-25] MEDS: Insulin LISPRO 300 UNITS/3 ML VIAL SUBQ SCH ×3 (07:13→18:02)
[2021-06-25] MEDS: clonazePAM 0.5 MG TABLET PO SCH (08:42)
[2021-06-25] MEDS: Cyanocobalamin (B-12) 1,000 MCG TABLET PO SCH (08:42)
[2021-06-25] MEDS: QUEtiapine Fumarate 25 MG TABLET PO SCH (08:43)
[2021-06-25] MEDS: Metoprolol XL (24 HR) Succ 25 MG TAB.ER.24H PO SCH (08:43)
[2021-06-25] MEDS: LUMATEPERONE TOSYLATE 42 MG PO SCH (08:43)
[2021-06-25 14:30] LABS: Influenza A PCR Negative (Negative); Influenza B PCR Negative (Negative); Resp. Syncytial Virus PCR Negative (Negative)
[2021-06-25 14:31] LABS: SARS-CoV-2 by PCR (In House) Negative (Negative)
[2021-06-25 15:33] VITALS: BP 114/53; PULSE 85; TEMP 98.4
[2021-06-25 15:51] VITALS: O2SAT 98
[2021-06-26] MEDS: Ipratropium/Albuterol Neb 3 ML IH SCH ×2 (06:05→06:06)
== END 2021-06-26 07:18 | DRG 871 ==
LOC: EMEROOARM 03:14 → 3NENU 03:14 → SUATTDRO 07:55 → 3NENU 10:18 → SUATTDRO 06-17 13:48 → 2ANU 06-22 16:27
PROVIDERS: ADMIT Internal Medicine; ATTEND Internal Medicine

== ENCOUNTER 2021-08-04 19:34 | Inpatient (IN) ==
[2021-08-04] MEDS ORDERED: 0.9 % Sodium Chloride 1,000 ML IVC ONE (20:35)
[2021-08-04] MEDS ORDERED: Ipratropium/Albuterol Neb 3 ML IH ONE (20:36)
[2021-08-04 21:10] LABS: Basophils % 0.5 %; Eosinophils # 0.1 K/mcL (0.0-0.6); Eosinophils % 2.2 %; Hematocrit 40.4 % (37.5-50.1); Hemoglobin 12.7 g/dL (12.9-16.9); Immature Granulocytes % 0.3 % (0-4); Lymphocytes # 1.6 K/mcL (0.6-4.6); Lymphocytes % 26.2 %; Mean Corpuscular HGB Conc 31.4 g/dL (31.6-35.5); Mean Corpuscular Hemoglobin 29.3 pg (28.0-33.3); Mean Corpuscular Volume 93.3 fL (83.0-100.0); Mean Platelet Volume 9.2 fL (9.4-12.4); Monocytes # 0.5 K/mcL (0.0-1.3); Monocytes % 8.2 %; Neutrophils # 3.8 K/mcL (1.6-8.9); Platelet Count 352 K/mcL (140-400); Red Blood Count 4.33 M/mcL (4.19-5.50); Red Cell Distribution Width 13.2 % (11.5-14.5); Segmented Neutrophils % 62.6 %
[2021-08-04 21:13] LABS: INR 1.1; Prothrombin Time 12.3 Seconds (9.4-12.1)
[2021-08-04] MEDS ORDERED: Isovue-370 500 ML BOTTLE IVP ONE (21:15)
[2021-08-04 21:16] LABS: Activated Partial Thrombo Time 30.4 Seconds (26.0-36.0)
[2021-08-04 21:28] LABS: Alanine Aminotransferase 16 Units/L (7-52); Albumin 3.3 g/dL (3.5-5.7); Albumin/Globulin Ratio 1.2 (1.1-2.2); Alkaline Phosphatase 84 Units/L (34-104); Aspartate Amino Transferase 15 Units/L (13-39); BUN/Creatinine Ratio 11 (6-26); Bilirubin,Direct 0.1 mg/dL (0.0-0.2); Bilirubin,Indirect 0.2 mg/dL (0.0-1.0); Bilirubin,Total 0.3 mg/dL (0.3-1.0); Blood Urea Nitrogen 8 mg/dL (8-23); Calcium 9.4 mg/dL (8.6-10.3); Carbon Dioxide 36 mEq/L (23-29); Chloride 99 mEq/L (98-107); Creatine Kinase 18 Units/L (30-223); Ethanol < 10 mg/dL (Less than 10); Globulin 2.8 g/dL (2.4-3.5); Glucose 100 mg/dL (70-105); Osmolality,Calculated 282 (280-300); Potassium 4.1 mEq/L (3.5-5.1); Sodium 137 mEq/L (136-145); Total Protein 6.1 g/dL (6.4-8.9); eGFR For African Americans > 60 (> 60); eGFR For Non-African Americans > 60 (> 60)
[2021-08-04 21:29] LABS: Troponin I < 0.03 ng/mL (< 0.04)
[2021-08-04 21:34] LABS: Reactive Lymphocytes Present (Not Present); Smudge Cells Present (Not Present)
[2021-08-04 21:43] LABS: Thyroid Stimulating Hormone 0.864 mcIU/mL (0.340-5.600)
[2021-08-04 22:03] LABS: ABG Base Excess 8 mEq/L (-2 to 3); ABG HCO3 33 mEq/L (21-27); ABG Oxygen Saturation 89 % (95-98); ABG PCO2 50 mmHg (35-45); ABG PH 7.43 pH Units (7.32-7.45); ABG PO2 56 mmHg (85-104); ABG TCO2 35 mEq/L (20-26)
[2021-08-04 22:07] LABS: Influenza A PCR Negative (Negative); Influenza B PCR Negative (Negative); Resp. Syncytial Virus PCR Negative (Negative)
[2021-08-04 22:24] LABS: SARS-CoV-2 by PCR (In House) Negative (Negative)
[2021-08-04 23:14] LABS: Bacteria,Urine Few per hpf (None-Few); Bilirubin,Urine Negative (Negative); Blood,Urine Negative (Negative); Clarity,Urine Clear (Clear); Color,Urine Yellow (Yellow); Glucose,Urine (UA) Normal (Normal); Ketones,Urine Negative (Negative); Leukocyte Esterase,Urine Moderate (Negative); Nitrite,Urine Positive (Negative); Protein,Urine Trace mg/dL (Neg-Trace); RBC,Urine 0-3 per hpf (0-3); Specific Gravity,Urine 1.018 (1.010-1.025); WBC,Urine 50-100 per hpf (0-3)
[2021-08-04 23:19] LABS: Amphetamine Screen,Urine Negative ng/mL (Cutoff=1000); Barbiturate Screen,Urine Negative ng/mL (Cutoff=200); Benzodiazepines Screen,Urine Negative ng/mL (Cutoff=200); Cannabinoid Screen,Urine Negative ng/mL (Cutoff = 50); Cocaine Screen,Urine Negative ng/mL (Cutoff= 300); Opiate Screen,Urine Negative ng/mL (Cutoff=300); Phencyclidine Screen,Urine Negative ng/mL (Cutoff=25)
[2021-08-05] MEDS ORDERED: methylPREDNISolone 125 MG/2 ML VIAL IVP ONE (01:38)
[2021-08-05] MEDS ORDERED: Azithromycin 500 MG in 0.9 % Sodium Chloride 250 ML IVPB ONE (01:39)
[2021-08-05] MEDS ORDERED: Naloxone 0.4 MG/ML INJ IVP PRN (04:58)
[2021-08-05] MEDS ORDERED: Ipratropium/Albuterol Neb 3 ML IH PRN (05:01)
[2021-08-05] MEDS ORDERED: Melatonin 3 MG TABLET PO PRN (05:01)
[2021-08-05] MEDS ORDERED: Furosemide 20 MG/2 ML VIAL IVP ONE (06:13)
[2021-08-05] MEDS ORDERED: Ipratropium/Albuterol Neb 3 ML ONE (07:55)
[2021-08-05] MEDS: Ipratropium/Albuterol Neb 3 ML IH SCH ×3 (08:01→20:22)
[2021-08-05] MEDS ORDERED: QUEtiapine Fumarate 25 MG TABLET PO SCH ×2 (09:00→11:00)
[2021-08-05] MEDS ORDERED: Tiotropium 10 INH DOSE IH SCH (09:00)
[2021-08-05] MEDS: MethylPREDNISolone 40 MG/ML VIAL IVP SCH ×2 (11:04→17:12)
[2021-08-05] MEDS: *HR* Heparin 5,000 UNIT/ML VIAL SQ SCH ×2 (11:06→17:12)
[2021-08-05] MEDS ORDERED: *HR* Dextrose 50 % in Water (Syg) 50 ML SYRINGE IVP PRN (15:06)
[2021-08-05] MEDS ORDERED: Dextrose Gel 15 GM/37.5 ML TUBE PO PRN ×2 (15:06)
[2021-08-05] MEDS ORDERED: D5% in Water 1,000 ML IVC PRN (15:06)
[2021-08-05] MEDS ORDERED: MethylPREDNISolone 40 MG/ML VIAL IVP SCH (16:00)
[2021-08-05] MEDS: LEVOFLOXACIN 750 MG/150 ML IVPB SCH (17:12)
[2021-08-05] MEDS: Insulin LISPRO 300 UNITS/3 ML VIAL SUBQ SCH ×2 (17:32→21:14)
[2021-08-05] MEDS ORDERED: *HR* Heparin 5,000 UNIT/ML VIAL SQ SCH (18:00)
[2021-08-05] MEDS: Budesonide/Formoterol 80/4.5 1 PUFF INH IH SCH (20:22)
[2021-08-05] MEDS: QUEtiapine Fumarate 25 MG TABLET PO SCH (21:21)
[2021-08-05] MEDS: clonazePAM 0.5 MG TABLET PO SCH (21:21)
[2021-08-05] MEDS: Nystatin Cream 15 GM TUBE TP SCH (21:22)
[2021-08-05] MEDS: Melatonin 3 MG TABLET PO PRN (22:22)
[2021-08-06] MEDS: MethylPREDNISolone 40 MG/ML VIAL IVP SCH ×3 (00:12→13:04)
[2021-08-06] MEDS: Ipratropium/Albuterol Neb 3 ML IH SCH ×4 (03:39→20:44)
[2021-08-06] MEDS ORDERED: Azithromycin 500 MG in 0.9 % Sodium Chloride 250 ML IVPB SCH (04:00)
[2021-08-06 04:14] LABS: Hematocrit 35.2 % (37.5-50.1); Mean Corpuscular HGB Conc 30.7 g/dL (31.6-35.5); Mean Corpuscular Hemoglobin 29.2 pg (28.0-33.3); Mean Corpuscular Volume 95.1 fL (83.0-100.0); Mean Platelet Volume 9.7 fL (9.4-12.4); Platelet Count 241 K/mcL (140-400); Red Cell Distribution Width 13.2 % (11.5-14.5); White Blood Count 4.6 K/mcL (4.3-11.1)
[2021-08-06 04:27] LABS: Hemoglobin 10.8 g/dL (12.9-16.9)
[2021-08-06 04:58] LABS: BUN/Creatinine Ratio 19 (6-26); Blood Urea Nitrogen 12 mg/dL (8-23); Calcium 8.9 mg/dL (8.6-10.3); Carbon Dioxide 22 mEq/L (23-29); Chloride 93 mEq/L (98-107); Glucose 136 mg/dL (70-105); Magnesium 1.3 mg/dL (1.6-2.6); Osmolality,Calculated 268 (280-300); Potassium 3.8 mEq/L (3.5-5.1); Sodium 128 mEq/L (136-145); eGFR For African Americans > 60 (> 60); eGFR For Non-African Americans > 60 (> 60)
[2021-08-06] MEDS: *HR* Heparin 5,000 UNIT/ML VIAL SQ SCH ×2 (05:52→17:18)
[2021-08-06] MEDS: Budesonide/Formoterol 80/4.5 1 PUFF INH IH SCH ×2 (08:35→20:44)
[2021-08-06] MEDS: Insulin LISPRO 300 UNITS/3 ML VIAL SUBQ SCH ×4 (09:06→21:56)
[2021-08-06] MEDS: clonazePAM 0.5 MG TABLET PO SCH (09:07)
[2021-08-06] MEDS: Metoprolol XL (24 HR) Succ 25 MG TAB.ER.24H PO SCH (09:07)
[2021-08-06] MEDS: LUMATEPERONE TOSYLATE 42 MG PO SCH (09:07)
[2021-08-06 09:42] LABS: BUN/Creatinine Ratio 18 (6-26); Blood Urea Nitrogen 12 mg/dL (8-23); Calcium 9.3 mg/dL (8.6-10.3); Carbon Dioxide 29 mEq/L (23-29); Chloride 90 mEq/L (98-107); Glucose 137 mg/dL (70-105); Osmolality,Calculated 266 (280-300); Potassium 3.7 mEq/L (3.5-5.1); Sodium 127 mEq/L (136-145); eGFR For African Americans > 60 (> 60); eGFR For Non-African Americans > 60 (> 60)
[2021-08-06] MEDS: lisinopriL 5 MG TABLET PO SCH (13:04)
[2021-08-06] MEDS: Nystatin Cream 15 GM TUBE TP SCH ×2 (13:05→22:31)
[2021-08-06] MEDS: LEVOFLOXACIN 750 MG/150 ML IVPB SCH (17:17)
[2021-08-06] MEDS: QUEtiapine Fumarate 25 MG TABLET PO SCH (21:55)
[2021-08-07] MEDS: MethylPREDNISolone 40 MG/ML VIAL IVP SCH ×3 (00:38→23:26)
[2021-08-07] MEDS: Ipratropium/Albuterol Neb 3 ML IH SCH ×4 (04:19→20:51)
[2021-08-07] MEDS: *HR* Heparin 5,000 UNIT/ML VIAL SQ SCH ×2 (05:34→17:57)
[2021-08-07] MEDS: Budesonide/Formoterol 80/4.5 1 PUFF INH IH SCH ×2 (08:13→20:52)
[2021-08-07] MEDS: Insulin LISPRO 300 UNITS/3 ML VIAL SUBQ SCH ×4 (08:13→21:44)
[2021-08-07] MEDS: Furosemide 20 MG TABLET PO SCH (08:21)
[2021-08-07] MEDS: Metoprolol XL (24 HR) Succ 25 MG TAB.ER.24H PO SCH (08:22)
[2021-08-07] MEDS: lisinopriL 5 MG TABLET PO SCH (08:22)
[2021-08-07] MEDS: LUMATEPERONE TOSYLATE 42 MG PO SCH (08:24)
[2021-08-07] MEDS: Nystatin Cream 15 GM TUBE TP SCH ×2 (10:17→21:39)
[2021-08-07] MEDS: LEVOFLOXACIN 750 MG/150 ML IVPB SCH (17:56)
[2021-08-07] MEDS: QUEtiapine Fumarate 25 MG TABLET PO SCH (21:38)
[2021-08-08] MEDS: Ipratropium/Albuterol Neb 3 ML IH SCH ×4 (03:50→19:52)
[2021-08-08] MEDS: *HR* Heparin 5,000 UNIT/ML VIAL SQ SCH ×2 (05:37→17:10)
[2021-08-08 05:59] LABS: Mean Corpuscular HGB Conc 33.3 g/dL (31.6-35.5); Mean Corpuscular Hemoglobin 30.3 pg (28.0-33.3); Mean Corpuscular Volume 90.9 fL (83.0-100.0); Mean Platelet Volume 10.4 fL (9.4-12.4); Platelet Count 263 K/mcL (140-400); Red Blood Count 3.96 M/mcL (4.19-5.50); Red Cell Distribution Width 13.2 % (11.5-14.5)
[2021-08-08 06:06] LABS: White Blood Count 12.6 K/mcL (4.3-11.1)
[2021-08-08 06:16] LABS: BUN/Creatinine Ratio 26 (6-26); Blood Urea Nitrogen 17 mg/dL (8-23); Calcium 9.3 mg/dL (8.6-10.3); Carbon Dioxide 27 mEq/L (23-29); Chloride 98 mEq/L (98-107); Glucose 124 mg/dL (70-105); Osmolality,Calculated 275 (280-300); Potassium 3.8 mEq/L (3.5-5.1); Sodium 131 mEq/L (136-145); eGFR For African Americans > 60 (> 60); eGFR For Non-African Americans > 60 (> 60)
[2021-08-08] MEDS: Budesonide/Formoterol 80/4.5 1 PUFF INH IH SCH ×2 (08:09→19:52)
[2021-08-08] MEDS: lisinopriL 5 MG TABLET PO SCH (08:50)
[2021-08-08] MEDS: predniSONE 20 MG TABLET PO SCH (08:50)
[2021-08-08] MEDS: Furosemide 20 MG TABLET PO SCH (08:50)
[2021-08-08] MEDS: Metoprolol XL (24 HR) Succ 25 MG TAB.ER.24H PO SCH (08:50)
[2021-08-08] MEDS: Insulin LISPRO 300 UNITS/3 ML VIAL SUBQ SCH ×4 (08:51→20:38)
[2021-08-08] MEDS: LUMATEPERONE TOSYLATE 42 MG PO SCH (08:51)
[2021-08-08] MEDS: Nystatin Cream 15 GM TUBE TP SCH ×2 (08:52→20:35)
[2021-08-08] MEDS: LEVOFLOXACIN 750 MG/150 ML IVPB SCH (17:10)
[2021-08-08] MEDS: Melatonin 3 MG TABLET PO PRN (20:32)
[2021-08-08] MEDS: QUEtiapine Fumarate 25 MG TABLET PO SCH (20:32)
[2021-08-09] MEDS: Ipratropium/Albuterol Neb 3 ML IH SCH ×4 (03:15→20:34)
[2021-08-09] MEDS: *HR* Heparin 5,000 UNIT/ML VIAL SQ SCH ×2 (05:20→18:02)
[2021-08-09 05:30] LABS: Hematocrit 33.4 % (37.5-50.1); Hemoglobin 11.3 g/dL (12.9-16.9); Mean Corpuscular HGB Conc 33.8 g/dL (31.6-35.5); Mean Corpuscular Hemoglobin 30.1 pg (28.0-33.3); Mean Corpuscular Volume 89.1 fL (83.0-100.0); Mean Platelet Volume 10.3 fL (9.4-12.4); Platelet Count 271 K/mcL (140-400); Red Blood Count 3.75 M/mcL (4.19-5.50); Red Cell Distribution Width 13.2 % (11.5-14.5); White Blood Count 14.3 K/mcL (4.3-11.1)
[2021-08-09 05:49] LABS: BUN/Creatinine Ratio 28 (6-26); Blood Urea Nitrogen 18 mg/dL (8-23); Carbon Dioxide 28 mEq/L (23-29); Chloride 101 mEq/L (98-107); Glucose 88 mg/dL (70-105); Osmolality,Calculated 279 (280-300); Potassium 3.4 mEq/L (3.5-5.1); Sodium 134 mEq/L (136-145); eGFR For African Americans > 60 (> 60); eGFR For Non-African Americans > 60 (> 60)
[2021-08-09] MEDS: Insulin LISPRO 300 UNITS/3 ML VIAL SUBQ SCH ×4 (07:35→22:49)
[2021-08-09] MEDS: predniSONE 20 MG TABLET PO SCH (09:46)
[2021-08-09] MEDS: lisinopriL 5 MG TABLET PO SCH (09:46)
[2021-08-09] MEDS: Nystatin Cream 15 GM TUBE TP SCH ×2 (09:47→20:11)
[2021-08-09] MEDS: Metoprolol XL (24 HR) Succ 25 MG TAB.ER.24H PO SCH (09:47)
[2021-08-09] MEDS: Furosemide 20 MG TABLET PO SCH (09:47)
[2021-08-09] MEDS: LUMATEPERONE TOSYLATE 42 MG PO SCH (09:48)
[2021-08-09] MEDS: Budesonide/Formoterol 80/4.5 1 PUFF INH IH SCH ×2 (10:30→20:36)
[2021-08-09 12:38] LABS: Adenovirus Not Detected (Not Detect); Bordetella Pertussis Not Detected (Not Detect); Chlamydophila pneumoniae Not Detected (Not Detect); Coronavirus 229E Not Detected (Not Detect); Coronavirus HKU1 Not Detected (Not Detect); Coronavirus NL63 Not Detected (Not Detect); Coronavirus OC43 Not Detected (Not Detect); Human Metapneumovirus Not Detected (Not Detect); Human Rhinovirus/Enterovirus Not Detected (Not Detect); Influenza A Subtype 2009 H1 Not Detected (Not Detect); Influenza B Not Detected (Not Detect); Mycoplasma pneumoniae Not Detected (Not Detect); Parainfluenza Virus 1 Not Detected (Not Detect); Parainfluenza Virus 2 Not Detected (Not Detect); Parainfluenza Virus 3 Not Detected (Not Detect); Parainfluenza Virus 4 Not Detected (Not Detect); Respiratory Syncytial Virus Not Detected (Not Detect); SARS-CoV-2 Not Detected (Not Detect)
[2021-08-09] MEDS: LEVOFLOXACIN 750 MG/150 ML IVPB SCH (18:01)
[2021-08-09] MEDS: QUEtiapine Fumarate 25 MG TABLET PO SCH (20:06)
[2021-08-10] MEDS: Melatonin 3 MG TABLET PO PRN (02:34)
[2021-08-10 03:34] LABS: BUN/Creatinine Ratio 23 (6-26); Blood Urea Nitrogen 18 mg/dL (8-23); Calcium 8.8 mg/dL (8.6-10.3); Carbon Dioxide 26 mEq/L (23-29); Chloride 102 mEq/L (98-107); Glucose 84 mg/dL (70-105); Magnesium 1.9 mg/dL (1.6-2.6); Osmolality,Calculated 277 (280-300); Potassium 3.8 mEq/L (3.5-5.1); Sodium 133 mEq/L (136-145); Uric Acid 3.5 mg/dL (2.3-7.6); eGFR For African Americans > 60 (> 60); eGFR For Non-African Americans > 60 (> 60)
[2021-08-10] MEDS: Ipratropium/Albuterol Neb 3 ML IH SCH ×4 (03:39→21:02)
[2021-08-10] MEDS: *HR* Heparin 5,000 UNIT/ML VIAL SQ SCH ×2 (05:37→17:12)
[2021-08-10] MEDS: Insulin LISPRO 300 UNITS/3 ML VIAL SUBQ SCH ×4 (07:27→21:24)
[2021-08-10] MEDS: Budesonide/Formoterol 80/4.5 1 PUFF INH IH SCH ×2 (08:37→21:02)
[2021-08-10] MEDS: predniSONE 20 MG TABLET PO SCH (08:58)
[2021-08-10] MEDS: Furosemide 20 MG TABLET PO SCH (08:58)
[2021-08-10] MEDS: Nystatin Cream 15 GM TUBE TP SCH ×2 (08:58→21:25)
[2021-08-10] MEDS: lisinopriL 5 MG TABLET PO SCH (08:59)
[2021-08-10] MEDS: Metoprolol XL (24 HR) Succ 25 MG TAB.ER.24H PO SCH (08:59)
[2021-08-10] MEDS: QUEtiapine Fumarate 25 MG TABLET PO SCH (21:24)
[2021-08-11] MEDS: Ipratropium/Albuterol Neb 3 ML IH SCH ×3 (04:10→16:12)
[2021-08-11 04:47] LABS: Hematocrit 36.7 % (37.5-50.1); Hemoglobin 11.9 g/dL (12.9-16.9); Mean Corpuscular HGB Conc 32.4 g/dL (31.6-35.5); Mean Corpuscular Hemoglobin 29.3 pg (28.0-33.3); Mean Corpuscular Volume 90.4 fL (83.0-100.0); Mean Platelet Volume 10.5 fL (9.4-12.4); Platelet Count 272 K/mcL (140-400); Red Blood Count 4.06 M/mcL (4.19-5.50); Red Cell Distribution Width 13.3 % (11.5-14.5); White Blood Count 8.3 K/mcL (4.3-11.1)
[2021-08-11 05:05] LABS: BUN/Creatinine Ratio 26 (6-26); Blood Urea Nitrogen 18 mg/dL (8-23); Carbon Dioxide 27 mEq/L (23-29); Chloride 101 mEq/L (98-107); Glucose 91 mg/dL (70-105); Osmolality,Calculated 275 (280-300); Potassium 3.6 mEq/L (3.5-5.1); Sodium 132 mEq/L (136-145); eGFR For African Americans > 60 (> 60); eGFR For Non-African Americans > 60 (> 60)
[2021-08-11] MEDS: *HR* Heparin 5,000 UNIT/ML VIAL SQ SCH ×2 (05:39→18:09)
[2021-08-11] MEDS: Insulin LISPRO 300 UNITS/3 ML VIAL SUBQ SCH ×3 (08:27→18:09)
[2021-08-11] MEDS: Metoprolol XL (24 HR) Succ 25 MG TAB.ER.24H PO SCH (09:11)
[2021-08-11] MEDS: lisinopriL 5 MG TABLET PO SCH (09:11)
[2021-08-11] MEDS: predniSONE 20 MG TABLET PO SCH (09:12)
[2021-08-11] MEDS: Furosemide 20 MG TABLET PO SCH (09:12)
[2021-08-11] MEDS: Nystatin Cream 15 GM TUBE TP SCH (09:13)
[2021-08-11 10:26] VITALS: TEMP 97.2
[2021-08-11] MEDS: Budesonide/Formoterol 80/4.5 1 PUFF INH IH SCH (10:48)
[2021-08-11 14:15] VITALS: BP 93/63; PULSE 83
[2021-08-11 16:14] VITALS: O2SAT 94
== END 2021-08-11 18:23 | disposition home health service (06) | DRG 190 ==
LOC: EMEROOARM 19:34 → CDU 19:34 → SUATTDRO 08-05 04:30 → 3ANU 08-05 12:34
PROVIDERS: ADMIT Internal Medicine; ATTEND Internal Medicine

== ENCOUNTER 2021-08-26 12:12 | Observation (INO) ==
[2021-08-26] MEDS ORDERED: Ipratropium/Albuterol Neb 3 ML ONE (12:22)
[2021-08-26] MEDS ORDERED: Isovue-370 500 ML BOTTLE IVP ONE (12:24)
[2021-08-26] MEDS ORDERED: Ipratropium/Albuterol Neb 3 ML IH STA (12:30)
[2021-08-26 13:05] LABS: Basophils % 0.2 %; Hematocrit 35.2 % (37.5-50.1); Hemoglobin 11.7 g/dL (12.9-16.9); Immature Granulocytes % 0.9 % (0-4); Lymphocytes # 0.5 K/mcL (0.6-4.6); Lymphocytes % 3.2 %; Mean Corpuscular HGB Conc 33.2 g/dL (31.6-35.5); Mean Corpuscular Hemoglobin 29.3 pg (28.0-33.3); Mean Corpuscular Volume 88.2 fL (83.0-100.0); Mean Platelet Volume 9.1 fL (9.4-12.4); Monocytes # 0.2 K/mcL (0.0-1.3); Monocytes % 1.4 %; Platelet Count 408 K/mcL (140-400); Red Blood Count 3.99 M/mcL (4.19-5.50); Red Cell Distribution Width 14.2 % (11.5-14.5); Segmented Neutrophils % 94.3 %; White Blood Count 14.8 K/mcL (4.3-11.1)
[2021-08-26 13:06] LABS: VBG HCO3 28 mEq/L (21-27); VBG PCO2 46 mmHg (41-51); VBG PO2 115 mmHg (25-50)
[2021-08-26 13:25] LABS: Alanine Aminotransferase 25 Units/L (7-52); Albumin 3.8 g/dL (3.5-5.7); Albumin/Globulin Ratio 1.5 (1.1-2.2); Alkaline Phosphatase 65 Units/L (34-104); Aspartate Amino Transferase 16 Units/L (13-39); BUN/Creatinine Ratio 31 (6-26); Bilirubin,Total 0.4 mg/dL (0.3-1.0); Blood Urea Nitrogen 18 mg/dL (8-23); Calcium 9.4 mg/dL (8.6-10.3); Carbon Dioxide 27 mEq/L (23-29); Chloride 91 mEq/L (98-107); Globulin 2.6 g/dL (2.4-3.5); Glucose 110 mg/dL (70-105); Osmolality,Calculated 265 (280-300); Sodium 126 mEq/L (136-145); Total Protein 6.4 g/dL (6.4-8.9); Troponin I < 0.03 ng/mL (< 0.04); eGFR For African Americans > 60 (> 60); eGFR For Non-African Americans > 60 (> 60)
[2021-08-26] MEDS ORDERED: *HR* Heparin 5,000 UNIT/ML VIAL IVP ONE (14:32)
[2021-08-26] MEDS ORDERED: *HR* Heparin 5,000 UNIT/ML VIAL IVP PRN ×2 (14:32)
[2021-08-26 15:12] LABS: Hematocrit 32.8 % (37.5-50.1); Hemoglobin 10.8 g/dL (12.9-16.9); Mean Corpuscular HGB Conc 32.9 g/dL (31.6-35.5); Mean Corpuscular Hemoglobin 29.3 pg (28.0-33.3); Mean Corpuscular Volume 89.1 fL (83.0-100.0); Mean Platelet Volume 8.9 fL (9.4-12.4); Platelet Count 353 K/mcL (140-400); Red Blood Count 3.68 M/mcL (4.19-5.50); Red Cell Distribution Width 14.2 % (11.5-14.5)
[2021-08-26 15:25] LABS: Heparin anti-factor XA UFH < 0.04 IU/mL (0.30-0.70)
[2021-08-26 15:26] LABS: Prothrombin Time 11.2 Seconds (9.4-12.1)
[2021-08-26 16:32] LABS: C-Reactive Protein < 5 mg/L (Less than 10)
[2021-08-26] MEDS ORDERED: D5% in Water 1,000 ML IVC PRN (16:32)
[2021-08-26] MEDS ORDERED: Dextrose Gel 15 GM/37.5 ML TUBE PO PRN ×2 (16:32)
[2021-08-26] MEDS ORDERED: *HR* Dextrose 50 % in Water (Syg) 50 ML SYRINGE IVP PRN (16:32)
[2021-08-26] MEDS ORDERED: Perflutren Lipid Microsphere 1.3 ML in 0.9 % Sodium Chloride 8.7 ML IVP PRN (18:06)
[2021-08-26] MEDS: Heparin 25,000UNIT/250ML 1/2NS 25,000 UNIT/250 ML IV.SOLN IVC SCH (18:10)
[2021-08-26] MEDS ORDERED: Ipratropium 1 PUFF INHALER IH ONE (19:44)
[2021-08-26] MEDS: Ipratropium 1 PUFF INHALER IH SCH (19:58)
[2021-08-26] MEDS: clonazePAM 0.5 MG TABLET PO SCH (20:05)
[2021-08-26] MEDS: QUEtiapine Fumarate 25 MG TABLET PO SCH (20:05)
[2021-08-26] MEDS: Insulin LISPRO 300 UNITS/3 ML VIAL SUBQ SCH (20:06)
[2021-08-27 01:57] LABS: Hematocrit 31.3 % (37.5-50.1); Hemoglobin 10.6 g/dL (12.9-16.9); Mean Corpuscular HGB Conc 33.9 g/dL (31.6-35.5); Mean Corpuscular Hemoglobin 29.7 pg (28.0-33.3); Mean Corpuscular Volume 87.7 fL (83.0-100.0); Mean Platelet Volume 9.1 fL (9.4-12.4); Platelet Count 371 K/mcL (140-400); Red Blood Count 3.57 M/mcL (4.19-5.50); Red Cell Distribution Width 14.2 % (11.5-14.5); White Blood Count 10.7 K/mcL (4.3-11.1)
[2021-08-27 02:08] LABS: Alanine Aminotransferase 21 Units/L (7-52); Albumin 3.3 g/dL (3.5-5.7); Albumin/Globulin Ratio 1.4 (1.1-2.2); Alkaline Phosphatase 59 Units/L (34-104); Aspartate Amino Transferase 11 Units/L (13-39); BUN/Creatinine Ratio 25 (6-26); Bilirubin,Total 0.4 mg/dL (0.3-1.0); Blood Urea Nitrogen 16 mg/dL (8-23); Calcium 8.7 mg/dL (8.6-10.3); Carbon Dioxide 26 mEq/L (23-29); Chloride 91 mEq/L (98-107); Globulin 2.3 g/dL (2.4-3.5); Glucose 102 mg/dL (70-105); Osmolality,Calculated 259 (280-300); Potassium 4.4 mEq/L (3.5-5.1); Sodium 124 mEq/L (136-145); Total Protein 5.6 g/dL (6.4-8.9); eGFR For African Americans > 60 (> 60); eGFR For Non-African Americans > 60 (> 60)
[2021-08-27] MEDS ORDERED: Morphine Sulfate 2 MG/ML SYRINGE IVP ONE (03:19)
[2021-08-27] MEDS: Ipratropium 1 PUFF INHALER IH SCH ×4 (04:15→20:27)
[2021-08-27] MEDS: Insulin LISPRO 300 UNITS/3 ML VIAL SUBQ SCH ×4 (08:11→21:34)
[2021-08-27] MEDS ORDERED: Dexamethasone Sodium Phos/PF 10 MG/ML VIAL IVP SCH (09:00)
[2021-08-27] MEDS: clonazePAM 0.5 MG TABLET PO SCH ×2 (09:24→19:48)
[2021-08-27] MEDS: QUEtiapine Fumarate 25 MG TABLET PO SCH ×2 (09:24→19:48)
[2021-08-27] MEDS: Lumateperone Tosylate [Caplyta] 42 MG Capsule PO SCH (09:25)
[2021-08-27] MEDS: Heparin 25,000UNIT/250ML 1/2NS 25,000 UNIT/250 ML IV.SOLN IVC SCH (11:56)
[2021-08-27] MEDS ORDERED: HydrOXYzine SYP 10 MG/5 ML UDC PO ONE (13:06)
[2021-08-27] MEDS: Apixaban 5 MG TABLET PO SCH (19:49)
[2021-08-28] MEDS ORDERED: Morphine Sulfate 2 MG/ML SYRINGE IVP ONE (02:07)
[2021-08-28] MEDS: Ipratropium 1 PUFF INHALER IH SCH ×3 (03:36→16:20)
[2021-08-28] MEDS: Insulin LISPRO 300 UNITS/3 ML VIAL SUBQ SCH ×2 (08:06→12:21)
[2021-08-28] MEDS: QUEtiapine Fumarate 25 MG TABLET PO SCH (08:07)
[2021-08-28] MEDS: Lumateperone Tosylate [Caplyta] 42 MG Capsule PO SCH (08:07)
[2021-08-28] MEDS: Apixaban 5 MG TABLET PO SCH (08:07)
[2021-08-28] MEDS: clonazePAM 0.5 MG TABLET PO SCH (08:07)
[2021-08-28] MEDS ORDERED: dexAMETHasone 4 MG TABLET PO SCH (09:00)
[2021-08-28 14:36] VITALS: BP 129/86; PULSE 97; TEMP 98.2; O2SAT 95
== END 2021-08-28 17:08 | disposition home or self-care (01) ==
LOC: EMEROOARM 12:12 → 3BNU 12:12 → SUATTDRO 15:25 → 3BNU 16:29
PROVIDERS: ADMIT Internal Medicine; ATTEND Internal Medicine

== ENCOUNTER 2021-09-05 00:58 | Inpatient (IN) ==
[2021-09-05 03:25] LABS: Basophils % 0.2 %; Eosinophils % 0.1 %; Hematocrit 33.3 % (37.5-50.1); Hemoglobin 10.8 g/dL (12.9-16.9); Immature Granulocytes % 2.2 % (0-4); Lymphocytes # 0.8 K/mcL (0.6-4.6); Lymphocytes % 4.9 %; Mean Corpuscular HGB Conc 32.4 g/dL (31.6-35.5); Mean Corpuscular Hemoglobin 29.7 pg (28.0-33.3); Mean Corpuscular Volume 91.5 fL (83.0-100.0); Mean Platelet Volume 8.8 fL (9.4-12.4); Monocytes # 0.7 K/mcL (0.0-1.3); Monocytes % 4.3 %; Neutrophils # 14.4 K/mcL (1.6-8.9); Platelet Count 335 K/mcL (140-400); Red Blood Count 3.64 M/mcL (4.19-5.50); Red Cell Distribution Width 15.1 % (11.5-14.5); Segmented Neutrophils % 88.3 %; White Blood Count 16.3 K/mcL (4.3-11.1)
[2021-09-05 03:48] LABS: BUN/Creatinine Ratio 45 (6-26); Blood Urea Nitrogen 24 mg/dL (8-23); Calcium 9.3 mg/dL (8.6-10.3); Carbon Dioxide 27 mEq/L (23-29); Chloride 96 mEq/L (98-107); Glucose 116 mg/dL (70-105); Osmolality,Calculated 275 (280-300); Potassium 4.9 mEq/L (3.5-5.1); Sodium 130 mEq/L (136-145); Troponin I < 0.03 ng/mL (< 0.04); eGFR For African Americans > 60 (> 60); eGFR For Non-African Americans > 60 (> 60)
[2021-09-05] MEDS ORDERED: methylPREDNISolone 125 MG/2 ML VIAL IVP ONE (04:45)
[2021-09-05] MEDS ORDERED: Ipratropium/Albuterol Neb 3 ML IH ONE ×2 (04:45→07:50)
[2021-09-05] MEDS ORDERED: Albuterol 2.5 MG/3 ML NEBULIZER IH ONE (05:30)
[2021-09-05] MEDS ORDERED: Azithromycin 250 MG TABLET PO ONE (05:35)
[2021-09-05 06:26] LABS: Adenovirus Not Detected (Not Detect); Bordetella Pertussis Not Detected (Not Detect); Chlamydophila pneumoniae Not Detected (Not Detect); Coronavirus 229E Not Detected (Not Detect); Coronavirus HKU1 Not Detected (Not Detect); Coronavirus NL63 Not Detected (Not Detect); Coronavirus OC43 Not Detected (Not Detect); Human Metapneumovirus Not Detected (Not Detect); Human Rhinovirus/Enterovirus Not Detected (Not Detect); Influenza A Subtype 2009 H1 Not Detected (Not Detect); Influenza B Not Detected (Not Detect); Mycoplasma pneumoniae Not Detected (Not Detect); Parainfluenza Virus 1 Not Detected (Not Detect); Parainfluenza Virus 2 Not Detected (Not Detect); Parainfluenza Virus 3 Not Detected (Not Detect); Parainfluenza Virus 4 Not Detected (Not Detect); Respiratory Syncytial Virus Not Detected (Not Detect); SARS-CoV-2 Not Detected (Not Detect)
[2021-09-05 06:39] LABS: VBG HCO3 30 mEq/L (21-27); VBG PCO2 48 mmHg (41-51); VBG PO2 117 mmHg (25-50)
[2021-09-05] MEDS ORDERED: Acetaminophen 325 MG TABLET PO PRN (09:07)
[2021-09-05] MEDS ORDERED: Ondansetron 4 MG/2 ML VIAL IVP PRN (09:07)
[2021-09-05] MEDS ORDERED: Naloxone 0.4 MG/ML INJ IVP PRN (09:07)
[2021-09-05] MEDS ORDERED: *HR* Dextrose 50 % in Water (Syg) 50 ML SYRINGE IVP PRN (09:21)
[2021-09-05] MEDS ORDERED: Dextrose Gel 15 GM/37.5 ML TUBE PO PRN ×2 (09:21)
[2021-09-05] MEDS ORDERED: D5% in Water 1,000 ML IVC PRN (09:21)
[2021-09-05] MEDS: clonazePAM 0.5 MG TABLET PO SCH ×2 (09:55→20:43)
[2021-09-05] MEDS: Apixaban 5 MG TABLET PO SCH ×2 (09:56→20:43)
[2021-09-05] MEDS: Budesonide/Formoterol 160/4.5 1 PUFF INH IH SCH ×2 (10:32→20:01)
[2021-09-05] MEDS: Ipratropium/Albuterol Neb 3 ML IH SCH ×3 (10:32→20:01)
[2021-09-05] MEDS: Insulin LISPRO 300 UNITS/3 ML VIAL SUBQ SCH ×3 (11:48→20:58)
[2021-09-05] MEDS: MethylPREDNISolone 40 MG/ML VIAL IVP SCH (17:32)
[2021-09-06] MEDS: MethylPREDNISolone 40 MG/ML VIAL IVP SCH ×3 (00:01→17:03)
[2021-09-06 01:21] LABS: Basophils % 0.1 %; Hematocrit 32.8 % (37.5-50.1); Hemoglobin 10.9 g/dL (12.9-16.9); Lymphocytes # 0.6 K/mcL (0.6-4.6); Lymphocytes % 3.7 %; Mean Corpuscular HGB Conc 33.2 g/dL (31.6-35.5); Mean Corpuscular Hemoglobin 29.9 pg (28.0-33.3); Mean Corpuscular Volume 90.1 fL (83.0-100.0); Mean Platelet Volume 9.6 fL (9.4-12.4); Monocytes # 0.3 K/mcL (0.0-1.3); Monocytes % 1.9 %; Neutrophils # 13.7 K/mcL (1.6-8.9); Platelet Count 315 K/mcL (140-400); Red Blood Count 3.64 M/mcL (4.19-5.50); Red Cell Distribution Width 15.2 % (11.5-14.5); Segmented Neutrophils % 93.3 %; White Blood Count 14.7 K/mcL (4.3-11.1)
[2021-09-06 01:37] LABS: BUN/Creatinine Ratio 41 (6-26); Blood Urea Nitrogen 25 mg/dL (8-23); Calcium 9.1 mg/dL (8.6-10.3); Carbon Dioxide 24 mEq/L (23-29); Chloride 95 mEq/L (98-107); Glucose 108 mg/dL (70-105); Osmolality,Calculated 271 (280-300); Potassium 4.3 mEq/L (3.5-5.1); Sodium 128 mEq/L (136-145); eGFR For African Americans > 60 (> 60); eGFR For Non-African Americans > 60 (> 60)
[2021-09-06] MEDS: Ipratropium/Albuterol Neb 3 ML IH SCH ×4 (04:01→20:29)
[2021-09-06] MEDS: Insulin LISPRO 300 UNITS/3 ML VIAL SUBQ SCH ×4 (07:37→21:05)
[2021-09-06] MEDS: Budesonide/Formoterol 160/4.5 1 PUFF INH IH SCH ×2 (08:24→20:29)
[2021-09-06] MEDS: Apixaban 5 MG TABLET PO SCH ×2 (08:59→21:02)
[2021-09-06] MEDS: clonazePAM 0.5 MG TABLET PO SCH ×2 (09:00→21:02)
[2021-09-06] MEDS ORDERED: Nystatin Cream 15 GM TUBE TP PRN (10:05)
[2021-09-06] MEDS: Azithromycin 500 MG in D5% in Water 250 ML IVPB SCH (11:47)
[2021-09-06] MEDS: QUEtiapine Fumarate 25 MG TABLET PO SCH (21:02)
[2021-09-07 01:34] LABS: Basophils % 0.1 %; Hematocrit 33.1 % (37.5-50.1); Hemoglobin 11.2 g/dL (12.9-16.9); Lymphocytes # 0.4 K/mcL (0.6-4.6); Lymphocytes % 3.5 %; Mean Corpuscular HGB Conc 33.8 g/dL (31.6-35.5); Mean Corpuscular Hemoglobin 30.1 pg (28.0-33.3); Mean Platelet Volume 9.1 fL (9.4-12.4); Monocytes # 0.4 K/mcL (0.0-1.3); Monocytes % 3.5 %; Neutrophils # 10.6 K/mcL (1.6-8.9); Platelet Count 304 K/mcL (140-400); Red Blood Count 3.72 M/mcL (4.19-5.50); Segmented Neutrophils % 91.9 %; White Blood Count 11.5 K/mcL (4.3-11.1)
[2021-09-07 01:52] LABS: BUN/Creatinine Ratio 38 (6-26); Blood Urea Nitrogen 25 mg/dL (8-23); Calcium 8.9 mg/dL (8.6-10.3); Carbon Dioxide 25 mEq/L (23-29); Chloride 96 mEq/L (98-107); Glucose 115 mg/dL (70-105); Osmolality,Calculated 269 (280-300); Potassium 4.4 mEq/L (3.5-5.1); Sodium 127 mEq/L (136-145); eGFR For African Americans > 60 (> 60); eGFR For Non-African Americans > 60 (> 60)
[2021-09-07] MEDS: Ipratropium/Albuterol Neb 3 ML IH SCH ×4 (04:19→20:17)
[2021-09-07] MEDS: MethylPREDNISolone 40 MG/ML VIAL IVP SCH ×2 (06:02→16:21)
[2021-09-07] MEDS: Budesonide/Formoterol 160/4.5 1 PUFF INH IH SCH ×2 (07:23→20:18)
[2021-09-07] MEDS: Insulin LISPRO 300 UNITS/3 ML VIAL SUBQ SCH ×4 (07:25→22:06)
[2021-09-07] MEDS: Apixaban 5 MG TABLET PO SCH ×2 (08:55→21:46)
[2021-09-07] MEDS: QUEtiapine Fumarate 25 MG TABLET PO SCH ×2 (08:55→21:44)
[2021-09-07] MEDS: Metoprolol XL (24 HR) Succ 25 MG TAB.ER.24H PO SCH (08:56)
[2021-09-07] MEDS: Spironolactone 25 MG TABLET PO SCH (08:56)
[2021-09-07] MEDS: Azithromycin 500 MG in D5% in Water 250 ML IVPB SCH (08:56)
[2021-09-07] MEDS: clonazePAM 0.5 MG TABLET PO SCH ×2 (08:56→21:46)
[2021-09-07] MEDS ORDERED: Lumateperone Tosylate [Caplyta] 42 MG Capsule PO SCH (09:00)
[2021-09-07] MEDS ORDERED: Tiotropium 10 INH DOSE IH SCH (10:00)
[2021-09-07 11:53] LABS: ABG Base Excess 1 mEq/L (-2 to 3); ABG HCO3 27 mEq/L (21-27); ABG Oxygen Saturation 94 % (95-98); ABG PCO2 43 mmHg (35-45); ABG PO2 73 mmHg (85-104); ABG TCO2 28 mEq/L (20-26)
[2021-09-07] MEDS: Lumateperone Tosylate [Caplyta] 42 MG Capsule PO SCH (14:06)
[2021-09-08 01:53] LABS: Basophils % 0.1 %; Hematocrit 33.8 % (37.5-50.1); Hemoglobin 10.8 g/dL (12.9-16.9); Immature Granulocytes % 0.9 % (0-4); Lymphocytes # 0.3 K/mcL (0.6-4.6); Lymphocytes % 3.1 %; Mean Corpuscular Hemoglobin 28.7 pg (28.0-33.3); Mean Corpuscular Volume 89.9 fL (83.0-100.0); Monocytes # 0.3 K/mcL (0.0-1.3); Monocytes % 3.2 %; Neutrophils # 8.1 K/mcL (1.6-8.9); Platelet Count 280 K/mcL (140-400); Red Blood Count 3.76 M/mcL (4.19-5.50); Segmented Neutrophils % 92.7 %; White Blood Count 8.7 K/mcL (4.3-11.1)
[2021-09-08 02:16] LABS: Alanine Aminotransferase 15 Units/L (7-52); Albumin 3.3 g/dL (3.5-5.7); Albumin/Globulin Ratio 1.7 (1.1-2.2); Alkaline Phosphatase 61 Units/L (34-104); Aspartate Amino Transferase 12 Units/L (13-39); BUN/Creatinine Ratio 41 (6-26); Bilirubin,Total 0.4 mg/dL (0.3-1.0); Blood Urea Nitrogen 26 mg/dL (8-23); Calcium 8.4 mg/dL (8.6-10.3); Carbon Dioxide 25 mEq/L (23-29); Chloride 98 mEq/L (98-107); Globulin 1.9 g/dL (2.4-3.5); Glucose 237 mg/dL (70-105); Osmolality,Calculated 282 (280-300); Potassium 4.2 mEq/L (3.5-5.1); Sodium 130 mEq/L (136-145); Total Protein 5.2 g/dL (6.4-8.9); eGFR For African Americans > 60 (> 60); eGFR For Non-African Americans > 60 (> 60)
[2021-09-08] MEDS: Ipratropium/Albuterol Neb 3 ML IH SCH ×4 (04:23→20:27)
[2021-09-08] MEDS: MethylPREDNISolone 40 MG/ML VIAL IVP SCH (06:01)
[2021-09-08] MEDS: Insulin LISPRO 300 UNITS/3 ML VIAL SUBQ SCH ×4 (07:43→20:53)
[2021-09-08] MEDS: predniSONE 20 MG TABLET PO SCH (08:57)
[2021-09-08] MEDS: Spironolactone 25 MG TABLET PO SCH (08:57)
[2021-09-08] MEDS: Metoprolol XL (24 HR) Succ 25 MG TAB.ER.24H PO SCH (08:58)
[2021-09-08] MEDS: QUEtiapine Fumarate 25 MG TABLET PO SCH ×2 (08:58→20:47)
[2021-09-08] MEDS: Azithromycin 250 MG TABLET PO SCH (08:58)
[2021-09-08] MEDS: clonazePAM 0.5 MG TABLET PO SCH ×2 (08:58→20:46)
[2021-09-08] MEDS: Apixaban 5 MG TABLET PO SCH ×2 (08:58→20:46)
[2021-09-08] MEDS ORDERED: clonazePAM 0.5 MG TABLET PO SCH (09:00)
[2021-09-08] MEDS: Budesonide/Formoterol 160/4.5 1 PUFF INH IH SCH ×2 (10:47→20:27)
[2021-09-08] MEDS: Lumateperone Tosylate [Caplyta] 42 MG Capsule PO SCH (11:22)
[2021-09-09] MEDS: Ipratropium/Albuterol Neb 3 ML IH SCH ×2 (03:52→07:44)
[2021-09-09 06:17] VITALS: BP 115/71; PULSE 82; TEMP 97.9
[2021-09-09] MEDS: Insulin LISPRO 300 UNITS/3 ML VIAL SUBQ SCH (07:25)
[2021-09-09] MEDS: QUEtiapine Fumarate 25 MG TABLET PO SCH (07:37)
[2021-09-09] MEDS: Apixaban 5 MG TABLET PO SCH (07:38)
[2021-09-09] MEDS: Metoprolol XL (24 HR) Succ 25 MG TAB.ER.24H PO SCH (07:38)
[2021-09-09] MEDS: Azithromycin 250 MG TABLET PO SCH (07:38)
[2021-09-09] MEDS: Spironolactone 25 MG TABLET PO SCH (07:38)
[2021-09-09] MEDS: clonazePAM 0.5 MG TABLET PO SCH (07:38)
[2021-09-09] MEDS: predniSONE 20 MG TABLET PO SCH (07:38)
[2021-09-09 07:44] VITALS: O2SAT 97
[2021-09-09] MEDS: Budesonide/Formoterol 160/4.5 1 PUFF INH IH SCH (07:46)
[2021-09-09] MEDS: Lumateperone Tosylate [Caplyta] 42 MG Capsule PO SCH (08:56)
== END 2021-09-09 10:58 | disposition home health service (06) | DRG 190 ==
LOC: EMEROOARM 00:58 → 2ANU 00:58 → SUATTDRO 09-07 18:40
PROVIDERS: ADMIT General Practice; ATTEND Internal Medicine

== ENCOUNTER 2021-09-12 14:28 | Observation (INO) ==
[2021-09-12] MEDS ORDERED: Ipratropium/Albuterol Neb 3 ML IH ONE (14:36)
[2021-09-12 15:10] LABS: Basophils # 0.1 K/mcL (0.0-0.2); Basophils % 0.4 %; Hematocrit 38.1 % (37.5-50.1); Hemoglobin 12.1 g/dL (12.9-16.9); Immature Granulocytes % 1.6 % (0-4); Lymphocytes # 0.4 K/mcL (0.6-4.6); Lymphocytes % 2.6 %; Mean Corpuscular HGB Conc 31.8 g/dL (31.6-35.5); Mean Corpuscular Volume 91.4 fL (83.0-100.0); Monocytes # 0.2 K/mcL (0.0-1.3); Monocytes % 1.3 %; Neutrophils # 13.9 K/mcL (1.6-8.9); Platelet Count 305 K/mcL (140-400); Red Blood Count 4.17 M/mcL (4.19-5.50); Red Cell Distribution Width 15.6 % (11.5-14.5); Segmented Neutrophils % 94.1 %
[2021-09-12 15:11] LABS: White Blood Count 14.8 K/mcL (4.3-11.1)
[2021-09-12 15:30] LABS: BUN/Creatinine Ratio 42 (6-26); Blood Urea Nitrogen 27 mg/dL (8-23); Calcium 9.7 mg/dL (8.6-10.3); Carbon Dioxide 32 mEq/L (23-29); Chloride 94 mEq/L (98-107); Glucose 143 mg/dL (70-105); Osmolality,Calculated 282 (280-300); Sodium 132 mEq/L (136-145); Troponin I < 0.03 ng/mL (< 0.04); eGFR For African Americans > 60 (> 60); eGFR For Non-African Americans > 60 (> 60)
[2021-09-12] MEDS ORDERED: methylPREDNISolone 125 MG/2 ML VIAL IVP ONE (16:10)
[2021-09-12] MEDS ORDERED: Ondansetron 4 MG/2 ML VIAL IVP PRN (16:41)
[2021-09-12] MEDS ORDERED: Nystatin Cream 15 GM TUBE TP PRN (16:42)
[2021-09-12 17:51] LABS: Adenovirus Not Detected (Not Detect); Bordetella Pertussis Not Detected (Not Detect); Chlamydophila pneumoniae Not Detected (Not Detect); Coronavirus 229E Not Detected (Not Detect); Coronavirus HKU1 Not Detected (Not Detect); Coronavirus NL63 Not Detected (Not Detect); Coronavirus OC43 Not Detected (Not Detect); Human Metapneumovirus Not Detected (Not Detect); Human Rhinovirus/Enterovirus Not Detected (Not Detect); Influenza A Subtype 2009 H1 Not Detected (Not Detect); Influenza B Not Detected (Not Detect); Mycoplasma pneumoniae Not Detected (Not Detect); Parainfluenza Virus 1 Not Detected (Not Detect); Parainfluenza Virus 2 Not Detected (Not Detect); Parainfluenza Virus 3 Not Detected (Not Detect); Parainfluenza Virus 4 Not Detected (Not Detect); Respiratory Syncytial Virus Not Detected (Not Detect); SARS-CoV-2 Not Detected (Not Detect)
[2021-09-12] MEDS: Azithromycin 250 MG TABLET PO SCH (19:09)
[2021-09-12] MEDS: Ipratropium/Albuterol Neb 3 ML IH SCH ×2 (19:49→23:15)
[2021-09-12] MEDS: Budesonide/Formoterol 160/4.5 1 PUFF INH IH SCH (19:49)
[2021-09-12] MEDS: QUEtiapine Fumarate 25 MG TABLET PO SCH (19:57)
[2021-09-12] MEDS: clonazePAM 0.5 MG TABLET PO SCH (19:57)
[2021-09-12] MEDS: Apixaban 5 MG TABLET PO SCH (19:57)
[2021-09-13] MEDS: Ipratropium/Albuterol Neb 3 ML IH SCH ×6 (03:37→23:49)
[2021-09-13] MEDS: Budesonide/Formoterol 160/4.5 1 PUFF INH IH SCH ×2 (07:38→20:07)
[2021-09-13] MEDS: Apixaban 5 MG TABLET PO SCH ×2 (08:17→20:38)
[2021-09-13] MEDS: Metoprolol XL (24 HR) Succ 25 MG TAB.ER.24H PO SCH (08:17)
[2021-09-13] MEDS: QUEtiapine Fumarate 25 MG TABLET PO SCH ×2 (08:17→20:38)
[2021-09-13] MEDS: predniSONE 20 MG TABLET PO SCH (08:17)
[2021-09-13] MEDS: clonazePAM 0.5 MG TABLET PO SCH ×2 (08:17→20:38)
[2021-09-13] MEDS: Azithromycin 250 MG TABLET PO SCH (08:17)
[2021-09-13] MEDS: Lumateperone Tosylate [Caplyta] 42 MG Capsule PO SCH (09:28)
[2021-09-13 12:06] LABS: Hematocrit 33.4 % (37.5-50.1); Hemoglobin 10.9 g/dL (12.9-16.9); Mean Corpuscular HGB Conc 32.6 g/dL (31.6-35.5); Mean Corpuscular Hemoglobin 29.5 pg (28.0-33.3); Mean Corpuscular Volume 90.5 fL (83.0-100.0); Mean Platelet Volume 9.4 fL (9.4-12.4); Platelet Count 278 K/mcL (140-400); Red Blood Count 3.69 M/mcL (4.19-5.50); Red Cell Distribution Width 15.7 % (11.5-14.5); White Blood Count 19.1 K/mcL (4.3-11.1)
[2021-09-13 12:22] LABS: BUN/Creatinine Ratio 46 (6-26); Blood Urea Nitrogen 25 mg/dL (8-23); Calcium 9.1 mg/dL (8.6-10.3); Carbon Dioxide 31 mEq/L (23-29); Chloride 95 mEq/L (98-107); Glucose 137 mg/dL (70-105); Magnesium 1.9 mg/dL (1.6-2.6); Osmolality,Calculated 281 (280-300); Potassium 4.7 mEq/L (3.5-5.1); Sodium 132 mEq/L (136-145); eGFR For African Americans > 60 (> 60); eGFR For Non-African Americans > 60 (> 60)
[2021-09-13] MEDS: Acetaminophen 325 MG TABLET PO PRN (20:41)
[2021-09-13] MEDS: Melatonin 3 MG TABLET PO PRN (20:41)
[2021-09-14] MEDS: Ipratropium/Albuterol Neb 3 ML IH SCH ×5 (03:52→20:44)
[2021-09-14] MEDS: QUEtiapine Fumarate 25 MG TABLET PO SCH ×2 (07:30→20:08)
[2021-09-14] MEDS: predniSONE 20 MG TABLET PO SCH (07:30)
[2021-09-14] MEDS: Apixaban 5 MG TABLET PO SCH ×2 (07:31→20:08)
[2021-09-14] MEDS: clonazePAM 0.5 MG TABLET PO SCH ×2 (07:31→20:08)
[2021-09-14] MEDS: Metoprolol XL (24 HR) Succ 25 MG TAB.ER.24H PO SCH (07:31)
[2021-09-14] MEDS: Lumateperone Tosylate [Caplyta] 42 MG Capsule PO SCH (07:32)
[2021-09-14] MEDS: Budesonide/Formoterol 160/4.5 1 PUFF INH IH SCH ×2 (07:32→20:43)
[2021-09-14 10:02] LABS: Hematocrit 37.2 % (37.5-50.1); Hemoglobin 11.7 g/dL (12.9-16.9); Mean Corpuscular HGB Conc 31.5 g/dL (31.6-35.5); Mean Corpuscular Hemoglobin 29.3 pg (28.0-33.3); Mean Platelet Volume 9.2 fL (9.4-12.4); Platelet Count 268 K/mcL (140-400); Red Cell Distribution Width 15.9 % (11.5-14.5); White Blood Count 16.9 K/mcL (4.3-11.1)
[2021-09-15] MEDS: Ipratropium/Albuterol Neb 3 ML IH SCH ×7 (00:09→23:05)
[2021-09-15 00:44] LABS: Hematocrit 34.8 % (37.5-50.1); Mean Corpuscular HGB Conc 31.6 g/dL (31.6-35.5); Mean Corpuscular Hemoglobin 29.2 pg (28.0-33.3); Mean Corpuscular Volume 92.3 fL (83.0-100.0); Mean Platelet Volume 9.6 fL (9.4-12.4); Platelet Count 275 K/mcL (140-400); Red Blood Count 3.77 M/mcL (4.19-5.50); White Blood Count 15.5 K/mcL (4.3-11.1)
[2021-09-15 01:05] LABS: BUN/Creatinine Ratio 55 (6-26); Blood Urea Nitrogen 33 mg/dL (8-23); Calcium 8.3 mg/dL (8.6-10.3); Carbon Dioxide 29 mEq/L (23-29); Chloride 98 mEq/L (98-107); Glucose 126 mg/dL (70-105); Osmolality,Calculated 285 (280-300); Potassium 4.5 mEq/L (3.5-5.1); Sodium 133 mEq/L (136-145); eGFR For African Americans > 60 (> 60); eGFR For Non-African Americans > 60 (> 60)
[2021-09-15] MEDS: Acetaminophen 325 MG TABLET PO PRN ×2 (05:38→19:34)
[2021-09-15] MEDS: Budesonide/Formoterol 160/4.5 1 PUFF INH IH SCH ×2 (07:22→20:40)
[2021-09-15] MEDS: Apixaban 5 MG TABLET PO SCH ×2 (08:29→19:30)
[2021-09-15] MEDS: predniSONE 20 MG TABLET PO SCH (08:29)
[2021-09-15] MEDS: Metoprolol XL (24 HR) Succ 25 MG TAB.ER.24H PO SCH (08:29)
[2021-09-15] MEDS: QUEtiapine Fumarate 25 MG TABLET PO SCH ×2 (08:29→19:30)
[2021-09-15] MEDS: clonazePAM 0.5 MG TABLET PO SCH ×2 (08:30→19:30)
[2021-09-15] MEDS ORDERED: *HR* Dextrose 50 % in Water (Syg) 50 ML SYRINGE IVP PRN (08:33)
[2021-09-15] MEDS ORDERED: Dextrose Gel 15 GM/37.5 ML TUBE PO PRN ×2 (08:33)
[2021-09-15] MEDS ORDERED: D5% in Water 1,000 ML IVC PRN (08:33)
[2021-09-15] MEDS: Lumateperone Tosylate [Caplyta] 42 MG Capsule PO SCH (10:21)
[2021-09-15] MEDS: Insulin LISPRO 300 UNITS/3 ML VIAL SUBQ SCH ×2 (11:54→16:53)
[2021-09-15] MEDS: Melatonin 3 MG TABLET PO PRN (19:34)
[2021-09-15] MEDS ORDERED: Insulin LISPRO 300 UNITS/3 ML VIAL SUBQ SCH (21:00)
[2021-09-16 02:07] LABS: Basophils % 0.3 %; Eosinophils % 0.2 %; Hematocrit 34.7 % (37.5-50.1); Hemoglobin 11.2 g/dL (12.9-16.9); Immature Granulocytes % 1.9 % (0-4); Lymphocytes # 1.8 K/mcL (0.6-4.6); Lymphocytes % 13.7 %; Mean Corpuscular HGB Conc 32.3 g/dL (31.6-35.5); Mean Corpuscular Hemoglobin 29.3 pg (28.0-33.3); Mean Corpuscular Volume 90.8 fL (83.0-100.0); Mean Platelet Volume 8.7 fL (9.4-12.4); Monocytes # 1.2 K/mcL (0.0-1.3); Monocytes % 9.1 %; Neutrophils # 9.7 K/mcL (1.6-8.9); Platelet Count 250 K/mcL (140-400); Red Blood Count 3.82 M/mcL (4.19-5.50); Red Cell Distribution Width 15.9 % (11.5-14.5); Segmented Neutrophils % 74.8 %
[2021-09-16 02:28] LABS: BUN/Creatinine Ratio 42 (6-26); Blood Urea Nitrogen 23 mg/dL (8-23); Calcium 8.6 mg/dL (8.6-10.3); Carbon Dioxide 33 mEq/L (23-29); Chloride 98 mEq/L (98-107); Glucose 99 mg/dL (70-105); Osmolality,Calculated 280 (280-300); Potassium 4.4 mEq/L (3.5-5.1); Sodium 133 mEq/L (136-145); eGFR For African Americans > 60 (> 60); eGFR For Non-African Americans > 60 (> 60)
[2021-09-16] MEDS: Ipratropium/Albuterol Neb 3 ML IH SCH ×4 (03:58→15:52)
[2021-09-16 07:18] VITALS: TEMP 98.3; O2SAT 95
[2021-09-16] MEDS: predniSONE 20 MG TABLET PO SCH (07:24)
[2021-09-16] MEDS: Apixaban 5 MG TABLET PO SCH (07:24)
[2021-09-16] MEDS: clonazePAM 0.5 MG TABLET PO SCH (07:25)
[2021-09-16] MEDS: QUEtiapine Fumarate 25 MG TABLET PO SCH (07:25)
[2021-09-16] MEDS: Metoprolol XL (24 HR) Succ 25 MG TAB.ER.24H PO SCH (07:25)
[2021-09-16] MEDS: Lumateperone Tosylate [Caplyta] 42 MG Capsule PO SCH (07:26)
[2021-09-16] MEDS: Insulin LISPRO 300 UNITS/3 ML VIAL SUBQ SCH ×2 (07:28→11:58)
[2021-09-16] MEDS: Budesonide/Formoterol 160/4.5 1 PUFF INH IH SCH (07:54)
[2021-09-16 10:37] LABS: Influenza A PCR Negative (Negative); Influenza B PCR Negative (Negative); Resp. Syncytial Virus PCR Negative (Negative); SARS-CoV-2 by PCR (In House) Negative (Negative)
[2021-09-16 11:11] VITALS: BP 119/76; PULSE 85
== END 2021-09-16 15:50 ==
LOC: EMEROOARM 14:28 → 3NENU 14:28 → SUATTDRO 16:31 → 3NENU 18:07
PROVIDERS: ADMIT Internal Medicine; ATTEND Family Medicine

== ENCOUNTER 2021-09-24 06:40 | Observation (INO) ==
[2021-09-24] MEDS ORDERED: Azithromycin 500 MG in 0.9 % Sodium Chloride 250 ML IVPB ONE (06:48)
[2021-09-24] MEDS ORDERED: methylPREDNISolone 125 MG/2 ML VIAL IVP ONE (06:48)
[2021-09-24] MEDS ORDERED: Ipratropium/Albuterol Neb 3 ML IH ONE (06:48)
[2021-09-24 07:15] LABS: Basophils % 0.1 %; Eosinophils # 0.1 K/mcL (0.0-0.6); Eosinophils % 0.4 %; Hematocrit 37.7 % (37.5-50.1); Immature Granulocytes % 0.4 % (0-4); Lymphocytes % 4.5 %; Mean Corpuscular HGB Conc 31.8 g/dL (31.6-35.5); Mean Corpuscular Hemoglobin 29.6 pg (28.0-33.3); Mean Corpuscular Volume 92.9 fL (83.0-100.0); Mean Platelet Volume 8.9 fL (9.4-12.4); Monocytes % 4.3 %; Neutrophils # 20.4 K/mcL (1.6-8.9); Platelet Count 257 K/mcL (140-400); Red Blood Count 4.06 M/mcL (4.19-5.50); Red Cell Distribution Width 16.2 % (11.5-14.5); Segmented Neutrophils % 90.3 %; White Blood Count 22.6 K/mcL (4.3-11.1)
[2021-09-24 07:24] LABS: INR 1.1; Prothrombin Time 12.5 Seconds (9.4-12.1)
[2021-09-24 07:27] LABS: Activated Partial Thrombo Time 32.3 Seconds (26.0-36.0)
[2021-09-24 07:34] LABS: ABG Base Excess 6 mEq/L (-2 to 3); ABG HCO3 33 mEq/L (21-27); ABG Oxygen Saturation 96 % (95-98); ABG PCO2 58 mmHg (35-45); ABG PH 7.37 pH Units (7.32-7.45); ABG PO2 85 mmHg (85-104); ABG TCO2 35 mEq/L (20-26)
[2021-09-24 07:34] LABS: Alanine Aminotransferase 20 Units/L (7-52); Albumin 3.9 g/dL (3.5-5.7); Albumin/Globulin Ratio 1.7 (1.1-2.2); Alkaline Phosphatase 63 Units/L (34-104); Aspartate Amino Transferase 13 Units/L (13-39); BUN/Creatinine Ratio 17 (6-26); Bilirubin,Direct 0.2 mg/dL (0.0-0.2); Bilirubin,Indirect 0.7 mg/dL (0.0-1.0); Bilirubin,Total 0.9 mg/dL (0.3-1.0); Blood Urea Nitrogen 11 mg/dL (8-23); Calcium 9.2 mg/dL (8.6-10.3); Carbon Dioxide 36 mEq/L (23-29); Chloride 95 mEq/L (98-107); Globulin 2.3 g/dL (2.4-3.5); Glucose 92 mg/dL (70-105); Osmolality,Calculated 273 (280-300); Sodium 132 mEq/L (136-145); Total Protein 6.2 g/dL (6.4-8.9); eGFR For African Americans > 60 (> 60); eGFR For Non-African Americans > 60 (> 60)
[2021-09-24 07:35] LABS: Troponin I < 0.03 ng/mL (< 0.04)
[2021-09-24] MEDS ORDERED: Vancomycin 2,000 MG/520 ML IV.SOLN IVPB ONE (07:59)
[2021-09-24] MEDS ORDERED: Cefepime HCl 2,000 MG in 0.9 % Sodium Chloride 10 ML IVP ONE (08:00)
[2021-09-24] MEDS ORDERED: Ondansetron 4 MG/2 ML VIAL IVP PRN (08:28)
[2021-09-24] MEDS ORDERED: Naloxone 0.4 MG/ML INJ IVP PRN (08:28)
[2021-09-24] MEDS ORDERED: D5% in Water 1,000 ML IVC PRN (08:37)
[2021-09-24] MEDS ORDERED: *HR* Dextrose 50 % in Water (Syg) 50 ML SYRINGE IVP PRN (08:37)
[2021-09-24] MEDS ORDERED: Dextrose 4 GM Chewable Tablets PO PRN ×2 (08:37)
[2021-09-24] MEDS ORDERED: Vancomycin (wt based) 1,000 MG VIAL IVPB SCH (09:00)
[2021-09-24 09:38] LABS: Influenza A PCR Negative (Negative); Influenza B PCR Negative (Negative); Resp. Syncytial Virus PCR Negative (Negative); SARS-CoV-2 by PCR (In House) Negative (Negative)
[2021-09-24] MEDS: Ipratropium/Albuterol Neb 3 ML IH SCH ×4 (11:23→23:54)
[2021-09-24] MEDS: Budesonide/Formoterol 160/4.5 1 PUFF INH IH SCH ×2 (11:23→19:51)
[2021-09-24] MEDS: Insulin LISPRO 300 UNITS/3 ML VIAL SUBQ SCH ×2 (12:37→17:11)
[2021-09-24] MEDS: Metoprolol XL (24 HR) Succ 25 MG TAB.ER.24H PO SCH (12:37)
[2021-09-24] MEDS: Spironolactone 25 MG TABLET PO SCH (12:37)
[2021-09-24] MEDS: Apixaban 5 MG TABLET PO SCH ×2 (12:37→20:00)
[2021-09-24] MEDS ORDERED: *HR* LORazepam 2 MG/ML VIAL IVP ONE ×2 (15:06→20:20)
[2021-09-24] MEDS: Cefepime HCl 2,000 MG in 0.9 % Sodium Chloride 10 ML IVP SCH (15:16)
[2021-09-24] MEDS: Melatonin 3 MG TABLET PO PRN (20:01)
[2021-09-24] MEDS: Vancomycin 1,250 MG/262.5 ML IV.SOLN IVPB SCH (20:01)
[2021-09-24] MEDS: clonazePAM 0.5 MG TABLET PO SCH (20:01)
[2021-09-24] MEDS: Insulin DETEMIR 100 UNIT/ML X5UNITS SUBQ SCH (20:52)
[2021-09-25] MEDS: Cefepime HCl 2,000 MG in 0.9 % Sodium Chloride 10 ML IVP SCH ×3 (00:22→18:09)
[2021-09-25] MEDS: Ipratropium/Albuterol Neb 3 ML IH SCH ×6 (04:33→23:40)
[2021-09-25 06:07] LABS: Basophils % 0.1 %; Hematocrit 33.6 % (37.5-50.1); Hemoglobin 10.9 g/dL (12.9-16.9); Immature Granulocytes % 0.6 % (0-4); Lymphocytes % 3.3 %; Mean Corpuscular HGB Conc 32.4 g/dL (31.6-35.5); Mean Corpuscular Hemoglobin 29.5 pg (28.0-33.3); Mean Corpuscular Volume 90.8 fL (83.0-100.0); Mean Platelet Volume 9.1 fL (9.4-12.4); Monocytes # 1.5 K/mcL (0.0-1.3); Monocytes % 5.2 %; Neutrophils # 26.6 K/mcL (1.6-8.9); Platelet Count 246 K/mcL (140-400); Red Cell Distribution Width 16.3 % (11.5-14.5); Segmented Neutrophils % 90.8 %; White Blood Count 29.3 K/mcL (4.3-11.1)
[2021-09-25 06:25] LABS: BUN/Creatinine Ratio 29 (6-26); Blood Urea Nitrogen 15 mg/dL (8-23); Calcium 9.1 mg/dL (8.6-10.3); Carbon Dioxide 31 mEq/L (23-29); Chloride 98 mEq/L (98-107); Glucose 92 mg/dL (70-105); Osmolality,Calculated 276 (280-300); Potassium 4.1 mEq/L (3.5-5.1); Sodium 133 mEq/L (136-145); eGFR For African Americans > 60 (> 60); eGFR For Non-African Americans > 60 (> 60)
[2021-09-25] MEDS: Budesonide/Formoterol 160/4.5 1 PUFF INH IH SCH ×2 (08:25→19:26)
[2021-09-25 08:33] LABS: ABG Base Excess 4 mEq/L (-2 to 3); ABG HCO3 30 mEq/L (21-27); ABG Oxygen Saturation 88 % (95-98); ABG PCO2 49 mmHg (35-45); ABG PO2 55 mmHg (85-104); ABG TCO2 31 mEq/L (20-26)
[2021-09-25] MEDS: Spironolactone 25 MG TABLET PO SCH (09:03)
[2021-09-25] MEDS: Metoprolol XL (24 HR) Succ 25 MG TAB.ER.24H PO SCH (09:03)
[2021-09-25] MEDS: Apixaban 5 MG TABLET PO SCH ×2 (09:03→20:27)
[2021-09-25] MEDS: clonazePAM 0.5 MG TABLET PO SCH (09:03)
[2021-09-25] MEDS: Insulin LISPRO 300 UNITS/3 ML VIAL SUBQ SCH ×3 (09:04→18:04)
[2021-09-25] MEDS: Vancomycin 1,250 MG/262.5 ML IV.SOLN IVPB SCH (10:31)
[2021-09-25] MEDS: Acetaminophen 325 MG TABLET PO PRN (14:22)
[2021-09-25] MEDS ORDERED: QUEtiapine Fumarate 100 MG TABLET PO ONE (18:25)
[2021-09-25] MEDS ORDERED: clonazePAM 0.5 MG TABLET PO ONE (18:25)
[2021-09-25] MEDS: clonazePAM 1 MG TABLET PO SCH (20:26)
[2021-09-25] MEDS: Insulin DETEMIR 100 UNIT/ML X5UNITS SUBQ SCH (20:27)
[2021-09-25] MEDS: Vancomycin 1,500 MG/265 ML IV.SOLN IVPB SCH (20:38)
[2021-09-25] MEDS ORDERED: QUEtiapine Fumarate 100 MG TABLET PO SCH (21:00)
[2021-09-26] MEDS: Cefepime HCl 2,000 MG in 0.9 % Sodium Chloride 10 ML IVP SCH ×3 (00:42→15:07)
[2021-09-26] MEDS ORDERED: traZODone 50 MG TABLET PO ONE (02:22)
[2021-09-26] MEDS: Melatonin 3 MG TABLET PO PRN (02:24)
[2021-09-26] MEDS: Ipratropium/Albuterol Neb 3 ML IH SCH ×6 (03:25→23:57)
[2021-09-26 05:36] LABS: Basophils % 0.2 %; Eosinophils # 0.1 K/mcL (0.0-0.6); Eosinophils % 0.7 %; Hematocrit 33.3 % (37.5-50.1); Hemoglobin 10.7 g/dL (12.9-16.9); Immature Granulocytes % 0.5 % (0-4); Lymphocytes # 1.3 K/mcL (0.6-4.6); Mean Corpuscular HGB Conc 32.1 g/dL (31.6-35.5); Mean Corpuscular Hemoglobin 29.6 pg (28.0-33.3); Mean Platelet Volume 9.5 fL (9.4-12.4); Monocytes # 0.8 K/mcL (0.0-1.3); Monocytes % 4.3 %; Neutrophils # 16.7 K/mcL (1.6-8.9); Platelet Count 256 K/mcL (140-400); Red Blood Count 3.62 M/mcL (4.19-5.50); Red Cell Distribution Width 16.4 % (11.5-14.5); Segmented Neutrophils % 87.3 %; White Blood Count 19.1 K/mcL (4.3-11.1)
[2021-09-26 05:53] LABS: BUN/Creatinine Ratio 25 (6-26); Blood Urea Nitrogen 17 mg/dL (8-23); Calcium 8.7 mg/dL (8.6-10.3); Carbon Dioxide 33 mEq/L (23-29); Chloride 100 mEq/L (98-107); Glucose 110 mg/dL (70-105); Osmolality,Calculated 282 (280-300); Potassium 3.9 mEq/L (3.5-5.1); Sodium 135 mEq/L (136-145); eGFR For African Americans > 60 (> 60); eGFR For Non-African Americans > 60 (> 60)
[2021-09-26] MEDS: Acetaminophen 325 MG TABLET PO PRN (05:53)
[2021-09-26] MEDS: Budesonide/Formoterol 160/4.5 1 PUFF INH IH SCH ×2 (07:52→19:41)
[2021-09-26] MEDS: Insulin LISPRO 300 UNITS/3 ML VIAL SUBQ SCH ×3 (08:13→17:02)
[2021-09-26] MEDS: Metoprolol XL (24 HR) Succ 25 MG TAB.ER.24H PO SCH (08:14)
[2021-09-26] MEDS: Apixaban 5 MG TABLET PO SCH ×2 (08:14→20:20)
[2021-09-26] MEDS: clonazePAM 1 MG TABLET PO SCH ×2 (08:14→20:20)
[2021-09-26] MEDS: QUEtiapine Fumarate 100 MG TABLET PO SCH ×2 (08:15→20:20)
[2021-09-26] MEDS: Spironolactone 25 MG TABLET PO SCH (08:15)
[2021-09-26] MEDS: Vancomycin 1,500 MG/265 ML IV.SOLN IVPB SCH ×2 (08:16→20:21)
[2021-09-26 10:10] LABS: Estimated Average Glucose 114 mg/dl; Hemoglobin A1C 5.6 %
[2021-09-26] MEDS: CAPLYTA 42 MG PO SCH (13:49)
[2021-09-26] MEDS: Insulin DETEMIR 100 UNIT/ML X5UNITS SUBQ SCH (20:30)
[2021-09-27] MEDS: Cefepime HCl 2,000 MG in 0.9 % Sodium Chloride 10 ML IVP SCH
[2021-09-27] MEDS: Ipratropium/Albuterol Neb 3 ML IH SCH ×6 (03:51→23:32)
[2021-09-27] MEDS: Budesonide/Formoterol 160/4.5 1 PUFF INH IH SCH ×2 (07:32→19:50)
[2021-09-27] MEDS: Insulin LISPRO 300 UNITS/3 ML VIAL SUBQ SCH ×3 (08:17→17:32)
[2021-09-27] MEDS: clonazePAM 1 MG TABLET PO SCH ×2 (08:22→20:09)
[2021-09-27] MEDS: Doxycycline 100 MG CAPSULE PO SCH ×2 (08:22→20:09)
[2021-09-27] MEDS: Cefdinir 300 MG CAPSULE PO SCH ×2 (08:22→20:09)
[2021-09-27] MEDS: Apixaban 5 MG TABLET PO SCH ×2 (08:23→20:09)
[2021-09-27] MEDS: Metoprolol XL (24 HR) Succ 25 MG TAB.ER.24H PO SCH (08:23)
[2021-09-27] MEDS: CAPLYTA 42 MG PO SCH (08:23)
[2021-09-27] MEDS: Spironolactone 25 MG TABLET PO SCH (08:23)
[2021-09-27] MEDS: QUEtiapine Fumarate 100 MG TABLET PO SCH ×2 (08:23→20:09)
[2021-09-27 16:38] LABS: Basophils % 0.2 %; Eosinophils # 0.3 K/mcL (0.0-0.6); Eosinophils % 2.8 %; Hematocrit 34.5 % (37.5-50.1); Hemoglobin 11.1 g/dL (12.9-16.9); Immature Granulocytes % 0.5 % (0-4); Lymphocytes # 1.2 K/mcL (0.6-4.6); Lymphocytes % 11.7 %; Mean Corpuscular HGB Conc 32.2 g/dL (31.6-35.5); Mean Corpuscular Hemoglobin 29.2 pg (28.0-33.3); Mean Corpuscular Volume 90.8 fL (83.0-100.0); Mean Platelet Volume 8.8 fL (9.4-12.4); Monocytes # 0.9 K/mcL (0.0-1.3); Monocytes % 9.3 %; Neutrophils # 7.5 K/mcL (1.6-8.9); Platelet Count 257 K/mcL (140-400); Red Cell Distribution Width 16.3 % (11.5-14.5); Segmented Neutrophils % 75.5 %; White Blood Count 9.9 K/mcL (4.3-11.1)
[2021-09-27 16:54] LABS: BUN/Creatinine Ratio 23 (6-26); Blood Urea Nitrogen 12 mg/dL (8-23); Carbon Dioxide 37 mEq/L (23-29); Chloride 99 mEq/L (98-107); Glucose 94 mg/dL (70-105); Osmolality,Calculated 284 (280-300); Sodium 137 mEq/L (136-145); eGFR For African Americans > 60 (> 60); eGFR For Non-African Americans > 60 (> 60)
[2021-09-28] MEDS: Melatonin 3 MG TABLET PO PRN (01:23)
[2021-09-28] MEDS: Ipratropium/Albuterol Neb 3 ML IH SCH ×5 (03:53→16:55)
[2021-09-28] MEDS: Budesonide/Formoterol 160/4.5 1 PUFF INH IH SCH (07:50)
[2021-09-28] MEDS: Insulin LISPRO 300 UNITS/3 ML VIAL SUBQ SCH ×3 (08:04→17:10)
[2021-09-28] MEDS: Cefdinir 300 MG CAPSULE PO SCH (08:05)
[2021-09-28] MEDS: Doxycycline 100 MG CAPSULE PO SCH (08:06)
[2021-09-28] MEDS: Apixaban 5 MG TABLET PO SCH (08:06)
[2021-09-28] MEDS: clonazePAM 1 MG TABLET PO SCH (08:06)
[2021-09-28] MEDS: CAPLYTA 42 MG PO SCH (08:06)
[2021-09-28] MEDS: Spironolactone 25 MG TABLET PO SCH (08:06)
[2021-09-28] MEDS: Metoprolol XL (24 HR) Succ 25 MG TAB.ER.24H PO SCH (08:06)
[2021-09-28] MEDS: QUEtiapine Fumarate 100 MG TABLET PO SCH (08:06)
[2021-09-28 14:48] VITALS: BP 117/73; PULSE 80; TEMP 97.9; O2SAT 97
== END 2021-09-28 19:19 | disposition home health service (06) ==
LOC: EMEROOARM 06:40 → 3ANU 06:40 → SUATTDRO 10:20 → 3ANU 11:37
PROVIDERS: ADMIT Hospitalist; ATTEND Internal Medicine

== ENCOUNTER 2021-10-23 14:43 | Observation (INO) ==
[2021-10-23] MEDS ORDERED: Ipratropium/Albuterol Neb 3 ML IH ONE (14:48)
[2021-10-23] MEDS ORDERED: methylPREDNISolone 125 MG/2 ML VIAL IVP ONE (14:48)
[2021-10-23 15:17] LABS: Basophils # 0.1 K/mcL (0.0-0.2); Basophils % 0.4 %; Eosinophils # 0.2 K/mcL (0.0-0.6); Eosinophils % 1.9 %; Hematocrit 32.7 % (37.5-50.1); Hemoglobin 10.5 g/dL (12.9-16.9); Immature Granulocytes % 0.6 % (0-4); Lymphocytes # 1.3 K/mcL (0.6-4.6); Lymphocytes % 11.5 %; Mean Corpuscular HGB Conc 32.1 g/dL (31.6-35.5); Mean Corpuscular Hemoglobin 28.3 pg (28.0-33.3); Mean Corpuscular Volume 88.1 fL (83.0-100.0); Mean Platelet Volume 8.8 fL (9.4-12.4); Monocytes # 1.5 K/mcL (0.0-1.3); Monocytes % 12.9 %; Neutrophils # 8.3 K/mcL (1.6-8.9); Platelet Count 299 K/mcL (140-400); Red Blood Count 3.71 M/mcL (4.19-5.50); Red Cell Distribution Width 15.5 % (11.5-14.5); Segmented Neutrophils % 72.7 %; White Blood Count 11.4 K/mcL (4.3-11.1)
[2021-10-23 15:58] LABS: BUN/Creatinine Ratio 18 (6-26); Blood Urea Nitrogen 12 mg/dL (8-23); Calcium 9.4 mg/dL (8.6-10.3); Carbon Dioxide 30 mEq/L (23-29); Chloride 97 mEq/L (98-107); Glucose 102 mg/dL (70-105); Osmolality,Calculated 278 (280-300); Potassium 4.3 mEq/L (3.5-5.1); Sodium 134 mEq/L (136-145); Troponin I < 0.03 ng/mL (< 0.04); eGFR For African Americans > 60 (> 60); eGFR For Non-African Americans > 60 (> 60)
[2021-10-23] MEDS ORDERED: cefTRIAXone 1,000 MG in 0.9 % Sodium Chloride 10 ML IVP ONE (16:20)
[2021-10-23] MEDS ORDERED: Azithromycin 500 MG in 0.9 % Sodium Chloride 250 ML IVPB ONE (16:31)
[2021-10-23] MEDS ORDERED: Ondansetron 4 MG/2 ML VIAL IVP PRN (16:56)
[2021-10-23] MEDS ORDERED: Naloxone 0.4 MG/ML INJ IVP PRN (16:56)
[2021-10-23 18:05] LABS: Influenza A PCR Negative (Negative); Influenza B PCR Negative (Negative); Resp. Syncytial Virus PCR Negative (Negative)
[2021-10-23 18:07] LABS: SARS-CoV-2 by PCR (In House) Negative (Negative)
[2021-10-23] MEDS: Albuterol 2.5 MG/3 ML NEBULIZER IH SCH ×2 (20:15→23:24)
[2021-10-24] MEDS ORDERED: Acetaminophen 325 MG TABLET PO ONE (00:14)
[2021-10-24] MEDS: Melatonin 3 MG TABLET PO SCH ×2 (00:24→20:13)
[2021-10-24] MEDS: Saline Nasal Spray 44 ML BOTTLE NS PRN ×2 (00:25→04:54)
[2021-10-24] MEDS: hydrOXYzine pamoate 25 MG CAPSULE PO PRN ×2 (01:39→20:13)
[2021-10-24] MEDS: clonazePAM 0.5 MG TABLET PO SCH ×3 (01:39→20:14)
[2021-10-24 03:04] LABS: Basophils % 0.1 %; Hematocrit 32.4 % (37.5-50.1); Hemoglobin 10.6 g/dL (12.9-16.9); Immature Granulocytes % 0.7 % (0-4); Lymphocytes # 0.3 K/mcL (0.6-4.6); Lymphocytes % 2.7 %; Mean Corpuscular HGB Conc 32.7 g/dL (31.6-35.5); Mean Corpuscular Volume 88.5 fL (83.0-100.0); Mean Platelet Volume 9.1 fL (9.4-12.4); Monocytes # 0.1 K/mcL (0.0-1.3); Monocytes % 0.5 %; Neutrophils # 10.6 K/mcL (1.6-8.9); Platelet Count 326 K/mcL (140-400); Red Blood Count 3.66 M/mcL (4.19-5.50); Red Cell Distribution Width 15.6 % (11.5-14.5); White Blood Count 11.1 K/mcL (4.3-11.1)
[2021-10-24 03:13] LABS: BUN/Creatinine Ratio 24 (6-26); Blood Urea Nitrogen 18 mg/dL (8-23); Calcium 9.2 mg/dL (8.6-10.3); Carbon Dioxide 23 mEq/L (23-29); Chloride 97 mEq/L (98-107); Glucose 290 mg/dL (70-105); Osmolality,Calculated 285 (280-300); Potassium 4.1 mEq/L (3.5-5.1); Sodium 131 mEq/L (136-145); eGFR For African Americans > 60 (> 60); eGFR For Non-African Americans > 60 (> 60)
[2021-10-24] MEDS: Albuterol 2.5 MG/3 ML NEBULIZER IH SCH ×5 (03:48→20:21)
[2021-10-24] MEDS: Apixaban 5 MG TABLET PO SCH ×2 (08:40→20:13)
[2021-10-24] MEDS: levoFLOXacin 750 MG/150 ML 750 MG/150 ML BAG IVPB SCH (08:40)
[2021-10-24] MEDS: MethylPREDNISolone 40 MG/ML VIAL IVP SCH (08:41)
[2021-10-24] MEDS ORDERED: traZODone 50 MG TABLET PO ONE (21:20)
[2021-10-25] MEDS: Albuterol 2.5 MG/3 ML NEBULIZER IH SCH ×7 (00:14→23:49)
[2021-10-25] MEDS ORDERED: methylPREDNISolone 125 MG/2 ML VIAL IVP ONE (01:08)
[2021-10-25] MEDS: hydrOXYzine pamoate 25 MG CAPSULE PO PRN ×2 (02:25→15:01)
[2021-10-25] MEDS: levoFLOXacin 750 MG/150 ML 750 MG/150 ML BAG IVPB SCH (07:26)
[2021-10-25] MEDS: Apixaban 5 MG TABLET PO SCH ×2 (07:27→20:48)
[2021-10-25] MEDS: clonazePAM 0.5 MG TABLET PO SCH ×2 (07:27→20:48)
[2021-10-25] MEDS: MethylPREDNISolone 40 MG/ML VIAL IVP SCH (07:27)
[2021-10-25] MEDS ORDERED: Budesonide/Formoterol 160/4.5 1 PUFF INH IH PRN (07:49)
[2021-10-25] MEDS: Furosemide 20 MG TABLET PO SCH (09:14)
[2021-10-25] MEDS: Metoprolol XL (24 HR) Succ 25 MG TAB.ER.24H PO SCH (09:14)
[2021-10-25] MEDS: QUEtiapine Fumarate 100 MG TABLET PO SCH ×2 (09:15→20:48)
[2021-10-25] MEDS: Melatonin 3 MG TABLET PO SCH (20:48)
[2021-10-25] MEDS: Saline Nasal Spray 44 ML BOTTLE NS PRN (20:50)
[2021-10-26] MEDS: hydrOXYzine pamoate 25 MG CAPSULE PO PRN (00:30)
[2021-10-26] MEDS: Albuterol 2.5 MG/3 ML NEBULIZER IH SCH ×3 (04:02→11:06)
[2021-10-26] MEDS: QUEtiapine Fumarate 100 MG TABLET PO SCH (08:22)
[2021-10-26] MEDS: MethylPREDNISolone 40 MG/ML VIAL IVP SCH (08:22)
[2021-10-26] MEDS: Apixaban 5 MG TABLET PO SCH (08:23)
[2021-10-26] MEDS: Metoprolol XL (24 HR) Succ 25 MG TAB.ER.24H PO SCH (08:23)
[2021-10-26] MEDS: Furosemide 20 MG TABLET PO SCH (08:23)
[2021-10-26] MEDS: clonazePAM 0.5 MG TABLET PO SCH (08:23)
[2021-10-26 11:35] VITALS: BP 146/76; PULSE 86; TEMP 98; O2SAT 95
== END 2021-10-26 13:56 | disposition home or self-care (01) ==
LOC: 3ANU 14:43 → EMEROOARM 14:43 → 3ANU 18:33
PROVIDERS: ADMIT Internal Medicine; ATTEND Internal Medicine

== ENCOUNTER 2021-10-26 19:33 | Observation (INO) ==
[2021-10-27] MEDS ORDERED: Albuterol 2.5 MG/3 ML NEBULIZER IH ONE ×2 (02:36→04:53)
[2021-10-27 02:53] LABS: Basophils % 0.2 %; Eosinophils % 0.2 %; Hematocrit 36.5 % (37.5-50.1); Hemoglobin 11.9 g/dL (12.9-16.9); Immature Granulocytes % 0.6 % (0-4); Lymphocytes # 2.5 K/mcL (0.6-4.6); Lymphocytes % 11.1 %; Mean Corpuscular HGB Conc 32.6 g/dL (31.6-35.5); Mean Corpuscular Hemoglobin 28.4 pg (28.0-33.3); Mean Corpuscular Volume 87.1 fL (83.0-100.0); Mean Platelet Volume 8.7 fL (9.4-12.4); Monocytes # 1.9 K/mcL (0.0-1.3); Monocytes % 8.4 %; Neutrophils # 17.9 K/mcL (1.6-8.9); Platelet Count 323 K/mcL (140-400); Red Blood Count 4.19 M/mcL (4.19-5.50); Red Cell Distribution Width 15.8 % (11.5-14.5); Segmented Neutrophils % 79.5 %
[2021-10-27 02:57] LABS: Basophils # 0.1 K/mcL (0.0-0.2); Eosinophils # 0.1 K/mcL (0.0-0.6); White Blood Count 22.5 K/mcL (4.3-11.1)
[2021-10-27 03:27] LABS: BUN/Creatinine Ratio 34 (6-26); Blood Urea Nitrogen 22 mg/dL (8-23); Calcium 9.6 mg/dL (8.6-10.3); Carbon Dioxide 29 mEq/L (23-29); Chloride 98 mEq/L (98-107); Glucose 87 mg/dL (70-105); Osmolality,Calculated 279 (280-300); Potassium 4.1 mEq/L (3.5-5.1); Sodium 133 mEq/L (136-145); Troponin I < 0.03 ng/mL (< 0.04); eGFR For African Americans > 60 (> 60); eGFR For Non-African Americans > 60 (> 60)
[2021-10-27] MEDS ORDERED: levoFLOXacin 750 MG/150 ML 750 MG/150 ML BAG IVPB ONE (03:49)
[2021-10-27] MEDS ORDERED: Ipratropium/Albuterol Neb 3 ML IH ONE (04:53)
[2021-10-27] MEDS ORDERED: Naloxone 0.4 MG/ML INJ IVP PRN (08:30)
[2021-10-27] MEDS: Budesonide/Formoterol 160/4.5 1 PUFF INH IH SCH ×2 (09:48→20:18)
[2021-10-27] MEDS: Ipratropium/Albuterol Neb 3 ML IH SCH ×3 (09:48→20:18)
[2021-10-27] MEDS: predniSONE 20 MG TABLET PO SCH (10:02)
[2021-10-27] MEDS: clonazePAM 0.5 MG TABLET PO SCH ×2 (10:02→22:39)
[2021-10-27] MEDS: Apixaban 5 MG TABLET PO SCH ×2 (10:02→22:38)
[2021-10-27] MEDS: Melatonin 3 MG TABLET PO SCH (22:38)
[2021-10-27] MEDS: QUEtiapine Fumarate 100 MG TABLET PO SCH (22:38)
[2021-10-28] MEDS: Ipratropium/Albuterol Neb 3 ML IH SCH ×4 (04:19→20:37)
[2021-10-28 05:31] LABS: Basophils % 0.2 %; Eosinophils # 0.2 K/mcL (0.0-0.6); Eosinophils % 1.3 %; Hematocrit 38.1 % (37.5-50.1); Hemoglobin 12.7 g/dL (12.9-16.9); Immature Granulocytes % 0.6 % (0-4); Lymphocytes # 2.8 K/mcL (0.6-4.6); Lymphocytes % 16.6 %; Mean Corpuscular HGB Conc 33.3 g/dL (31.6-35.5); Mean Corpuscular Hemoglobin 29.1 pg (28.0-33.3); Mean Corpuscular Volume 87.4 fL (83.0-100.0); Mean Platelet Volume 9.1 fL (9.4-12.4); Monocytes # 1.4 K/mcL (0.0-1.3); Monocytes % 8.2 %; Neutrophils # 12.1 K/mcL (1.6-8.9); Platelet Count 281 K/mcL (140-400); Red Blood Count 4.36 M/mcL (4.19-5.50); Red Cell Distribution Width 15.2 % (11.5-14.5); Segmented Neutrophils % 73.1 %; White Blood Count 16.6 K/mcL (4.3-11.1)
[2021-10-28 05:49] LABS: BUN/Creatinine Ratio 20 (6-26); Blood Urea Nitrogen 13 mg/dL (8-23); Calcium 9.6 mg/dL (8.6-10.3); Carbon Dioxide 28 mEq/L (23-29); Chloride 94 mEq/L (98-107); Potassium 3.9 mEq/L (3.5-5.1); Sodium 130 mEq/L (136-145); eGFR For African Americans > 60 (> 60); eGFR For Non-African Americans > 60 (> 60)
[2021-10-28 08:41] LABS: Glucose 82 mg/dL (70-105); Osmolality,Calculated 269 (280-300)
[2021-10-28] MEDS: QUEtiapine Fumarate 100 MG TABLET PO SCH ×2 (08:46→20:57)
[2021-10-28] MEDS: Metoprolol XL (24 HR) Succ 25 MG TAB.ER.24H PO SCH (08:46)
[2021-10-28] MEDS: Furosemide 20 MG TABLET PO SCH (08:47)
[2021-10-28] MEDS: levoFLOXacin 750 MG TABLET PO SCH (08:47)
[2021-10-28] MEDS: Apixaban 5 MG TABLET PO SCH ×2 (08:47→20:57)
[2021-10-28] MEDS: clonazePAM 0.5 MG TABLET PO SCH ×2 (08:47→20:57)
[2021-10-28] MEDS: predniSONE 20 MG TABLET PO SCH (08:48)
[2021-10-28] MEDS: LUMATEPERONE TOSYLATE 42 MG PO SCH (08:49)
[2021-10-28] MEDS: Chlorhexidine Rinse 15 ML MOUTHWASH MM SCH ×2 (08:51→20:57)
[2021-10-28] MEDS: Lactobacillus 1 EACH CAP.SPRINK PO SCH ×2 (08:51→20:57)
[2021-10-28] MEDS: Budesonide/Formoterol 160/4.5 1 PUFF INH IH SCH ×2 (10:48→20:37)
[2021-10-28] MEDS ORDERED: Saline Nasal Spray 44 ML BOTTLE NS PRN (18:07)
[2021-10-28] MEDS ORDERED: Saliva Stimulant 44.3ml BOTTLE PO PRN (18:07)
[2021-10-28] MEDS ORDERED: Dextrose 4 GM Chewable Tablets PO PRN ×2 (18:14)
[2021-10-28] MEDS ORDERED: *HR* Dextrose 50 % in Water (Syg) 50 ML SYRINGE IVP PRN (18:14)
[2021-10-28] MEDS ORDERED: D5% in Water 1,000 ML IVC PRN (18:14)
[2021-10-28] MEDS: Artificial Tears SOLN 15 ML BOTTLE BOTH EYES SCH (20:57)
[2021-10-28] MEDS: Melatonin 3 MG TABLET PO SCH (20:57)
[2021-10-29 01:57] LABS: Basophils % 0.1 %; Eosinophils # 0.1 K/mcL (0.0-0.6); Eosinophils % 0.7 %; Hematocrit 36.2 % (37.5-50.1); Hemoglobin 11.9 g/dL (12.9-16.9); Immature Granulocytes % 0.5 % (0-4); Lymphocytes # 1.4 K/mcL (0.6-4.6); Lymphocytes % 10.5 %; Mean Corpuscular HGB Conc 32.9 g/dL (31.6-35.5); Mean Corpuscular Hemoglobin 28.5 pg (28.0-33.3); Mean Corpuscular Volume 86.6 fL (83.0-100.0); Mean Platelet Volume 8.8 fL (9.4-12.4); Monocytes # 1.1 K/mcL (0.0-1.3); Monocytes % 8.1 %; Neutrophils # 10.8 K/mcL (1.6-8.9); Platelet Count 276 K/mcL (140-400); Red Blood Count 4.18 M/mcL (4.19-5.50); Red Cell Distribution Width 15.2 % (11.5-14.5); Segmented Neutrophils % 80.1 %; White Blood Count 13.5 K/mcL (4.3-11.1)
[2021-10-29 02:12] LABS: BUN/Creatinine Ratio 24 (6-26); Blood Urea Nitrogen 16 mg/dL (8-23); Calcium 9.1 mg/dL (8.6-10.3); Carbon Dioxide 26 mEq/L (23-29); Chloride 99 mEq/L (98-107); Glucose 158 mg/dL (70-105); Magnesium 1.9 mg/dL (1.6-2.6); Osmolality,Calculated 278 (280-300); Phosphorous 2.5 mg/dL (2.7-4.5); Potassium 3.6 mEq/L (3.5-5.1); Sodium 132 mEq/L (136-145); eGFR For African Americans > 60 (> 60); eGFR For Non-African Americans > 60 (> 60)
[2021-10-29 02:22] LABS: Procalcitonin 0.02 ng/mL (0.00-0.15)
[2021-10-29 07:09] LABS: % Iron Saturation 9 % (20-55); Iron 39 mcg/dL (65-175); Transferrin 298 mg/dL (203-362)
[2021-10-29 07:18] LABS: Ferritin 23 ng/mL (20-250)
[2021-10-29 07:23] LABS: Folate 8.1 ng/mL (3.0-16.0)
[2021-10-29] MEDS: Budesonide/Formoterol 160/4.5 1 PUFF INH IH SCH ×2 (07:57→19:41)
[2021-10-29] MEDS: Ipratropium/Albuterol Neb 3 ML IH SCH ×4 (07:57→19:42)
[2021-10-29] MEDS: Insulin LISPRO 300 UNITS/3 ML VIAL SUBQ SCH ×3 (08:09→17:42)
[2021-10-29] MEDS: Lactobacillus 1 EACH CAP.SPRINK PO SCH ×2 (08:11→20:02)
[2021-10-29] MEDS: Apixaban 5 MG TABLET PO SCH ×2 (08:11→20:02)
[2021-10-29] MEDS: Furosemide 20 MG TABLET PO SCH (08:11)
[2021-10-29] MEDS: predniSONE 20 MG TABLET PO SCH (08:11)
[2021-10-29] MEDS: levoFLOXacin 750 MG TABLET PO SCH (08:11)
[2021-10-29] MEDS: Multivit/Ca/Min/Fe/FA 1 TAB TABLET PO SCH (08:11)
[2021-10-29] MEDS: Metoprolol XL (24 HR) Succ 25 MG TAB.ER.24H PO SCH (08:11)
[2021-10-29] MEDS: QUEtiapine Fumarate 100 MG TABLET PO SCH ×2 (08:11→20:02)
[2021-10-29] MEDS: Chlorhexidine Rinse 15 ML MOUTHWASH MM SCH ×2 (08:11→20:02)
[2021-10-29] MEDS: clonazePAM 0.5 MG TABLET PO SCH ×2 (08:12→20:03)
[2021-10-29] MEDS: Artificial Tears SOLN 15 ML BOTTLE BOTH EYES SCH ×4 (08:12→20:01)
[2021-10-29] MEDS: LUMATEPERONE TOSYLATE 42 MG PO SCH (08:16)
[2021-10-29] MEDS ORDERED: Multivit/Ca/Min/Fe/FA 1 TAB TABLET PO SCH (09:00)
[2021-10-29] MEDS ORDERED: Iron Sucrose Complex 400 MG in 0.9 % Sodium Chloride 250 ML IVPB ONE (09:31)
[2021-10-29] MEDS: Melatonin 3 MG TABLET PO SCH (20:02)
[2021-10-29] MEDS: hydrOXYzine pamoate 25 MG CAPSULE PO PRN (20:02)
[2021-10-30] MEDS: Ipratropium/Albuterol Neb 3 ML IH SCH ×4 (03:44→20:12)
[2021-10-30] MEDS: hydrOXYzine pamoate 25 MG CAPSULE PO PRN (06:01)
[2021-10-30] MEDS: Insulin LISPRO 300 UNITS/3 ML VIAL SUBQ SCH ×3 (07:17→17:01)
[2021-10-30 07:43] LABS: Basophils % 0.3 %; Eosinophils # 0.6 K/mcL (0.0-0.6); Hematocrit 33.6 % (37.5-50.1); Hemoglobin 11.1 g/dL (12.9-16.9); Immature Granulocytes % 0.7 % (0-4); Lymphocytes # 1.7 K/mcL (0.6-4.6); Lymphocytes % 10.7 %; Mean Corpuscular Hemoglobin 28.8 pg (28.0-33.3); Mean Corpuscular Volume 87.3 fL (83.0-100.0); Mean Platelet Volume 9.3 fL (9.4-12.4); Monocytes # 1.5 K/mcL (0.0-1.3); Monocytes % 9.8 %; Neutrophils # 11.7 K/mcL (1.6-8.9); Platelet Count 278 K/mcL (140-400); Red Blood Count 3.85 M/mcL (4.19-5.50); Red Cell Distribution Width 15.7 % (11.5-14.5); Segmented Neutrophils % 74.5 %; White Blood Count 15.7 K/mcL (4.3-11.1)
[2021-10-30] MEDS: Budesonide/Formoterol 160/4.5 1 PUFF INH IH SCH ×2 (07:59→20:13)
[2021-10-30 08:00] LABS: BUN/Creatinine Ratio 18 (6-26); Blood Urea Nitrogen 12 mg/dL (8-23); Calcium 8.8 mg/dL (8.6-10.3); Carbon Dioxide 31 mEq/L (23-29); Chloride 98 mEq/L (98-107); Glucose 88 mg/dL (70-105); Magnesium 1.9 mg/dL (1.6-2.6); Osmolality,Calculated 275 (280-300); Phosphorous 3.4 mg/dL (2.7-4.5); Sodium 133 mEq/L (136-145); eGFR For African Americans > 60 (> 60); eGFR For Non-African Americans > 60 (> 60)
[2021-10-30] MEDS: predniSONE 20 MG TABLET PO SCH (08:09)
[2021-10-30] MEDS: Chlorhexidine Rinse 15 ML MOUTHWASH MM SCH ×2 (08:09→20:13)
[2021-10-30] MEDS: Multivit/Ca/Min/Fe/FA 1 TAB TABLET PO SCH (08:09)
[2021-10-30] MEDS: Lactobacillus 1 EACH CAP.SPRINK PO SCH ×2 (08:10→20:13)
[2021-10-30] MEDS: Metoprolol XL (24 HR) Succ 25 MG TAB.ER.24H PO SCH (08:10)
[2021-10-30] MEDS: Furosemide 20 MG TABLET PO SCH (08:10)
[2021-10-30] MEDS: Apixaban 5 MG TABLET PO SCH ×2 (08:10→20:13)
[2021-10-30] MEDS: levoFLOXacin 750 MG TABLET PO SCH (08:10)
[2021-10-30] MEDS: QUEtiapine Fumarate 100 MG TABLET PO SCH ×2 (08:10→20:13)
[2021-10-30] MEDS: LUMATEPERONE TOSYLATE 42 MG PO SCH (08:11)
[2021-10-30] MEDS: clonazePAM 0.5 MG TABLET PO SCH ×2 (08:11→20:13)
[2021-10-30] MEDS: Artificial Tears SOLN 15 ML BOTTLE BOTH EYES SCH ×4 (08:12→20:14)
[2021-10-30] MEDS: Melatonin 3 MG TABLET PO SCH (20:13)
[2021-10-30] MEDS ORDERED: Acetaminophen 325 MG TABLET PO ONE (21:57)
[2021-10-31] MEDS: Ipratropium/Albuterol Neb 3 ML IH SCH ×4 (03:30→20:31)
[2021-10-31 07:03] LABS: Basophils % 0.2 %; Eosinophils # 0.3 K/mcL (0.0-0.6); Eosinophils % 1.7 %; Hematocrit 36.2 % (37.5-50.1); Immature Granulocytes % 0.5 % (0-4); Lymphocytes # 2.3 K/mcL (0.6-4.6); Lymphocytes % 13.2 %; Mean Corpuscular HGB Conc 33.1 g/dL (31.6-35.5); Mean Corpuscular Hemoglobin 28.7 pg (28.0-33.3); Mean Corpuscular Volume 86.6 fL (83.0-100.0); Monocytes # 1.7 K/mcL (0.0-1.3); Monocytes % 9.7 %; Neutrophils # 13.1 K/mcL (1.6-8.9); Platelet Count 285 K/mcL (140-400); Red Blood Count 4.18 M/mcL (4.19-5.50); Red Cell Distribution Width 15.6 % (11.5-14.5); Segmented Neutrophils % 74.7 %; White Blood Count 17.5 K/mcL (4.3-11.1)
[2021-10-31] MEDS: Budesonide/Formoterol 160/4.5 1 PUFF INH IH SCH ×2 (07:53→20:31)
[2021-10-31] MEDS: Insulin LISPRO 300 UNITS/3 ML VIAL SUBQ SCH ×3 (08:15→16:45)
[2021-10-31] MEDS: clonazePAM 0.5 MG TABLET PO SCH ×2 (08:22→20:08)
[2021-10-31] MEDS: Chlorhexidine Rinse 15 ML MOUTHWASH MM SCH ×2 (08:22→20:08)
[2021-10-31] MEDS: Multivit/Ca/Min/Fe/FA 1 TAB TABLET PO SCH (08:22)
[2021-10-31] MEDS: Furosemide 20 MG TABLET PO SCH (08:22)
[2021-10-31] MEDS: Lactobacillus 1 EACH CAP.SPRINK PO SCH ×2 (08:23→20:08)
[2021-10-31] MEDS: levoFLOXacin 750 MG TABLET PO SCH (08:23)
[2021-10-31] MEDS: *HR* Metformin 500 MG TABLET PO SCH (08:23)
[2021-10-31] MEDS: Metoprolol XL (24 HR) Succ 25 MG TAB.ER.24H PO SCH (08:23)
[2021-10-31] MEDS: QUEtiapine Fumarate 100 MG TABLET PO SCH ×2 (08:23→20:08)
[2021-10-31] MEDS: predniSONE 20 MG TABLET PO SCH (08:23)
[2021-10-31] MEDS: Apixaban 5 MG TABLET PO SCH ×2 (08:23→20:08)
[2021-10-31] MEDS: Artificial Tears SOLN 15 ML BOTTLE BOTH EYES SCH ×4 (08:24→20:08)
[2021-10-31 08:27] LABS: BUN/Creatinine Ratio 21 (6-26); Blood Urea Nitrogen 15 mg/dL (8-23); Calcium 9.4 mg/dL (8.6-10.3); Carbon Dioxide 30 mEq/L (23-29); Chloride 100 mEq/L (98-107); Glucose 98 mg/dL (70-105); Osmolality,Calculated 285 (280-300); Phosphorous 3.3 mg/dL (2.7-4.5); Potassium 3.9 mEq/L (3.5-5.1); Sodium 137 mEq/L (136-145); eGFR For African Americans > 60 (> 60); eGFR For Non-African Americans > 60 (> 60)
[2021-10-31] MEDS: LUMATEPERONE TOSYLATE 42 MG PO SCH (08:34)
[2021-10-31] MEDS: Melatonin 3 MG TABLET PO SCH (20:08)
[2021-10-31] MEDS: hydrOXYzine pamoate 25 MG CAPSULE PO PRN (21:47)
[2021-11-01] MEDS ORDERED: methylPREDNISolone 125 MG/2 ML VIAL IVP ONE (03:02)
[2021-11-01] MEDS: Ipratropium/Albuterol Neb 3 ML IH SCH ×4 (03:41→20:14)
[2021-11-01 05:06] LABS: Hematocrit 35.6 % (37.5-50.1); Hemoglobin 11.8 g/dL (12.9-16.9); Mean Corpuscular HGB Conc 33.1 g/dL (31.6-35.5); Mean Corpuscular Hemoglobin 29.1 pg (28.0-33.3); Mean Corpuscular Volume 87.9 fL (83.0-100.0); Mean Platelet Volume 9.1 fL (9.4-12.4); Platelet Count 302 K/mcL (140-400); Red Blood Count 4.05 M/mcL (4.19-5.50); Red Cell Distribution Width 15.5 % (11.5-14.5); White Blood Count 24.6 K/mcL (4.3-11.1)
[2021-11-01 05:24] LABS: BUN/Creatinine Ratio 23 (6-26); Blood Urea Nitrogen 16 mg/dL (8-23); Calcium 9.2 mg/dL (8.6-10.3); Carbon Dioxide 29 mEq/L (23-29); Chloride 99 mEq/L (98-107); Glucose 90 mg/dL (70-105); Osmolality,Calculated 281 (280-300); Potassium 3.9 mEq/L (3.5-5.1); Sodium 135 mEq/L (136-145); eGFR For African Americans > 60 (> 60); eGFR For Non-African Americans > 60 (> 60)
[2021-11-01] MEDS: Budesonide/Formoterol 160/4.5 1 PUFF INH IH SCH ×2 (07:59→20:15)
[2021-11-01] MEDS: Insulin LISPRO 300 UNITS/3 ML VIAL SUBQ SCH ×3 (08:39→17:37)
[2021-11-01] MEDS: levoFLOXacin 750 MG TABLET PO SCH (08:48)
[2021-11-01] MEDS: Lactobacillus 1 EACH CAP.SPRINK PO SCH ×2 (08:48→20:04)
[2021-11-01] MEDS: QUEtiapine Fumarate 100 MG TABLET PO SCH ×2 (08:48→20:04)
[2021-11-01] MEDS: Multivit/Ca/Min/Fe/FA 1 TAB TABLET PO SCH (08:49)
[2021-11-01] MEDS: clonazePAM 0.5 MG TABLET PO SCH ×2 (08:49→20:05)
[2021-11-01] MEDS: Metoprolol XL (24 HR) Succ 25 MG TAB.ER.24H PO SCH (08:49)
[2021-11-01] MEDS: Apixaban 5 MG TABLET PO SCH ×2 (08:49→20:05)
[2021-11-01] MEDS: *HR* Metformin 500 MG TABLET PO SCH (08:49)
[2021-11-01] MEDS: Chlorhexidine Rinse 15 ML MOUTHWASH MM SCH ×2 (08:49→20:04)
[2021-11-01] MEDS: Furosemide 20 MG TABLET PO SCH (08:49)
[2021-11-01] MEDS: LUMATEPERONE TOSYLATE 42 MG PO SCH ×2 (08:51→10:57)
[2021-11-01] MEDS: Artificial Tears SOLN 15 ML BOTTLE BOTH EYES SCH ×4 (08:51→20:04)
[2021-11-01] MEDS: Melatonin 3 MG TABLET PO SCH (20:05)
[2021-11-02] MEDS: Ipratropium/Albuterol Neb 3 ML IH SCH ×4 (04:40→20:14)
[2021-11-02 06:23] LABS: Basophils % 0.2 %; Eosinophils # 0.1 K/mcL (0.0-0.6); Eosinophils % 0.8 %; Hematocrit 34.7 % (37.5-50.1); Hemoglobin 11.1 g/dL (12.9-16.9); Immature Granulocytes % 0.7 % (0-4); Lymphocytes # 2.2 K/mcL (0.6-4.6); Lymphocytes % 14.7 %; Mean Corpuscular Hemoglobin 28.2 pg (28.0-33.3); Mean Corpuscular Volume 88.1 fL (83.0-100.0); Mean Platelet Volume 9.6 fL (9.4-12.4); Monocytes # 1.6 K/mcL (0.0-1.3); Monocytes % 10.3 %; Neutrophils # 11.2 K/mcL (1.6-8.9); Platelet Count 300 K/mcL (140-400); Red Blood Count 3.94 M/mcL (4.19-5.50); Red Cell Distribution Width 15.5 % (11.5-14.5); Segmented Neutrophils % 73.3 %; White Blood Count 15.2 K/mcL (4.3-11.1)
[2021-11-02 06:53] LABS: BUN/Creatinine Ratio 19 (6-26); Blood Urea Nitrogen 17 mg/dL (8-23); Calcium 9.4 mg/dL (8.6-10.3); Carbon Dioxide 31 mEq/L (23-29); Chloride 98 mEq/L (98-107); Glucose 87 mg/dL (70-105); Osmolality,Calculated 283 (280-300); Potassium 3.7 mEq/L (3.5-5.1); Sodium 136 mEq/L (136-145); eGFR For African Americans > 60 (> 60); eGFR For Non-African Americans > 60 (> 60)
[2021-11-02] MEDS: Insulin LISPRO 300 UNITS/3 ML VIAL SUBQ SCH ×3 (07:58→16:33)
[2021-11-02] MEDS: Artificial Tears SOLN 15 ML BOTTLE BOTH EYES SCH ×4 (09:54→21:44)
[2021-11-02] MEDS: Multivit/Ca/Min/Fe/FA 1 TAB TABLET PO SCH (09:54)
[2021-11-02] MEDS: Furosemide 20 MG TABLET PO SCH (09:54)
[2021-11-02] MEDS: Metoprolol XL (24 HR) Succ 25 MG TAB.ER.24H PO SCH (09:54)
[2021-11-02] MEDS: clonazePAM 0.5 MG TABLET PO SCH ×2 (09:55→21:45)
[2021-11-02] MEDS: *HR* Metformin 500 MG TABLET PO SCH (09:55)
[2021-11-02] MEDS: QUEtiapine Fumarate 100 MG TABLET PO SCH ×2 (09:55→21:45)
[2021-11-02] MEDS: Apixaban 5 MG TABLET PO SCH ×2 (09:55→21:45)
[2021-11-02] MEDS: Lactobacillus 1 EACH CAP.SPRINK PO SCH ×2 (09:55→21:45)
[2021-11-02] MEDS: Chlorhexidine Rinse 15 ML MOUTHWASH MM SCH ×2 (09:56→21:46)
[2021-11-02] MEDS: Budesonide/Formoterol 160/4.5 1 PUFF INH IH SCH ×2 (10:44→20:14)
[2021-11-02] MEDS: Lumateperone Tosylate [Caplyta] 42 MG Capsule PO SCH (12:17)
[2021-11-02] MEDS: hydrOXYzine pamoate 25 MG CAPSULE PO PRN (21:45)
[2021-11-02] MEDS: Melatonin 3 MG TABLET PO SCH (21:45)
[2021-11-03] MEDS: Ipratropium/Albuterol Neb 3 ML IH SCH ×4 (03:37→19:49)
[2021-11-03 04:58] LABS: Basophils % 0.3 %; Eosinophils # 0.4 K/mcL (0.0-0.6); Eosinophils % 3.9 %; Hematocrit 33.5 % (37.5-50.1); Hemoglobin 10.8 g/dL (12.9-16.9); Immature Granulocytes % 0.5 % (0-4); Lymphocytes % 18.7 %; Mean Corpuscular HGB Conc 32.2 g/dL (31.6-35.5); Mean Corpuscular Volume 90.1 fL (83.0-100.0); Mean Platelet Volume 9.3 fL (9.4-12.4); Monocytes # 1.2 K/mcL (0.0-1.3); Monocytes % 11.5 %; Platelet Count 275 K/mcL (140-400); Red Blood Count 3.72 M/mcL (4.19-5.50); Red Cell Distribution Width 15.6 % (11.5-14.5); Segmented Neutrophils % 65.1 %; White Blood Count 10.7 K/mcL (4.3-11.1)
[2021-11-03 05:13] LABS: BUN/Creatinine Ratio 25 (6-26); Blood Urea Nitrogen 18 mg/dL (8-23); Carbon Dioxide 34 mEq/L (23-29); Chloride 100 mEq/L (98-107); Glucose 96 mg/dL (70-105); Osmolality,Calculated 286 (280-300); Potassium 3.8 mEq/L (3.5-5.1); Sodium 137 mEq/L (136-145); eGFR For African Americans > 60 (> 60); eGFR For Non-African Americans > 60 (> 60)
[2021-11-03] MEDS: Insulin LISPRO 300 UNITS/3 ML VIAL SUBQ SCH ×3 (07:52→17:16)
[2021-11-03] MEDS: Chlorhexidine Rinse 15 ML MOUTHWASH MM SCH ×2 (08:26→21:43)
[2021-11-03] MEDS: Lumateperone Tosylate [Caplyta] 42 MG Capsule PO SCH (08:26)
[2021-11-03] MEDS: Artificial Tears SOLN 15 ML BOTTLE BOTH EYES SCH ×4 (08:26→21:42)
[2021-11-03] MEDS: Furosemide 20 MG TABLET PO SCH (08:27)
[2021-11-03] MEDS: clonazePAM 0.5 MG TABLET PO SCH ×2 (08:27→17:24)
[2021-11-03] MEDS: *HR* Metformin 500 MG TABLET PO SCH (08:27)
[2021-11-03] MEDS: Apixaban 5 MG TABLET PO SCH ×2 (08:27→21:42)
[2021-11-03] MEDS: Multivit/Ca/Min/Fe/FA 1 TAB TABLET PO SCH (08:27)
[2021-11-03] MEDS: Lactobacillus 1 EACH CAP.SPRINK PO SCH ×2 (08:27→21:43)
[2021-11-03] MEDS: QUEtiapine Fumarate 100 MG TABLET PO SCH ×2 (08:27→17:24)
[2021-11-03] MEDS: Metoprolol XL (24 HR) Succ 25 MG TAB.ER.24H PO SCH (08:27)
[2021-11-03] MEDS: Budesonide/Formoterol 160/4.5 1 PUFF INH IH SCH ×2 (10:48→19:49)
[2021-11-03] MEDS: Melatonin 3 MG TABLET PO SCH (21:42)
[2021-11-04] MEDS: Ipratropium/Albuterol Neb 3 ML IH SCH ×2 (03:49→07:42)
[2021-11-04 06:06] VITALS: BP 105/70; PULSE 96; TEMP 98.7
[2021-11-04] MEDS: Budesonide/Formoterol 160/4.5 1 PUFF INH IH SCH (07:42)
[2021-11-04 07:44] VITALS: O2SAT 93
[2021-11-04] MEDS: Insulin LISPRO 300 UNITS/3 ML VIAL SUBQ SCH (08:12)
[2021-11-04] MEDS: QUEtiapine Fumarate 100 MG TABLET PO SCH (08:20)
[2021-11-04] MEDS: Multivit/Ca/Min/Fe/FA 1 TAB TABLET PO SCH (08:20)
[2021-11-04] MEDS: Lactobacillus 1 EACH CAP.SPRINK PO SCH (08:20)
[2021-11-04] MEDS: *HR* Metformin 500 MG TABLET PO SCH (08:20)
[2021-11-04] MEDS: Apixaban 5 MG TABLET PO SCH (08:20)
[2021-11-04] MEDS: Metoprolol XL (24 HR) Succ 25 MG TAB.ER.24H PO SCH (08:20)
[2021-11-04] MEDS: Chlorhexidine Rinse 15 ML MOUTHWASH MM SCH (08:20)
[2021-11-04] MEDS: Furosemide 20 MG TABLET PO SCH (08:20)
[2021-11-04] MEDS: clonazePAM 0.5 MG TABLET PO SCH (08:20)
[2021-11-04] MEDS: Lumateperone Tosylate [Caplyta] 42 MG Capsule PO SCH (08:22)
[2021-11-04] MEDS: Artificial Tears SOLN 15 ML BOTTLE BOTH EYES SCH (08:22)
== END 2021-11-04 09:33 | disposition hospice, home (50) ==
LOC: 3ANU 19:33 → EMEROOARM 19:33 → SUATTDRO 10-27 08:04 → 3ANU 10-27 09:36 → UNDODISOB 11-04 09:33
PROVIDERS: ADMIT Internal Medicine; ATTEND Internal Medicine

== ENCOUNTER 2021-11-08 01:30 | Inpatient (IN) ==
[2021-11-08] MEDS ORDERED: Isovue-370 500 ML BOTTLE IVP ONE ×2 (01:46→02:23)
[2021-11-08] MEDS ORDERED: Ipratropium/Albuterol Neb 3 ML IH ONE (01:47)
[2021-11-08] MEDS ORDERED: Budesonide Neb 0.5 MG/2 ML IH ONE (01:47)
[2021-11-08 02:24] LABS: Basophils % 0.2 %; Eosinophils # 0.1 K/mcL (0.0-0.6); Eosinophils % 0.7 %; Hematocrit 31.9 % (37.5-50.1); Hemoglobin 10.3 g/dL (12.9-16.9); Immature Granulocytes % 0.5 % (0-4); Lymphocytes # 1.2 K/mcL (0.6-4.6); Lymphocytes % 6.5 %; Mean Corpuscular HGB Conc 32.3 g/dL (31.6-35.5); Mean Corpuscular Hemoglobin 29.1 pg (28.0-33.3); Mean Corpuscular Volume 90.1 fL (83.0-100.0); Mean Platelet Volume 8.9 fL (9.4-12.4); Monocytes % 10.4 %; Neutrophils # 15.4 K/mcL (1.6-8.9); Platelet Count 256 K/mcL (140-400); Red Blood Count 3.54 M/mcL (4.19-5.50); Red Cell Distribution Width 15.5 % (11.5-14.5); Segmented Neutrophils % 81.7 %; White Blood Count 18.9 K/mcL (4.3-11.1)
[2021-11-08 02:57] LABS: Alanine Aminotransferase 14 Units/L (7-52); Albumin 3.4 g/dL (3.5-5.7); Albumin/Globulin Ratio 1.5 (1.1-2.2); Alkaline Phosphatase 62 Units/L (34-104); Aspartate Amino Transferase 15 Units/L (13-39); BUN/Creatinine Ratio 17 (6-26); Bilirubin,Total 0.5 mg/dL (0.3-1.0); Blood Urea Nitrogen 12 mg/dL (8-23); Calcium 9.4 mg/dL (8.6-10.3); Carbon Dioxide 31 mEq/L (23-29); Chloride 99 mEq/L (98-107); Globulin 2.2 g/dL (2.4-3.5); Glucose 110 mg/dL (70-105); Osmolality,Calculated 280 (280-300); Potassium 3.9 mEq/L (3.5-5.1); Sodium 135 mEq/L (136-145); Total Protein 5.6 g/dL (6.4-8.9); Troponin I < 0.03 ng/mL (< 0.04); eGFR For African Americans > 60 (> 60); eGFR For Non-African Americans > 60 (> 60)
[2021-11-08] MEDS ORDERED: Naloxone 0.4 MG/ML INJ IVP PRN (04:20)
[2021-11-08] MEDS ORDERED: *HR* Dextrose 50 % in Water (Syg) 50 ML SYRINGE IVP PRN (04:21)
[2021-11-08] MEDS ORDERED: Dextrose 4 GM Chewable Tablets PO PRN ×2 (04:21)
[2021-11-08] MEDS ORDERED: D5% in Water 1,000 ML IVC PRN (04:21)
[2021-11-08] MEDS ORDERED: GuaiFENesin/Dextromethorphan TABLET PO PRN (05:37)
[2021-11-08] MEDS ORDERED: Perflutren Lipid Microsphere 1.3 ML in 0.9 % Sodium Chloride 8.7 ML IVP PRN (05:49)
[2021-11-08] MEDS: Vancomycin 1,500 MG/265 ML IV.SOLN IVPB SCH ×2 (06:00→17:14)
[2021-11-08] MEDS: hydrOXYzine pamoate 25 MG CAPSULE PO PRN ×2 (06:29→18:16)
[2021-11-08] MEDS: Cefepime HCl 2,000 MG in 0.9 % Sodium Chloride Mini Bag 100 ML IVPB SCH ×3 (06:30→21:13)
[2021-11-08] MEDS ORDERED: Budesonide/Formoterol 160/4.5 1 PUFF INH IH ONE (07:25)
[2021-11-08] MEDS: Ipratropium/Albuterol Neb 3 ML IH SCH ×5 (07:29→23:27)
[2021-11-08] MEDS: Budesonide/Formoterol 160/4.5 1 PUFF INH IH SCH ×2 (07:29→20:02)
[2021-11-08] MEDS ORDERED: Piperacillin/Tazobactam 3.375 GM in 0.9 % Sodium Chloride Mini Bag 100 ML IVPB SCH (08:00)
[2021-11-08] MEDS: predniSONE 20 MG TABLET PO SCH (08:06)
[2021-11-08] MEDS: MetroNIDAZOLE 500 MG/100 ML 500 MG/100 ML BAG IVPB SCH ×2 (08:06→16:02)
[2021-11-08] MEDS: Lactobacillus 1 EACH CAP.SPRINK PO SCH ×2 (08:06→21:20)
[2021-11-08] MEDS: Insulin LISPRO 300 UNITS/3 ML VIAL SUBQ SCH ×3 (08:06→17:14)
[2021-11-08] MEDS: Chlorhexidine Rinse 15 ML MOUTHWASH MM SCH ×2 (08:06→21:20)
[2021-11-08] MEDS: Apixaban 5 MG TABLET PO SCH ×2 (12:17→21:20)
[2021-11-08 14:06] LABS: Adenovirus Not Detected (Not Detect); Bordetella Pertussis Not Detected (Not Detect); Chlamydophila pneumoniae Not Detected (Not Detect); Coronavirus 229E Not Detected (Not Detect); Coronavirus HKU1 Not Detected (Not Detect); Coronavirus NL63 Not Detected (Not Detect); Coronavirus OC43 Not Detected (Not Detect); Human Metapneumovirus Not Detected (Not Detect); Human Rhinovirus/Enterovirus Not Detected (Not Detect); Influenza A Subtype 2009 H1 Not Detected (Not Detect); Influenza B Not Detected (Not Detect); Mycoplasma pneumoniae Not Detected (Not Detect); Parainfluenza Virus 1 Not Detected (Not Detect); Parainfluenza Virus 2 Not Detected (Not Detect); Parainfluenza Virus 3 Not Detected (Not Detect); Parainfluenza Virus 4 Not Detected (Not Detect); Respiratory Syncytial Virus Not Detected (Not Detect); SARS-CoV-2 Not Detected (Not Detect)
[2021-11-08] MEDS ORDERED: Insulin DETEMIR 100 UNIT/ML X5UNITS SUBQ SCH (21:00)
[2021-11-09] MEDS: MetroNIDAZOLE 500 MG/100 ML 500 MG/100 ML BAG IVPB SCH ×4 (00:05→23:39)
[2021-11-09] MEDS: hydrOXYzine pamoate 25 MG CAPSULE PO PRN ×2 (02:03→06:36)
[2021-11-09] MEDS: Ipratropium/Albuterol Neb 3 ML IH SCH ×5 (04:07→20:22)
[2021-11-09] MEDS: Cefepime HCl 2,000 MG in 0.9 % Sodium Chloride Mini Bag 100 ML IVPB SCH ×3 (05:48→21:00)
[2021-11-09] MEDS: Vancomycin 1,500 MG/265 ML IV.SOLN IVPB SCH ×2 (06:35→18:04)
[2021-11-09] MEDS: QUEtiapine Fumarate 100 MG TABLET PO SCH ×2 (08:11→21:04)
[2021-11-09] MEDS: predniSONE 20 MG TABLET PO SCH (08:11)
[2021-11-09] MEDS: Apixaban 5 MG TABLET PO SCH ×2 (08:11→21:05)
[2021-11-09] MEDS: clonazePAM 0.5 MG TABLET PO SCH ×2 (08:11→21:05)
[2021-11-09] MEDS: Furosemide 20 MG TABLET PO SCH (08:12)
[2021-11-09] MEDS: Metoprolol XL (24 HR) Succ 25 MG TAB.ER.24H PO SCH (08:12)
[2021-11-09] MEDS: Lactobacillus 1 EACH CAP.SPRINK PO SCH ×2 (08:12→21:04)
[2021-11-09] MEDS: Insulin LISPRO 300 UNITS/3 ML VIAL SUBQ SCH ×2 (08:12→12:36)
[2021-11-09] MEDS: Chlorhexidine Rinse 15 ML MOUTHWASH MM SCH ×2 (08:14→21:03)
[2021-11-09] MEDS: LUMATEPERONE TOSYLATE 42 MG PO SCH (08:14)
[2021-11-09] MEDS: Budesonide/Formoterol 160/4.5 1 PUFF INH IH SCH ×2 (10:48→20:22)
[2021-11-09 15:12] LABS: A.calcoaceticus-baumannii cplx Not Detected (Not Detect); Bacteroides fragilis by PCR Not Detected (Not Detect); Candida albicans by PCR Not Detected (Not Detect); Candida auris by PCR Not Detected (Not Detect); Candida glabrata by PCR Not Detected (Not Detect); Candida krusei by PCR Not Detected (Not Detect); Candida parapsilosis by PCR Not Detected (Not Detect); Candida tropicalis by PCR Not Detected (Not Detect); Crypto. neoformans/gattii PCR Not Detected (Not Detect); Enterobacter cloacae Cmplx PCR Not Detected (Not Detect); Enterobacterales by PCR Not Detected (Not Detect); Enterococcus faecalis by PCR Not Detected (Not Detect); Enterococcus faecium by PCR Not Detected (Not Detect); Escherichia coli by PCR Not Detected (Not Detect); Klebs. pneumoniae group by PCR Not Detected (Not Detect); Klebsiella aerogenes by PCR Not Detected (Not Detect); Klebsiella oxytoca by PCR Not Detected (Not Detect); Proteus by PCR Not Detected (Not Detect); Pseudomonas aeruginosa by PCR Not Detected (Not Detect); Salmonella species by PCR Not Detected (Not Detect); Serratia marcescens by PCR Not Detected (Not Detect); Staph epidermidis by PCR DETECTED (Not Detect); Staph lugdunensis by PCR Not Detected (Not Detect); Staphylococcus aureus by PCR Not Detected (Not Detect); Stenotrophomonas maltophilia Not Detected (Not Detect); Streptococcus agalactiae(B)PCR Not Detected (Not Detect); Streptococcus by PCR Not Detected (Not Detect); Streptococcus pneumoniae PCR Not Detected (Not Detect); Streptococcus pyogenes (A) PCR Not Detected (Not Detect); mecA/C Methicillin-Resist Gene DETECTED (Not Detect)
[2021-11-09] MEDS: Melatonin 3 MG TABLET PO SCH (21:03)
[2021-11-10] MEDS: Ipratropium/Albuterol Neb 3 ML IH SCH ×7 (00:15→23:50)
[2021-11-10] MEDS: Cefepime HCl 2,000 MG in 0.9 % Sodium Chloride Mini Bag 100 ML IVPB SCH ×4 (04:57→21:30)
[2021-11-10] MEDS ORDERED: Vancomycin 1,750 MG/517.5 ML IV.SOLN IVPB SCH (06:00)
[2021-11-10 06:05] LABS: Basophils # 0.1 K/mcL (0.0-0.2); Basophils % 0.4 %; Eosinophils # 0.1 K/mcL (0.0-0.6); Eosinophils % 0.9 %; Hematocrit 29.4 % (37.5-50.1); Hemoglobin 9.8 g/dL (12.9-16.9); Immature Granulocytes % 0.3 % (0-4); Lymphocytes # 1.3 K/mcL (0.6-4.6); Lymphocytes % 11.3 %; Mean Corpuscular HGB Conc 33.3 g/dL (31.6-35.5); Mean Corpuscular Hemoglobin 29.6 pg (28.0-33.3); Mean Corpuscular Volume 88.8 fL (83.0-100.0); Mean Platelet Volume 9.2 fL (9.4-12.4); Monocytes # 0.9 K/mcL (0.0-1.3); Monocytes % 7.9 %; Neutrophils # 9.1 K/mcL (1.6-8.9); Platelet Count 285 K/mcL (140-400); Red Blood Count 3.31 M/mcL (4.19-5.50); Red Cell Distribution Width 15.3 % (11.5-14.5); Segmented Neutrophils % 79.2 %; White Blood Count 11.6 K/mcL (4.3-11.1)
[2021-11-10 06:19] LABS: BUN/Creatinine Ratio 16 (6-26); Blood Urea Nitrogen 10 mg/dL (8-23); Calcium 9.1 mg/dL (8.6-10.3); Carbon Dioxide 29 mEq/L (23-29); Chloride 108 mEq/L (98-107); Glucose 98 mg/dL (70-105); Osmolality,Calculated 289 (280-300); Potassium 3.7 mEq/L (3.5-5.1); Sodium 140 mEq/L (136-145); eGFR For African Americans > 60 (> 60); eGFR For Non-African Americans > 60 (> 60)
[2021-11-10] MEDS: Budesonide/Formoterol 160/4.5 1 PUFF INH IH SCH ×2 (07:23→20:21)
[2021-11-10] MEDS: QUEtiapine Fumarate 100 MG TABLET PO SCH ×2 (08:10→21:31)
[2021-11-10] MEDS: MetroNIDAZOLE 500 MG/100 ML 500 MG/100 ML BAG IVPB SCH ×2 (08:10→15:14)
[2021-11-10] MEDS: Metoprolol XL (24 HR) Succ 25 MG TAB.ER.24H PO SCH (08:11)
[2021-11-10] MEDS: Chlorhexidine Rinse 15 ML MOUTHWASH MM SCH ×2 (08:11→21:30)
[2021-11-10] MEDS: LUMATEPERONE TOSYLATE 42 MG PO SCH (08:11)
[2021-11-10] MEDS: Apixaban 5 MG TABLET PO SCH ×2 (08:11→21:31)
[2021-11-10] MEDS: Furosemide 20 MG TABLET PO SCH (08:11)
[2021-11-10] MEDS: Lactobacillus 1 EACH CAP.SPRINK PO SCH ×2 (08:11→21:31)
[2021-11-10] MEDS: clonazePAM 0.5 MG TABLET PO SCH ×2 (08:11→21:31)
[2021-11-10] MEDS: predniSONE 20 MG TABLET PO SCH (08:11)
[2021-11-10] MEDS: hydrOXYzine pamoate 25 MG CAPSULE PO PRN (12:13)
[2021-11-10] MEDS: Melatonin 3 MG TABLET PO SCH (22:13)
[2021-11-11 03:05] LABS: Basophils % 0.2 %; Eosinophils # 0.1 K/mcL (0.0-0.6); Eosinophils % 0.5 %; Hematocrit 31.8 % (37.5-50.1); Hemoglobin 10.2 g/dL (12.9-16.9); Immature Granulocytes % 0.5 % (0-4); Lymphocytes # 1.3 K/mcL (0.6-4.6); Mean Corpuscular HGB Conc 32.1 g/dL (31.6-35.5); Mean Corpuscular Hemoglobin 28.4 pg (28.0-33.3); Mean Corpuscular Volume 88.6 fL (83.0-100.0); Mean Platelet Volume 9.1 fL (9.4-12.4); Monocytes # 0.8 K/mcL (0.0-1.3); Monocytes % 6.9 %; Neutrophils # 8.8 K/mcL (1.6-8.9); Platelet Count 303 K/mcL (140-400); Red Blood Count 3.59 M/mcL (4.19-5.50); Red Cell Distribution Width 15.2 % (11.5-14.5); Segmented Neutrophils % 79.9 %
[2021-11-11 03:32] LABS: BUN/Creatinine Ratio 18 (6-26); Blood Urea Nitrogen 12 mg/dL (8-23); Calcium 9.2 mg/dL (8.6-10.3); Carbon Dioxide 28 mEq/L (23-29); Chloride 103 mEq/L (98-107); Glucose 130 mg/dL (70-105); Osmolality,Calculated 288 (280-300); Potassium 3.6 mEq/L (3.5-5.1); Sodium 138 mEq/L (136-145); eGFR For African Americans > 60 (> 60); eGFR For Non-African Americans > 60 (> 60)
[2021-11-11] MEDS: Ipratropium/Albuterol Neb 3 ML IH SCH ×6 (04:06→23:49)
[2021-11-11] MEDS: hydrOXYzine pamoate 25 MG CAPSULE PO PRN ×3 (05:24→20:53)
[2021-11-11] MEDS: Cefepime HCl 2,000 MG in 0.9 % Sodium Chloride Mini Bag 100 ML IVPB SCH ×3 (05:54→23:56)
[2021-11-11] MEDS: Chlorhexidine Rinse 15 ML MOUTHWASH MM SCH (10:21)
[2021-11-11] MEDS: Apixaban 5 MG TABLET PO SCH ×2 (10:21→20:01)
[2021-11-11] MEDS: QUEtiapine Fumarate 100 MG TABLET PO SCH ×2 (10:21→20:01)
[2021-11-11] MEDS: clonazePAM 0.5 MG TABLET PO SCH ×2 (10:21→20:01)
[2021-11-11] MEDS: predniSONE 20 MG TABLET PO SCH (10:21)
[2021-11-11] MEDS: Lactobacillus 1 EACH CAP.SPRINK PO SCH ×2 (10:21→20:00)
[2021-11-11] MEDS: Metoprolol XL (24 HR) Succ 25 MG TAB.ER.24H PO SCH (10:22)
[2021-11-11] MEDS: LUMATEPERONE TOSYLATE 42 MG PO SCH (10:22)
[2021-11-11] MEDS: Furosemide 20 MG TABLET PO SCH (10:22)
[2021-11-11] MEDS: Budesonide/Formoterol 160/4.5 1 PUFF INH IH SCH ×2 (11:04→20:18)
[2021-11-11] MEDS: Melatonin 3 MG TABLET PO SCH (20:01)
[2021-11-12] MEDS: hydrOXYzine pamoate 25 MG CAPSULE PO PRN ×2 (02:01→08:30)
[2021-11-12] MEDS: Ipratropium/Albuterol Neb 3 ML IH SCH ×3 (03:56→11:06)
[2021-11-12] MEDS: Cefepime HCl 2,000 MG in 0.9 % Sodium Chloride Mini Bag 100 ML IVPB SCH (05:12)
[2021-11-12] MEDS: Budesonide/Formoterol 160/4.5 1 PUFF INH IH SCH (07:30)
[2021-11-12] MEDS: clonazePAM 0.5 MG TABLET PO SCH (08:29)
[2021-11-12] MEDS: Lactobacillus 1 EACH CAP.SPRINK PO SCH (08:29)
[2021-11-12] MEDS: Apixaban 5 MG TABLET PO SCH (08:29)
[2021-11-12] MEDS: predniSONE 20 MG TABLET PO SCH (08:29)
[2021-11-12] MEDS: QUEtiapine Fumarate 100 MG TABLET PO SCH (08:29)
[2021-11-12] MEDS: Furosemide 20 MG TABLET PO SCH (08:30)
[2021-11-12] MEDS: LUMATEPERONE TOSYLATE 42 MG PO SCH (08:30)
[2021-11-12] MEDS: Metoprolol XL (24 HR) Succ 25 MG TAB.ER.24H PO SCH (08:30)
[2021-11-12 11:07] VITALS: BP 89/45; PULSE 68; TEMP 97.9
[2021-11-12 11:08] VITALS: O2SAT 68
[2021-11-13 11:10] LABS: Mycoplasma pneumoniae IgG 0.17 U/L (<=0.09)
== END 2021-11-12 13:00 | disposition hospice, home (50) | DRG 871 ==
LOC: 2ANU 01:30 → EMEROOARM 01:30 → SUATTDRO 03:59 → 2ANU 04:20
PROVIDERS: ADMIT Internal Medicine; ATTEND Student in an Organized Health Care Education/Training Program